=== PATIENT | male | born 1960 | race African-American/Black ===

== ENCOUNTER 2020-09-07 11:44 | Emergency (ER) | payer OTHER ==
[~2020-09-07] VITALS: Ht 175.3 cm; Wt 113.4 kg
[~2020-09-07 11:44] MED LIST: FLOMAX0.4 MG ORAL; IBUPROFEN600 MG ORAL; NITROFURANTOIN100 M2 ORAL
--- NOTE | 2020-09-07 12:09 | NUR ---
ED Nurse Note: pt presents to ED c/o epigastric abd px X 2 weeks that has been internittent but constant in the last couple days. pt also reports N/V, denies diarrhea, denies urinary symptoms or hematemesis. pt states that the pain is non-radiating, nothing has made it better or worse, has been constant since around 0830 today. vitals are noted to be stable on triage.
[2020-09-07 12:11] VITALS: BP 124/62
[2020-09-07] MEDS ORDERED: Omnipaque-300 100ml vial INJ PRN (12:15)
[2020-09-07] MEDS ORDERED: Ketorolac 30mg Inj IV ONE (12:15)
[2020-09-07 12:52] LABS: HEMATOCRIT 49.1 % (42.0-52.0); MEAN CORPUSCULAR VOLUME 87 FL (80-99); PLATELET COUNT 244 K/UL (150-450); RED BLOOD COUNT 5.67 M/UL (4.70-6.10); RED CELL DISTRIBUTION WIDTH 14.3 % (11.6-14.8); WHITE BLOOD COUNT 6.6 K/UL (4.8-10.8)
[2020-09-07 12:58] LABS: INR 1.2 (0.9-1.1)
[2020-09-07 13:28] LABS: ANION GAP 8 mmol/L (5-15); BLOOD UREA NITROGEN 17 mg/dL (7-18); CALCIUM 8.8 MG/DL (8.5-10.1); CARBON DIOXIDE 25 MMOL/L (21-32); CHLORIDE 103 MMOL/L (98-107); CREATININE 1.2 MG/DL (0.55-1.30); POTASSIUM 3.9 MMOL/L (3.5-5.1); SODIUM 136 MMOL/L (136-145)
[2020-09-07 13:34] LABS: APPEARANCE,URINE SLIGHTLY CLOUDY; BILIRUBIN, URINE 1+ (NEGATIVE); COLOR,URINE BROWN; GLUCOSE, URINE (UA) NEGATIVE (NEGATIVE); KETONES,URINE 3+ (NEGATIVE); LEUKOCYTE ESTERASE ,URINE 1+ (NEGATIVE); NITRITE,URINE NEGATIVE (NEGATIVE); PH,URINE 5 (4.5-8.0); PROTEIN,URINE 4+ (NEGATIVE); UROBILINOGEN,URINE 8 MG/DL (0.0-1.0)
[2020-09-07 13:36] LABS: ALANINE AMINOTRANSFERASE 44 U/L (12-78); ALBUMIN 3.4 G/DL (3.4-5.0); ALBUMIN/GLOBULIN RATIO 0.8 (1.0-2.7); ALKALINE PHOSPHATASE 73 U/L (46-116); ASPARTATE AMINO TRANSFERASE 21 U/L (15-37); BILIRUBIN,TOTAL 0.9 MG/DL (0.2-1.0); CREATINE KINASE 145 U/L (26-308)
--- NOTE | 2020-09-07 14:00 | NUR ---
ED Nurse Note: pt gave verbal approval to update father (Neil) on his condition and lab/radiology results
--- NOTE | 2020-09-07 14:46 | Diagnostic Imaging Report ---
CT ABDOMEN AND PELVIS WITH CONTRAST INDICATION: Abdominal pain TECHNIQUE: Continuous helical transaxial imaging of the abdomen and pelvis was obtained from the lung bases to the pubic symphysis during intravenous contrast administration. Coronal 2-D reformats were also obtained. Study obtained in a Siemens sensation [address] Automatic Exposure Control was utilized. Total Dose length Product (DLP): 1081.[address] Dose Index Volume (CTDIvol): 20.9 mGy COMPARISON: None FINDINGS: Lower chest:: Small right pleural effusion. Moderate cardiomegaly. Hepatobiliary:: Unremarkable. Genitourinary:: Urinary bladder is under distended, limiting evaluation. No hydronephrosis or nephrolithiasis. Bilateral renal cysts. Adrenals:: Right adrenal gland is unremarkable. Adjacent to the left adrenal gland, there is a 4.1 x 3.3 cm intermediate density mass. Pancreas:: Unremarkable. Gastrointestinal:: No evidence of obstruction. Appendix is normal. Extensive colonic diverticulosis without evidence of acute diverticulitis. Spleen: : There is geographic hypoenhancement of the central spleen. Peritoneum:: No free fluid or free. Bones and soft tissues:: There are multilevel discogenic degenerative changes of the visualized spine. IMPRESSION: 1. Colonic diverticulosis without evidence of acute diverticulitis. 2. Small right pleural effusion. 3. Left upper quadrant intermediate density mass, presumably arising from the left adrenal gland, though differential diagnosis includes other etiologies such as pancreatic pseudocyst. Further evaluation on nonemergent basis with MRI with contrast (adrenal protocol) is recommended. 4. Patchy hypoenhancement of the central spleen, which is nonspecific but may be related to prior infarct. The CT scanner at [facility] is accredited by the [employer] and the scans are performed using protocols designed to limit radiation exposure to as low as reasonably achievable to attain images of sufficient resolution adequate for diagnostic evaluation.
--- NOTE | 2020-09-07 15:04 | Emergency Room Report ---
History of Present Illness General Chief Complaint: Abdominal Pain Source: Patient Present Illness HPI 60-year-old male with history of CHF currently on Lasix and carvedilol here complaining of several days of abdominal pain few bouts of nonbloody emesis. Denies any constipation or diarrhea. Denies bloody stools. Denies bloody emesis. Denies chest pain, shortness of breath, headache and dizziness. Report s that has been taking carvedilol and Lasix on and off. Has been taking no more than 100 L a day fluid bardales. Denies any urinary symptoms at this time. Denies recent abdominal surgery. Allergies: Coded Allergies: No Known Allergies (Unverified , 04/20/16) COVID-19 Screening Contact w/high risk pt: No Experienced COVID-19 symptoms?: No COVID-19 Testing performed REACTOR FUELING SUPERVISOR: No Patient History Past Medical History: see triage record Past Surgical History: none Pertinent Family History: none Immunizations: UTD Reviewed Nursing Documentation: PMH: Agreed; PSxH: Agreed Nursing Documentation-PMH Past Medical History: No History, Except For Hx Cardiac Problems: Yes - kidney stones, chf Review of Systems All Other Systems: negative except mentioned in HPI Physical Exam Vital Signs Date Time Temp Pulse Resp B/P (MAP) Pulse Ox O2 Delivery O2 Flow Rate FiO2 09/07/20 11:54 98.1 96 19 124/62 (82) 99 Room Air Sp02 EP Interpretation: reviewed, normal General Appearance: no apparent distress, alert, GCS 15, non-toxic Head: normocephalic, atraumatic Eyes: bilateral eye normal inspection, bilateral eye PERRL ENT: hearing grossly normal, normal pharynx, no angioedema, normal voice Neck: full range of motion, supple/symm/no masses Respiratory: chest non-tender, lungs clear, normal breath sounds, no rhonchi, no respiratory distress, no retraction, speaking full sentences Cardiovascular #1: regular rate, rhythm, no edema, no murmur Cardiovascular #2: 2+ carotid (R), 2+ carotid (L), 2+ radial (R), 2+ radial (L), 2+ dorsalis pedis (R), 2+ dorsalis pedis (L) Gastrointestinal: non tender, no organomegaly, no peritonitis, no bruit, no guarding, no hernia, no pulsatile mass, no rebound Genitourinary: no CVA tenderness Musculoskeletal: back normal Neurologic: alert, motor strength/tone normal, oriented x3, sensory intact, responsive, speech normal Psychiatric: judgement/insight normal, memory normal, mood/affect normal, no suicidal/homicidal ideation Skin: no rash Lymphatic: no adenopathy Medical Decision Making PA Attestation All my diagnosis and treatment plans were reviewed ad discussed with my supervising physician Dr. Espinoza Diagnostic Impression: Primary Impression: Diverticulosis Additional Impressions: CHF (congestive heart failure) UTI (urinary tract infection) ER Course 60-year-old male with history of CHF currently on Lasix and carvedilol here co mplaining of several days of abdominal pain few bouts of nonbloody emesis. Denies any constipation or diarrhea. Denies bloody stools. Denies bloody emesis. Denies chest pain, shortness of breath, headache and dizziness. Reports that has been taking carvedilol and Lasix on and off. Has been taking no more than 100 L a day fluid bardales. Denies any urinary symptoms at this time. Denies recent abdominal surgery. Ddx considered but are not limited to: appendicitis, cholecystis, gastritis, gastroenteritis, UTI, pylonephritis, SBO, diverticulitis, influenza with GI manifestation, LA, pancreatitis Vital signs: are WNL, pt. is afebrile H&PE are most consistent with: Diverticulosis, CHF, UTI ORDERS: abdominal CT, abdominal pain set, EKG, Flagyl, Keflex to help cover for UTI as well as diverticulosis with possibility of diverticulitis, Zofran ED INTERVENTIONS: Toradol, Zofran DISCHARGE: At this time pt. is stable for d/c to home. Will provide printed patient care instructions, and any necessary prescriptions. Care plan and follow up instructions have been discussed with the patient prior to discharge. Patient take medication as directed, follow primary care provider, continue taking Lasix and carvedilol, follow-up with accelerator technician, if worsening symptoms return to the emergency room. Also advised for GI consult. EKG Diagnostic Results Rate: normal Rhythm: NSR ST Segments: no acute changes Other Impression No acute ST changes ASA given to the pt in ED: No CT/MRI/US Diagnostic Results CT/MRI/US Diagnostic Results : Imaging Test Ordered: CT abdomen pelvis with contrast Impression IMPRESSION: 1. Colonic diverticulosis without evidence of acute diverticulitis. 2. Small right pleural effusion. 3. Left upper quadrant intermediate density mass, presumably arising from the left adrenal gland, though differential diagnosis includes other etiologies such as pancreatic pseudocyst. Further evaluation on nonemergent basis with MRI with contrast (adrenal protocol) is recommended. 4. Patchy hypoenhancement of the central spleen, which is nonspecific but may be related to prior infarct. The CT scanner at [facility] is accredited by the [employer] and the scans are performed using protocols designed to limit radiation exposure to as low as reasonably achievable to attain images of sufficient res olution adequate for diagnostic evaluation. Last Vital Signs Date Time Temp Pulse Resp B/P (MAP) Pulse Ox O2 Delivery O2 Flow Rate FiO2 09/07/20 12:59 98.1 09/07/20 12:11 96 19 Room Air 09/07/20 12:11 124/62 99 Disposition: HOME, SELF-CARE Condition: Stable Scripts Ondansetron (Zofran) 4 Mg Tablet 4 MG ORAL Q6H PRN for Nausea & Vomiting, #20 TAB Prov: Zion Matthew 09/07/20 Metronidazole* (FLAGYL*) 500 Mg Tablet 500 MG ORAL BID for 7 Days, #14 TAB Prov: Zion Matthew 09/07/20 Cephalexin* (KEFLEX*) 500 Mg Capsule 500 MG ORAL EVERY 6 HOURS for 7 Days, #28 CAP Prov: Zion Matthew 09/07/20 Referrals: NON PHYSICIAN (PCP) Patient Instructions: Diverticulosis, Heart Failure, [id number], Urinary Tract Infection, [id number] Additional Instructions: Take medication as directed, follow-up with your accelerator technician, take your Lasix and your carvedilol every day, if worsening symptoms return to the emergency room Zion Matthew Sep 07, 2020 15:04
[2020-09-07] MEDS ORDERED: ZOFRAN4 M1 ORAL (15:06)
[2020-09-07] MEDS ORDERED: CEPHALEXIN500 MG ORAL (15:06)
[2020-09-07] MEDS ORDERED: METRONIDAZOLE500 MG ORAL (15:06)
--- NOTE | 2020-09-07 15:10 | NUR ---
ER DISCHARGE NOTE: Patient is cleared to be discharged per ERMD, pt is aox4, on room air, with stable vital signs. pt was given dc and prescription instructions, pt was able to verbalize understanding, pt id band and iv site removed without complications. pt is able to ambulate with steady gait. pt took all belongings.
[2020-09-07 15:11] VITALS: BP 124/62
== END 2020-09-07 15:10 | disposition home or self-care (01) ==
LOC: EMR 12:38
DX: K57.30 Diverticulosis of large intestine without perforation or abscess without bleeding (principal); I50.9 Heart failure, unspecified; N39.0 Urinary tract infection, site not specified
CPT/HCPCS: 36415; 74177; 80053; 80307; 81003; 82550; 83690; 83880; 84484; 85007; 85025; 85610; 85730; 93005; 96361; 96374; 96375; 99284; J1885; J2405; J7030; Q9965; S0028

== ENCOUNTER 2020-10-04 06:38 | Inpatient (IN) | payer OTHER ==
[~2020-10-04] VITALS: Ht 175.3 cm; Wt 111.6 kg
[~2020-10-04 06:38] MED LIST changes: +CEPHALEXIN500 MG ORAL; +METRONIDAZOLE500 MG ORAL; +ZOFRAN4 M1 ORAL
--- NOTE | 2020-10-04 06:58 | NUR ---
ED Nurse Note: PT walked into the ED with c/o epigastric abd pain since 09/27/2020. Pt stated he was at the ER one month ago for same s/s and was treated. Pain rated 3/10; dull, constant pain. Pt stated he was coughing with clear phlegm. Denies chest pain, shortness of breath, fever, body chills. Pt is AAOX4 and ambulatory
[2020-10-04 06:59] VITALS: BP 129/58
--- NOTE | 2020-10-04 07:04 | NUR ---
ED Nurse Note: Blood sent to lab for workup
[2020-10-04 07:15] LABS: APPEARANCE,URINE CLOUDY; BILIRUBIN, URINE 2+ (NEGATIVE); GLUCOSE, URINE (UA) NEGATIVE (NEGATIVE); KETONES,URINE 3+ (NEGATIVE); LEUKOCYTE ESTERASE ,URINE 1+ (NEGATIVE); NITRITE,URINE POSITIVE (NEGATIVE); PH,URINE 6 (4.5-8.0); PROTEIN,URINE 4+ (NEGATIVE); UROBILINOGEN,URINE 12 MG/DL (0.0-1.0)
--- NOTE | 2020-10-04 07:15 | NUR ---
ED Nurse Note: Report given to JIAN WALSH
[2020-10-04 07:19] LABS: COLOR,URINE YELLOW
[2020-10-04 07:26] LABS: BASOPHILS % (AUTO) 0.9 % (0.0-2.0); EOSINOPHILS % (AUTO) 0.1 % (0.0-3.0); HEMATOCRIT 48.5 % (42.0-52.0); HEMOGLOBIN 16.2 G/DL (14.2-18.0); LYMPHOCYTES % (AUTO) 11.8 % (20.0-45.0); MEAN CORPUSCULAR VOLUME 86 FL (80-99); NEUTROPHILS % (AUTO) 78.1 % (45.0-75.0); PLATELET COUNT 166 K/UL (150-450); RED BLOOD COUNT 5.65 M/UL (4.70-6.10); RED CELL DISTRIBUTION WIDTH 16.2 % (11.6-14.8); WHITE BLOOD COUNT 8.1 K/UL (4.8-10.8)
[2020-10-04 07:34] LABS: BLOOD UREA NITROGEN 17 mg/dL (7-18); CALCIUM 8.9 MG/DL (8.5-10.1); CREATININE 1.4 MG/DL (0.55-1.30); POTASSIUM 3.3 MMOL/L (3.5-5.1); SODIUM 124 MMOL/L (136-145)
[2020-10-04 07:46] LABS: ALANINE AMINOTRANSFERASE 32 U/L (12-78); ALBUMIN 3.2 G/DL (3.4-5.0); ALBUMIN/GLOBULIN RATIO 0.7 (1.0-2.7); ALKALINE PHOSPHATASE 77 U/L (46-116); ANION GAP 11 mmol/L (5-15); ASPARTATE AMINO TRANSFERASE 29 U/L (15-37); CARBON DIOXIDE 25 MMOL/L (21-32); CHLORIDE 101 MMOL/L (98-107)
[2020-10-04] MEDS ORDERED: cefTRIAXone 1 GM in NS 55 ML IVPB ONE (08:00)
[2020-10-04 08:04] LABS: BILIRUBIN,TOTAL 1.7 MG/DL (0.2-1.0)
[2020-10-04 08:05] LABS: BILIRUBIN,DIRECT 0.8 MG/DL (0.0-0.3)
[2020-10-04 09:00] VITALS: BP 139/76
[2020-10-04] MEDS ORDERED: ENTRESTO 24 MG1 EACH PO (09:10)
[2020-10-04] MEDS ORDERED: SPIRONOLACTONE25 MG ORAL (09:10)
[2020-10-04] MEDS ORDERED: CARVEDILOL3.125 MG ORAL (09:10)
--- NOTE | 2020-10-04 09:21 | Emergency Room Report ---
History of Present Illness General Chief Complaint: Abdominal Pain Source: Patient Present Illness HPI 60-year-old male presents to ED for evaluation. Complaining of epigastric pain. Burning, dull, 6 out of 10, nonradiating. Denies chest pain or shortness of breath. States he also has a cough with frothy sputum. History of CHF. Notes mild leg swelling. States he is compliant with his meds. Denies fevers or chills. No other aggravating relieving factors. Denies any other associated symptoms Allergies: Coded Allergies: No Known Allergies (Unverified , 04/20/16) COVID-19 Screening Contact w/high risk pt: No Experienced COVID-19 symptoms?: No COVID-19 Testing performed ECONOMETRICIAN: No Patient History Past Medical History: CHF Past Surgical History: none Pertinent Family History: none Social History: Denies: smoking, alcohol use, drug use Immunizations: UTD Reviewed Nursing Documentation: PMH: Agreed; PSxH: Agreed Nursing Documentation-PMH Hx Cardiac Problems: Yes - kidney stones, chf Review of Systems All Other Systems: negative except mentioned in HPI Physical Exam Vital Signs Date Time Temp Pulse Resp B/P (MAP) Pulse Ox O2 Delivery O2 Flow Rate FiO2 10/04/20 06:43 98.2 112 16 129/58 (81) 98 Room Air Sp02 EP Interpretation: reviewed, normal General Appearance: no apparent distress, alert, GCS 15, non-toxic Head: normocephalic, atraumatic Eyes: bilateral eye normal inspection, bilateral eye PERRL ENT: hearing grossly normal, normal pharynx, no angioedema, normal voice Neck: full range of motion, supple/symm/no masses Respiratory: chest non-tender, lungs clear, normal breath sounds, speaking full sentences Cardiovascular #1: regular rate, rhythm, no edema Cardiovascular #2: 2+ carotid (R), 2+ carotid (L), 2+ radial (R), 2+ radial (L), 2+ dorsalis pedis (R), 2+ dorsalis pedis (L) Gastrointestinal: normal bowel sounds, non tender, soft, non-distended, no guarding, no rebound Rectal: deferred Genitourinary: normal inspection, no CVA tenderness Musculoskeletal: back normal, normal range of motion, gait/station normal, non- tender, swelling - 1+ pitting edema b/l LEs Neurologic: alert, motor strength/tone normal, oriented x3, sensory intact, responsive, speech normal Psychiatric: judgement/insight normal, memory normal, mood/affect normal, no suicidal/homicidal ideation Reflexes: 3+ bicep (R), 3+ bicep (L), 3+ tricep (R), 3+ tricep (L), 3+ knee (R), 3+ knee (L) Skin: no rash Lymphatic: no adenopathy Medical Decision Making Diagnostic Impression: Primary Impression: CHF (congestive heart failure) Qualified Codes: I50.9 - Heart failure, unspecified Additional Impressions: ACS (acute coronary syndrome) UTI (urinary tract infection) Qualified Codes: N39.0 - Urinary tract infection, site not specified ER Course Hospital Course 60-year-old male presents with epigastric pain, frothy sputum. No fevers or chills Differential diagnoses include: WI/unstable angina, contusion, muscle strain, PTX, rib fracture Clinical course Patient placed on stretcher. on panel monitor. After initial history and physical I ordered labs, EKG, chest x-ray, pepcid labs reviewed- no leukocytosis, hemoglobin/hematocrit stable, Na 1248, trop 0.062, BNP 4743 UA positive bacteria EKG - NSR no acute ischemic changes interpreted by me Chest [id number]-[id number]/CHF Aspirin given. Antibiotics given. Lasix given. Case discussed with Dr. Gonzalez and he agreed to accept the patient to his service for further care and support I. I feel this is a highly complex case requiring extensive working including EKG/Rhythm strip, Xray/CT/US, Blood/urine lab work, repeat exams while in ED, and administration of strong opiates/narcotics for pain control, admission to hospital or close patient follow up. Diagnosis - CHF, ACS, UTI admitted to telemetry in serious condition Laboratory Tests Test 10/04/20 07:00 White Blood Count 8.1 K/UL (4.8-10.8) Red Blood Count 5.65 M/UL (4.70-6.10) Hemoglobin 16.2 G/DL (14.2-18.0) Hematocrit 48.5 % (42.0-52.0) Mean Corpuscular Volume 86 FL (80-99) Mean Corpuscular Hemoglobin 28.6 PG (27.0-31.0) Mean Corpuscular Hemoglobin Concent 33.4 G/DL (32.0-36.0) Red Cell Distribution Width 16.2 % (11.6-14.8) H Platelet Count 166 K/UL (150-450) Mean Platelet Volume 8.1 FL (6.5-10.1) Neutrophils (%) (Auto) 78.1 % (45.0-75.0) H Lymphocytes (%) (Auto) 11.8 % (20.0-45.0) L Monocytes (%) (Auto) 9.0 % (1.0-10.0) Eosinophils (%) (Auto) 0.1 % (0.0-3.0) Basophils (%) (Auto) 0.9 % (0.0-2.0) Urine Color Yellow Urine Appearance Cloudy Urine pH 6 (4.5-8.0) Urine Specific [place] 1.025 (1.005-1.035) Urine Protein 4+ (NEGATIVE) H Urine Glucose (UA) Negative (NEGATIVE) Urine Ketones 3+ (NEGATIVE) H Urine Blood 5+ (NEGATIVE) H Urine Nitrite Positive (NEGATIVE) H Urine Bilirubin 2+ (NEGATIVE) H Urine Ictotest Positive (NEGATIVE) Urine Urobilinogen 12 MG/DL (0.0-1.0) H Urine Leukocyte Esterase 1+ (NEGATIVE) H Urine RBC 40-60 /HPF (0 - 0) H Urine WBC 2-4 /HPF (0 - 0) Urine Squamous Epithelial Cells Moderate /LPF (NONE/OCC) H Urine Bacteria Moderate /HPF (NONE) H Urine Mucus Many /LPF (NONE/OCC) H Sodium Level 124 MMOL/L (136-145) L Potassium Level 3.3 MMOL/L (3.5-5.1) L Chloride Level 101 MMOL/L (98-107) Carbon Dioxide Level 25 MMOL/L (21-32) Anion Gap 11 mmol/L (5-15) Blood Urea Nitrogen 17 mg/dL (7-18) Creatinine 1.4 MG/DL (0.55-1.30) H Estimat Glomerular Filtration Rate > 60 mL/min (>60) Glucose Level 149 MG/DL (74-106) H Calcium Level 8.9 MG/DL (8.5-10.1) Total Bilirubin 1.7 MG/DL (0.2-1.0) H Direct Bilirubin 0.8 MG/DL (0.0-0.3) H Aspartate Amino Transf (AST/SGOT) 29 U/L (15-37) Alanine Aminotransferase (ALT/SGPT) 32 U/L (12-78) Alkaline Phosphatase 77 U/L (46-116) Troponin I 0.062 ng/mL (0.000-0.056) Pro-B-Type Natriuretic Peptide 4743 pg/mL (0-125) H Total Protein 7.5 G/DL (6.4-8.2) Albumin 3.2 G/DL (3.4-5.0) L Globulin 4.3 g/dL Albumin/Globulin Ratio 0.7 (1.0-2.7) L Lipase 71 U/L (73-393) L EKG Diagnostic Results Troponin ordered: Yes Rate: normal Rhythm: NSR ST Segments: no acute changes ASA given to the pt in ED: Yes Rhythm Strip Diag. Results EP Interpretation: yes Rhythm: NSR, no PVC's, no ectopy Chest X-Ray Diagnostic Results Chest X-Ray Diagnostic Results : Chest X-Ray Ordered: Yes # of Views/Limited/Complete: 1 View Indication: Shortness of Breath EP Interpretation: Yes Interpretation: no consolidation, no effusion, other - cardiomegaly Impression: Other - chf Electronically Signed by: Electronically signed by Van Garcia MD Last Vital Signs Date Time Temp Pulse Resp B/P (MAP) Pulse Ox O2 Delivery O2 Flow Rate FiO2 10/04/20 06:59 112 16 Room Air 10/04/20 06:59 98.2 129/58 98 Status: improved Disposition: ADMITTED INPATIENT Condition: Serious Referrals: NON PHYSICIAN (PCP) Van Garcia MD Oct 04, 2020 09:21
[2020-10-04 10:52] VITALS: BP 128/82
--- NOTE | 2020-10-04 10:58 | NUR ---
ED Nurse Note: Report given to Billy WALSH.
--- NOTE | 2020-10-04 11:03 | Consultation ---
History of Present Illness General Date patient seen: Oct 04, 2020 Time patient seen: 11:00 Chief Complaint: Abdominal Pain Referring physician: PCP Reason for Consultation: R/o infection Present Illness HPI 60yo M w/ CHF who p/w epigastric pain. Pt reports 2-3 days of worsening frothy cough and BLE swelling. Has been drinking the amount of water told to by his doctors, never had leg swelling like this before. ROS neg for fevers/chills, NVD, CP, SOB, sick contacts. No dysuria. No COVID contacts Lives at home w/ , she is well. Works at [employer] Been on vacation the past 3 weeks. No allergies to abx Allergies: Coded Allergies: No Known Allergies (Unverified , 04/20/16) Medication History Scheduled Carvedilol* (Carvedilol*), 3.125 MG ORAL EVERY 12 HOURS, (Reported) Cephalexin* (Keflex*), 500 MG ORAL EVERY 6 HOURS Metronidazole* (Flagyl*), 500 MG ORAL BID Nitrofurantoin Monohyd/M-Cryst* (Macrobid 100 Mg*), 100 MG ORAL EVERY 12 HOURS Sacubitril/Valsartan (Entresto 24 mg-26 mg Tablet), 1 EACH PO BID, (Reported) Spironolactone* (Aldactone*), 25 MG ORAL DAILY, (Reported) Tamsulosin HCl (Flomax), 0.4 MG ORAL DAILY Scheduled PRN Ibuprofen (Motrin), 600 MG ORAL Q6H PRN for For Pain Ondansetron (Zofran), 4 MG ORAL Q6H PRN for Nausea & Vomiting Patient History Healthcare decision maker Resuscitation status Advanced Directive on File Review of Systems ROS Narrative 10-point neg ROS except as noted in HPI Physical Exam Physical Exam Narrative Gen: NAD HEENT: NCAT Pulm: BL chest rise on RA Abd: Obese, soft, NTND Ext: No c/c. 1+ pitting edema of BLE Neuro: Awake, interactive, alert Last 24 Hour Vital Signs Date Time Temp Pulse Resp B/P (MAP) Pulse Ox O2 Delivery O2 Flow Rate FiO2 10/04/20 10:52 98.6 79 18 128/82 100 Room Air 10/04/20 09:00 98.4 81 15 139/76 99 Room Air 10/04/20 06:59 112 16 Room Air 10/04/20 06:59 98.2 112 16 129/58 98 Room Air 10/04/20 06:43 98.2 112 16 129/58 (81) 98 Room Air Laboratory Tests Test 10/04/20 07:00 White Blood Count 8.1 K/UL (4.8-10.8) Red Blood Count 5.65 M/UL (4.70-6.10) Hemoglobin 16.2 G/DL (14.2-18.0) Hematocrit 48.5 % (42.0-52.0) Mean Corpuscular Volume 86 FL (80-99) Mean Corpuscular Hemoglobin 28.6 PG (27.0-31.0) Mean Corpuscular Hemoglobin Concent 33.4 G/DL (32.0-36.0) Red Cell Distribution Width 16.2 % (11.6-14.8) H Platelet Count 166 K/UL (150-450) Mean Platelet Volume 8.1 FL (6.5-10.1) Neutrophils (%) (Auto) 78.1 % (45.0-75.0) H Lymphocytes (%) (Auto) 11.8 % (20.0-45.0) L Monocytes (%) (Auto) 9.0 % (1.0-10.0) Eosinophils (%) (Auto) 0.1 % (0.0-3.0) Basophils (%) (Auto) 0.9 % (0.0-2.0) Urine Color Yellow Urine Appearance Cloudy Urine pH 6 (4.5-8.0) Urine Specific [place] 1.025 (1.005-1.035) Urine Protein 4+ (NEGATIVE) H Urine Glucose (UA) Negative (NEGATIVE) Urine Ketones 3+ (NEGATIVE) H Urine Blood 5+ (NEGATIVE) H Urine Nitrite Positive (NEGATIVE) H Urine Bilirubin 2+ (NEGATIVE) H Urine Ictotest Positive (NEGATIVE) Urine Urobilinogen 12 MG/DL (0.0-1.0) H Urine Leukocyte Esterase 1+ (NEGATIVE) H Urine RBC 40-60 /HPF (0 - 0) H Urine WBC 2-4 /HPF (0 - 0) Urine Squamous Epithelial Cells Moderate /LPF (NONE/OCC) H Urine Bacteria Moderate /HPF (NONE) H Urine Mucus Many /LPF (NONE/OCC) H Sodium Level 124 MMOL/L (136-145) L Potassium Level 3.3 MMOL/L (3.5-5.1) L Chloride Level 101 MMOL/L (98-107) Carbon Dioxide Level 25 MMOL/L (21-32) Anion Gap 11 mmol/L (5-15) Blood Urea Nitrogen 17 mg/dL (7-18) Creatinine 1.4 MG/DL (0.55-1.30) H Estimat Glomerular Filtration Rate > 60 mL/min (>60) Glucose Level 149 MG/DL (74-106) H Calcium Level 8.9 MG/DL (8.5-10.1) Total Bilirubin 1.7 MG/DL (0.2-1.0) H Direct Bilirubin 0.8 MG/DL (0.0-0.3) H Aspartate Amino Transf (AST/SGOT) 29 U/L (15-37) Alanine Aminotransferase (ALT/SGPT) 32 U/L (12-78) Alkaline Phosphatase 77 U/L (46-116) Troponin I 0.062 ng/mL (0.000-0.056) Pro-B-Type Natriuretic Peptide 4743 pg/mL (0-125) H Total Protein 7.5 G/DL (6.4-8.2) Albumin 3.2 G/DL (3.4-5.0) L Globulin 4.3 g/dL Albumin/Globulin Ratio 0.7 (1.0-2.7) L Lipase 71 U/L (73-393) L Height (Feet): 5 Height (Inches): 9.00 Weight (Pounds): 255 Assessment/Plan Assessment/Plan: 60yo M with: Afebrile Normal WBC Lymphopenia Cough, leg swelling, r/o CHF R/o UTI - UA neg 10/04 UA neg, UCx p CXR p CHF Plan: Monitor off abx given no s/sx of infection F/u CXR COVID PCR screen given pandemic (low s/f this patient) Monitor CBC, CMP Monitor resp status Monitor temp curve, hemodynamics D/w RN Thank you for this consult. [facility] will continue to follow. Anitha Zayas M.D. Oct 04, 2020 11:02
--- NOTE | 2020-10-04 11:17 | NUR ---
ED Nurse Note: Covid rapid swab sent.
--- NOTE | 2020-10-04 12:11 | Cardiac Electrophysiology PN ---
Subjective Subjective Seen in Er and consult dictated [id number] Objective Last 24 Hour Vital Signs Date Time Temp Pulse Resp B/P (MAP) Pulse Ox O2 Delivery O2 Flow Rate FiO2 10/04/20 10:52 98.6 79 18 128/82 100 Room Air 10/04/20 09:00 98.4 81 15 139/76 99 Room Air 10/04/20 06:59 112 16 Room Air 10/04/20 06:59 98.2 112 16 129/58 98 Room Air 10/04/20 06:43 98.2 112 16 129/58 (81) 98 Room Air Laboratory Tests Test 10/04/20 07:00 White Blood Count 8.1 K/UL (4.8-10.8) Red Blood Count 5.65 M/UL (4.70-6.10) Hemoglobin 16.2 G/DL (14.2-18.0) Hematocrit 48.5 % (42.0-52.0) Mean Corpuscular Volume 86 FL (80-99) Mean Corpuscular Hemoglobin 28.6 PG (27.0-31.0) Mean Corpuscular Hemoglobin Concent 33.4 G/DL (32.0-36.0) Red Cell Distribution Width 16.2 % (11.6-14.8) H Platelet Count 166 K/UL (150-450) Mean Platelet Volume 8.1 FL (6.5-10.1) Neutrophils (%) (Auto) 78.1 % (45.0-75.0) H Lymphocytes (%) (Auto) 11.8 % (20.0-45.0) L Monocytes (%) (Auto) 9.0 % (1.0-10.0) Eosinophils (%) (Auto) 0.1 % (0.0-3.0) Basophils (%) (Auto) 0.9 % (0.0-2.0) Urine Color Yellow Urine Appearance Cloudy Urine pH 6 (4.5-8.0) Urine Specific [place] 1.025 (1.005-1.035) Urine Protein 4+ (NEGATIVE) H Urine Glucose (UA) Negative (NEGATIVE) Urine Ketones 3+ (NEGATIVE) H Urine Blood 5+ (NEGATIVE) H Urine Nitrite Positive (NEGATIVE) H Urine Bilirubin 2+ (NEGATIVE) H Urine Ictotest Positive (NEGATIVE) Urine Urobilinogen 12 MG/DL (0.0-1.0) H Urine Leukocyte Esterase 1+ (NEGATIVE) H Urine RBC 40-60 /HPF (0 - 0) H Urine WBC 2-4 /HPF (0 - 0) Urine Squamous Epithelial Cells Moderate /LPF (NONE/OCC) H Urine Bacteria Moderate /HPF (NONE) H Urine Mucus Many /LPF (NONE/OCC) H Sodium Level 124 MMOL/L (136-145) L Potassium Level 3.3 MMOL/L (3.5-5.1) L Chloride Level 101 MMOL/L (98-107) Carbon Dioxide Level 25 MMOL/L (21-32) Anion Gap 11 mmol/L (5-15) Blood Urea Nitrogen 17 mg/dL (7-18) Creatinine 1.4 MG/DL (0.55-1.30) H Estimat Glomerular Filtration Rate > 60 mL/min (>60) Glucose Level 149 MG/DL (74-106) H Calcium Level 8.9 MG/DL (8.5-10.1) Total Bilirubin 1.7 MG/DL (0.2-1.0) H Direct Bilirubin 0.8 MG/DL (0.0-0.3) H Aspartate Amino Transf (AST/SGOT) 29 U/L (15-37) Alanine Aminotransferase (ALT/SGPT) 32 U/L (12-78) Alkaline Phosphatase 77 U/L (46-116) Troponin I 0.062 ng/mL (0.000-0.056) Pro-B-Type Natriuretic Peptide 4743 pg/mL (0-125) H Total Protein 7.5 G/DL (6.4-8.2) Albumin 3.2 G/DL (3.4-5.0) L Globulin 4.3 g/dL Albumin/Globulin Ratio 0.7 (1.0-2.7) L Lipase 71 U/L (73-393) L Hudson Garcia MD Oct 04, 2020 12:11
--- NOTE | 2020-10-04 12:50 | NUR ---
ED Nurse Note: Patient transferred to telemetry unit with all his belongings. Pt stable for transfer.
--- NOTE | 2020-10-04 13:32 | NUR ---
NURSE NOTES: Patient transferred to Tele from ED. Patient stable VS and AAOx4. The patient belonging list verified and acknowledged. the patients bed is in lowest position, locked and side rails x3. patient educated on room and call light within reach. The patient is on room air and oxygen saturation within normal limits. MD notified of transfer and awaiting orders.
--- NOTE | 2020-10-04 14:07 | Consultation ---
Consult Note Consult Note I am asked to evaluate the patient at the request of Dr. Gonzalez for low serum sodium and fluid and electrolyte management Also patient have serum creatinine of 1.4 Chief Complaint: Abdominal Pain Source: Patient HPI 60-year-old male presents to ED for evaluation. Complaining of epigastric pain. Burning, dull, 6 out of 10, nonradiating. Denies chest pain or shortness of b reath. States he also has a cough with frothy sputum. History of CHF. Notes mild leg swelling. States he is compliant with his meds. Denies fevers or chills. No other aggravating relieving factors. Denies any other associated symptoms Allergies: No Known Allergies (Unverified , 04/20/16) COVID-19 Screening Contact w/high risk pt: No Experienced COVID-19 symptoms?: No COVID-19 Testing performed ACCOUNT PROCESSOR: No Past Medical History: CHF Social History: Denies: smoking, alcohol use, drug use Immunizations: UTD Reviewed Nursing Documentation: PMH: Agreed; PSxH: Agreed Hx Cardiac Problems: Yes - kidney stones, chf Vital Signs Date Time Temp Pulse Resp B/P (MAP) Pulse Ox O2 Delivery O2 Flow Rate FiO2 10/04/20 06:43 98.2 112 16 129/58 (81) 98 Room Air PHYSICAL EXAMINATION: VITAL SIGNS: Show blood pressure of 120/82, pulse 79, respirations 18, and temperature 98.6 HEAD AND NECK: Show positive JVD. LUNGS: Decreased breath sounds. CARDIOVASCULAR: Shows regular S1 and S2 with no gallop. ABDOMEN: Soft. EXTREMITIES: 1+ pitting edema. LABORATORY AND DIAGNOSTIC DATA: Labs show white count of 8.1, hemoglobin 16.2, hematocrit 48.5, and platelet count is 166,000. Sodium 124, potassium 3.3, BUN 17, creatinine 1.4, and glucose of 149. Troponin is 0.062. Total bilirubin is 1.7. . 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 Suggestions: 2D echocardiogram Kidney ultrasound 250 cc saline 3% once Monitor electrolytes Hyponatremia work-up Optimize cardiac status Per orders Hari Telles MD Oct 04, 2020 14:07
--- NOTE | 2020-10-04 15:00 | Consultation ---
DATE OF CONSULTATION: 10/04/2020 CARDIOLOGY CONSULTATION CONSULTING PHYSICIAN: Hudson Garcia MD. REFERRING PHYSICIAN: Alex Gonzalez DO. REASON FOR CONSULTATION: Management of congestive heart failure. HISTORY OF PRESENT ILLNESS: The patient is a 60-year-old gentleman with history of nonischemic dilated cardiomyopathy for over two years that was confirmed by cardiac catheterization at [facility]. The patient has been on optimized medical therapy including Coreg, Entresto, Aldactone, and Lasix. The patient came to the emergency room complaining of epigastric pain that was 6/10 and was nonradiating. The patient also had a cough with frothy sputum. The patient also had increased lower extremity edema and said he has been compliant with his medication. Cardiology consultation was obtained for further evaluation. REVIEW OF SYSTEMS: Negative other than what was mentioned in the history of present illness. PAST MEDICAL HISTORY: As mentioned above. FAMILY HISTORY: Noncontributory. SOCIAL HISTORY: He lives at home. Does not smoke, drink alcohol, or use drugs. PHYSICAL EXAMINATION: VITAL SIGNS: Show blood pressure of 120/82, pulse 79, respirations 18, and temperature 98.6 HEAD AND NECK: Show positive JVD. LUNGS: Decreased breath sounds. CARDIOVASCULAR: Shows regular S1 and S2 with no gallop. ABDOMEN: Soft. EXTREMITIES: 1+ pitting edema. LABORATORY AND DIAGNOSTIC DATA: Labs show white count of 8.1, hemoglobin 16.2, hematocrit 48.5, and platelet count is 166,000. Sodium 124, potassium 3.3, BUN , creatinine 1.4, and glucose of 149. Troponin is 0.062. Total bilirubin is 1.7. ASSESSMENT AND PLAN: 1. Exacerbation of congestive heart failure. His BNP is more than 4700. I will start the patient on Lasix 40 mg IV b.i.d. and resume Coreg, Entresto, and Aldactone. We will repeat the echocardiogram for further evaluation and management. 2. Hypertension. Continue current heart failure therapy. 3. Frothy cough. 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 4. Benign prostatic hypertrophy. 5. Urinary tract infection. The patient was evaluated by Dr. Zayas, will be monitored off antibiotic at this time. Thank you very much for allowing me to participate in the care of this patient. Please do not hesitate to contact me for any questions regarding my evaluation. Hudson Garcia M.D. DR: SHOBHA JOB#: [id number] CC:
[2020-10-04 16:00] VITALS: BP 124/73
[2020-10-04] MEDS ORDERED: NaCl 3% 500ml 250 ML IV ONE (16:00)
--- NOTE | 2020-10-04 18:59 | Diagnostic Imaging Report ---
Indication: Acute renal failure Technique: Grayscale and duplex images of the kidneys, retroperitoneum, and bladder were obtained. Comparison: none Findings: Right kidney measures 11.1 cm in length. Left kidney measures 11.2 cm in length. Both kidneys demonstrate normal echogenicity. No hydronephrosis. Echogenic shadowing focus is seen in the left upper pole renal sinus. There are small bilateral renal cysts.. Normal inferior vena cava. Bladder demonstrates slight thickening of the posterior wall. Impression: Focal posterior bladder wall thickening. Could indicate a mucosal lesion. Consider cystoscopy. Left renal shadowing focus, could represent a calculus versus arterial calcification.
--- NOTE | 2020-10-04 19:00 | History and Physical Report ---
DATE OF ADMISSION: 10/04/2020 TIME SEEN: Approximate time is 1 p.m. CONSULTANTS: 1. . 2. Dave Clemente M.D. CHIEF COMPLAINT: Shortness of breath. BRIEF HISTORY: This is a 60-year-old male who presents with 2 days of increased shortness of breath at home, came to [facility], diagnosed with CHF, ACS, and UTI, and being actually admitted to telemetry for further care. Currently calm in bed, slight short of breath. No complaint. REVIEW OF SYSTEMS: No chest pain. Slight short of breath. No nausea, vomiting, or diarrhea. PAST MEDICAL HISTORY: Includes ACS, CHF, hypertension. PAST SURGICAL HISTORY: Unknown. ALLERGIES: Denies. SOCIAL HISTORY: Unable to obtain. The patient is sleepy, lethargic. PHYSICAL EXAMINATION: VITAL SIGNS: Temperature is 98, pulse is 85, respirations 16, blood pressure 119/77. CARDIOVASCULAR: No murmur. LUNGS: Poor air exchange. GASTROINTESTINAL: Bowel sounds distant. EXTREMITIES: Showed no cyanosis or edema. NEUROLOGIC: The patient moves all extremities, slightly weak. LABORATORY AND DIAGNOSTIC DATA: Labs at this time show CBC is normal. BMP shows sodium 124, potassium 3.3, creatinine 1.4, glucose 149. Troponin 0.062, BNP is 4743. Albumin 3.2. Lipase 71. Urinalysis showed 1+ leukocyte esterase. MEDICATIONS: Include spironolactone, furosemide, carvedilol, potassium, ceftriaxone, famotidine, aspirin. ASSESSMENT: Shortness of breath, CHF, ACS, UTI, hyponatremia, malnutrition, hypertension. PLAN: O2, pulmonary treatment as needed. Blood pressure and pain control. Dietary followup. Antibiotics as per Infectious Disease. We will add nephrology evaluation by Dr. Telles. Alex Gonzalez D.O. DR: GERMAIN JOB#: [id number] CC:
--- NOTE | 2020-10-04 19:20 | Diagnostic Imaging Report ---
Indication: Cough Technique: One view of the chest Comparison: none Findings: The heart is enlarged. Lungs and pleural spaces are clear. Impression: Cardiomegaly. No acute process
--- NOTE | 2020-10-04 19:45 | NUR ---
NURSE NOTES: Receive a report from JILLIAN Smith. Round is made. Pt is awake and alert. No chest pain/discomfort/palpitation noted. Noted blood tinged sputum in the cup, which was notified to Cory Oliveros by AM nurse. 3% NACL is running on rt AC as ordered. Call light within reach. Will continue to follow up.
[2020-10-04 20:00] VITALS: BP 108/68
--- NOTE | 2020-10-04 20:13 | NUR ---
NURSE HAND-OFF REPORT: Important Events on Shift:[Transferred from ED, 3% saline IVF] Patient Status: [Full code] Diet: [Low Sodium Diet] Pending Orders: [N/A] Pending Results/Labs:[N/A] Pending MD notification:[N/A] Latest Vital Signs: Temperature 98.0 , Pulse 105 , B/P 124 /73 , Respiratory Rate 18 , O2 SAT 98 , Room Air, O2 Flow Rate . Vital Sign Comment: [] EKG Rhythm: Sinus Tachycardia Rhythm change?: N MD Notified?: - MD Response: Latest Mccabe Fall Score: 20 Fall Risk: Low Risk Safety Measures: Call light Within Reach, Bed Alarm , Side Rails Side Rails x2, Bed position Low and Locked. Fall Precautions: Patient Fall Education Report given to [JILLIAN Wells].
--- NOTE | 2020-10-04 20:14 | Consultation ---
DATE OF CONSULTATION: 10/04/2020 PULMONARY CONSULTATION CONSULTING PHYSICIAN: Navneet Oliveros MD HISTORY OF PRESENT ILLNESS: This is a 60-year-old male who presented with epigastric pain. He has history of CHF. He reports he is having worsening lower extremity pain and swelling. He denies any COVID contacts. He was seen and admitted to the hospital. His initial COVID testing has been found to be negative. He is currently saturating well on room air 99%. In the hospital, he was seen also by Cardiology. He has a history of nonischemic dilated cardiomyopathy and is on optimal therapy. REVIEW OF SYSTEMS: Denies any headaches, hematemesis, melena, hematochezia, night sweats, or weight loss. PAST MEDICAL HISTORY: Notable for congestive heart failure. PHYSICAL EXAMINATION: GENERAL: Reveals a 60-year-old male. HEENT: Unremarkable. CHEST: Shows decreased breath sounds bilaterally. HEART: Normal heart sounds. ABDOMEN: Soft. EXTREMITIES: There is 1+ edema. LABORATORY DATA: Lab testing shows normal CBC. Creatinine 1.4. Troponin 0.06. Patient underwent an x-ray, which showed cardiomegaly, evidence of heart failure. IMPRESSION: 1. Pulmonary edema. 2. Cardiomyopathy. 3. Acute coronary syndrome. DISCUSSION: Admit to the hospital. Predominant care per Cardiology. He would need the diuretics. We will order oxygen as needed. We will follow carefully. . Navneet Oliveros M.D. DR: FAHAD JOB#: [id number] CC:
--- NOTE | 2020-10-04 20:25 | NUR ---
NURSE NOTES: Left Dr. Gonzalez for pt's discomfort, coughing with blood tinged sputum.
--- NOTE | 2020-10-04 20:40 | NUR ---
Left a message for Dr. Oliveros for pt's sputum and cough.
--- NOTE | 2020-10-04 22:30 | NUR ---
NURSE NOTES: Done EKG d/t rhythm strip showed one time PVC. Pt is asymptomatic-no chest pain/ no SOB/ no palpitatio except epigastric discomfort and left side wendi mild pain. VSS are stable.
--- NOTE | 2020-10-04 22:45 | NUR ---
NURSE NOTES: CN left a message to Dr. Garcia.
[2020-10-05] VITALS: BP 101/65
--- NOTE | 2020-10-05 02:27 | Cardiology Report ---
APPROVED REPORT EKG Measurement Heart [id number] [place] [id number] [id number] <Conclusion> Sinus tachycardia Possible Left atrial enlargement Anteroseptal infarct, age undetermined Abnormal ECG
[2020-10-05 04:00] VITALS: BP 103/65
[2020-10-05] MEDS: guaiFENesin 100mg/5ml Liq ud ORAL PRN (05:57)
--- NOTE | 2020-10-05 07:05 | NUR ---
NURSE HAND-OFF REPORT: Important Events on Shift: Rhythm change-notify Dr. Garcia. Rubitussin x1 for cough/ Sputum with blood (+)/ On droplet and contact isolation for PUI Patient Status: [stable] Diet: [Low Sodium Diet] Pending Orders: [] Pending Results/Labs:[] Pending MD notification:[Sputum with blood] Latest Vital Signs: Temperature 98.4 , Pulse 106 , B/P 103 /65 , Respiratory Rate 20 , O2 SAT 97 , Room Air, O2 Flow Rate . Vital Sign Comment: [] EKG Rhythm: Sinus Tachycardia Rhythm change?: N MD Notified?: - MD Response: Latest Mccabe Fall Score: 20 Fall Risk: Low Risk Safety Measures: Call light Within Reach, Bed Alarm , Side Rails Side Rails x2, Bed position Low and Locked. Fall Precautions: Patient Fall Education Report given to JILLIAN Smith. Round is done.
[2020-10-05 07:42] LABS: EOSINOPHILS % (AUTO) 0.1 % (0.0-3.0); HEMATOCRIT 43.3 % (42.0-52.0); HEMOGLOBIN 14.4 G/DL (14.2-18.0); LYMPHOCYTES % (AUTO) 12.6 % (20.0-45.0); MEAN CORPUSCULAR VOLUME 87 FL (80-99); MONOCYTES % (AUTO) 9.6 % (1.0-10.0); NEUTROPHILS % (AUTO) 76.8 % (45.0-75.0); PLATELET COUNT 181 K/UL (150-450); RED BLOOD COUNT 4.95 M/UL (4.70-6.10); RED CELL DISTRIBUTION WIDTH 15.2 % (11.6-14.8); WHITE BLOOD COUNT 10.1 K/UL (4.8-10.8)
--- NOTE | 2020-10-05 07:49 | NUR ---
NURSE NOTES: Patient seen in bed sitting up eating breakfast. The patient does not complain of any pain and is under no signs of acute distress. The patient has a L 20G AC IV that is patent and intact and saline locked. The patients bed is in lowest position locked, side rails x2, call light within reach, and patient education on pressing call light for any needs.
[2020-10-05 08:00] VITALS: BP 122/80
[2020-10-05 08:13] LABS: PHOSPHORUS 3.3 MG/DL (2.5-4.9)
--- NOTE | 2020-10-05 08:40 | Infectious Diseases Prog Note ---
Assessment/Plan 60yo M with: Afebrile Normal WBC Lymphopenia Cough, leg swelling, r/o CHF R/o UTI - UA neg, no sx / UA neg, UCx p CXR: Cardiomegaly, no acute process COVID rapid test neg, PCR p Hemoptysis, most likely 2/2 pulm congestion 2/2 CHF, less likely 2/2 infection given lack of other s/sx of infection Cr 1.4 10/04 Renal US: Focal posterior bladder wall thickening. Could indicate a mucosal lesion. Consider cystoscopy. Left renal shadowing focus, could represent a calculus versus arterial calcification. CHF Plan: Cont to monitor off abx given no s/sx of infection F/u COVID PCR screen given pandemic (low s/f this patient) Monitor CBC, CMP Monitor resp status Monitor temp curve, hemodynamics D/w RN Thank you for this consult. [facility] will continue to follow. Subjective Allergies: Coded Allergies: No Known Allergies (Unverified , 04/20/16) AF WBC 10.1 NAD on RA Coughing up some blood, less than prior No new complaints, doing well Objective Last 24 Hour Vital Signs Date Time Temp Pulse Resp B/P (MAP) Pulse Ox O2 Delivery O2 Flow Rate FiO2 10/05/20 04:00 104 10/05/20 04:00 98.4 106 20 103/65 (78) 97 10/05/20 00:00 99.4 114 20 101/65 (77) 97 10/05/20 00:00 115 10/04/20 21:56 113 132/82 10/04/20 21:00 Room Air 10/04/20 20:00 99.7 113 18 108/68 (81) 96 10/04/20 20:00 110 10/04/20 16:00 98.0 100 18 124/73 (90) 98 10/04/20 16:00 105 10/04/20 13:39 Room Air 10/04/20 12:50 98.2 85 16 119/77 99 Room Air 10/04/20 10:52 98.6 79 18 128/82 100 Room Air 10/04/20 09:00 98.4 81 15 139/76 99 Room Air Height (Feet): 5 Height (Inches): 9.00 Weight (Pounds): 255 Gen: NAD HEENT: NCAT Pulm: BL chest rise Abd: Non-distended Ext: No c/c/e Skin: No visible rashes Neuro: Awake Microbiology Date/Time Source Procedure Growth Status 10/04/20 11:20 Nasopharynx SARS-CoV-2 RdRp Gene Assay - Final Complete Laboratory Tests Test 10/04/20 17:04 10/05/20 06:45 Urine Osmolality 729 mOsm/kg (429-449) H Urine Random Sodium < 20 mmol/L (20-110) L White Blood Count 10.1 K/UL (4.8-10.8) Red Blood Count 4.95 M/UL (4.70-6.10) Hemoglobin 14.4 G/DL (14.2-18.0) Hematocrit 43.3 % (42.0-52.0) Mean Corpuscular Volume 87 FL (80-99) Mean Corpuscular Hemoglobin 29.0 PG (27.0-31.0) Mean Corpuscular Hemoglobin Concent 33.2 G/DL (32.0-36.0) Red Cell Distribution Width 15.2 % (11.6-14.8) H Platelet Count 181 K/UL (150-450) Mean Platelet Volume 8.8 FL (6.5-10.1) Neutrophils (%) (Auto) 76.8 % (45.0-75.0) H Lymphocytes (%) (Auto) 12.6 % (20.0-45.0) L Monocytes (%) (Auto) 9.6 % (1.0-10.0) Eosinophils (%) (Auto) 0.1 % (0.0-3.0) Basophils (%) (Auto) 1.0 % (0.0-2.0) Sodium Level Pending Potassium Level Pending Chloride Level Pending Carbon Dioxide Level Pending Blood Urea Nitrogen Pending Creatinine Pending Estimat Glomerular Filtration Rate Pending Glucose Level Pending Hemoglobin A1c Pending Uric Acid 6.8 MG/DL (2.6-7.2) Calcium Level Pending Phosphorus Level 3.3 MG/DL (2.5-4.9) Magnesium Level 1.7 MG/DL (1.8-2.4) L Total Bilirubin Pending Gamma Glutamyl Transpeptidase 44 U/L (5-85) Aspartate Amino Transf (AST/SGOT) Pending Alanine Aminotransferase (ALT/SGPT) Pending Alkaline Phosphatase Pending C-Reactive Protein, Quantitative Pending Pro-B-Type Natriuretic Peptide 5553 pg/mL (0-125) H Total Protein Pending Albumin Pending Globulin Pending Triglycerides Level Pending Cholesterol Level Pending LDL Cholesterol Pending HDL Cholesterol Pending Cholesterol/HDL Ratio Pending Current Medications Medications (Trade) Dose Ordered Sig/Damián Route PRN Reason Start Time Stop Time Status Last Admin Dose Admin Acetaminophen (Tylenol) 650 mg Q6H PRN ORAL MILD pain 10/04/20 22:30 11/03/20 22:29 Carvedilol (Coreg) 3.125 mg EVERY 12 HOURS ORAL 10/04/20 21:00 11/03/20 20:59 10/04/20 21:56 Furosemide (Lasix) 40 mg EVERY 12 HOURS IV 10/04/20 21:00 11/03/20 20:59 10/04/20 21:55 Guaifenesin (Robitussin) 150 mg Q6H PRN ORAL For Cough 10/04/20 22:30 01/02/21 22:29 10/05/20 05:57 Spironolactone (Aldactone) 25 mg DAILY ORAL 10/05/20 09:00 11/04/20 08:59 Anitha Zayas M.D. Oct 05, 2020 08:40
[2020-10-05 08:55] LABS: ALANINE AMINOTRANSFERASE 24 U/L (12-78); ALBUMIN 2.8 G/DL (3.4-5.0); ALBUMIN/GLOBULIN RATIO 0.7 (1.0-2.7); ALKALINE PHOSPHATASE 73 U/L (46-116); ANION GAP 6 mmol/L (5-15); ASPARTATE AMINO TRANSFERASE 27 U/L (15-37); BILIRUBIN,TOTAL 1.7 MG/DL (0.2-1.0); BLOOD UREA NITROGEN 21 mg/dL (7-18); CALCIUM 9.1 MG/DL (8.5-10.1); CARBON DIOXIDE 29 MMOL/L (21-32); CHLORIDE 100 MMOL/L (98-107); CHOLESTEROL 128 MG/DL (< 200); CREATININE 1.4 MG/DL (0.55-1.30); HDL CHOLESTEROL 26 MG/DL (40-60); POTASSIUM 4.5 MMOL/L (3.5-5.1); SODIUM 135 MMOL/L (136-145); TRIGLYCERIDES 74 MG/DL (30-150)
[2020-10-05 08:57] LABS: BILIRUBIN,DIRECT 0.8 MG/DL (0.0-0.3)
--- NOTE | 2020-10-05 09:25 | NUR ---
PT EVALUATION NOTE Patient seen for initial evaluation. Patient is independent with all functional mobility without an assistive device. Skilled inpatient PT intervention not warranted, patient discharged from PT. Billy WALSH notified. Addendum: 10/05/20 at 1245 by GABRIELA SCHWARTZ PT Amended: Links added.
[2020-10-05] MEDS: Spironolactone 25mg tab ORAL SCH (09:43)
--- NOTE | 2020-10-05 10:13 | General Progress Note ---
Subjective Allergies: Coded Allergies: No Known Allergies (Unverified , 04/20/16) All Systems: reviewed and negative except above Subjective calm in bed Objective Last 24 Hour Vital Signs Date Time Temp Pulse Resp B/P (MAP) Pulse Ox O2 Delivery O2 Flow Rate FiO2 10/05/20 09:43 110 122/80 10/05/20 04:00 104 10/05/20 04:00 98.4 106 20 103/65 (78) 97 10/05/20 00:00 99.4 114 20 101/65 (77) 97 10/05/20 00:00 115 10/04/20 21:56 113 132/82 10/04/20 21:00 Room Air 10/04/20 20:00 99.7 113 18 108/68 (81) 96 10/04/20 20:00 110 10/04/20 16:00 98.0 100 18 124/73 (90) 98 10/04/20 16:00 105 10/04/20 13:39 Room Air 10/04/20 12:50 98.2 85 16 119/77 99 Room Air 10/04/20 10:52 98.6 79 18 128/82 100 Room Air Intake and Output 10/04/20 10/05/20 19:00 07:00 Intake Total 745 ml Output Total 400 ml 650 ml Balance 345 ml -650 ml Intake Oral 600 ml IV Total 145 ml Output Urine Total 400 ml 650 ml # Voids 1 2 Laboratory Tests 10/04/20 17:04: Urine Osmolality 729H, Urine Random Sodium < 20L 10/05/20 06:45: White Blood Count 10.1, Red Blood Count 4.95, Hemoglobin 14.4, Hematocrit 43.3, Mean Corpuscular Volume 87, Mean Corpuscular Hemoglobin 29.0, Mean Corpuscular Hemoglobin Concent 33.2, Red Cell Distribution Width 15.2H, Platelet Count 181, Mean Platelet Volume 8.8, Neutrophils (%) (Auto) 76.8H, Lymphocytes (%) (Auto) 12.6L, Monocytes (%) (Auto) 9.6, Eosinophils (%) (Auto) 0.1, Basophils (%) (Auto) 1.0, Sodium Level 135#L, Potassium Level 4.5, Chloride Level 100, Carbon Dioxide Level 29, Anion Gap 6, Blood Urea Nitrogen 21H, Creatinine 1.4H, Estimat Glomerular Filtration Rate > 60, Glucose Level 118H, Hemoglobin A1c 6.6H, Uric Acid 6.8, Calcium Level 9.1, Phosphorus Level 3.3, Magnesium Level 1.7L, Total Bilirubin 1.7H, Direct Bilirubin 0.8H, Gamma Glutamyl Transpeptidase 44, Aspartate Amino Transf (AST/SGOT) 27, Alanine Aminotransferase (ALT/SGPT) 24, Alkaline Phosphatase 73, C-Reactive Protein, Quantitative [Pending], Pro-B-Type Natriuretic Peptide 5553H, Total Protein 7.0, Albumin 2.8L, Globulin 4.2, Albumin/Globulin Ratio 0.7L, Triglycerides Level 74, Cholesterol Level 128, LDL Cholesterol 86, HDL Cholesterol 26L, Cholesterol/HDL Ratio 4.9H Height (Feet): 5 Height (Inches): 9.00 Weight (Pounds): 255 General Appearance: lethargic EENT: normal ENT inspection Neck: normal alignment Cardiovascular: normal peripheral pulses, normal rate, regular rhythm Respiratory/Chest: chest wall non-tender, lungs clear, normal breath sounds Abdomen: normal bowel sounds, non tender, soft Extremities: normal inspection Edema: no edema noted Arm (L), no edema noted Arm (R), no edema noted Leg (L), no edema noted Leg (R), no edema noted Pedal (L), no edema noted Pedal (R), no edema noted Generalized Neurologic: motor weakness Skin: normal pigmentation, warm/dry Assessment/Plan Problem List: (1) HTN (hypertension) ICD Codes: I10 - Essential (primary) hypertension SNOMED: 91883624 (2) Malnutrition ICD Codes: E46 - Unspecified protein-calorie malnutrition SNOMED: 43375127 (3) Hyponatremia ICD Codes: E87.1 - Hypo-osmolality and hyponatremia SNOMED: 29665108 (4) ACS (acute coronary syndrome) ICD Codes: I24.9 - Acute ischemic heart disease, unspecified SNOMED: 755980385 (5) CHF (congestive heart failure) ICD Codes: I50.9 - Heart failure, unspecified SNOMED: 51280499 Qualifiers: Qualified Codes: I50.9 - Heart failure, unspecified (6) UTI (urinary tract infection) ICD Codes: N39.0 - Urinary tract infection, site not specified SNOMED: 03037571 Qualifiers: Qualified Codes: N39.0 - Urinary tract infection, site not specified Status: unchanged Assessment/Plan: pain control bp control abx cbc bmp am Alex Gonzalez DO Oct 05, 2020 10:13
[2020-10-05 12:00] VITALS: BP 126/76
--- NOTE | 2020-10-05 12:13 | Nephrology Progress Note ---
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 Plan October 05: Serum sodium up to 135. Hemoglobin A1c 6.6. Patient clinically stable. Continue per cardiology. Kidney ultrasound normal size kidneys and no hydronephrosis. 2D echocardiogram ejection fraction of 20 to 25%. Previously: 2D echocardiogram Kidney ultrasound 250 cc saline 3% once Monitor electrolytes Hyponatremia work-up Per orders Subjective ROS Limited/Unobtainable: No Constitutional: Reports: malaise, weakness Objective Objective Last 24 Hour Vital Signs Date Time Temp Pulse Resp B/P (MAP) Pulse Ox O2 Delivery O2 Flow Rate FiO2 10/05/20 09:43 110 122/80 10/05/20 04:00 104 10/05/20 04:00 98.4 106 20 103/65 (78) 97 10/05/20 00:00 99.4 114 20 101/65 (77) 97 10/05/20 00:00 115 10/04/20 21:56 113 132/82 10/04/20 21:00 Room Air 10/04/20 20:00 99.7 113 18 108/68 (81) 96 10/04/20 20:00 110 10/04/20 16:00 98.0 100 18 124/73 (90) 98 10/04/20 16:00 105 10/04/20 13:39 Room Air 10/04/20 12:50 98.2 85 16 119/77 99 Room Air Intake and Output 10/04/20 10/05/20 19:00 07:00 Intake Total 745 ml Output Total 400 ml 650 ml Balance 345 ml -650 ml Intake Oral 600 ml IV Total 145 ml Output Urine Total 400 ml 650 ml # Voids 1 2 Current Medications Medications (Trade) Dose Ordered Sig/Damián Route PRN Reason Start Time Stop Time Status Last Admin Dose Admin Acetaminophen (Tylenol) 650 mg Q6H PRN ORAL MILD pain 10/04/20 22:30 11/03/20 22:29 Carvedilol (Coreg) 3.125 mg EVERY 12 HOURS ORAL 10/04/20 21:00 11/03/20 20:59 10/05/20 09:43 Furosemide (Lasix) 40 mg EVERY 12 HOURS IV 10/04/20 21:00 11/03/20 20:59 10/05/20 09:43 Guaifenesin (Robitussin) 150 mg Q6H PRN ORAL For Cough 10/04/20 22:30 01/02/21 22:29 10/05/20 05:57 Magnesium Sulfate 100 ml @ 100 mls/hr Q1H IVPB 10/05/20 10:30 10/05/20 12:29 10/05/20 11:00 Spironolactone (Aldactone) 25 mg DAILY ORAL 10/05/20 09:00 11/04/20 08:59 10/05/20 09:43 Laboratory Tests 10/04/20 17:04: Urine Osmolality 729H, Urine Random Sodium < 20L 10/05/20 06:45: White Blood Count 10.1, Red Blood Count 4.95, Hemoglobin 14.4, Hematocrit 43.3, Mean Corpuscular Volume 87, Mean Corpuscular Hemoglobin 29.0, Mean Corpuscular Hemoglobin Concent 33.2, Red Cell Distribution Width 15.2H, Platelet Count 181, Mean Platelet Volume 8.8, Neutrophils (%) (Auto) 76.8H, Lymphocytes (%) (Auto) 12.6L, Monocytes (%) (Auto) 9.6, Eosinophils (%) (Auto) 0.1, Basophils (%) (Auto) 1.0, Sodium Level 135#L, Potassium Level 4.5, Chloride Level 100, Carbon Dioxide Level 29, Anion Gap 6, Blood Urea Nitrogen 21H, Creatinine 1.4H, Estimat Glomerular Filtration Rate > 60, Glucose Level 118H, Hemoglobin A1c 6.6H, Uric Acid 6.8, Calcium Level 9.1, Phosphorus Level 3.3, Magnesium Level 1.7L, Total Bilirubin 1.7H, Direct Bilirubin 0.8H, Gamma Glutamyl Transpeptidase 44, Aspartate Amino Transf (AST/SGOT) 27, Alanine Aminotransferase (ALT/SGPT) 24, Alkaline Phosphatase 73, C-Reactive Protein, Quantitative [Pending], Pro-B-Type Natriuretic Peptide 5553H, Total Protein 7.0, Albumin 2.8L, Globulin 4.2, Albumin/Globulin Ratio 0.7L, Triglycerides Level 74, Cholesterol Level 128, LDL Cholesterol 86, HDL Cholesterol 26L, Cholesterol/HDL Ratio 4.9H Height (Feet): 5 Height (Inches): 9.00 Weight (Pounds): 255 General Appearance: no apparent distress, lethargic Cardiovascular: tachycardia Respiratory/Chest: decreased breath sounds Abdomen: distended Hari Telles MD Oct 05, 2020 12:13
--- NOTE | 2020-10-05 13:01 | Consultation ---
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 complaining of epigastric nominal discomfort identified to have respiratory insufficiency desaturation admitted for the care management. Abnormal labs. Covid negative admitted further care and management. Surgery called to evaluate assist with care. Allergies: Coded Allergies: No Known Allergies (Unverified , 04/20/16) COVID-19 Screening Contact w/high risk pt: No Experienced COVID-19 symptoms?: No Medication History Scheduled Carvedilol* (Carvedilol*), 3.125 MG ORAL EVERY 12 HOURS, (Reported) Cephalexin* (Keflex*), 500 MG ORAL EVERY 6 HOURS Metronidazole* (Flagyl*), 500 MG ORAL BID Nitrofurantoin Monohyd/M-Cryst* (Macrobid 100 Mg*), 100 MG ORAL EVERY 12 HOURS Sacubitril/Valsartan (Entresto 24 mg-26 mg Tablet), 1 EACH PO BID, (Reported) Spironolactone* (Aldactone*), 25 MG ORAL DAILY, (Reported) Tamsulosin HCl (Flomax), 0.4 MG ORAL DAILY Scheduled PRN Ibuprofen (Motrin), 600 MG ORAL Q6H PRN for For Pain Ondansetron (Zofran), 4 MG ORAL Q6H PRN for Nausea & Vomiting Patient History History Provided By: Patient, Medical Record, PMD Healthcare decision maker Resuscitation status Advanced Directive on File Past Medical/Surgical History Past Medical/Surgical History: (1) Abdominal pain (2) Renal colic (3) Diverticulosis (4) UTI (urinary tract infection) (5) ACS (acute coronary syndrome) (6) CHF (congestive heart failure) (7) Hyponatremia (8) Malnutrition (9) HTN (hypertension) (10) Cardiomyopathy (11) Electrolyte imbalance Review of Systems Review of Symptoms General ROS: no weight loss or fever Psychological ROS: no depression or mood changes, no memory loss Ophthalmic ROS: no visual changes or eye irritation ENT ROS: no nasal congestion, hearing loss, dizziness Allergy and Immunology ROS: no allergic symptoms or urticaria Hematological and Lymphatic ROS: no swollen glands, unusual bleeding or bruising Endocrine ROS: no polyuria, polydipsia, weight changes, temperature intolerance Respiratory ROS: no cough, shortness of breath, or wheezing Cardiovascular ROS: no chest pain or dyspnea on exertion Gastrointestinal ROS: denies abdominal pain, bright red blood in stool. Musculoskeletal ROS: no myalgias or arthralgias Neurological ROS: no TIA or stroke symptoms Dermatological ROS: no new or changing skin lesions, rashes or pruritis Physical Exam Physical Exam General appearance: alert, cooperative, no distress, appears stated age Head: Normocephalic, without obvious abnormality, atraumatic Eyes: conjunctivae/corneas clear. PERRL, EOM's intact. Fundi benign Throat: Lips, mucosa, and tongue normal. Teeth and gums normal Neck: supple, symmetrical, trachea midline, no adenopathy, thyroid: not enlarged, symmetric, no tenderness/mass/nodules, no carotid bruit and no JVD Lungs: clear to auscultation bilaterally Heart: regular rate and rhythm, S1, S2 normal, no murmur, click, rub or gallop Abdomen: soft, non-tender. Bowel sounds normal. No masses, no organomegaly Extremities: extremities normal, atraumatic, no cyanosis or edema Pulses: 2+ and symmetric Skin: Skin color, texture, turgor normal. No rashes or lesions Neurologic: Grossly normal Last 24 Hour Vital Signs Date Time Temp Pulse Resp B/P (MAP) Pulse Ox O2 Delivery O2 Flow Rate FiO2 10/05/20 09:43 110 122/80 10/05/20 04:00 104 10/05/20 04:00 98.4 106 20 103/65 (78) 97 10/05/20 00:00 99.4 114 20 101/65 (77) 97 10/05/20 00:00 115 10/04/20 21:56 113 132/82 10/04/20 21:00 Room Air 10/04/20 20:00 99.7 113 18 108/68 (81) 96 10/04/20 20:00 110 10/04/20 16:00 98.0 100 18 124/73 (90) 98 10/04/20 16:00 105 10/04/20 13:39 Room Air Intake and Output 10/04/20 10/05/20 19:00 07:00 Intake Total 745 ml Output Total 400 ml 650 ml Balance 345 ml -650 ml Intake Oral 600 ml IV Total 145 ml Output Urine Total 400 ml 650 ml # Voids 1 2 Laboratory Tests Test 10/04/20 17:04 10/05/20 06:45 Urine Osmolality 729 mOsm/kg (429-449) H Urine Random Sodium < 20 mmol/L (20-110) L White Blood Count 10.1 K/UL (4.8-10.8) Red Blood Count 4.95 M/UL (4.70-6.10) Hemoglobin 14.4 G/DL (14.2-18.0) Hematocrit 43.3 % (42.0-52.0) Mean Corpuscular Volume 87 FL (80-99) Mean Corpuscular Hemoglobin 29.0 PG (27.0-31.0) Mean Corpuscular Hemoglobin Concent 33.2 G/DL (32.0-36.0) Red Cell Distribution Width 15.2 % (11.6-14.8) H Platelet Count 181 K/UL (150-450) Mean Platelet Volume 8.8 FL (6.5-10.1) Neutrophils (%) (Auto) 76.8 % (45.0-75.0) H Lymphocytes (%) (Auto) 12.6 % (20.0-45.0) L Monocytes (%) (Auto) 9.6 % (1.0-10.0) Eosinophils (%) (Auto) 0.1 % (0.0-3.0) Basophils (%) (Auto) 1.0 % (0.0-2.0) Sodium Level 135 MMOL/L (136-145) #L Potassium Level 4.5 MMOL/L (3.5-5.1) Chloride Level 100 MMOL/L (98-107) Carbon Dioxide Level 29 MMOL/L (21-32) Anion Gap 6 mmol/L (5-15) Blood Urea Nitrogen 21 mg/dL (7-18) H Creatinine 1.4 MG/DL (0.55-1.30) H Estimat Glomerular Filtration Rate > 60 mL/min (>60) Glucose Level 118 MG/DL (74-106) H Hemoglobin A1c 6.6 % (4.3-6.0) H Uric Acid 6.8 MG/DL (2.6-7.2) Calcium Level 9.1 MG/DL (8.5-10.1) Phosphorus Level 3.3 MG/DL (2.5-4.9) Magnesium Level 1.7 MG/DL (1.8-2.4) L Total Bilirubin 1.7 MG/DL (0.2-1.0) H Direct Bilirubin 0.8 MG/DL (0.0-0.3) H Gamma Glutamyl Transpeptidase 44 U/L (5-85) Aspartate Amino Transf (AST/SGOT) 27 U/L (15-37) Alanine Aminotransferase (ALT/SGPT) 24 U/L (12-78) Alkaline Phosphatase 73 U/L (46-116) C-Reactive Protein, Quantitative Pending Pro-B-Type Natriuretic Peptide 5553 pg/mL (0-125) H Total Protein 7.0 G/DL (6.4-8.2) Albumin 2.8 G/DL (3.4-5.0) L Globulin 4.2 g/dL Albumin/Globulin Ratio 0.7 (1.0-2.7) L Triglycerides Level 74 MG/DL (30-150) Cholesterol Level 128 MG/DL (< 200) LDL Cholesterol 86 mg/dL (<100) HDL Cholesterol 26 MG/DL (40-60) L Cholesterol/HDL Ratio 4.9 (3.3-4.4) H Height (Feet): 5 Height (Inches): 9.00 Weight (Pounds): 255 Medications Current Medications Medications (Trade) Dose Ordered Sig/Damián Route PRN Reason Start Time Stop Time Status Last Admin Dose Admin Acetaminophen (Tylenol) 650 mg Q6H PRN ORAL MILD pain 10/04/20 22:30 11/03/20 22:29 Carvedilol (Coreg) 3.125 mg EVERY 12 HOURS ORAL 10/04/20 21:00 11/03/20 20:59 10/05/20 09:43 Furosemide (Lasix) 40 mg EVERY 12 HOURS IV 10/04/20 21:00 11/03/20 20:59 10/05/20 09:43 Guaifenesin (Robitussin) 150 mg Q6H PRN ORAL For Cough 10/04/20 22:30 01/02/21 22:29 10/05/20 05:57 Spironolactone (Aldactone) 25 mg DAILY ORAL 10/05/20 09:00 11/04/20 08:59 10/05/20 09:43 Assessment/Plan Problem List: (1) UTI (urinary tract infection) ICD Codes: N39.0 - Urinary tract infection, site not specified SNOMED: 85046376 Qualifiers: Qualified Codes: N39.0 - Urinary tract infection, site not specified (2) ACS (acute coronary syndrome) ICD Codes: I24.9 - Acute ischemic heart disease, unspecified SNOMED: 000679564 (3) CHF (congestive heart failure) ICD Codes: I50.9 - Heart failure, unspecified SNOMED: 92610810 Qualifiers: Qualified Codes: I50.9 - Heart failure, unspecified (4) Hyponatremia ICD Codes: E87.1 - Hypo-osmolality and hyponatremia SNOMED: 52826290 (5) Malnutrition ICD Codes: E46 - Unspecified protein-calorie malnutrition SNOMED: 13861915 (6) HTN (hypertension) ICD Codes: I10 - Essential (primary) hypertension SNOMED: 19749197 (7) Cardiomyopathy ICD Codes: I42.9 - Cardiomyopathy, unspecified SNOMED: 13914274 (8) Electrolyte imbalance ICD Codes: E87.8 - Other disorders of electrolyte and fluid balance, not elsewhere classified SNOMED: 257764160 (9) Renal colic ICD Codes: N23 - Unspecified renal colic SNOMED: 7982426 (10) Diverticulosis ICD Codes: K57.90 - Diverticulosis of intestine, part unspecified, without p erforation or abscess without bleeding SNOMED: 279333377 (11) Abdominal pain Assessment & Plan: epigastric abd pain elevated t bili afebrile HD stable pain improving US abd ordered trend labs okay for diet will follow with recs covid neg ICD Codes: R10.9 - Unspecified abdominal pain SNOMED: 15695460 Can Gomez Oct 05, 2020 13:01
--- NOTE | 2020-10-05 14:32 | Pulmonology Progress Note ---
Subjective ROS Limited/Unobtainable: No Interval Events: Had hemoptysis yesterday Constitutional: Reports: no symptoms HEENT: Repors: no symptoms Respiratory: Reports: productive cough, hemoptysis Cardiovascular: Reports: no symptoms Gastrointestinal/Abdominal: Reports: no symptoms Genitourinary: Reports: no symptoms Neurologic: Reports: no symptoms Allergies: Coded Allergies: No Known Allergies (Unverified , 04/20/16) All Systems: reviewed and negative except above Objective Last 24 Hour Vital Signs Date Time Temp Pulse Resp B/P (MAP) Pulse Ox O2 Delivery O2 Flow Rate FiO2 10/05/20 09:43 110 122/80 10/05/20 09:00 Room Air 10/05/20 08:00 98.5 110 18 122/80 (94) 97 10/05/20 08:00 105 10/05/20 04:00 104 10/05/20 04:00 98.4 106 20 103/65 (78) 97 10/05/20 00:00 99.4 114 20 101/65 (77) 97 10/05/20 00:00 115 10/04/20 21:56 113 132/82 10/04/20 21:00 Room Air 10/04/20 20:00 99.7 113 18 108/68 (81) 96 10/04/20 20:00 110 10/04/20 16:00 98.0 100 18 124/73 (90) 98 10/04/20 16:00 105 Intake and Output 10/04/20 10/05/20 19:00 07:00 Intake Total 745 ml Output Total 400 ml 650 ml Balance 345 ml -650 ml Intake Oral 600 ml IV Total 145 ml Output Urine Total 400 ml 650 ml # Voids 1 2 General Appearance: no acute distress HEENT: normocephalic Respiratory: chest wall non-tender, lungs clear Cardiovascular: normal peripheral pulses, normal rate Abdomen: normal bowel sounds Microbiology Date/Time Source Procedure Growth Status 10/04/20 11:20 Nasopharynx SARS-CoV-2 RdRp Gene Assay - Final Complete Laboratory Tests 10/04/20 17:04: Urine Osmolality 729H, Urine Random Sodium < 20L 10/05/20 06:45: White Blood Count 10.1, Red Blood Count 4.95, Hemoglobin 14.4, Hematocrit 43.3, Mean Corpuscular Volume 87, Mean Corpuscular Hemoglobin 29.0, Mean Corpuscular Hemoglobin Concent 33.2, Red Cell Distribution Width 15.2H, Platelet Count 181, Mean Platelet Volume 8.8, Neutrophils (%) (Auto) 76.8H, Lymphocytes (%) (Auto) 12.6L, Monocytes (%) (Auto) 9.6, Eosinophils (%) (Auto) 0.1, Basophils (%) (Auto) 1.0, Sodium Level 135#L, Potassium Level 4.5, Chloride Level 100, Carbon Dioxide Level 29, Anion Gap 6, Blood Urea Nitrogen 21H, Creatinine 1.4H, Estimat Glomerular Filtration Rate > 60, Glucose Level 118H, Hemoglobin A1c 6.6H, Uric Acid 6.8, Calcium Level 9.1, Phosphorus Level 3.3, Magnesium Level 1.7L, Total Bilirubin 1.7H, Direct Bilirubin 0.8H, Gamma Glutamyl Transpeptidase 44, Aspartate Amino Transf (AST/SGOT) 27, Alanine Aminotransferase (ALT/SGPT) 24, Alkaline Phosphatase 73, C-Reactive Protein, Quantitative [Pending], Pro-B-Type Natriuretic Peptide 5553H, Total Protein 7.0, Albumin 2.8L, Globulin 4.2, Albumin/Globulin Ratio 0.7L, Triglycerides Level 74, Cholesterol Level 128, LDL Cholesterol 86, HDL Cholesterol 26L, Cholesterol/HDL Ratio 4.9H Current Medications Medications (Trade) Dose Ordered Sig/Damián Route PRN Reason Start Time Stop Time Status Last Admin Dose Admin Acetaminophen (Tylenol) 650 mg Q6H PRN ORAL MILD pain 10/04/20 22:30 11/03/20 22:29 Carvedilol (Coreg) 3.125 mg EVERY 12 HOURS ORAL 10/04/20 21:00 11/03/20 20:59 10/05/20 09:43 Furosemide (Lasix) 40 mg EVERY 12 HOURS IV 10/04/20 21:00 11/03/20 20:59 10/05/20 09:43 Guaifenesin (Robitussin) 150 mg Q6H PRN ORAL For Cough 10/04/20 22:30 01/02/21 22:29 10/05/20 05:57 Spironolactone (Aldactone) 25 mg DAILY ORAL 10/05/20 09:00 11/04/20 08:59 10/05/20 09:43 Assessment/Plan Assessment/Plan IMPRESSION: 1. Pulmonary edema. 2. Cardiomyopathy. 3. Acute coronary syndrome. DISCUSSION: Predominant care per Cardiology. Continue diuretics. Continue O2 Abx per ID Michel Singh Omar Syed MD Oct 05, 2020 14:32
--- NOTE | 2020-10-05 14:50 | NUR ---
CASE MANAGEMENT:REVIEW 60 YR OLD MALE WALKED INTO ER CC: EPIGASTRIC/ABDOMINAL PAIN SI: CHF. ACS. UTI 98.3 112 16 129/58 98% ON RA NA-124 K-3.3 CR+1.4 TROPONIN(+) 0.062 BNP+4743 IS: IV PEPCID IV ROCEPHIN IV LASIX ASA PO KCL PO URINE CX CHEST XRAY : TELEMETRY STATUS DCP: FROM HOME
--- NOTE | 2020-10-05 15:49 | Cardiac Electrophysiology PN ---
Assessment/Plan Assessment/Plan 1. Exacerbation of congestive heart failure with EF 20%. His BNP is more than 4700. On Lasix 40 mg IV b.i.d. Coreg, Entresto, and Aldactone. Will get prior Echo and if EF has remained < 35% for more than 3 months, will need ICD 2. Hypertension. Continue current heart failure therapy. 3. Frothy cough. Covid negative. 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 4. Benign prostatic hypertrophy. 5. Urinary tract infection. per Dr. Zayas, will be monitored off antibiotic at this time. Subjective Subjective In Covid isolation on RA. Echo showed EF 20% Objective Last 24 Hour Vital Signs Date Time Temp Pulse Resp B/P (MAP) Pulse Ox O2 Delivery O2 Flow Rate FiO2 10/05/20 09:43 110 122/80 10/05/20 09:00 Room Air 10/05/20 08:00 98.5 110 18 122/80 (94) 97 10/05/20 08:00 105 10/05/20 04:00 104 10/05/20 04:00 98.4 106 20 103/65 (78) 97 10/05/20 00:00 99.4 114 20 101/65 (77) 97 10/05/20 00:00 115 10/04/20 21:56 113 132/82 10/04/20 21:00 Room Air 10/04/20 20:00 99.7 113 18 108/68 (81) 96 10/04/20 20:00 110 10/04/20 16:00 98.0 100 18 124/73 (90) 98 10/04/20 16:00 105 Intake and Output 10/04/20 10/05/20 19:00 07:00 Intake Total 745 ml Output Total 400 ml 650 ml Balance 345 ml -650 ml Intake Oral 600 ml IV Total 145 ml Output Urine Total 400 ml 650 ml # Voids 1 2 Laboratory Tests Test 10/04/20 17:04 10/05/20 06:45 Urine Osmolality 729 mOsm/kg (429-449) H Urine Random Sodium < 20 mmol/L (20-110) L White Blood Count 10.1 K/UL (4.8-10.8) Red Blood Count 4.95 M/UL (4.70-6.10) Hemoglobin 14.4 G/DL (14.2-18.0) Hematocrit 43.3 % (42.0-52.0) Mean Corpuscular Volume 87 FL (80-99) Mean Corpuscular Hemoglobin 29.0 PG (27.0-31.0) Mean Corpuscular Hemoglobin Concent 33.2 G/DL (32.0-36.0) Red Cell Distribution Width 15.2 % (11.6-14.8) H Platelet Count 181 K/UL (150-450) Mean Platelet Volume 8.8 FL (6.5-10.1) Neutrophils (%) (Auto) 76.8 % (45.0-75.0) H Lymphocytes (%) (Auto) 12.6 % (20.0-45.0) L Monocytes (%) (Auto) 9.6 % (1.0-10.0) Eosinophils (%) (Auto) 0.1 % (0.0-3.0) Basophils (%) (Auto) 1.0 % (0.0-2.0) Sodium Level 135 MMOL/L (136-145) #L Potassium Level 4.5 MMOL/L (3.5-5.1) Chloride Level 100 MMOL/L (98-107) Carbon Dioxide Level 29 MMOL/L (21-32) Anion Gap 6 mmol/L (5-15) Blood Urea Nitrogen 21 mg/dL (7-18) H Creatinine 1.4 MG/DL (0.55-1.30) H Estimat Glomerular Filtration Rate > 60 mL/min (>60) Glucose Level 118 MG/DL (74-106) H Hemoglobin A1c 6.6 % (4.3-6.0) H Uric Acid 6.8 MG/DL (2.6-7.2) Calcium Level 9.1 MG/DL (8.5-10.1) Phosphorus Level 3.3 MG/DL (2.5-4.9) Magnesium Level 1.7 MG/DL (1.8-2.4) L Total Bilirubin 1.7 MG/DL (0.2-1.0) H Direct Bilirubin 0.8 MG/DL (0.0-0.3) H Gamma Glutamyl Transpeptidase 44 U/L (5-85) Aspartate Amino Transf (AST/SGOT) 27 U/L (15-37) Alanine Aminotransferase (ALT/SGPT) 24 U/L (12-78) Alkaline Phosphatase 73 U/L (46-116) C-Reactive Protein, Quantitative Pending Pro-B-Type Natriuretic Peptide 5553 pg/mL (0-125) H Total Protein 7.0 G/DL (6.4-8.2) Albumin 2.8 G/DL (3.4-5.0) L Globulin 4.2 g/dL Albumin/Globulin Ratio 0.7 (1.0-2.7) L Triglycerides Level 74 MG/DL (30-150) Cholesterol Level 128 MG/DL (< 200) LDL Cholesterol 86 mg/dL (<100) HDL Cholesterol 26 MG/DL (40-60) L Cholesterol/HDL Ratio 4.9 (3.3-4.4) H Microbiology Date/Time Source Procedure Growth Status 10/04/20 11:20 Nasopharynx SARS-CoV-2 RdRp Gene Assay - Final Complete Objective HEAD AND NECK: Show positive JVD. LUNGS: Decreased breath sounds. CARDIOVASCULAR: Shows regular S1 and S2 with no gallop. ABDOMEN: Soft. EXTREMITIES: 1+ pitting edema. Hudson Garcia MD Oct 05, 2020 15:49
--- NOTE | 2020-10-05 15:53 | Cardiology Report ---
APPROVED REPORT EXAM: Two-dimensional and M-mode echocardiogram with Doppler and color Doppler. INDICATION Congestive Heart Failure M-Mode DIMENSIONS IVSd1.2 (0.7-1.1cm)Left Atrium (MM)3.2 (1.6-4.0cm) LVDd6.6 (3.5-5.6cm)Aortic Root3.2 (2.0-3.7cm) PWd1.2 (0.7-1.1cm)Aortic Cusp Exc.1.9 (1.5-2.0cm) IVSs1.0 cmEPSS2.5 (>1.0cm) LVDs6.1 (2.5-4.0cm) PWs1.5 cm <Conclusion> Technically difficult study due to poor apical windows. Global left ventricular hypokinesis. Left ventricular ejection fraction estimated to be 20-25 %. No evidence of left ventricular hypertrophy. No evidence of pericardial effusion. All other cardiac chamber sizes are within normal limits. Focal aortic valve sclerosis with adequate cusp excursion. Thickened mitral valve leaflets with normal excursion. Mitral annulus and aortic root calcification. Pulmonic valve not well visualized. Normal tricuspid valve structure. IVC measured at size 2.1 cm with slight physiologic collapse. A color flow and spectral Doppler study was performed and revealed: No aortic insufficiency. Mild mitral regurgitation. Mitral inflow velocities indicates possible pseudo normalization pattern implying moderately elevated left atrial pressure (Grade II ) Mild tricuspid regurgitation. Tricuspid systolic velocities suggests peak right ventricular systolic pressure of 39 mmHg, consistent with mild pulmonary hypertension.
[2020-10-05 16:00] VITALS: BP 103/63
--- NOTE | 2020-10-05 19:43 | NUR ---
NURSE HAND-OFF REPORT: Important Events on Shift:[Magnesium replacement, sputum cx, NPO midnight] Patient Status: [Full code] Diet: [Low sodium diet] Pending Orders: [N/A] Pending Results/Labs:[Sputum Cx] Pending MD notification:[N/A] Latest Vital Signs: Temperature 98.2 , Pulse 105 , B/P 103 /63 , Respiratory Rate 18 , O2 SAT 95 , Room Air, O2 Flow Rate . Vital Sign Comment: [] EKG Rhythm: Sinus Tachycardia Rhythm change?: N MD Notified?: - MD Response: Latest Mccabe Fall Score: 20 Fall Risk: Low Risk Safety Measures: Call light Within Reach, Bed Alarm , Side Rails Side Rails x2, Bed position Low and Locked. Fall Precautions: Patient Fall Education Report given to [JILLIAN Fletcher].
[2020-10-05 20:00] VITALS: BP 109/67
--- NOTE | 2020-10-05 20:01 | NUR ---
NURSE NOTES: Patient received from Billy WALSH. patient alert and oriented x4. Saturating well on RA. will be NPO at midnight for ABdominal Ultrasound. no s/s of distress and no c/o pain. Bed in lowest position and locked. Call light and bedside table within reach.
[2020-10-06] VITALS: BP_SYST 116; BP_SYST 84; BP_DIAS 60; BP_DIAS 76
[2020-10-06 04:00] VITALS: BP 116/76
--- NOTE | 2020-10-06 05:32 | NUR ---
NURSE NOTES: Vomitted about 30mls of red fluid content and noted hematuria for patient's urine. Notified Primary MD. No call backs yet
--- NOTE | 2020-10-06 05:35 | NUR ---
NURSE NOTES: Orders received from Dr. Gonzalez verified and carried out.
[2020-10-06 06:07] LABS: HEMATOCRIT 41.6 % (42.0-52.0); HEMOGLOBIN 14.1 G/DL (14.2-18.0); LYMPHOCYTES % (AUTO) 11.3 % (20.0-45.0); MEAN CORPUSCULAR VOLUME 86 FL (80-99); MONOCYTES % (AUTO) 9.5 % (1.0-10.0); NEUTROPHILS % (AUTO) 78.1 % (45.0-75.0); PLATELET COUNT 159 K/UL (150-450); RED BLOOD COUNT 4.83 M/UL (4.70-6.10); RED CELL DISTRIBUTION WIDTH 15.5 % (11.6-14.8); WHITE BLOOD COUNT 10.6 K/UL (4.8-10.8)
[2020-10-06 06:17] LABS: INR 1.7 (0.9-1.1)
[2020-10-06 06:27] LABS: ALBUMIN 2.8 G/DL (3.4-5.0); ALBUMIN/GLOBULIN RATIO 0.7 (1.0-2.7); BILIRUBIN,TOTAL 1.9 MG/DL (0.2-1.0); CALCIUM 9.1 MG/DL (8.5-10.1); CREATININE 1.6 MG/DL (0.55-1.30); PHOSPHORUS 3.8 MG/DL (2.5-4.9); POTASSIUM 3.9 MMOL/L (3.5-5.1)
--- NOTE | 2020-10-06 07:11 | NUR ---
NURSE NOTES: Patient seen in bed asleep in low fowlers position and in no acute signs of distress. The patient is on room air and has an IV, 20G, on the right hand that is patent and intact. The patients bed is in lowest position, locked, side rails x2 and call light within reach.The patient is currently NPO due to scheduled abd US today.
--- NOTE | 2020-10-06 07:30 | NUR ---
NURSE HAND-OFF REPORT: Important Events on Shift:[Vomitted red fluid contents] Patient Status: [FC, A&Ox4] Diet: [NPO for Abd Ultrasound] Pending Orders: [] Pending Results/Labs:[] Pending MD notification:[] Latest Vital Signs: Temperature 98.1 , Pulse 98 , B/P 116 /76 , Respiratory Rate 20 , O2 SAT 98 , Room Air, O2 Flow Rate . Vital Sign Comment: [] EKG Rhythm: Sinus Rhythm Rhythm change?: N MD Notified?: - MD Response: Latest Mccabe Fall Score: 20 Fall Risk: Low Risk Safety Measures: Call light Within Reach, Bed Alarm , Side Rails Side Rails x2, Bed position Low and Locked. Fall Precautions: Patient Fall Education Report given to [Billy WALSH].
[2020-10-06 07:32] LABS: BILIRUBIN,DIRECT 0.9 MG/DL (0.0-0.3)
[2020-10-06 07:36] LABS: AMYLASE 49 U/L (25-115)
[2020-10-06 08:00] VITALS: BP 117/59
--- NOTE | 2020-10-06 09:02 | Infectious Diseases Prog Note ---
Assessment/Plan 60yo M with: Afebrile Normal WBC Lymphopenia Cough, leg swelling, r/o CHF R/o UTI - UA neg, no sx 10/04 UA neg, UCx neg CXR: Cardiomegaly, no acute process COVID rapid test neg, PCR neg Hemoptysis, most likely 2/2 pulm congestion 2/2 CHF, less likely 2/2 infection given lack of other s/sx of infection Cr 1.4 --> 1.6 10/04 Renal US: Focal posterior bladder wall thickening. Could indicate a mucosal lesion. Consider cystoscopy. Left renal shadowing focus, could represent a calculus versus arterial calcification. CHF EF 20-25% Plan: Cont to monitor off abx given no s/sx of infection Monitor CBC, CMP Monitor resp status Monitor temp curve, hemodynamics D/w RN Thank you for this consult. [facility] will continue to follow. Subjective Allergies: Coded Allergies: No Known Allergies (Unverified , 04/20/16) AF WBC 10, stable NAD on RA Breathing is fine, able to walk to bathroom wo issues Still spitting up blood tinged sputum Objective Last 24 Hour Vital Signs Date Time Temp Pulse Resp B/P (MAP) Pulse Ox O2 Delivery O2 Flow Rate FiO2 10/06/20 04:00 98.1 98 20 116/76 (89) 98 10/06/20 04:00 99 10/06/20 00:00 97 10/06/20 00:00 98.1 98 20 116/76 (89) 98 10/05/20 21:00 Room Air 10/05/20 20:38 103 109/67 10/05/20 20:00 102 10/05/20 20:00 99.1 103 22 109/67 (81) 97 10/05/20 16:00 104 10/05/20 16:00 98.2 105 18 103/63 (76) 95 10/05/20 12:00 98.2 110 18 126/76 (93) 98 10/05/20 12:00 110 10/05/20 09:43 110 122/80 Height (Feet): 5 Height (Inches): 9.00 Weight (Pounds): 255 Gen: NAD HEENT: NCAT Pulm: BL chest rise Abd: Non-distended Ext: No c/c/e Skin: No visible rashes Neuro: Awake Microbiology Date/Time Source Procedure Growth Status 10/05/20 14:00 Sputum Expectorated Gram Stain Pending Resulted 10/05/20 14:00 Sputum Expectorated Sputum Culture - Preliminary NORMAL UPPER RESPIRATORY KALI AT 24 ... Resulted 10/04/20 18:50 Nasopharynx Coronavirus COVID-19 PCR (DARIN) - Final Complete 10/04/20 11:20 Nasopharynx SARS-CoV-2 RdRp Gene Assay - Final Complete 10/04/20 07:00 Urine,Clean Catch Urine Culture - Preliminary NO GROWTH Resulted Laboratory Tests Test 10/06/20 03:30 White Blood Count 10.6 K/UL (4.8-10.8) Red Blood Count 4.83 M/UL (4.70-6.10) Hemoglobin 14.1 G/DL (14.2-18.0) L Hematocrit 41.6 % (42.0-52.0) L Mean Corpuscular Volume 86 FL (80-99) Mean Corpuscular Hemoglobin 29.1 PG (27.0-31.0) Mean Corpuscular Hemoglobin Concent 33.8 G/DL (32.0-36.0) Red Cell Distribution Width 15.5 % (11.6-14.8) H Platelet Count 159 K/UL (150-450) Mean Platelet Volume 8.6 FL (6.5-10.1) Neutrophils (%) (Auto) 78.1 % (45.0-75.0) H Lymphocytes (%) (Auto) 11.3 % (20.0-45.0) L Monocytes (%) (Auto) 9.5 % (1.0-10.0) Eosinophils (%) (Auto) 0.0 % (0.0-3.0) Basophils (%) (Auto) 1.0 % (0.0-2.0) Erythrocyte Sedimentation Rate 19 MM/HR (0-20) Prothrombin Time 17.6 SEC (9.30-11.50) H Prothromb Time International Ratio 1.7 (0.9-1.1) H Activated Partial Thromboplast Time 30 SEC (23-33) Sodium Level 133 MMOL/L (136-145) L Potassium Level 3.9 MMOL/L (3.5-5.1) Chloride Level 98 MMOL/L (98-107) Carbon Dioxide Level 24 MMOL/L (21-32) Anion Gap 11 mmol/L (5-15) Blood Urea Nitrogen 33 mg/dL (7-18) H Creatinine 1.6 MG/DL (0.55-1.30) H Estimat Glomerular Filtration Rate 53.7 mL/min (>60) Glucose Level 116 MG/DL (74-106) H Uric Acid 8.3 MG/DL (2.6-7.2) H Calcium Level 9.1 MG/DL (8.5-10.1) Phosphorus Level 3.8 MG/DL (2.5-4.9) Magnesium Level 2.1 MG/DL (1.8-2.4) Total Bilirubin 1.9 MG/DL (0.2-1.0) H Direct Bilirubin 0.9 MG/DL (0.0-0.3) H Aspartate Amino Transf (AST/SGOT) 42 U/L (15-37) H Alanine Aminotransferase (ALT/SGPT) 37 U/L (12-78) Alkaline Phosphatase 90 U/L (46-116) C-Reactive Protein, Quantitative Pending Pro-B-Type Natriuretic Peptide 8950 pg/mL (0-125) H Total Protein 7.0 G/DL (6.4-8.2) Albumin 2.8 G/DL (3.4-5.0) L Globulin 4.2 g/dL Albumin/Globulin Ratio 0.7 (1.0-2.7) L Amylase Level 49 U/L (25-115) Lipase 104 U/L (73-393) Current Medications Medications (Trade) Dose Ordered Sig/Damián Route PRN Reason Start Time Stop Time Status Last Admin Dose Admin Acetaminophen (Tylenol) 650 mg Q6H PRN ORAL MILD pain 10/04/20 22:30 11/03/20 22:29 Carvedilol (Coreg) 3.125 mg EVERY 12 HOURS ORAL 10/04/20 21:00 11/03/20 20:59 10/05/20 20:38 Furosemide (Lasix) 40 mg EVERY 12 HOURS IV 10/04/20 21:00 11/03/20 20:59 10/05/20 20:37 Guaifenesin (Robitussin) 150 mg Q6H PRN ORAL For Cough 10/04/20 22:30 01/02/21 22:29 1/6/21 05:57 Ondansetron HCl (Zofran) 4 mg Q4H PRN IVP Nausea & Vomiting 10/06/20 05:45 11/05/20 05:44 Spironolactone (Aldactone) 25 mg DAILY ORAL 10/05/20 09:00 11/04/20 08:59 10/05/20 09:43 Anitha Zayas M.D. Oct 06, 2020 09:02
--- NOTE | 2020-10-06 09:14 | General Progress Note ---
Subjective Constitutional: Reports: weakness Allergies: Coded Allergies: No Known Allergies (Unverified , 04/20/16) All Systems: reviewed and negative except above Subjective calm in bed Objective Last 24 Hour Vital Signs Date Time Temp Pulse Resp B/P (MAP) Pulse Ox O2 Delivery O2 Flow Rate FiO2 10/06/20 04:00 98.1 98 20 116/76 (89) 98 10/06/20 04:00 99 10/06/20 00:00 97 10/06/20 00:00 98.1 98 20 116/76 (89) 98 10/05/20 21:00 Room Air 10/05/20 20:38 103 109/67 10/05/20 20:00 102 10/05/20 20:00 99.1 103 22 109/67 (81) 97 10/05/20 16:00 104 10/05/20 16:00 98.2 105 18 103/63 (76) 95 10/05/20 12:00 98.2 110 18 126/76 (93) 98 10/05/20 12:00 110 10/05/20 09:43 110 122/80 Intake and Output 10/05/20 10/06/20 19:00 07:00 Intake Total 750 ml Output Total 800 ml Balance 750 ml -800 ml Intake Oral 750 ml Output Urine Total 800 ml # Bowel Movements 1 Laboratory Tests 10/06/20 03:30: White Blood Count 10.6, Red Blood Count 4.83, Hemoglobin 14.1L, Hematocrit 41.6L , Mean Corpuscular Volume 86, Mean Corpuscular Hemoglobin 29.1, Mean Corpuscular Hemoglobin Concent 33.8, Red Cell Distribution Width 15.5H, Platelet Count 159, Mean Platelet Volume 8.6, Neutrophils (%) (Auto) 78.1H, Lymphocytes (%) (Auto) 11.3L, Monocytes (%) (Auto) 9.5, Eosinophils (%) (Auto) 0.0, Basophils (%) (Auto) 1.0, Erythrocyte Sedimentation Rate 19, Prothrombin Time 17.6H, Prothromb Time International Ratio 1.7H, Activated Partial Thromboplast Time 30, Sodium Level 133L, Potassium Level 3.9, Chloride Level 98, Carbon Dioxide Level 24, Anion Gap 11, Blood Urea Nitrogen 33H, Creatinine 1.6H, Estimat Glomerular Filtration Rate 53.7, Glucose Level 116H, Uric Acid 8.3H, Calcium Level 9.1, Phosphorus Level 3.8, Magnesium Level 2.1, Total Bilirubin 1.9H, Direct Bilirubin 0.9H, Aspartate Amino Transf (AST/SGOT) 42H, Alanine Aminotransferase (ALT/SGPT) 37, Alkaline Phosphatase 90, C-Reactive Protein, Quantitative [Pending], Pro-B-Type Natriuretic Peptide 8950H, Total Protein 7.0, Albumin 2.8L , Globulin 4.2, Albumin/Globulin Ratio 0.7L, Amylase Level 49, Lipase 104 Height (Feet): 5 Height (Inches): 9.00 Weight (Pounds): 255 General Appearance: lethargic EENT: normal ENT inspection Neck: normal alignment Cardiovascular: normal peripheral pulses, normal rate, regular rhythm Respiratory/Chest: chest wall non-tender, lungs clear, normal breath sounds Abdomen: normal bowel sounds, non tender, soft Extremities: normal inspection Edema: no edema noted Arm (L), no edema noted Arm (R), no edema noted Leg (L), no edema noted Leg (R), no edema noted Pedal (L), no edema noted Pedal (R), no edema noted Generalized Neurologic: motor weakness Skin: normal pigmentation, warm/dry Assessment/Plan Problem List: (1) HTN (hypertension) ICD Codes: I10 - Essential (primary) hypertension SNOMED: 95126294 (2) Malnutrition ICD Codes: E46 - Unspecified protein-calorie malnutrition SNOMED: 48346869 (3) Hyponatremia ICD Codes: E87.1 - Hypo-osmolality and hyponatremia SNOMED: 22628483 (4) ACS (acute coronary syndrome) ICD Codes: I24.9 - Acute ischemic heart disease, unspecified SNOMED: 294045069 (5) CHF (congestive heart failure) ICD Codes: I50.9 - Heart failure, unspecified SNOMED: 30471016 Qualifiers: Qualified Codes: I50.9 - Heart failure, unspecified (6) UTI (urinary tract infection) ICD Codes: N39.0 - Urinary tract infection, site not specified SNOMED: 46306034 Qualifiers: Qualified Codes: N39.0 - Urinary tract infection, site not specified Status: unchanged Assessment/Plan: pain control bp control abx cbc bmp am Alex Gonzalez DO Oct 06, 2020 09:14
[2020-10-06] MEDS: Spironolactone 25mg tab ORAL SCH (09:50)
--- NOTE | 2020-10-06 10:44 | Consultation ---
History of Present Illness General Chief Complaint: Abdominal Pain Referring physician: PCP Reason for Consultation: R/o infection Present Illness Allergies: Coded Allergies: No Known Allergies (Unverified , 04/20/16) Medication History Scheduled Carvedilol* (Carvedilol*), 3.125 MG ORAL EVERY 12 HOURS, (Reported) Cephalexin* (Keflex*), 500 MG ORAL EVERY 6 HOURS Metronidazole* (Flagyl*), 500 MG ORAL BID Nitrofurantoin Monohyd/M-Cryst* (Macrobid 100 Mg*), 100 MG ORAL EVERY 12 HOURS Sacubitril/Valsartan (Entresto 24 mg-26 mg Tablet), 1 EACH PO BID, (Reported) Spironolactone* (Aldactone*), 25 MG ORAL DAILY, (Reported) Tamsulosin HCl (Flomax), 0.4 MG ORAL DAILY Scheduled PRN Ibuprofen (Motrin), 600 MG ORAL Q6H PRN for For Pain Ondansetron (Zofran), 4 MG ORAL Q6H PRN for Nausea & Vomiting Patient History Healthcare decision maker Resuscitation status Advanced Directive on File Physical Exam Last 24 Hour Vital Signs Date Time Temp Pulse Resp B/P (MAP) Pulse Ox O2 Delivery O2 Flow Rate FiO2 10/06/20 09:50 95 117/59 10/06/20 09:00 Room Air 10/06/20 08:00 98.1 95 20 117/59 (78) 96 10/06/20 04:00 98.1 98 20 116/76 (89) 98 10/06/20 04:00 99 10/06/20 00:00 97 10/06/20 00:00 98.1 98 20 116/76 (89) 98 10/05/20 21:00 Room Air 10/05/20 20:38 103 109/67 10/05/20 20:00 102 10/05/20 20:00 99.1 103 22 109/67 (81) 97 10/05/20 16:00 104 10/05/20 16:00 98.2 105 18 103/63 (76) 95 10/05/20 12:00 98.2 110 18 126/76 (93) 98 10/05/20 12:00 110 Intake and Output 10/05/20 10/06/20 19:00 07:00 Intake Total 750 ml Output Total 800 ml Balance 750 ml -800 ml Intake Oral 750 ml Output Urine Total 800 ml # Bowel Movements 1 Laboratory Tests Test 10/06/20 03:30 White Blood Count 10.6 K/UL (4.8-10.8) Red Blood Count 4.83 M/UL (4.70-6.10) Hemoglobin 14.1 G/DL (14.2-18.0) L Hematocrit 41.6 % (42.0-52.0) L Mean Corpuscular Volume 86 FL (80-99) Mean Corpuscular Hemoglobin 29.1 PG (27.0-31.0) Mean Corpuscular Hemoglobin Concent 33.8 G/DL (32.0-36.0) Red Cell Distribution Width 15.5 % (11.6-14.8) H Platelet Count 159 K/UL (150-450) Mean Platelet Volume 8.6 FL (6.5-10.1) Neutrophils (%) (Auto) 78.1 % (45.0-75.0) H Lymphocytes (%) (Auto) 11.3 % (20.0-45.0) L Monocytes (%) (Auto) 9.5 % (1.0-10.0) Eosinophils (%) (Auto) 0.0 % (0.0-3.0) Basophils (%) (Auto) 1.0 % (0.0-2.0) Erythrocyte Sedimentation Rate 19 MM/HR (0-20) Prothrombin Time 17.6 SEC (9.30-11.50) H Prothromb Time International Ratio 1.7 (0.9-1.1) H Activated Partial Thromboplast Time 30 SEC (23-33) Sodium Level 133 MMOL/L (136-145) L Potassium Level 3.9 MMOL/L (3.5-5.1) Chloride Level 98 MMOL/L (98-107) Carbon Dioxide Level 24 MMOL/L (21-32) Anion Gap 11 mmol/L (5-15) Blood Urea Nitrogen 33 mg/dL (7-18) H Creatinine 1.6 MG/DL (0.55-1.30) H Estimat Glomerular Filtration Rate 53.7 mL/min (>60) Glucose Level 116 MG/DL (74-106) H Uric Acid 8.3 MG/DL (2.6-7.2) H Calcium Level 9.1 MG/DL (8.5-10.1) Phosphorus Level 3.8 MG/DL (2.5-4.9) Magnesium Level 2.1 MG/DL (1.8-2.4) Total Bilirubin 1.9 MG/DL (0.2-1.0) H Direct Bilirubin 0.9 MG/DL (0.0-0.3) H Aspartate Amino Transf (AST/SGOT) 42 U/L (15-37) H Alanine Aminotransferase (ALT/SGPT) 37 U/L (12-78) Alkaline Phosphatase 90 U/L (46-116) C-Reactive Protein, Quantitative Pending Pro-B-Type Natriuretic Peptide 8950 pg/mL (0-125) H Total Protein 7.0 G/DL (6.4-8.2) Albumin 2.8 G/DL (3.4-5.0) L Globulin 4.2 g/dL Albumin/Globulin Ratio 0.7 (1.0-2.7) L Amylase Level 49 U/L (25-115) Lipase 104 U/L (73-393) Microbiology Date/Time Source Procedure Growth Status 10/05/20 14:00 Sputum Expectorated Gram Stain Pending Resulted 10/05/20 14:00 Sputum Expectorated Sputum Culture - Preliminary NORMAL UPPER RESPIRATORY KALI AT 24 ... Resulted Height (Feet): 5 Height (Inches): 9.00 Weight (Pounds): 255 Medications Current Medications Medications (Trade) Dose Ordered Sig/Damián Route PRN Reason Start Time Stop Time Status Last Admin Dose Admin Acetaminophen (Tylenol) 650 mg Q6H PRN ORAL MILD pain 10/04/20 22:30 11/03/20 22:29 Carvedilol (Coreg) 3.125 mg EVERY 12 HOURS ORAL 10/04/20 21:00 11/03/20 20:59 10/06/20 09:50 Furosemide (Lasix) 40 mg EVERY 12 HOURS IV 10/04/20 21:00 11/03/20 20:59 10/06/20 09:51 Guaifenesin (Robitussin) 150 mg Q6H PRN ORAL For Cough 10/04/20 22:30 01/02/21 22:29 10/05/20 05:57 Ondansetron HCl (Zofran) 4 mg Q4H PRN IVP Nausea & Vomiting 10/06/20 05:45 11/05/20 05:44 Spironolactone (Aldactone) 25 mg DAILY ORAL 10/05/20 09:00 11/04/20 08:59 10/06/20 09:50 Assessment/Plan Assessment/Plan: Hematology Consultation REQ MD: Sonido Gonzalez DOS: 10/06/2020 RFC: HEMATURIA, hematemesis HPI 60-year-old male presents to ED for evaluation. Complaining of epigastric pain. Burning, dull, 6 out of 10, nonradiating. Denies chest pain or shortness of breath. States he also has a cough with frothy sputum. History of CHF. Notes mild leg swelling. States he is compliant with his meds. Denies fevers or chills. No other aggravating relieving factors. Denies any other associated symptoms, now with hematesis and hematuria. Coded Allergies: No Known Allergies (Unverified , 04/20/16) COVID-19 Screening Contact w/high risk pt: No Experienced COVID-19 symptoms?: No COVID-19 Testing performed [employer]: No Patient History Past Medical History: CHF Past Surgical History: none Pertinent Family History: none Social History: Denies: smoking, alcohol use, drug use Immunizations: UTD Reviewed Nursing Documentation: PMH: Agreed; PSxH: Agreed Nursing Documentation-PMH Hx Cardiac Problems: Yes - kidney stones, chf Review of Systems All Other Systems: negative except mentioned in HPI Physical Exam General Appearance: NAD HEENT: normocephalic, atraumatic Neck: non-tender, normal alignment Respiratory/Chest: nromal breath sounds bilaterally Cardiovascular/Chest: normal peripheral pulses, normal rate Abdomen: normal bowel sounds, soft, nontender Extremities: normal range of motion Labs: reviewed Imaging: noted Assessment and Recs # Hematesis with gi bleed noted, with stable h/h --> trend h/h currently stable --> consider ppi --> as per gi care # Hematuria --> currently improved --> get coags --> uro eval prn # CHF (congestive heart failure) --> duresis per cards # UTI (urinary tract infection) --> on abx as per id # Cardiomegaly # Dvt ppx scds Time of note does not necessarily correspond to time patient was seen. Appreciate consultation greatly. Vikas Pennington MD Oct 06, 2020 10:44
[2020-10-06] MEDS: guaiFENesin 100mg/5ml Liq ud ORAL PRN (11:52)
--- NOTE | 2020-10-06 12:00 | Surgery Progress Note ---
Surgery Progress Note Subjective Additional Comments no acute events states feels okay no complaints lft's bili elevated sona/lip okay no active bleeding inr elevated Objective Last 24 Hour Vital Signs Date Time Temp Pulse Resp B/P (MAP) Pulse Ox O2 Delivery O2 Flow Rate FiO2 10/06/20 09:50 95 117/59 10/06/20 09:00 Room Air 10/06/20 08:00 98.1 95 20 117/59 (78) 96 10/06/20 08:00 96 10/06/20 04:00 98.1 98 20 116/76 (89) 98 10/06/20 04:00 99 10/06/20 00:00 97 10/06/20 00:00 98.1 98 20 116/76 (89) 98 10/05/20 21:00 Room Air 10/05/20 20:38 103 109/67 10/05/20 20:00 102 10/05/20 20:00 99.1 103 22 109/67 (81) 97 10/05/20 16:00 104 10/05/20 16:00 98.2 105 18 103/63 (76) 95 10/05/20 12:00 98.2 110 18 126/76 (93) 98 10/05/20 12:00 110 I&O Intake and Output 10/05/20 10/06/20 19:00 07:00 Intake Total 750 ml Output Total 800 ml Balance 750 ml -800 ml Intake Oral 750 ml Output Urine Total 800 ml # Bowel Movements 1 Cardiovascular: RSR Respiratory: clear Abdomen: soft, non-tender, present bowel sounds, non-distended Extremities: no edema, no tenderness, no cyanosis Laboratory Tests Test 10/06/20 03:30 White Blood Count 10.6 K/UL (4.8-10.8) Red Blood Count 4.83 M/UL (4.70-6.10) Hemoglobin 14.1 G/DL (14.2-18.0) L Hematocrit 41.6 % (42.0-52.0) L Mean Corpuscular Volume 86 FL (80-99) Mean Corpuscular Hemoglobin 29.1 PG (27.0-31.0) Mean Corpuscular Hemoglobin Concent 33.8 G/DL (32.0-36.0) Red Cell Distribution Width 15.5 % (11.6-14.8) H Platelet Count 159 K/UL (150-450) Mean Platelet Volume 8.6 FL (6.5-10.1) Neutrophils (%) (Auto) 78.1 % (45.0-75.0) H Lymphocytes (%) (Auto) 11.3 % (20.0-45.0) L Monocytes (%) (Auto) 9.5 % (1.0-10.0) Eosinophils (%) (Auto) 0.0 % (0.0-3.0) Basophils (%) (Auto) 1.0 % (0.0-2.0) Erythrocyte Sedimentation Rate 19 MM/HR (0-20) Prothrombin Time 17.6 SEC (9.30-11.50) H Prothromb Time International Ratio 1.7 (0.9-1.1) H Activated Partial Thromboplast Time 30 SEC (23-33) Sodium Level 133 MMOL/L (136-145) L Potassium Level 3.9 MMOL/L (3.5-5.1) Chloride Level 98 MMOL/L (98-107) Carbon Dioxide Level 24 MMOL/L (21-32) Anion Gap 11 mmol/L (5-15) Blood Urea Nitrogen 33 mg/dL (7-18) H Creatinine 1.6 MG/DL (0.55-1.30) H Estimat Glomerular Filtration Rate 53.7 mL/min (>60) Glucose Level 116 MG/DL (74-106) H Uric Acid 8.3 MG/DL (2.6-7.2) H Calcium Level 9.1 MG/DL (8.5-10.1) Phosphorus Level 3.8 MG/DL (2.5-4.9) Magnesium Level 2.1 MG/DL (1.8-2.4) Total Bilirubin 1.9 MG/DL (0.2-1.0) H Direct Bilirubin 0.9 MG/DL (0.0-0.3) H Aspartate Amino Transf (AST/SGOT) 42 U/L (15-37) H Alanine Aminotransferase (ALT/SGPT) 37 U/L (12-78) Alkaline Phosphatase 90 U/L (46-116) C-Reactive Protein, Quantitative Pending Pro-B-Type Natriuretic Peptide 8950 pg/mL (0-125) H Total Protein 7.0 G/DL (6.4-8.2) Albumin 2.8 G/DL (3.4-5.0) L Globulin 4.2 g/dL Albumin/Globulin Ratio 0.7 (1.0-2.7) L Amylase Level 49 U/L (25-115) Lipase 104 U/L (73-393) Plan Problems: (1) UTI (urinary tract infection) (2) ACS (acute coronary syndrome) (3) CHF (congestive heart failure) (4) Hyponatremia (5) Malnutrition (6) HTN (hypertension) (7) Cardiomyopathy (8) Electrolyte imbalance (9) Renal colic (10) Diverticulosis (11) Abdominal pain Assessment & Plan: epigastric abd pain elevated t bili afebrile HD stable pain improving US abd ordered trend labs okay for diet will follow with recs covid neg lft's bili elevated sona/lip okay no active bleeding inr elevated pending imaging Can Gomez Oct 06, 2020 12:00
[2020-10-06 12:03] VITALS: BP 138/89
--- NOTE | 2020-10-06 12:34 | Pulmonology Progress Note ---
Subjective ROS Limited/Unobtainable: No Interval Events: s/p hemodialysis Constitutional: Reports: no symptoms HEENT: Repors: no symptoms Respiratory: Reports: productive cough, hemoptysis Cardiovascular: Reports: no symptoms Gastrointestinal/Abdominal: Reports: no symptoms Genitourinary: Reports: no symptoms Neurologic: Reports: no symptoms Allergies: Coded Allergies: No Known Allergies (Unverified , 04/20/16) All Systems: reviewed and negative except above Objective Last 24 Hour Vital Signs Date Time Temp Pulse Resp B/P (MAP) Pulse Ox O2 Delivery O2 Flow Rate FiO2 10/06/20 12:03 98.6 89 20 138/89 (105) 99 10/06/20 09:50 95 117/59 10/06/20 09:00 Room Air 10/06/20 08:00 98.1 95 20 117/59 (78) 96 10/06/20 08:00 96 10/06/20 04:00 98.1 98 20 116/76 (89) 98 10/06/20 04:00 99 10/06/20 00:00 97 10/06/20 00:00 98.1 98 20 116/76 (89) 98 10/05/20 21:00 Room Air 10/05/20 20:38 103 109/67 10/05/20 20:00 102 10/05/20 20:00 99.1 103 22 109/67 (81) 97 10/05/20 16:00 104 10/05/20 16:00 98.2 105 18 103/63 (76) 95 Intake and Output 10/05/20 10/06/20 19:00 07:00 Intake Total 750 ml Output Total 800 ml Balance 750 ml -800 ml Intake Oral 750 ml Output Urine Total 800 ml # Bowel Movements 1 Objective 10/06 saturating well on RA General Appearance: no acute distress HEENT: normocephalic Respiratory: chest wall non-tender, lungs clear Cardiovascular: normal peripheral pulses, normal rate Abdomen: normal bowel sounds Microbiology Date/Time Source Procedure Growth Status 10/05/20 14:00 Sputum Expectorated Gram Stain Pending Resulted 10/05/20 14:00 Sputum Expectorated Sputum Culture - Preliminary NORMAL UPPER RESPIRATORY KALI AT 24 ... Resulted 10/04/20 18:50 Nasopharynx Coronavirus COVID-19 PCR (DARIN) - Final Complete 10/04/20 11:20 Nasopharynx SARS-CoV-2 RdRp Gene Assay - Final Complete 10/04/20 07:00 Urine,Clean Catch Urine Culture - Preliminary NO GROWTH Resulted Laboratory Tests 10/06/20 03:30: White Blood Count 10.6, Red Blood Count 4.83, Hemoglobin 14.1L, Hematocrit 41.6L , Mean Corpuscular Volume 86, Mean Corpuscular Hemoglobin 29.1, Mean Corpuscular Hemoglobin Concent 33.8, Red Cell Distribution Width 15.5H, Platelet Count 159, Mean Platelet Volume 8.6, Neutrophils (%) (Auto) 78.1H, Lymphocytes (%) (Auto) 11.3L, Monocytes (%) (Auto) 9.5, Eosinophils (%) (Auto) 0.0, Basophils (%) (Auto) 1.0, Erythrocyte Sedimentation Rate 19, Prothrombin Time 17.6H, Prothromb Time International Ratio 1.7H, Activated Partial Thromboplast Time 30, Sodium Level 133L, Potassium Level 3.9, Chloride Level 98, Carbon Dioxide Level 24, Anion Gap 11, Blood Urea Nitrogen 33H, Creatinine 1.6H, Estimat Glomerular Filtration Rate 53.7, Glucose Level 116H, Uric Acid 8.3H, Calcium Level 9.1, Phosphorus Level 3.8, Magnesium Level 2.1, Total Bilirubin 1.9H, Direct Bilirubin 0.9H, Aspartate Amino Transf (AST/SGOT) 42H, Alanine Aminotransferase (ALT/SGPT) 37, Alkaline Phosphatase 90, C-Reactive Protein, Quantitative [Pending], Pro-B-Type Natriuretic Peptide 8950H, Total Protein 7.0, Albumin 2.8L , Globulin 4.2, Albumin/Globulin Ratio 0.7L, Amylase Level 49, Lipase 104 Current Medications Medications (Trade) Dose Ordered Sig/Damián Route PRN Reason Start Time Stop Time Status Last Admin Dose Admin Acetaminophen (Tylenol) 650 mg Q6H PRN ORAL MILD pain 10/04/20 22:30 11/03/20 22:29 Carvedilol (Coreg) 3.125 mg EVERY 12 HOURS ORAL 10/04/20 21:00 11/03/20 20:59 10/06/20 09:50 Furosemide (Lasix) 40 mg EVERY 12 HOURS IV 10/04/20 21:00 11/03/20 20:59 10/06/20 09:51 Guaifenesin (Robitussin) 150 mg Q6H PRN ORAL For Cough 10/04/20 22:30 01/02/21 22:29 10/06/20 11:52 Ondansetron HCl (Zofran) 4 mg Q4H PRN IVP Nausea & Vomiting 10/06/20 05:45 11/05/20 05:44 Spironolactone (Aldactone) 25 mg DAILY ORAL 10/05/20 09:00 11/04/20 08:59 10/06/20 09:50 Assessment/Plan Assessment/Plan 1. Pulmonary edema. - Continue diuretics. - Continue O2 2. Cardiomyopathy. - 2D echo LVEF 20-25% 3. Acute coronary syndrome. - Predominant care per Cardiology. 4. Elevated LFT, bili - Abd US pending 5. COVID-19 negative The care for this patient was discussed with my supervising physician Time spent for this case was approximately 31 minutes Srinivas Weeks Oct 06, 2020 12:34 Navneet Oliveros MD Oct 06, 2020 14:23
--- NOTE | 2020-10-06 12:46 | Nephrology Progress Note ---
Assessment/Plan Problem List: (1) Cardiomyopathy (2) Hyponatremia (3) CHF (congestive heart failure) (4) Electrolyte imbalance (5) Cardiorenal syndrome Assessment 60-year-old male, creatinine 1.4, sodium 124, potassium 3.2 Patient has history of CHF Patient on IV Lasix and spironolactone by chore tender Patient has evidence of blood in the urine and history of kidney stone Final renal impression as per results of the urine, kidney ultrasound, etc. Plan October 06: Labs reviewed. Serum sodium 133. Medication list reviewed. Continue to monitor renal parameters and electrolytes. October 05: Serum sodium up to 135. Hemoglobin A1c 6.6. Patient clinically stable. Continue per cardiology. Kidney ultrasound normal size kidneys and no hydronephrosis. 2D echocardiogram ejection fraction of 20 to 25%. Previously: 2D echocardiogram Kidney ultrasound 250 cc saline 3% once Monitor electrolytes Hyponatremia work-up Per orders Subjective ROS Limited/Unobtainable: No Constitutional: Reports: malaise, weakness Objective Objective Last 24 Hour Vital Signs Date Time Temp Pulse Resp B/P (MAP) Pulse Ox O2 Delivery O2 Flow Rate FiO2 10/06/20 12:03 98.6 89 20 138/89 (105) 99 10/06/20 12:00 95 10/06/20 09:50 95 117/59 10/06/20 09:00 Room Air 10/06/20 08:00 98.1 95 20 117/59 (78) 96 10/06/20 08:00 96 10/06/20 04:00 98.1 98 20 116/76 (89) 98 10/06/20 04:00 99 10/06/20 00:00 97 10/06/20 00:00 98.1 98 20 116/76 (89) 98 10/05/20 21:00 Room Air 10/05/20 20:38 103 109/67 10/05/20 20:00 102 10/05/20 20:00 99.1 103 22 109/67 (81) 97 10/05/20 16:00 104 10/05/20 16:00 98.2 105 18 103/63 (76) 95 Intake and Output 10/05/20 10/06/20 19:00 07:00 Intake Total 750 ml Output Total 800 ml Balance 750 ml -800 ml Intake Oral 750 ml Output Urine Total 800 ml # Bowel Movements 1 Laboratory Tests 10/06/20 03:30: White Blood Count 10.6, Red Blood Count 4.83, Hemoglobin 14.1L, Hematocrit 41.6L , Mean Corpuscular Volume 86, Mean Corpuscular Hemoglobin 29.1, Mean Corpuscular Hemoglobin Concent 33.8, Red Cell Distribution Width 15.5H, Platelet Count 159, Mean Platelet Volume 8.6, Neutrophils (%) (Auto) 78.1H, Lymphocytes (%) (Auto) 11.3L, Monocytes (%) (Auto) 9.5, Eosinophils (%) (Auto) 0.0, Basophils (%) (Auto) 1.0, Erythrocyte Sedimentation Rate 19, Prothrombin Time 17.6H, Prothromb Time International Ratio 1.7H, Activated Partial Thromboplast Time 30, Sodium Level 133L, Potassium Level 3.9, Chloride Level 98, Carbon Dioxide Level 24, Anion Gap 11, Blood Urea Nitrogen 33H, Creatinine 1.6H, Estimat Glomerular Filtration Rate 53.7, Glucose Level 116H, Uric Acid 8.3H, Calcium Level 9.1, Phosphorus Level 3.8, Magnesium Level 2.1, Total Bilirubin 1.9H, Direct Bilirubin 0.9H, Aspartate Amino Transf (AST/SGOT) 42H, Alanine Aminotransferase (ALT/SGPT) 37, Alkaline Phosphatase 90, C-Reactive Protein, Quantitative [Pending], Pro-B-Type Natriuretic Peptide 8950H, Total Protein 7.0, Albumin 2.8L , Globulin 4.2, Albumin/Globulin Ratio 0.7L, Amylase Level 49, Lipase 104 Height (Feet): 5 Height (Inches): 9.00 Weight (Pounds): 255 General Appearance: no apparent distress Cardiovascular: tachycardia Respiratory/Chest: decreased breath sounds Abdomen: soft Hari Telles MD Oct 06, 2020 12:46
[2020-10-06] MEDS ORDERED: FUROSEMIDE40 MG ORAL (13:06)
--- NOTE | 2020-10-06 13:35 | Diagnostic Imaging Report ---
Indication: Abnormal renal function tests Technique: Meléndez-scale and duplex images of the upper abdomen were obtained Comparison: No comparison abdominal sonogram. Reference made to renal sonogram 10/04/2020, CT abdomen and pelvis 09/07/2020 Findings: Gallbladder is unremarkable, without stones, wall thickening, nor pericholecystic fluid. Sonographic Kasper's sign is negative. Common bile duct measures 5 mm in diameter. No intrahepatic biliary ductal dilatation. Liver demonstrates normal echogenicity, no focal abnormality. To-and-fro flow is seen within the main portal vein Pancreas is incompletely visualized due to overlying bowel gas, visualized portions are unremarkable. Spleen demonstrates a small cyst. Left kidney measures 11.5 cm in length. Right kidney measures 11.3 cm length. Both kidneys demonstrate normal echogenicity. There is no hydronephrosis. . Kidneys demonstrate small cysts and small echogenic foci. Unremarkable inferior vena cava.. Non-aneurysmal abdominal aorta . Impression: To-and-fro flow within the main portal vein, could indicate portal hypertension Negative for gallstones or dilated bile ducts Echogenic foci within the kidneys, suspected artifactual as no calculi are demonstrated on recent CT scan Incidental finding of splenic and small bilateral renal cysts
--- NOTE | 2020-10-06 14:45 | NUR ---
CASE MANAGEMENT:REVIEW 10/06/20 SI: ACS. PULMONARY EDEMA. CARDIOMYOPATHY W/EF 20-25% 98.6 89 20 138/89 99% ON RA NA-133 BUN+33 CR+1.6 BNP+8950 IS: ALDACTONE PO QD IV LASIX Q12 COREG PO Q12 : TELEMETRY STATUS DCP: FROM HOME
--- NOTE | 2020-10-06 15:32 | General Progress Note ---
Subjective ROS Limited/Unobtainable: Yes Allergies: Coded Allergies: No Known Allergies (Unverified , 04/20/16) Objective Last 24 Hour Vital Signs Date Time Temp Pulse Resp B/P (MAP) Pulse Ox O2 Delivery O2 Flow Rate FiO2 10/06/20 12:03 98.6 89 20 138/89 (105) 99 10/06/20 12:00 95 10/06/20 09:50 95 117/59 10/06/20 09:00 Room Air 10/06/20 08:00 98.1 95 20 117/59 (78) 96 10/06/20 08:00 96 10/06/20 04:00 98.1 98 20 116/76 (89) 98 10/06/20 04:00 99 10/06/20 00:00 97 10/06/20 00:00 98.1 98 20 116/76 (89) 98 10/05/20 21:00 Room Air 10/05/20 20:38 103 109/67 10/05/20 20:00 102 10/05/20 20:00 99.1 103 22 109/67 (81) 97 10/05/20 16:00 104 10/05/20 16:00 98.2 105 18 103/63 (76) 95 Intake and Output 10/05/20 10/06/20 19:00 07:00 Intake Total 750 ml Output Total 800 ml Balance 750 ml -800 ml Intake Oral 750 ml Output Urine Total 800 ml # Bowel Movements 1 Laboratory Tests 10/06/20 03:30: White Blood Count 10.6, Red Blood Count 4.83, Hemoglobin 14.1L, Hematocrit 41.6L , Mean Corpuscular Volume 86, Mean Corpuscular Hemoglobin 29.1, Mean Corpuscular Hemoglobin Concent 33.8, Red Cell Distribution Width 15.5H, Platelet Count 159, Mean Platelet Volume 8.6, Neutrophils (%) (Auto) 78.1H, Lymphocytes (%) (Auto) 11.3L, Monocytes (%) (Auto) 9.5, Eosinophils (%) (Auto) 0.0, Basophils (%) (Auto) 1.0, Erythrocyte Sedimentation Rate 19, Prothrombin Time 17.6H, Prothromb Time International Ratio 1.7H, Activated Partial Thromboplast Time 30, Sodium Level 133L, Potassium Level 3.9, Chloride Level 98, Carbon Dioxide Level 24, Anion Gap 11, Blood Urea Nitrogen 33H, Creatinine 1.6H, Estimat Glomerular Filtration Rate 53.7, Glucose Level 116H, Uric Acid 8.3H, Calcium Level 9.1, Phosphorus Level 3.8, Magnesium Level 2.1, Total Bilirubin 1.9H, Direct Bilirubin 0.9H, Aspartate Amino Transf (AST/SGOT) 42H, Alanine Aminotransferase (ALT/SGPT) 37, Alkaline Phosphatase 90, C-Reactive Protein, Quantitative [Pending], Pro-B-Type Natriuretic Peptide 8950H, Total Protein 7.0, Albumin 2.8L , Globulin 4.2, Albumin/Globulin Ratio 0.7L, Amylase Level 49, Lipase 104 Height (Feet): 5 Height (Inches): 9.00 Weight (Pounds): 255 General Appearance: no apparent distress EENT: normal ENT inspection Neck: supple Cardiovascular: normal rate Respiratory/Chest: decreased breath sounds Abdomen: normal bowel sounds, non tender, soft Extremities: non-tender Assessment/Plan Problem List: (1) Diverticulosis ICD Codes: K57.90 - Diverticulosis of intestine, part unspecified, without perforation or abscess without bleeding SNOMED: 196290756 (2) HTN (hypertension) ICD Codes: I10 - Essential (primary) hypertension SNOMED: 43243292 (3) UTI (urinary tract infection) ICD Codes: N39.0 - Urinary tract infection, site not specified SNOMED: 59239916 Qualifiers: Qualified Codes: N39.0 - Urinary tract infection, site not specified (4) Abdominal pain ICD Codes: R10.9 - Unspecified abdominal pain SNOMED: 57812927 (5) Cardiomyopathy ICD Codes: I42.9 - Cardiomyopathy, unspecified SNOMED: 47033747 Status: unchanged Assessment/Plan: elevated LFTS>>> improving abd us reviewed hematemesis ppi plan EGD Seth Blunt MD Oct 06, 2020 15:32
[2020-10-06 16:00] VITALS: BP 115/70
--- NOTE | 2020-10-06 16:08 | Cardiac Electrophysiology PN ---
Assessment/Plan Assessment/Plan 1. Exacerbation of congestive heart failure with EF 20%. His BNP is more than 4700. On Lasix 40 mg IV b.i.d. Coreg, Entresto, and Aldactone. Will get prior Echo and if EF has remained < 35% for more than 3 months,authorization from insurance company for ICD DW patient the risks and benefits of ICD implant and he agreed to proceed 2. Hypertension. Continue current heart failure therapy. 3. Frothy cough. Covid negative. 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 4. Benign prostatic hypertrophy. 5. Urinary tract infection. per Dr. Zayas, will be monitored off antibiotic at this time. Subjective Subjective Ruled out for Covid. Off isolation on RA. Echo showed EF 20% Objective Last 24 Hour Vital Signs Date Time Temp Pulse Resp B/P (MAP) Pulse Ox O2 Delivery O2 Flow Rate FiO2 10/06/20 12:03 98.6 89 20 138/89 (105) 99 10/06/20 12:00 95 10/06/20 09:50 95 117/59 10/06/20 09:00 Room Air 10/06/20 08:00 98.1 95 20 117/59 (78) 96 10/06/20 08:00 96 10/06/20 04:00 98.1 98 20 116/76 (89) 98 10/06/20 04:00 99 10/06/20 00:00 97 10/06/20 00:00 98.1 98 20 116/76 (89) 98 10/05/20 21:00 Room Air 10/05/20 20:38 103 109/67 10/05/20 20:00 102 10/05/20 20:00 99.1 103 22 109/67 (81) 97 Intake and Output 10/05/20 10/06/20 19:00 07:00 Intake Total 750 ml Output Total 800 ml Balance 750 ml -800 ml Intake Oral 750 ml Output Urine Total 800 ml # Bowel Movements 1 Laboratory Tests Test 10/06/20 03:30 White Blood Count 10.6 K/UL (4.8-10.8) Red Blood Count 4.83 M/UL (4.70-6.10) Hemoglobin 14.1 G/DL (14.2-18.0) L Hematocrit 41.6 % (42.0-52.0) L Mean Corpuscular Volume 86 FL (80-99) Mean Corpuscular Hemoglobin 29.1 PG (27.0-31.0) Mean Corpuscular Hemoglobin Concent 33.8 G/DL (32.0-36.0) Red Cell Distribution Width 15.5 % (11.6-14.8) H Platelet Count 159 K/UL (150-450) Mean Platelet Volume 8.6 FL (6.5-10.1) Neutrophils (%) (Auto) 78.1 % (45.0-75.0) H Lymphocytes (%) (Auto) 11.3 % (20.0-45.0) L Monocytes (%) (Auto) 9.5 % (1.0-10.0) Eosinophils (%) (Auto) 0.0 % (0.0-3.0) Basophils (%) (Auto) 1.0 % (0.0-2.0) Erythrocyte Sedimentation Rate 19 MM/HR (0-20) Prothrombin Time 17.6 SEC (9.30-11.50) H Prothromb Time International Ratio 1.7 (0.9-1.1) H Activated Partial Thromboplast Time 30 SEC (23-33) Sodium Level 133 MMOL/L (136-145) L Potassium Level 3.9 MMOL/L (3.5-5.1) Chloride Level 98 MMOL/L (98-107) Carbon Dioxide Level 24 MMOL/L (21-32) Anion Gap 11 mmol/L (5-15) Blood Urea Nitrogen 33 mg/dL (7-18) H Creatinine 1.6 MG/DL (0.55-1.30) H Estimat Glomerular Filtration Rate 53.7 mL/min (>60) Glucose Level 116 MG/DL (74-106) H Uric Acid 8.3 MG/DL (2.6-7.2) H Calcium Level 9.1 MG/DL (8.5-10.1) Phosphorus Level 3.8 MG/DL (2.5-4.9) Magnesium Level 2.1 MG/DL (1.8-2.4) Total Bilirubin 1.9 MG/DL (0.2-1.0) H Direct Bilirubin 0.9 MG/DL (0.0-0.3) H Aspartate Amino Transf (AST/SGOT) 42 U/L (15-37) H Alanine Aminotransferase (ALT/SGPT) 37 U/L (12-78) Alkaline Phosphatase 90 U/L (46-116) C-Reactive Protein, Quantitative Pending Pro-B-Type Natriuretic Peptide 8950 pg/mL (0-125) H Total Protein 7.0 G/DL (6.4-8.2) Albumin 2.8 G/DL (3.4-5.0) L Globulin 4.2 g/dL Albumin/Globulin Ratio 0.7 (1.0-2.7) L Amylase Level 49 U/L (25-115) Lipase 104 U/L (73-393) Microbiology Date/Time Source Procedure Growth Status 10/05/20 14:00 Sputum Expectorated Gram Stain Pending Resulted 10/05/20 14:00 Sputum Expectorated Sputum Culture - Preliminary NORMAL UPPER RESPIRATORY KALI AT 24 ... Resulted 10/04/20 18:50 Nasopharynx Coronavirus COVID-19 PCR ([facility]) - Final Complete 10/04/20 11:20 Nasopharynx SARS-CoV-2 RdRp Gene Assay - Final Complete 10/04/20 07:00 Urine,Clean Catch Urine Culture - Preliminary NO GROWTH Resulted Objective HEAD AND NECK: Show positive JVD. LUNGS: Decreased breath sounds. CARDIOVASCULAR: Shows regular S1 and S2 with no gallop. ABDOMEN: Soft. EXTREMITIES: 1+ pitting edema. Hudson Garcia MD Oct 06, 2020 16:08
--- NOTE | 2020-10-06 19:32 | NUR ---
NURSE HAND-OFF REPORT: Important Events on Shift:[Consent for ICD and EGD, ABD US] Patient Status: [Full code] Diet: [Low sodium] Pending Orders: [N/A] Pending Results/Labs:[N/A] Pending MD notification:[N/A] Latest Vital Signs: Temperature 98.6 , Pulse 100 , B/P 115 /70 , Respiratory Rate 20 , O2 SAT 99 , Room Air, O2 Flow Rate . Vital Sign Comment: [] EKG Rhythm: Sinus Rhythm Rhythm change?: N MD Notified?: - MD Response: Latest Mccabe Fall Score: 20 Fall Risk: Low Risk Safety Measures: Call light Within Reach, Bed Alarm , Side Rails Side Rails x2, Bed position Low and Locked. Fall Precautions: Patient Fall Education Report given to [JILLIAN Daniels].
--- NOTE | 2020-10-06 19:40 | NUR ---
NURSE NOTES: Report received from Billy WALSH. Patient is laying in bed sleeping . Patient is AOX4 and able to make needs known. IV site is asymptomatic, patent, and intact in right hand 20G; no bleeding or erythema noted. no SOB noted. Patient is not reporting pain at this time. Bed in lowest position locked and side rails up x3. Belonging and call light with in reach. patient is on wound care mattress for wound care management. Will continue plan of care.
[2020-10-06 20:00] VITALS: BP 114/62
--- NOTE | 2020-10-06 21:58 | NUR ---
NURSE NOTES: Report received from Billy WALSH. Patient is laying in bed sleeping . Patient is AOX4 and able to make needs known. IV site is asymptomatic, patent, and intact in right hand 20G; no bleeding or erythema noted. no SOB noted. Patient is not reporting pain at this time. Bed in lowest position locked and side rails up x3. Belonging and call light with in reach. patient is on wound care mattress for wound care management. Will continue plan of care. Addendum: 10/06/20 at 2201 by Lexie Daniels RN duplicate note.
[2020-10-07] VITALS (10 sets, daily range): BP systolic 92–136; BP diastolic 53–90
--- NOTE | 2020-10-07 00:48 | NUR ---
NURSE NOTES: Notified Dr. Garcia that patient had two runs of 5 beats of v-tack at 00:26 or 23:34. No new orders at this time. Will continue to monitor.
--- NOTE | 2020-10-07 03:00 | NUR ---
NURSE NOTES: Changed Optifoam on patient sacrum. Patients bilateral leg dressing are intact.
--- NOTE | 2020-10-07 05:50 | NUR ---
NURSE NOTES: Spoke to Dr. Gonzalez regarding patient having left flank/back pain that radiated ti left hip and left arm. Dr. Gonzalez ordered Morphine 2mg IVP Q4h PRN. Noted and cared out.
[2020-10-07] MEDS ORDERED: Morphine Sulfate 2mg/ml Inj(IV/IM USE ONLY) IVP PRN (06:15)
[2020-10-07 06:28] LABS: BASOPHILS % (AUTO) 0.8 % (0.0-2.0); HEMATOCRIT 46.7 % (42.0-52.0); HEMOGLOBIN 15.6 G/DL (14.2-18.0); LYMPHOCYTES % (AUTO) 12.3 % (20.0-45.0); MEAN CORPUSCULAR VOLUME 86 FL (80-99); MONOCYTES % (AUTO) 10.2 % (1.0-10.0); NEUTROPHILS % (AUTO) 76.7 % (45.0-75.0); PLATELET COUNT 184 K/UL (150-450); RED BLOOD COUNT 5.43 M/UL (4.70-6.10); RED CELL DISTRIBUTION WIDTH 16.1 % (11.6-14.8); WHITE BLOOD COUNT 11.2 K/UL (4.8-10.8)
[2020-10-07 06:36] LABS: INR 1.6 (0.9-1.1)
[2020-10-07 06:58] LABS: ALBUMIN 2.8 G/DL (3.4-5.0); ALBUMIN/GLOBULIN RATIO 0.6 (1.0-2.7); BILIRUBIN,TOTAL 1.7 MG/DL (0.2-1.0); CALCIUM 8.8 MG/DL (8.5-10.1); CREATININE 1.6 MG/DL (0.55-1.30); POTASSIUM 3.9 MMOL/L (3.5-5.1)
[2020-10-07 07:10] LABS: BILIRUBIN,DIRECT 1.1 MG/DL (0.0-0.3)
--- NOTE | 2020-10-07 07:10 | NUR ---
NURSE NOTES: Received patient report from JILLIAN Owen. Patient is AO x4. Breathing is even and unlabored with no signs of respiratory distress. No pain or discomfort noted at this time. IV site is asymptomatic, patent, and intact in right hand 20G. Bed in lowest position, locked with side rails x2 up. Call light within reach.
--- NOTE | 2020-10-07 07:12 | NUR ---
NURSE HAND-OFF REPORT: Important Events on Shift: Patient will be going for EGD. Patient had 2 runs of 5 beets of adis VINES was called. Patient Status: Patient has no sob and no pain reported at this time Diet: NPO Pending Orders: Pending Results/Labs: AM Labs Pending MD notification: Latest Vital Signs: Temperature 96.6 , Pulse 96 , B/P 121 /73 , Respiratory Rate 20 , O2 SAT 97 , Room Air, O2 Flow Rate . Vital Sign Comment: EKG Rhythm: Sinus Rhythm Rhythm change?: N MD Notified?: - MD Response: Latest Mccabe Fall Score: 20 Fall Risk: Low Risk Safety Measures: Call light Within Reach, Bed Alarm , Side Rails Side Rails x2, Bed position Low and Locked. Fall Precautions: Patient Fall Education Report given to Linda WALSH .
[2020-10-07] MEDS: Spironolactone 25mg tab ORAL SCH (08:23)
--- NOTE | 2020-10-07 09:01 | General Progress Note ---
Subjective Constitutional: Reports: weakness Allergies: Coded Allergies: No Known Allergies (Unverified , 04/20/16) All Systems: reviewed and negative except above Subjective calm in bed Objective Last 24 Hour Vital Signs Date Time Temp Pulse Resp B/P (MAP) Pulse Ox O2 Delivery O2 Flow Rate FiO2 10/07/20 08:23 92 122/75 10/07/20 04:00 96.6 96 20 121/73 (89) 97 10/07/20 04:00 94 10/07/20 00:00 105 10/07/20 00:00 99.0 96 19 99/62 (74) 97 10/06/20 21:00 Room Air 10/06/20 21:00 99 114/62 10/06/20 20:00 99 10/06/20 20:00 98.4 99 20 114/62 (79) 98 10/06/20 16:00 100 10/06/20 16:00 98.6 99 20 115/70 (85) 99 10/06/20 12:03 98.6 89 20 138/89 (105) 99 10/06/20 12:00 95 10/06/20 09:50 95 117/59 Intake and Output 10/06/20 10/07/20 19:00 07:00 Intake Total 300 ml 60 ml Output Total 700 ml 725 ml Balance -400 ml -665 ml Intake Oral 300 ml 60 ml Output Urine Total 700 ml 725 ml # Voids 4 4 # Bowel Movements 1 Laboratory Tests 10/07/20 06:12: White Blood Count 11.2H, Red Blood Count 5.43, Hemoglobin 15.6, Hematocrit 46.7, Mean Corpuscular Volume 86, Mean Corpuscular Hemoglobin 28.8, Mean Corpuscular Hemoglobin Concent 33.5, Red Cell Distribution Width 16.1H, Platelet Count 184, Mean Platelet Volume 9.2, Neutrophils (%) (Auto) 76.7H, Lymphocytes (%) (Auto) 12.3L, Monocytes (%) (Auto) 10.2H, Eosinophils (%) (Auto) 0.0, Basophils (%) (Auto) 0.8, Prothrombin Time 17.3H, Prothromb Time International Ratio 1.6H, Activated Partial Thromboplast Time 29, Sodium Level 132L, Potassium Level 3.9, Chloride Level 97L, Carbon Dioxide Level 26, Anion Gap 9, Blood Urea Nitrogen 39H, Creatinine 1.6H, Estimat Glomerular Filtration Rate 53.7, Glucose Level 120H, Uric Acid [Pending], Calcium Level 8.8, Phosphorus Level [Pending], Magnesium Level [Pending], Total Bilirubin 1.7H, Direct Bilirubin 1.1H, Aspartate Amino Transf (AST/SGOT) 46H, Alanine Aminotransferase (ALT/SGPT) 44, Alkaline Phosphatase 124H, C-Reactive Protein, Quantitative [Pending], Pro-B-Type Natriuretic Peptide [Pending], Total Protein 7.5, Albumin 2.8L, Globulin 4.7, Albumin/Globulin Ratio 0.6L Height (Feet): 5 Height (Inches): 5.00 Weight (Pounds): 246 General Appearance: lethargic EENT: normal ENT inspection Neck: normal alignment Cardiovascular: normal peripheral pulses, normal rate, regular rhythm Respiratory/Chest: chest wall non-tender, lungs clear, normal breath sounds Abdomen: normal bowel sounds, non tender, soft Extremities: normal inspection Edema: no edema noted Arm (L), no edema noted Arm (R), no edema noted Leg (L), no edema noted Leg (R), no edema noted Pedal (L), no edema noted Pedal (R), no edema noted Generalized Neurologic: motor weakness Skin: normal pigmentation, warm/dry Assessment/Plan Problem List: (1) HTN (hypertension) ICD Codes: I10 - Essential (primary) hypertension SNOMED: 79657019 (2) Malnutrition ICD Codes: E46 - Unspecified protein-calorie malnutrition SNOMED: 81677281 (3) Hyponatremia ICD Codes: E87.1 - Hypo-osmolality and hyponatremia SNOMED: 55772893 (4) ACS (acute coronary syndrome) ICD Codes: I24.9 - Acute ischemic heart disease, unspecified SNOMED: 834963070 (5) CHF (congestive heart failure) ICD Codes: I50.9 - Heart failure, unspecified SNOMED: 76472855 Qualifiers: Qualified Codes: I50.9 - Heart failure, unspecified (6) UTI (urinary tract infection) ICD Codes: N39.0 - Urinary tract infection, site not specified SNOMED: 50669451 Qualifiers: Qualified Codes: N39.0 - Urinary tract infection, site not specified Status: unchanged Assessment/Plan: pain control bp control abx cbc bmp am Alex Gonzalez DO Oct 07, 2020 09:01
[2020-10-07 09:13] LABS: PHOSPHORUS 3.7 MG/DL (2.5-4.9)
--- NOTE | 2020-10-07 09:26 | NUR ---
RD ASSESSMENT & RECOMMENDATIONS SEE CARE ACTIVITY FOR COMPLETE ASSESSMENT DAILY ESTIMATED NEEDS: Needs based on Cardiac, obese 82.5kg 20-25 kcals/kg 1700-1647 total kcals 1-1.2 g protein/kg 83-99 g total protein Fluid per MD, on lasix NUTRITION DIAGNOSIS: Decreased sodium needs r/t clinical status as evidenced by pt w/ CHF, elev BNP, BL foot edema. CURRENT DIET: Now NPO for EGD PO DIET RECOMMENDATIONS: Resume Low Na diet as able ADDITIONAL RECOMMENDATIONS: 1) F/up post EGD-> need for low/high fiber diet 2) A1C 6.0, BG low 100's, monitor need for niss/ hypoglycemics 3) Monitor lytes with lasix, on aldactone
--- NOTE | 2020-10-07 09:38 | Infectious Diseases Prog Note ---
Assessment/Plan 60yo M with: Afebrile Normal WBC Lymphopenia Cough, leg swelling, r/o CHF R/o UTI - UA neg, no sx 10/04 UA neg, UCx neg CXR: Cardiomegaly, no acute process COVID rapid test neg, PCR neg Hemoptysis, most likely 2/2 pulm congestion 2/2 CHF, less likely 2/2 infection given lack of other s/sx of infection 10/05 Resp cx neg Cr 1.4 --> 1.6 10/04 Renal US: Focal posterior bladder wall thickening. Could indicate a mucosal lesion. Consider cystoscopy. Left renal shadowing focus, could represent a calculus versus arterial calcification. CHF EF 20-25% 10/06 Abd US: To-and-fro flow within the main portal vein, could indicate portal hypertension. Negative for gallstones or dilated bile ducts. Echogenic foci within the kidneys, suspected artifactual as no calculi are demonstrated on recent CT scan. Incidental finding of splenic and small bilateral renal cysts Plan: Cont to monitor off abx given no s/sx of infection Trend WBC off abx Monitor CBC, CMP Monitor resp status Monitor temp curve, hemodynamics D/w RN Thank you for this consult. [facility] will continue to follow. Subjective Allergies: Coded Allergies: No Known Allergies (Unverified , 04/20/16) AF WBC 11, overall stable Resp cx neg NAD, no new fevers/chills, SOB, dysuria Objective Last 24 Hour Vital Signs Date Time Temp Pulse Resp B/P (MAP) Pulse Ox O2 Delivery O2 Flow Rate FiO2 10/07/20 08:23 92 122/75 10/07/20 08:00 98.3 97 21 119/61 (80) 96 10/07/20 04:00 96.6 96 20 121/73 (89) 97 10/07/20 04:00 94 10/07/20 00:00 105 10/07/20 00:00 99.0 96 19 99/62 (74) 97 10/06/20 21:00 Room Air 10/06/20 21:00 99 114/62 10/06/20 20:00 99 10/06/20 20:00 98.4 99 20 114/62 (79) 98 10/06/20 16:00 100 10/06/20 16:00 98.6 99 20 115/70 (85) 99 10/06/20 12:03 98.6 89 20 138/89 (105) 99 10/06/20 12:00 95 10/06/20 09:50 95 117/59 Height (Feet): 5 Height (Inches): 5.00 Weight (Pounds): 246 Gen: NAD HEENT: NCAT Pulm: BL chest rise Abd: Non-distended Ext: No c/c/e Skin: No visible rashes Neuro: Awake Microbiology Date/Time Source Procedure Growth Status 10/05/20 14:00 Sputum Expectorated Gram Stain - Final Complete 10/05/20 14:00 Sputum Expectorated Sputum Culture - Final NORMAL UPPER RESPIRATORY KALI PRESENT Complete 10/04/20 18:50 Nasopharynx Coronavirus COVID-19 PCR (DARIN) - Final Complete 10/04/20 11:20 Nasopharynx SARS-CoV-2 RdRp Gene Assay - Final Complete Laboratory Tests Test 10/07/20 06:12 White Blood Count 11.2 K/UL (4.8-10.8) H Red Blood Count 5.43 M/UL (4.70-6.10) Hemoglobin 15.6 G/DL (14.2-18.0) Hematocrit 46.7 % (42.0-52.0) Mean Corpuscular Volume 86 FL (80-99) Mean Corpuscular Hemoglobin 28.8 PG (27.0-31.0) Mean Corpuscular Hemoglobin Concent 33.5 G/DL (32.0-36.0) Red Cell Distribution Width 16.1 % (11.6-14.8) H Platelet Count 184 K/UL (150-450) Mean Platelet Volume 9.2 FL (6.5-10.1) Neutrophils (%) (Auto) 76.7 % (45.0-75.0) H Lymphocytes (%) (Auto) 12.3 % (20.0-45.0) L Monocytes (%) (Auto) 10.2 % (1.0-10.0) H Eosinophils (%) (Auto) 0.0 % (0.0-3.0) Basophils (%) (Auto) 0.8 % (0.0-2.0) Prothrombin Time 17.3 SEC (9.30-11.50) H Prothromb Time International Ratio 1.6 (0.9-1.1) H Activated Partial Thromboplast Time 29 SEC (23-33) Sodium Level 132 MMOL/L (136-145) L Potassium Level 3.9 MMOL/L (3.5-5.1) Chloride Level 97 MMOL/L (98-107) L Carbon Dioxide Level 26 MMOL/L (21-32) Anion Gap 9 mmol/L (5-15) Blood Urea Nitrogen 39 mg/dL (7-18) H Creatinine 1.6 MG/DL (0.55-1.30) H Estimat Glomerular Filtration Rate 53.7 mL/min (>60) Glucose Level 120 MG/DL (74-106) H Uric Acid 8.4 MG/DL (2.6-7.2) H Calcium Level 8.8 MG/DL (8.5-10.1) Phosphorus Level 3.7 MG/DL (2.5-4.9) Magnesium Level 2.4 MG/DL (1.8-2.4) Total Bilirubin 1.7 MG/DL (0.2-1.0) H Direct Bilirubin 1.1 MG/DL (0.0-0.3) H Aspartate Amino Transf (AST/SGOT) 46 U/L (15-37) H Alanine Aminotransferase (ALT/SGPT) 44 U/L (12-78) Alkaline Phosphatase 124 U/L (46-116) H C-Reactive Protein, Quantitative Pending Pro-B-Type Natriuretic Peptide 7642 pg/mL (0-125) H Total Protein 7.5 G/DL (6.4-8.2) Albumin 2.8 G/DL (3.4-5.0) L Globulin 4.7 g/dL Albumin/Globulin Ratio 0.6 (1.0-2.7) L Current Medications Medications (Trade) Dose Ordered Sig/Damián Route PRN Reason Start Time Stop Time Status Last Admin Dose Admin Acetaminophen (Tylenol) 650 mg Q6H PRN ORAL MILD pain 10/04/20 22:30 11/03/20 22:29 Carvedilol (Coreg) 3.125 mg EVERY 12 HOURS ORAL 10/04/20 21:00 11/03/20 20:59 10/07/20 08:23 Furosemide (Lasix) 40 mg EVERY 12 HOURS IV 10/04/20 21:00 11/03/20 20:59 10/07/20 08:23 Guaifenesin (Robitussin) 150 mg Q6H PRN ORAL For Cough 10/04/20 22:30 01/02/21 22:29 10/06/20 11:52 Morphine Sulfate (Morphine Sulfate) 2 mg Q4H PRN IVP Severe Pain (Pain Scale 7-10) 10/07/20 06:15 10/14/20 06:14 Ondansetron HCl (Zofran) 4 mg Q4H PRN IVP Nausea & Vomiting 10/06/20 05:45 11/05/20 05:44 10/06/20 20:57 Pantoprazole (Protonix) 40 mg EVERY 12 HOURS ORAL 10/06/20 21:00 11/05/20 20:59 10/07/20 08:23 Sacubitril/ Valsartan (Entresto 49mg/ 51mg) 1 tab Q12HR ORAL 10/06/20 21:00 01/04/21 20:59 10/07/20 08:23 Spironolactone (Aldactone) 25 mg DAILY ORAL 10/05/20 09:00 11/04/20 08:59 10/07/20 08:23 Anitha Zayas M.D. Oct 07, 2020 09:38
--- NOTE | 2020-10-07 10:34 | Nephrology Progress Note ---
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 Plan October 07: Labs reviewed. Serum sodium lowering. On IV Lasix. 250 mL of saline 3% given. Continue to monitor electrolytes. Continue per cardiology. October 06: Labs reviewed. Serum sodium 133. Medication list reviewed. Contin ue to monitor renal parameters and electrolytes. October 05: Serum sodium up to 135. Hemoglobin A1c 6.6. Patient clinically sta ble. Continue per cardiology. Kidney ultrasound normal size kidneys and no hydronephrosis. 2D echocardiogram ejection fraction of 20 to 25%. Previously: 2D echocardiogram Kidney ultrasound 250 cc saline 3% once Monitor electrolytes Hyponatremia work-up Per orders Subjective ROS Limited/Unobtainable: No Constitutional: Reports: malaise, weakness Objective Objective Last 24 Hour Vital Signs Date Time Temp Pulse Resp B/P (MAP) Pulse Ox O2 Delivery O2 Flow Rate FiO2 10/07/20 09:00 Room Air 10/07/20 08:23 92 122/75 10/07/20 08:00 94 10/07/20 08:00 98.3 97 21 119/61 (80) 96 10/07/20 04:00 96.6 96 20 121/73 (89) 97 10/07/20 04:00 94 10/07/20 00:00 105 10/07/20 00:00 99.0 96 19 99/62 (74) 97 10/06/20 21:00 Room Air 10/06/20 21:00 99 114/62 10/06/20 20:00 99 10/06/20 20:00 98.4 99 20 114/62 (79) 98 10/06/20 16:00 100 10/06/20 16:00 98.6 99 20 115/70 (85) 99 10/06/20 12:03 98.6 89 20 138/89 (105) 99 10/06/20 12:00 95 Intake and Output 10/06/20 10/07/20 19:00 07:00 Intake Total 300 ml 60 ml Output Total 700 ml 725 ml Balance -400 ml -665 ml Intake Oral 300 ml 60 ml Output Urine Total 700 ml 725 ml # Voids 4 4 # Bowel Movements 1 Current Medications Medications (Trade) Dose Ordered Sig/Damián Route PRN Reason Start Time Stop Time Status Last Admin Dose Admin Acetaminophen (Tylenol) 650 mg Q6H PRN ORAL MILD pain 10/04/20 22:30 11/03/20 22:29 Carvedilol (Coreg) 3.125 mg EVERY 12 HOURS ORAL 10/04/20 21:00 11/03/20 20:59 10/07/20 08:23 Furosemide (Lasix) 40 mg EVERY 12 HOURS IV 10/04/20 21:00 11/03/20 20:59 10/07/20 08:23 Guaifenesin (Robitussin) 150 mg Q6H PRN ORAL For Cough 10/04/20 22:30 01/02/21 22:29 10/06/20 11:52 Morphine Sulfate (Morphine Sulfate) 2 mg Q4H PRN IVP Severe Pain (Pain Scale 7-10) 10/07/20 06:15 10/14/20 06:14 Ondansetron HCl (Zofran) 4 mg Q4H PRN IVP Nausea & Vomiting 10/06/20 05:45 11/05/20 05:44 10/06/20 20:57 Pantoprazole (Protonix) 40 mg EVERY 12 HOURS ORAL 10/06/20 21:00 11/05/20 20:59 10/07/20 08:23 Sacubitril/ Valsartan (Entresto 49mg/ 51mg) 1 tab Q12HR ORAL 10/06/20 21:00 01/04/21 20:59 10/07/20 08:23 Sodium Chloride 250 ml @ 30 mls/hr ONCE ONCE IV 10/07/20 10:45 10/07/20 19:04 UNV Spironolactone (Aldactone) 25 mg DAILY ORAL 10/05/20 09:00 11/04/20 08:59 10/07/20 08:23 Laboratory Tests 10/07/20 06:12: White Blood Count 11.2H, Red Blood Count 5.43, Hemoglobin 15.6, Hematocrit 46.7, Mean Corpuscular Volume 86, Mean Corpuscular Hemoglobin 28.8, Mean Corpuscular Hemoglobin Concent 33.5, Red Cell Distribution Width 16.1H, Platelet Count 184, Mean Platelet Volume 9.2, Neutrophils (%) (Auto) 76.7H, Lymphocytes (%) (Auto) 12.3L, Monocytes (%) (Auto) 10.2H, Eosinophils (%) (Auto) 0.0, Basophils (%) (Auto) 0.8, Prothrombin Time 17.3H, Prothromb Time International Ratio 1.6H, Activated Partial Thromboplast Time 29, Sodium Level 132L, Potassium Level 3.9, Chloride Level 97L, Carbon Dioxide Level 26, Anion Gap 9, Blood Urea Nitrogen 39H, Creatinine 1.6H, Estimat Glomerular Filtration Rate 53.7, Glucose Level 120H, Uric Acid 8.4H, Calcium Level 8.8, Phosphorus Level 3.7, Magnesium Level 2.4, Total Bilirubin 1.7H, Direct Bilirubin 1.1H, Aspartate Amino Transf (AST/SGOT) 46H, Alanine Aminotransferase (ALT/SGPT) 44, Alkaline Phosphatase 12 4H, C-Reactive Protein, Quantitative [Pending], Pro-B-Type Natriuretic Peptide 7642H, Total Protein 7.5, Albumin 2.8L, Globulin 4.7, Albumin/Globulin Ratio 0.6L Height (Feet): 5 Height (Inches): 5.00 Weight (Pounds): 246 General Appearance: no apparent distress Cardiovascular: tachycardia Respiratory/Chest: decreased breath sounds Abdomen: distended Hari Telles MD Oct 07, 2020 10:34
--- NOTE | 2020-10-07 11:03 | Surgery Progress Note ---
Surgery Progress Note Subjective Additional Comments Patient seen and examined bedside. No acute events. Resting comfortably. Labs reviewed micro reviewed imaging reviewed. Afebrile hemodynamically stable at this time US noted Objective Last 24 Hour Vital Signs Date Time Temp Pulse Resp B/P (MAP) Pulse Ox O2 Delivery O2 Flow Rate FiO2 10/07/20 09:00 Room Air 10/07/20 08:23 92 122/75 10/07/20 08:00 94 10/07/20 08:00 98.3 97 21 119/61 (80) 96 10/07/20 04:00 96.6 96 20 121/73 (89) 97 10/07/20 04:00 94 10/07/20 00:00 105 10/07/20 00:00 99.0 96 19 99/62 (74) 97 10/06/20 21:00 Room Air 10/06/20 21:00 99 114/62 10/06/20 20:00 99 10/06/20 20:00 98.4 99 20 114/62 (79) 98 10/06/20 16:00 100 10/06/20 16:00 98.6 99 20 115/70 (85) 99 10/06/20 12:03 98.6 89 20 138/89 (105) 99 10/06/20 12:00 95 I&O Intake and Output 10/06/20 10/07/20 19:00 07:00 Intake Total 300 ml 60 ml Output Total 700 ml 725 ml Balance -400 ml -665 ml Intake Oral 300 ml 60 ml Output Urine Total 700 ml 725 ml # Voids 4 4 # Bowel Movements 1 Cardiovascular: RSR Respiratory: decreased breath sounds Abdomen: soft, flat, non-tender, present bowel sounds, non-distended Extremities: no edema, no tenderness, no cyanosis Laboratory Tests Test 10/07/20 06:12 White Blood Count 11.2 K/UL (4.8-10.8) H Red Blood Count 5.43 M/UL (4.70-6.10) Hemoglobin 15.6 G/DL (14.2-18.0) Hematocrit 46.7 % (42.0-52.0) Mean Corpuscular Volume 86 FL (80-99) Mean Corpuscular Hemoglobin 28.8 PG (27.0-31.0) Mean Corpuscular Hemoglobin Concent 33.5 G/DL (32.0-36.0) Red Cell Distribution Width 16.1 % (11.6-14.8) H Platelet Count 184 K/UL (150-450) Mean Platelet Volume 9.2 FL (6.5-10.1) Neutrophils (%) (Auto) 76.7 % (45.0-75.0) H Lymphocytes (%) (Auto) 12.3 % (20.0-45.0) L Monocytes (%) (Auto) 10.2 % (1.0-10.0) H Eosinophils (%) (Auto) 0.0 % (0.0-3.0) Basophils (%) (Auto) 0.8 % (0.0-2.0) Prothrombin Time 17.3 SEC (9.30-11.50) H Prothromb Time International Ratio 1.6 (0.9-1.1) H Activated Partial Thromboplast Time 29 SEC (23-33) Sodium Level 132 MMOL/L (136-145) L Potassium Level 3.9 MMOL/L (3.5-5.1) Chloride Level 97 MMOL/L (98-107) L Carbon Dioxide Level 26 MMOL/L (21-32) Anion Gap 9 mmol/L (5-15) Blood Urea Nitrogen 39 mg/dL (7-18) H Creatinine 1.6 MG/DL (0.55-1.30) H Estimat Glomerular Filtration Rate 53.7 mL/min (>60) Glucose Level 120 MG/DL (74-106) H Uric Acid 8.4 MG/DL (2.6-7.2) H Calcium Level 8.8 MG/DL (8.5-10.1) Phosphorus Level 3.7 MG/DL (2.5-4.9) Magnesium Level 2.4 MG/DL (1.8-2.4) Total Bilirubin 1.7 MG/DL (0.2-1.0) H Direct Bilirubin 1.1 MG/DL (0.0-0.3) H Aspartate Amino Transf (AST/SGOT) 46 U/L (15-37) H Alanine Aminotransferase (ALT/SGPT) 44 U/L (12-78) Alkaline Phosphatase 124 U/L (46-116) H C-Reactive Protein, Quantitative Pending Pro-B-Type Natriuretic Peptide 7642 pg/mL (0-125) H Total Protein 7.5 G/DL (6.4-8.2) Albumin 2.8 G/DL (3.4-5.0) L Globulin 4.7 g/dL Albumin/Globulin Ratio 0.6 (1.0-2.7) L Plan Problems: (1) UTI (urinary tract infection) (2) ACS (acute coronary syndrome) (3) CHF (congestive heart failure) (4) Hyponatremia (5) Malnutrition (6) HTN (hypertension) (7) Cardiomyopathy (8) Electrolyte imbalance (9) Renal colic (10) Diverticulosis (11) Abdominal pain Assessment & Plan: epigastric abd pain elevated t bili afebrile HD stable pain improving US abd ordered trend labs okay for diet will follow with recs covid neg lft's bili elevated sona/lip okay no active bleeding inr elevated pending imaging Gallbladder is unremarkable, without stones, wall thickening, nor pericholecystic fluid. Sonographic Kasper's sign is negative. Common bile duct measures 5 mm in diameter. No intrahepatic biliary ductal dilatation. Liver demonstrates normal echogenicity, no focal abnormality. To-and-fro flow is seen within the main portal vein Pancreas is incompletely visualized due to overlying bowel gas, visualized portions are unremarkable. Spleen demonstrates a small cyst. Left kidney measures 11.5 cm in length. Right kidney measures 11.3 cm length. Both kidneys demonstrate normal echogenicity. There is no hydronephrosis. . Kidneys demonstrate small cysts and small echogenic foci. Unremarkable inferior vena cava.. Non-aneurysmal abdominal aorta . Impression: To-and-fro flow within the main portal vein, could indicate portal hypertension Negative for gallstones or dilated bile ducts Echogenic foci within the kidneys, suspected artifactual as no calculi are demonstrated on recent CT scan Incidental finding of splenic and small bilateral renal cysts likely liver dysfunction portal htn cont medical management Can Gomez Oct 07, 2020 11:03
[2020-10-07] MEDS: Allopurinol 100mg Tab ORAL SCH (11:07)
--- NOTE | 2020-10-07 11:33 | NUR ---
CASE MANAGEMENT:REVIEW 10/07/20 SI: ACS. PULMONARY EDEMA. CARDIOMYOPATHY W/EF 20-25% 98.3 97 21 119/61 96% ON RA WBC+11.2 NA-132 BUN+39 CR+1.6 BNP+7642 IS: ALDACTONE PO QD IV LASIX Q12 COREG PO Q12 : TELEMETRY STATUS DCP: FROM HOME PLAN: CONSENT FOR ICD IMPLANT
[2020-10-07] MEDS ORDERED: NaCl 3% 500ml 250 ML IV ONE (12:00)
--- NOTE | 2020-10-07 12:23 | Anethesia Preoperative Eval ---
Anesthesia Pre-op PMH/ROS General Date of Evaluation: Oct 07, 2020 Anesthesiologist: Bony ASA Score: ASA 4 Mallampati Score Class I : Soft palate, uvula, fauces, pillars visible Class II: Soft palate, uvula, fauces visible Class III: Soft palate, base of uvula visible Class IV: Only hard plate visible Mallampati Classification: Class III Surgeon: Merlene Diagnosis: Abdominal pain Surgical Procedure: EGD Anesthesia History: none Family History: no anesthesia problems Allergies: Coded Allergies: No Known Allergies (Unverified , 04/20/16) Medications: see eMAR Patient NPO?: Yes NPO Date: Oct 07, 2020 NPO Time: 00:00 Anesthesia Pre-op Phys. Exam Physician Exam Last Vital Signs Date Time Temp Pulse Resp B/P (MAP) Pulse Ox O2 Delivery O2 Flow Rate FiO2 10/07/20 12:00 98.4 87 19 136/87 (103) 99 10/07/20 09:00 Room Air Constitutional: NAD Respiratory: other - tachypneic, shallow breathing, decreased breath sounds bilaterally Gastrointestinal: other - obese Airway Exam Mallampati Score: Class III MO: limited ROM: limited Anesthesia Pre-op A/P Labs Hematology Test 10/07/20 06:12 White Blood Count 11.2 K/UL (4.8-10.8) H Red Blood Count 5.43 M/UL (4.70-6.10) Hemoglobin 15.6 G/DL (14.2-18.0) Hematocrit 46.7 % (42.0-52.0) Mean Corpuscular Volume 86 FL (80-99) Mean Corpuscular Hemoglobin 28.8 PG (27.0-31.0) Mean Corpuscular Hemoglobin Concent 33.5 G/DL (32.0-36.0) Red Cell Distribution Width 16.1 % (11.6-14.8) H Platelet Count 184 K/UL (150-450) Mean Platelet Volume 9.2 FL (6.5-10.1) Neutrophils (%) (Auto) 76.7 % (45.0-75.0) H Lymphocytes (%) (Auto) 12.3 % (20.0-45.0) L Monocytes (%) (Auto) 10.2 % (1.0-10.0) H Eosinophils (%) (Auto) 0.0 % (0.0-3.0) Basophils (%) (Auto) 0.8 % (0.0-2.0) Coagulation Test 10/07/20 06:12 Prothrombin Time 17.3 SEC (9.30-11.50) H Prothromb Time International Ratio 1.6 (0.9-1.1) H Activated Partial Thromboplast Time 29 SEC (23-33) Chemistry Test 10/07/20 06:12 Sodium Level 132 MMOL/L (136-145) L Potassium Level 3.9 MMOL/L (3.5-5.1) Chloride Level 97 MMOL/L (98-107) L Carbon Dioxide Level 26 MMOL/L (21-32) Anion Gap 9 mmol/L (5-15) Blood Urea Nitrogen 39 mg/dL (7-18) H Creatinine 1.6 MG/DL (0.55-1.30) H Estimat Glomerular Filtration Rate 53.7 mL/min (>60) Glucose Level 120 MG/DL (74-106) H Uric Acid 8.4 MG/DL (2.6-7.2) H Calcium Level 8.8 MG/DL (8.5-10.1) Phosphorus Level 3.7 MG/DL (2.5-4.9) Magnesium Level 2.4 MG/DL (1.8-2.4) Total Bilirubin 1.7 MG/DL (0.2-1.0) H Direct Bilirubin 1.1 MG/DL (0.0-0.3) H Aspartate Amino Transf (AST/SGOT) 46 U/L (15-37) H Alanine Aminotransferase (ALT/SGPT) 44 U/L (12-78) Alkaline Phosphatase 124 U/L (46-116) H C-Reactive Protein, Quantitative Pending Pro-B-Type Natriuretic Peptide 7642 pg/mL (0-125) H Total Protein 7.5 G/DL (6.4-8.2) Albumin 2.8 G/DL (3.4-5.0) L Globulin 4.7 g/dL Albumin/Globulin Ratio 0.6 (1.0-2.7) L Risk Assessment & Plan Assessment: ASA IV Plan: MAC Status Change Before Surgery: No Pre-Antibiotics Drug: N/A Daniela Lovett MD Oct 07, 2020 12:23
--- NOTE | 2020-10-07 12:35 | Pre-Procedure Note/Attestation ---
Pre-Procedure Note/Attestation Complete Prior to Procedure Planned Procedure: not applicable Procedure Narrative: egd Indications for Procedure Pre-Operative Diagnosis: anemia Attestation I attest that I discussed the nature of the procedure; its benefits; risks and complications; and alternatives (and the risks and benefits of such alternatives), prior to the procedure, with the patient (or the patient's legal customer operations representative). I attest that, if there was a reasonable possibility of needing a blood transfusion, the patient (or the patient's legal customer operations representative) was given the [facility] standardized written summary, pursuant to the [place] Blood Safety Act ([place] Health and Safety Code # 1645, as amended). I attest that I re-evaluated the patient just prior to the surgery and that there has been no change in the patient's H&P, except as documented below: Seth Blunt MD Oct 07, 2020 12:35
[2020-10-07] MEDS ORDERED: Lidocaine 1% MPF 10mg/ml 5ml ONE (13:00)
--- NOTE | 2020-10-07 13:05 | Endoscopy Procedure Note ---
Endoscopy Procedure Note General Indication for Procedure: abd pain Procedures Performed: EGD Operative Findings/Diagnosis: gastritis Specimen: yes Pt Tolerated Procedure Well: Yes Estimated Blood Loss: none Anesthesia Anesthesiologist: mick Anesthesia: MAC Inserted Devices Implant(s) used?: No GI Core Measures 50 yrs or older w/o bx or poly: Not Applicable 10yrs. F/U recommended: Not Applicable Seth Blunt MD Oct 07, 2020 13:05
--- NOTE | 2020-10-07 13:37 | Immediate Post-Op Evaluation ---
Immediate Post-Op Evalulation Immediate Post-Op Evalulation Procedure: EGD Date of Evaluation: Oct 07, 2020 Nausea: No Vomiting: No Complications 0 Patient Status: awake, reacts, patent, none Hydration Status: adequate Drug: N/A Daniela Lovett MD Oct 07, 2020 13:37
--- NOTE | 2020-10-07 13:38 | 48 Hour Post Anesthesia Eval ---
Post Anesthesia Evaluation Procedure: EGD Date of Evaluation: Oct 07, 2020 Airway: patent Nausea: No Vomiting: No Pain Intensity: 0 Hydration Status: adequate Cardiopulmonary Status: at baseline Mental Status/LOC: patient returned to baseline Post-Anesthesia Complications: 0 Daniela Lovett MD Oct 07, 2020 13:38
--- NOTE | 2020-10-07 14:40 | Pulmonology Progress Note ---
Subjective ROS Limited/Unobtainable: No Interval Events: s/p hemodialysis Constitutional: Reports: no symptoms HEENT: Repors: no symptoms Respiratory: Reports: productive cough, hemoptysis Cardiovascular: Reports: no symptoms Gastrointestinal/Abdominal: Reports: no symptoms Genitourinary: Reports: no symptoms Neurologic: Reports: no symptoms Allergies: Coded Allergies: No Known Allergies (Unverified , 04/20/16) All Systems: reviewed and negative except above Objective Last 24 Hour Vital Signs Date Time Temp Pulse Resp B/P (MAP) Pulse Ox O2 Delivery O2 Flow Rate FiO2 10/07/20 12:00 93 10/07/20 12:00 98.4 87 19 136/87 (103) 99 10/07/20 09:00 Room Air 10/07/20 08:23 92 122/75 10/07/20 08:00 94 10/07/20 08:00 98.3 97 21 119/61 (80) 96 10/07/20 04:00 96.6 96 20 121/73 (89) 97 10/07/20 04:00 94 10/07/20 00:00 105 10/07/20 00:00 99.0 96 19 99/62 (74) 97 10/06/20 21:00 Room Air 10/06/20 21:00 99 114/62 10/06/20 20:00 99 10/06/20 20:00 98.4 99 20 114/62 (79) 98 10/06/20 16:00 100 10/06/20 16:00 98.6 99 20 115/70 (85) 99 Intake and Output 10/06/20 10/07/20 19:00 07:00 Intake Total 300 ml 60 ml Output Total 700 ml 725 ml Balance -400 ml -665 ml Intake Oral 300 ml 60 ml Output Urine Total 700 ml 725 ml # Voids 4 4 # Bowel Movements 1 Objective 10/07 s/p EGD; remains on RA 10/06 saturating well on RA General Appearance: no acute distress HEENT: normocephalic Respiratory: chest wall non-tender, lungs clear Cardiovascular: normal peripheral pulses, normal rate Abdomen: normal bowel sounds Microbiology Date/Time Source Procedure Growth Status 10/05/20 14:00 Sputum Expectorated Gram Stain - Final Complete 10/05/20 14:00 Sputum Expectorated Sputum Culture - Final NORMAL UPPER RESPIRATORY KALI PRESENT Complete 10/04/20 18:50 Nasopharynx Coronavirus COVID-19 PCR ([facility]IN) - Final Complete Laboratory Tests 10/07/20 06:12: White Blood Count 11.2H, Red Blood Count 5.43, Hemoglobin 15.6, Hematocrit 46.7, Mean Corpuscular Volume 86, Mean Corpuscular Hemoglobin 28.8, Mean Corpuscular Hemoglobin Concent 33.5, Red Cell Distribution Width 16.1H, Platelet Count 184, Mean Platelet Volume 9.2, Neutrophils (%) (Auto) 76.7H, Lymphocytes (%) (Auto) 12.3L, Monocytes (%) (Auto) 10.2H, Eosinophils (%) (Auto) 0.0, Basophils (%) (Auto) 0.8, Prothrombin Time 17.3H, Prothromb Time International Ratio 1.6H, Activated Partial Thromboplast Time 29, Sodium Level 132L, Potassium Level 3.9, Chloride Level 97L, Carbon Dioxide Level 26, Anion Gap 9, Blood Urea Nitrogen 39H, Creatinine 1.6H, Estimat Glomerular Filtration Rate 53.7, Glucose Level 120H, Uric Acid 8.4H, Calcium Level 8.8, Phosphorus Level 3.7, Magnesium Level 2.4, Total Bilirubin 1.7H, Direct Bilirubin 1.1H, Aspartate Amino Transf (AST/SGOT) 46H, Alanine Aminotransferase (ALT/SGPT) 44, Alkaline Phosphatase 124H, C-Reactive Protein, Quantitative [Pending], Pro-B-Type Natriuretic Peptide 7642H, Total Protein 7.5, Albumin 2.8L, Globulin 4.7, Albumin/Globulin Ratio 0.6L Current Medications Medications (Trade) Dose Ordered Sig/Damián Route PRN Reason Start Time Stop Time Status Last Admin Dose Admin Acetaminophen (Tylenol) 650 mg Q6H PRN ORAL MILD pain 10/04/20 22:30 11/03/20 22:29 Allopurinol (Zyloprim) 200 mg DAILY ORAL 10/07/20 10:45 11/06/20 10:44 10/07/20 11:07 Carvedilol (Coreg) 3.125 mg EVERY 12 HOURS ORAL 10/04/20 21:00 11/03/20 20:59 10/07/20 08:23 Furosemide (Lasix) 40 mg EVERY 12 HOURS IV 10/04/20 21:00 11/03/20 20:59 10/07/20 08:23 Guaifenesin (Robitussin) 150 mg Q6H PRN ORAL For Cough 10/04/20 22:30 01/02/21 22:29 10/06/20 11:52 Morphine Sulfate (Morphine Sulfate) 2 mg Q4H PRN IVP Severe Pain (Pain Scale 7-10) 10/07/20 06:15 10/14/20 06:14 Ondansetron HCl (Zofran) 4 mg Q4H PRN IVP Nausea & Vomiting 10/06/20 05:45 11/05/20 05:44 10/06/20 20:57 Pantoprazole (Protonix) 40 mg EVERY 12 HOURS ORAL 10/06/20 21:00 11/05/20 20:59 10/07/20 08:23 Sacubitril/ Valsartan (Entresto 49mg/ 51mg) 1 tab Q12HR ORAL 10/06/20 21:00 01/04/21 20:59 10/07/20 08:23 Sodium Chloride 250 ml @ 30 mls/hr ONCE ONCE IV 10/07/20 12:00 10/07/20 20:19 10/07/20 12:00 Spironolactone (Aldactone) 25 mg DAILY ORAL 10/05/20 09:00 11/04/20 08:59 10/07/20 08:23 Assessment/Plan Assessment/Plan 1. Pulmonary edema., secondary to #2 - Continue diuretics. - Continue supplemental oxygen as needed 2. Cardiomyopathy. - 2D echo LVEF 20-25% - Pt agrees to ICD implant 3. Acute coronary syndrome. - Predominant care per Cardiology. 4. Elevated LFT, bili - Abd US: To-and-fro flow within the main portal vein, could indicate portal hypertension; no gallstones 5. COVID-19 negative 6. Hematemesis - s/p EGD today; pending result The care for this patient was discussed with my supervising physician Time spent for this case was approximately 31 minutes Srinivas Weeks Oct 07, 2020 14:40
--- NOTE | 2020-10-07 15:12 | Cardiac Electrophysiology PN ---
Assessment/Plan Assessment/Plan 1. Exacerbation of CHF with EF 20%. His BNP is more than 4700. On Lasix 40 mg IV b.i.d. Coreg, Entresto 49/51, and Aldactone. Will get prior Echo and if EF has remained < 35% for more than 3 months, authorization from insurance company for ICD DW patient the risks and benefits of ICD implant and he agreed to proceed 2. Hypertension. Continue current heart failure therapy. 3. Frothy cough. Covid negative. Further evaluation by blow down operator. 4. Benign prostatic hypertrophy. 5. Urinary tract infection. per Dr. Zayas, will be monitored off antibiotic at this time. DW RN Subjective Subjective Ruled out for Covid. Off isolation on RA. Echo showed EF 20%. Had 5 beats of NSVT. Had EGD that showed gastritis Objective Last 24 Hour Vital Signs Date Time Temp Pulse Resp B/P (MAP) Pulse Ox O2 Delivery O2 Flow Rate FiO2 10/07/20 12:00 93 10/07/20 12:00 98.4 87 19 136/87 (103) 99 10/07/20 09:00 Room Air 10/07/20 08:23 92 122/75 10/07/20 08:00 94 10/07/20 08:00 98.3 97 21 119/61 (80) 96 10/07/20 04:00 96.6 96 20 121/73 (89) 97 10/07/20 04:00 94 10/07/20 00:00 105 10/07/20 00:00 99.0 96 19 99/62 (74) 97 10/06/20 21:00 Room Air 10/06/20 21:00 99 114/62 10/06/20 20:00 99 10/06/20 20:00 98.4 99 20 114/62 (79) 98 10/06/20 16:00 100 10/06/20 16:00 98.6 99 20 115/70 (85) 99 Intake and Output 10/06/20 10/07/20 19:00 07:00 Intake Total 300 ml 60 ml Output Total 700 ml 725 ml Balance -400 ml -665 ml Intake Oral 300 ml 60 ml Output Urine Total 700 ml 725 ml # Voids 4 4 # Bowel Movements 1 Laboratory Tests Test 10/07/20 06:12 White Blood Count 11.2 K/UL (4.8-10.8) H Red Blood Count 5.43 M/UL (4.70-6.10) Hemoglobin 15.6 G/DL (14.2-18.0) Hematocrit 46.7 % (42.0-52.0) Mean Corpuscular Volume 86 FL (80-99) Mean Corpuscular Hemoglobin 28.8 PG (27.0-31.0) Mean Corpuscular Hemoglobin Concent 33.5 G/DL (32.0-36.0) Red Cell Distribution Width 16.1 % (11.6-14.8) H Platelet Count 184 K/UL (150-450) Mean Platelet Volume 9.2 FL (6.5-10.1) Neutrophils (%) (Auto) 76.7 % (45.0-75.0) H Lymphocytes (%) (Auto) 12.3 % (20.0-45.0) L Monocytes (%) (Auto) 10.2 % (1.0-10.0) H Eosinophils (%) (Auto) 0.0 % (0.0-3.0) Basophils (%) (Auto) 0.8 % (0.0-2.0) Prothrombin Time 17.3 SEC (9.30-11.50) H Prothromb Time International Ratio 1.6 (0.9-1.1) H Activated Partial Thromboplast Time 29 SEC (23-33) Sodium Level 132 MMOL/L (136-145) L Potassium Level 3.9 MMOL/L (3.5-5.1) Chloride Level 97 MMOL/L (98-107) L Carbon Dioxide Level 26 MMOL/L (21-32) Anion Gap 9 mmol/L (5-15) Blood Urea Nitrogen 39 mg/dL (7-18) H Creatinine 1.6 MG/DL (0.55-1.30) H Estimat Glomerular Filtration Rate 53.7 mL/min (>60) Glucose Level 120 MG/DL (74-106) H Uric Acid 8.4 MG/DL (2.6-7.2) H Calcium Level 8.8 MG/DL (8.5-10.1) Phosphorus Level 3.7 MG/DL (2.5-4.9) Magnesium Level 2.4 MG/DL (1.8-2.4) Total Bilirubin 1.7 MG/DL (0.2-1.0) H Direct Bilirubin 1.1 MG/DL (0.0-0.3) H Aspartate Amino Transf (AST/SGOT) 46 U/L (15-37) H Alanine Aminotransferase (ALT/SGPT) 44 U/L (12-78) Alkaline Phosphatase 124 U/L (46-116) H C-Reactive Protein, Quantitative Pending Pro-B-Type Natriuretic Peptide 7642 pg/mL (0-125) H Total Protein 7.5 G/DL (6.4-8.2) Albumin 2.8 G/DL (3.4-5.0) L Globulin 4.7 g/dL Albumin/Globulin Ratio 0.6 (1.0-2.7) L Microbiology Date/Time Source Procedure Growth Status 10/05/20 14:00 Sputum Expectorated Gram Stain - Final Complete 10/05/20 14:00 Sputum Expectorated Sputum Culture - Final NORMAL UPPER RESPIRATORY KALI PRESENT Complete 10/04/20 18:50 Nasopharynx Coronavirus COVID-19 PCR ([facility]) - Final Complete Objective HEAD AND NECK: Show positive JVD. LUNGS: Decreased breath sounds. CARDIOVASCULAR: Shows regular S1 and S2 with no gallop. ABDOMEN: Soft. EXTREMITIES: 1+ pitting edema. Hudson Garcia MD Oct 07, 2020 15:11
--- NOTE | 2020-10-07 15:14 | Procedure Note ---
DATE OF PROCEDURE: 10/07/2020 SURGEON: Seth Blunt MD PROCEDURE: Upper endoscopy with biopsy. ANESTHESIA: Per Dr. Lovett. INSTRUMENT: Olympus adult flexible upper endoscope. INDICATION: Abdominal pain and anemia. The procedure, risks, benefits, and possible consequences, including hemorrhage, aspiration, perforation and infection, and alternative treatments, were explained to the patient/legal guardian by Dr. Seth Blunt and the patient/legal guardian understood and accepted these risks. DESCRIPTION OF PROCEDURE: After informed consent was obtained and the patient was adequately sedated, the Olympus upper endoscope was advanced from the mouth into second portion of the duodenum and retroflexion was performed in the stomach. The patient had diffuse gastritis, mostly in the body of the stomach, suspicious but not confirmatory for portal hypertensive gastropathy. Biopsy from this area was obtained to evaluate for portal hypertension gastropathy. No obvious ulceration. In the esophagus, there was no obvious large esophageal or gastric varices. There was a questionable maybe 1 or 2 columns of grade 1 esophageal varices. At this time, the upper endoscope was retrieved and the procedure was terminated. SUMMARY OF FINDINGS: Gastritis, suspicious for portal hypertensive gastropathy, status post biopsy. RECOMMENDATIONS: Resume diet. Follow up biopsy results and treat accordingly. Seth Blunt M.D. DR: Kal JOB#: [id number] CC:
--- NOTE | 2020-10-07 16:59 | Consultation ---
DATE OF CONSULTATION: 10/07/2020 UROLOGY CONSULTATION CONSULTING PHYSICIAN: Fabian Camara MD. ATTENDING/REFERRING PHYSICIAN: Alex Gonzalez DO. CHIEF COMPLAINT AND HISTORY OF PRESENT ILLNESS: I was asked by Dr. Gonzalez to evaluate this 60-year-old gentleman regarding history of hematuria. The patient reports a history of some brown urine at home. This is now clear to yellow here in the hospital. Initial urinalysis revealed evidence of nitrites, but culture did not grow anything. Given the above, I was asked to evaluate the patient. The patient has never seen an urologist for anything before. He did not have any history of similar episodes of brown urine or hematuria in the past. PAST MEDICAL HISTORY: 1. CHF. 2. ACS. 3. Hypertension. PAST SURGICAL HISTORY: Unknown. MEDICATIONS: Please see the chart for current medications and administration details. Briefly, the patient is receiving no antibiotics at this time or blood thinners. ALLERGIES: No known drug allergies. SOCIAL HISTORY: Unremarkable for tobacco, alcohol, or drug use. FAMILY HISTORY: Noncontributory. REVIEW OF SYSTEMS: A 14-system review of systems was unremarkable outside of what is described above. PHYSICAL EXAMINATION: GENERAL: The patient is an older gentleman, awake and alert, in no obvious distress. HEENT: NC/AT. EOMI. Oropharynx clear. NECK: Supple. CHEST: Within normal limits. ABDOMEN: Soft, obese, nontender, and nondistended. EXTREMITIES: Warm and well perfused. No cyanosis, clubbing, or edema. NEUROLOGIC: Grossly nonfocal. LABORATORY DATA: White blood cell count 11.2, hematocrit 46.7, platelets 184,000. PT 17.3, INR 1.6, PTT 29. Sodium 132, potassium 3.9, chloride 97, bicarbonate 26, BUN 39, creatinine 1.6. Glucose 120. Calcium 8.4. LFTs notable for elevated bilirubin of 1.7 and direct of 1.1, AST of 46. Troponin 0.06. Urinalysis, specific gravity 1.025, pH 6.0. Dip test is notable for +3 ketones, 5+ occult blood, positive nitrites, 2+ bilirubin, positive leukocyte esterase. Microanalysis with 40 to 60 red and 2 to 4 white blood cells per high-power field and moderate bacteria seen. Urine culture, no growth. COVID negative. DIAGNOSTIC IMAGING: Renal bladder ultrasound with left renal shadowing focus could represent a calculus versus arterial calcification. There is focal bladder wall thickening posteriorly, which could indicate a mucosal lesion, consider cystoscopy. ASSESSMENT AND PLAN: In summary, the patient is a 60-year-old with a history of hematuria and hematemesis, who presents to the hospital with lethargy as well. His urine has cleared up. Laboratory data is notable for elevated coagulation times which are unexplained and evidence of urinary tract infection on urinalysis, although culture did not grow anything. Diagnostic imaging ultrasound reveals a possible thickening of the posterior bladder wall, which would need to be eventually evaluated with cystoscopy. I discussed these findings with the patient at the bedside. It is unclear as to what is causing his coagulopathy, but this may be the source of his bleeding since it involves multiple sources inside. Additionally, once the patient is stabilized and improved and discharge, I would suggest following up on referral from his primary doctor with a plan contracted urologist to do a cystoscopy to evaluate his bladder wall and rule out any malignancy or other causes of bleeding. The patient verbalized understanding of the same. He appears to have evidence of urinary tract infection, but the culture is negative and as such, since his urine has cleared, we will defer antibiotics at this time. Thank you for allowing me to participate in the care of this nice gentleman. Please do not hesitate to contact me for any questions that you may further have regarding his care. I will see him with you as needed. Fabian Camara M.D. DR: TITI JOB#: [id number] CC:
--- NOTE | 2020-10-07 17:36 | NUR ---
NURSE NOTES: Spoke with Mehnaz at [facility] for patient's Cardiac cath, echo results and d/c summary. Faxed the authorization for release of PHI. awaiting for results.
--- NOTE | 2020-10-07 19:18 | NUR ---
NURSE HAND-OFF REPORT: Important Events on Shift:EGD Patient Status: Stable Diet: Cardiac Diet Pending Orders: NA Pending Results/Labs:NA Pending MD notification:NA Latest Vital Signs: Temperature 98.4 , Pulse 85 , B/P 130 /90 , Respiratory Rate 20 , O2 SAT 99 , Room Air, O2 Flow Rate 6 . Vital Sign Comment: Stable EKG Rhythm: Sinus Rhythm Rhythm change?: N MD Notified?: - MD Response: Latest Mccabe Fall Score: 20 Fall Risk: Low Risk Safety Measures: Call light Within Reach, Bed Alarm , Side Rails Side Rails x2, Bed position Low and Locked. Fall Precautions: Patient Fall Education Report given to JILLIAN Owen.
--- NOTE | 2020-10-07 19:22 | NUR ---
NURSE NOTES: Report received from Linda WALSH. Patient is laying in bed sleeping . Patient is AOX4 and able to make needs known. IV site is asymptomatic, patent, and intact in right hand 20G; no bleeding or erythema noted. no SOB noted. Hypertonic saline 3% running at 30cc/hr. Patient is not reporting pain at this time. Bed in lowest position locked and side rails up x3. Belonging and call light with in reach. patient is on wound care mattress for wound care management. Will continue plan of care.
[2020-10-08] VITALS: BP 107/68
[2020-10-08 04:00] VITALS: BP 101/66
--- NOTE | 2020-10-08 07:05 | General Progress Note ---
Subjective ROS Limited/Unobtainable: No Allergies: Coded Allergies: No Known Allergies (Unverified , 04/20/16) Objective Last 24 Hour Vital Signs Date Time Temp Pulse Resp B/P (MAP) Pulse Ox O2 Delivery O2 Flow Rate FiO2 10/08/20 04:00 91 10/08/20 04:00 99.1 94 16 101/66 (78) 95 10/08/20 00:00 99.5 81 18 107/68 (81) 95 10/08/20 00:00 98 10/07/20 21:00 Room Air 10/07/20 21:00 102 100/65 10/07/20 20:00 98.0 102 20 100/65 (77) 95 10/07/20 20:00 98 10/07/20 16:00 91 10/07/20 16:00 98.4 85 20 130/90 (103) 99 10/07/20 13:50 97.6 90 28 106/70 98 Room Air 10/07/20 13:40 89 30 100/64 99 Simple Mask 6 10/07/20 13:35 90 38 108/53 100 Simple Mask 6 10/07/20 13:29 97.4 89 34 92/54 99 Simple Mask 6 10/07/20 12:00 93 10/07/20 12:00 98.4 87 19 136/87 (103) 99 10/07/20 09:00 Room Air 10/07/20 08:23 92 122/75 10/07/20 08:00 94 10/07/20 08:00 98.3 97 21 119/61 (80) 96 Intake and Output 10/07/20 10/08/20 19:00 07:00 Intake Total 320 ml Output Total 700 ml Balance -380 ml Intake Oral 200 ml IV Total 120 ml Output Urine Total 700 ml # Voids 4 # Bowel Movements 1 Height (Feet): 5 Height (Inches): 5.00 Weight (Pounds): 246 General Appearance: no apparent distress EENT: normal ENT inspection Neck: supple Cardiovascular: normal rate Respiratory/Chest: decreased breath sounds Abdomen: hypoactive bowel sounds Extremities: non-tender Assessment/Plan Problem List: (1) Diverticulosis ICD Codes: K57.90 - Diverticulosis of intestine, part unspecified, without perforation or abscess without bleeding SNOMED: 051581984 (2) HTN (hypertension) ICD Codes: I10 - Essential (primary) hypertension SNOMED: 25717129 (3) UTI (urinary tract infection) ICD Codes: N39.0 - Urinary tract infection, site not specified SNOMED: 98193143 Qualifiers: Qualified Codes: N39.0 - Urinary tract infection, site not specified (4) Abdominal pain ICD Codes: R10.9 - Unspecified abdominal pain SNOMED: 09302650 (5) Cardiomyopathy ICD Codes: I42.9 - Cardiomyopathy, unspecified SNOMED: 78515070 Status: unchanged Assessment/Plan: elevated LFTS>>> improving abd us reviewed hematemesis>>> s/p EGD ppi cardiology in put appreciated fu path fu urology Seth Blunt MD Oct 08, 2020 07:05
[2020-10-08 08:00] VITALS: BP 122/73
--- NOTE | 2020-10-08 08:00 | NUR ---
NURSE NOTES: pt is in bed and eating breakfast. pt ate 100%, is on patient monitor and RA, showing no signs of cardiac or respiratory distress. pt had 10 beats of v-tach (see rhythm strips) notified Dr. Guzmán. pt was asymptomatic. bed is locked and in lowest position, call light is within reach, IV is patent with no signs of infiltration or phlebitis. pt verbalized understanding of use of call light
--- NOTE | 2020-10-08 08:09 | NUR ---
NURSE HAND-OFF REPORT: Important Events on Shift: Patient Status: patient SBP stayed above 100 Diet: Cardiac Pending Orders: Pending Results/Labs: Pending MD notification: Latest Vital Signs: Temperature 99.1 , Pulse 91 , B/P 101 /66 , Respiratory Rate 16 , O2 SAT 95 , Room Air, O2 Flow Rate 6 . Vital Sign Comment: EKG Rhythm: Sinus Rhythm Rhythm change?: N MD Notified?: - MD Response: Latest Mccabe Fall Score: 20 Fall Risk: Low Risk Safety Measures: Call light Within Reach, Bed Alarm , Side Rails Side Rails x2, Bed position Low and Locked. Fall Precautions: Patient Fall Education Report given to Jt WALSH .
--- NOTE | 2020-10-08 08:35 | General Progress Note ---
Subjective Constitutional: Reports: weakness Allergies: Coded Allergies: No Known Allergies (Unverified , 04/20/16) All Systems: reviewed and negative except above Subjective calm in bed Objective Last 24 Hour Vital Signs Date Time Temp Pulse Resp B/P (MAP) Pulse Ox O2 Delivery O2 Flow Rate FiO2 10/08/20 04:00 91 10/08/20 04:00 99.1 94 16 101/66 (78) 95 10/08/20 00:00 99.5 81 18 107/68 (81) 95 10/08/20 00:00 98 10/07/20 21:00 Room Air 10/07/20 21:00 102 100/65 10/07/20 20:00 98.0 102 20 100/65 (77) 95 10/07/20 20:00 98 10/07/20 16:00 91 10/07/20 16:00 98.4 85 20 130/90 (103) 99 10/07/20 13:50 97.6 90 28 106/70 98 Room Air 10/07/20 13:40 89 30 100/64 99 Simple Mask 6 10/07/20 13:35 90 38 108/53 100 Simple Mask 6 10/07/20 13:29 97.4 89 34 92/54 99 Simple Mask 6 10/07/20 12:00 93 10/07/20 12:00 98.4 87 19 136/87 (103) 99 10/07/20 09:00 Room Air Intake and Output 10/07/20 10/08/20 19:00 07:00 Intake Total 320 ml Output Total 700 ml Balance -380 ml Intake Oral 200 ml IV Total 120 ml Output Urine Total 700 ml # Voids 4 # Bowel Movements 1 Laboratory Tests 10/08/20 06:50: White Blood Count [Pending], Red Blood Count [Pending], Hemoglobin [Pending], Hematocrit [Pending], Mean Corpuscular Volume [Pending], Mean Corpuscular Hemoglobin [Pending], Mean Corpuscular Hemoglobin Concent [Pending], Red Cell Distribution Width [Pending], Platelet Count [Pending], Mean Platelet Volume [Pending], Neutrophils (%) (Auto) [Pending], Lymphocytes (%) (Auto) [Pending], Monocytes (%) (Auto) [Pending], Eosinophils (%) (Auto) [Pending], Basophils (%) (Auto) [Pending], Sodium Level [Pending], Potassium Level [Pending], Chloride Level [Pending], Carbon Dioxide Level [Pending], Blood Urea Nitrogen [Pending], Creatinine [Pending], Estimat Glomerular Filtration Rate [Pending], Glucose Level [Pending], Uric Acid [Pending], Calcium Level [Pending], Phosphorus Level [Pending], Magnesium Level [Pending], Total Bilirubin [Pending], Aspartate Amino Transf (AST/SGOT) [Pending], Alanine Aminotransferase (ALT/SGPT) [Pending], Alkaline Phosphatase [Pending], C-Reactive Protein, Quantitative [Pending], Pro-B-Type Natriuretic Peptide [Pending], Total Protein [Pending], Albumin [Pending], Globulin [Pending] Height (Feet): 5 Height (Inches): 5.00 Weight (Pounds): 246 General Appearance: lethargic EENT: normal ENT inspection Neck: normal alignment Cardiovascular: normal peripheral pulses, normal rate, regular rhythm Respiratory/Chest: chest wall non-tender, lungs clear, normal breath sounds Abdomen: normal bowel sounds, non tender, soft Extremities: normal inspection Edema: no edema noted Arm (L), no edema noted Arm (R), no edema noted Leg (L), no edema noted Leg (R), no edema noted Pedal (L), no edema noted Pedal (R), no edema noted Generalized Neurologic: motor weakness Skin: normal pigmentation, warm/dry Assessment/Plan Problem List: (1) HTN (hypertension) ICD Codes: I10 - Essential (primary) hypertension SNOMED: 21900811 (2) Malnutrition ICD Codes: E46 - Unspecified protein-calorie malnutrition SNOMED: 95195347 (3) Hyponatremia ICD Codes: E87.1 - Hypo-osmolality and hyponatremia SNOMED: 83076314 (4) ACS (acute coronary syndrome) ICD Codes: I24.9 - Acute ischemic heart disease, unspecified SNOMED: 561240016 (5) CHF (congestive heart failure) ICD Codes: I50.9 - Heart failure, unspecified SNOMED: 80079299 Qualifiers: Qualified Codes: I50.9 - Heart failure, unspecified (6) UTI (urinary tract infection) ICD Codes: N39.0 - Urinary tract infection, site not specified SNOMED: 39790247 Qualifiers: Qualified Codes: N39.0 - Urinary tract infection, site not specified Status: unchanged Assessment/Plan: pain control bp control abx cbc bmp am Alex Gonzalez DO Oct 08, 2020 08:35
[2020-10-08 08:38] LABS: BASOPHILS % (AUTO) 0.6 % (0.0-2.0); EOSINOPHILS % (AUTO) 0.6 % (0.0-3.0); HEMATOCRIT 43.6 % (42.0-52.0); HEMOGLOBIN 14.4 G/DL (14.2-18.0); LYMPHOCYTES % (AUTO) 14.7 % (20.0-45.0); MEAN CORPUSCULAR VOLUME 87 FL (80-99); MONOCYTES % (AUTO) 11.2 % (1.0-10.0); NEUTROPHILS % (AUTO) 72.9 % (45.0-75.0); PLATELET COUNT 168 K/UL (150-450); RED BLOOD COUNT 5.01 M/UL (4.70-6.10); RED CELL DISTRIBUTION WIDTH 16.1 % (11.6-14.8); WHITE BLOOD COUNT 8.7 K/UL (4.8-10.8)
[2020-10-08 09:01] LABS: ALANINE AMINOTRANSFERASE 41 U/L (12-78); ALBUMIN 2.2 G/DL (3.4-5.0); ALBUMIN/GLOBULIN RATIO 0.5 (1.0-2.7); ALKALINE PHOSPHATASE 101 U/L (46-116); ASPARTATE AMINO TRANSFERASE 36 U/L (15-37); BILIRUBIN,TOTAL 1.4 MG/DL (0.2-1.0); BLOOD UREA NITROGEN 33 mg/dL (7-18); CALCIUM 8.5 MG/DL (8.5-10.1); CARBON DIOXIDE 32 MMOL/L (21-32); CHLORIDE 99 MMOL/L (98-107); CREATININE 1.4 MG/DL (0.55-1.30); POTASSIUM 3.8 MMOL/L (3.5-5.1); SODIUM 136 MMOL/L (136-145)
[2020-10-08 09:09] LABS: BILIRUBIN,DIRECT 0.8 MG/DL (0.0-0.3)
[2020-10-08 09:41] LABS: PHOSPHORUS 2.6 MG/DL (2.5-4.9)
[2020-10-08] MEDS: Spironolactone 25mg tab ORAL SCH (09:51)
[2020-10-08] MEDS: Allopurinol 100mg Tab ORAL SCH (09:54)
--- NOTE | 2020-10-08 11:10 | Pulmonology Progress Note ---
Subjective ROS Limited/Unobtainable: No Interval Events: s/p hemodialysis Constitutional: Reports: no symptoms HEENT: Repors: no symptoms Respiratory: Reports: productive cough, hemoptysis Cardiovascular: Reports: no symptoms Gastrointestinal/Abdominal: Reports: no symptoms Genitourinary: Reports: no symptoms Neurologic: Reports: no symptoms Allergies: Coded Allergies: No Known Allergies (Unverified , 04/20/16) All Systems: reviewed and negative except above Objective Last 24 Hour Vital Signs Date Time Temp Pulse Resp B/P (MAP) Pulse Ox O2 Delivery O2 Flow Rate FiO2 10/08/20 09:54 95 122/73 10/08/20 04:00 91 10/08/20 04:00 99.1 94 16 101/66 (78) 95 10/08/20 00:00 99.5 81 18 107/68 (81) 95 10/08/20 00:00 98 10/07/20 21:00 Room Air 10/07/20 21:00 102 100/65 10/07/20 20:00 98.0 102 20 100/65 (77) 95 10/07/20 20:00 98 10/07/20 16:00 91 10/07/20 16:00 98.4 85 20 130/90 (103) 99 10/07/20 13:50 97.6 90 28 106/70 98 Room Air 10/07/20 13:40 89 30 100/64 99 Simple Mask 6 10/07/20 13:35 90 38 108/53 100 Simple Mask 6 10/07/20 13:29 97.4 89 34 92/54 99 Simple Mask 6 10/07/20 12:00 93 10/07/20 12:00 98.4 87 19 136/87 (103) 99 Intake and Output 10/07/20 10/08/20 19:00 07:00 Intake Total 320 ml Output Total 700 ml Balance -380 ml Intake Oral 200 ml IV Total 120 ml Output Urine Total 700 ml # Voids 4 # Bowel Movements 1 General Appearance: no acute distress HEENT: normocephalic Respiratory: chest wall non-tender, lungs clear Cardiovascular: normal peripheral pulses, normal rate Abdomen: normal bowel sounds Microbiology Date/Time Source Procedure Growth Status 10/05/20 14:00 Sputum Expectorated Gram Stain - Final Complete 10/05/20 14:00 Sputum Expectorated Sputum Culture - Final NORMAL UPPER RESPIRATORY KALI PRESENT Complete Laboratory Tests 10/08/20 06:50: White Blood Count 8.7, Red Blood Count 5.01, Hemoglobin 14.4, Hematocrit 43.6, Mean Corpuscular Volume 87, Mean Corpuscular Hemoglobin 28.7, Mean Corpuscular Hemoglobin Concent 32.9, Red Cell Distribution Width 16.1H, Platelet Count 168, Mean Platelet Volume 8.7, Neutrophils (%) (Auto) 72.9, Lymphocytes (%) (Auto) 14.7L, Monocytes (%) (Auto) 11.2H, Eosinophils (%) (Auto) 0.6, Basophils (%) (Auto) 0.6, Sodium Level 136, Potassium Level 3.8, Chloride Level 99, Carbon Dioxide Level 32, Blood Urea Nitrogen 33H, Creatinine 1.4H, Estimat Glomerular Filtration Rate > 60, Glucose Level 101, Uric Acid 7.9H, Calcium Level 8.5, Phosphorus Level 2.6, Magnesium Level 2.2, Total Bilirubin 1.4H, Direct Bilirubin 0.8H, Aspartate Amino Transf (AST/SGOT) 36, Alanine Aminotransferase (ALT/SGPT) 41, Alkaline Phosphatase 101, C-Reactive Protein, Quantitative [Pending], Pro-B-Type Natriuretic Peptide 4550H, Total Protein 6.3L, Albumin 2.2L, Globulin 4.1, Albumin/Globulin Ratio 0.5L Current Medications Medications (Trade) Dose Ordered Sig/Damián Route PRN Reason Start Time Stop Time Status Last Admin Dose Admin Acetaminophen (Tylenol) 650 mg Q6H PRN ORAL MILD pain 10/04/20 22:30 11/03/20 22:29 Allopurinol (Zyloprim) 200 mg DAILY ORAL 10/07/20 10:45 11/06/20 10:44 10/08/20 09:54 Carvedilol (Coreg) 3.125 mg EVERY 12 HOURS ORAL 10/04/20 21:00 11/03/20 20:59 10/08/20 09:54 Furosemide (Lasix) 40 mg EVERY 12 HOURS IV 10/04/20 21:00 11/03/20 20:59 10/08/20 09:55 Guaifenesin (Robitussin) 150 mg Q6H PRN ORAL For Cough 10/04/20 22:30 01/02/21 22:29 10/06/20 11:52 Morphine Sulfate (Morphine Sulfate) 2 mg Q4H PRN IVP Severe Pain (Pain Scale 7-10) 10/07/20 06:15 10/14/20 06:14 Ondansetron HCl (Zofran) 4 mg Q4H PRN IVP Nausea & Vomiting 10/06/20 05:45 11/05/20 05:44 10/06/20 20:57 Pantoprazole (Protonix) 40 mg EVERY 12 HOURS ORAL 10/06/20 21:00 11/05/20 20:59 10/08/20 09:55 Sacubitril/ Valsartan (Entresto 49mg/ 51mg) 1 tab Q12HR ORAL 10/06/20 21:00 01/04/21 20:59 10/07/20 08:23 Spironolactone (Aldactone) 25 mg DAILY ORAL 10/05/20 09:00 11/04/20 08:59 10/08/20 09:51 Assessment/Plan Assessment/Plan Assessment/Plan 1. Pulmonary edema., secondary to #2 - Continue diuretics. - Continue supplemental oxygen as needed, sat 95% R/A - CXR 10/04/2020 Cardiomegaly. No acute process 2. Cardiomyopathy. - 2D echo LVEF 20-25% - Pt agrees to ICD implant 3. Acute coronary syndrome. - Predominant care per Cardiology. 4. Elevated LFT, bili - Abd US: To-and-fro flow within the main portal vein, could indicate portal hypertension; no gallstones 5. COVID-19 negative 6. Hematemesis The care for this patient was discussed with my supervising physician Mihir Bragg BASKET PERSON Oct 08, 2020 11:10
[2020-10-08 12:00] VITALS: BP 112/71
--- NOTE | 2020-10-08 12:04 | Surgery Progress Note ---
Surgery Progress Note Subjective Additional Comments no acute events Objective Last 24 Hour Vital Signs Date Time Temp Pulse Resp B/P (MAP) Pulse Ox O2 Delivery O2 Flow Rate FiO2 10/08/20 09:54 95 122/73 10/08/20 04:00 91 10/08/20 04:00 99.1 94 16 101/66 (78) 95 10/08/20 00:00 99.5 81 18 107/68 (81) 95 10/08/20 00:00 98 10/07/20 21:00 Room Air 10/07/20 21:00 102 100/65 10/07/20 20:00 98.0 102 20 100/65 (77) 95 10/07/20 20:00 98 10/07/20 16:00 91 10/07/20 16:00 98.4 85 20 130/90 (103) 99 10/07/20 13:50 97.6 90 28 106/70 98 Room Air 10/07/20 13:40 89 30 100/64 99 Simple Mask 6 10/07/20 13:35 90 38 108/53 100 Simple Mask 6 10/07/20 13:29 97.4 89 34 92/54 99 Simple Mask 6 I&O Intake and Output 10/07/20 10/08/20 19:00 07:00 Intake Total 320 ml Output Total 700 ml Balance -380 ml Intake Oral 200 ml IV Total 120 ml Output Urine Total 700 ml # Voids 4 # Bowel Movements 1 Dressing: saturated Cardiovascular: RSR Respiratory: decreased breath sounds Abdomen: soft, non-tender, present bowel sounds Extremities: no tenderness, no cyanosis Laboratory Tests Test 10/08/20 06:50 White Blood Count 8.7 K/UL (4.8-10.8) Red Blood Count 5.01 M/UL (4.70-6.10) Hemoglobin 14.4 G/DL (14.2-18.0) Hematocrit 43.6 % (42.0-52.0) Mean Corpuscular Volume 87 FL (80-99) Mean Corpuscular Hemoglobin 28.7 PG (27.0-31.0) Mean Corpuscular Hemoglobin Concent 32.9 G/DL (32.0-36.0) Red Cell Distribution Width 16.1 % (11.6-14.8) H Platelet Count 168 K/UL (150-450) Mean Platelet Volume 8.7 FL (6.5-10.1) Neutrophils (%) (Auto) 72.9 % (45.0-75.0) Lymphocytes (%) (Auto) 14.7 % (20.0-45.0) L Monocytes (%) (Auto) 11.2 % (1.0-10.0) H Eosinophils (%) (Auto) 0.6 % (0.0-3.0) Basophils (%) (Auto) 0.6 % (0.0-2.0) Sodium Level 136 MMOL/L (136-145) Potassium Level 3.8 MMOL/L (3.5-5.1) Chloride Level 99 MMOL/L (98-107) Carbon Dioxide Level 32 MMOL/L (21-32) Blood Urea Nitrogen 33 mg/dL (7-18) H Creatinine 1.4 MG/DL (0.55-1.30) H Estimat Glomerular Filtration Rate > 60 mL/min (>60) Glucose Level 101 MG/DL (74-106) Uric Acid 7.9 MG/DL (2.6-7.2) H Calcium Level 8.5 MG/DL (8.5-10.1) Phosphorus Level 2.6 MG/DL (2.5-4.9) Magnesium Level 2.2 MG/DL (1.8-2.4) Total Bilirubin 1.4 MG/DL (0.2-1.0) H Direct Bilirubin 0.8 MG/DL (0.0-0.3) H Aspartate Amino Transf (AST/SGOT) 36 U/L (15-37) Alanine Aminotransferase (ALT/SGPT) 41 U/L (12-78) Alkaline Phosphatase 101 U/L (46-116) C-Reactive Protein, Quantitative Pending Pro-B-Type Natriuretic Peptide 4550 pg/mL (0-125) H Total Protein 6.3 G/DL (6.4-8.2) L Albumin 2.2 G/DL (3.4-5.0) L Globulin 4.1 g/dL Albumin/Globulin Ratio 0.5 (1.0-2.7) L Plan Problems: (1) UTI (urinary tract infection) (2) ACS (acute coronary syndrome) (3) CHF (congestive heart failure) (4) Hyponatremia (5) Malnutrition (6) HTN (hypertension) (7) Cardiomyopathy (8) Electrolyte imbalance (9) Renal colic (10) Diverticulosis (11) Abdominal pain Assessment & Plan: epigastric abd pain elevated t bili afebrile HD stable pain improving US abd ordered trend labs okay for diet will follow with recs covid neg lft's bili elevated sona/lip okay no active bleeding inr elevated pending imaging Gallbladder is unremarkable, without stones, wall thickening, nor pericholecystic fluid. Sonographic Kasper's sign is negative. Common bile duct measures 5 mm in diameter. No intrahepatic biliary ductal dilatation. Liver demonstrates normal echogenicity, no focal abnormality. To-and-fro flow is seen within the main portal vein Pancreas is incompletely visualized due to overlying bowel gas, visualized portions are unremarkable. Spleen demonstrates a small cyst. Left kidney measures 11.5 cm in length. Right kidney measures 11.3 cm length. Both kidneys demonstrate normal echogenicity. There is no hydronephrosis. . Kidneys demonstrate small cysts and small echogenic foci. Unremarkable inferior vena cava.. Non-aneurysmal abdominal aorta . Impression: To-and-fro flow within the main portal vein, could indicate portal hypertension Negative for gallstones or dilated bile ducts Echogenic foci within the kidneys, suspected artifactual as no calculi are demonstrated on recent CT scan Incidental finding of splenic and small bilateral renal cysts likely liver dysfunction portal htn cont medical management Can Gomez Oct 08, 2020 12:04
--- NOTE | 2020-10-08 12:55 | Nephrology Progress Note ---
Assessment/Plan Problem List: (1) DARVIN (acute kidney injury) (2) Cardiomyopathy (3) Hyponatremia (4) CHF (congestive heart failure) (5) Electrolyte imbalance (6) Cardiorenal syndrome (7) Obesity, morbid, BMI 40.0-49.9 Assessment 60-year-old male, creatinine 1.4, sodium 124, potassium 3.2 Patient has history of CHF Patient on IV Lasix and spironolactone by human services care specialist Patient has evidence of blood in the urine and history of kidney stone Final renal impression as per results of the urine, kidney ultrasound, etc. Plan October 08: Labs reviewed. Serum creatinine 1.4. Serum sodium 136. Clinically stable. Continue per human services care specialist. October 07: Labs reviewed. Serum sodium lowering. On IV Lasix. 250 mL of saline 3% given. Continue to monitor electrolytes. Continue per cardiology. October 06: Labs reviewed. Serum sodium 133. Medication list reviewed. Continue to monitor renal parameters and electrolytes. October 05: Serum sodium up to 135. Hemoglobin A1c 6.6. Patient clinically stable. Continue per cardiology. Kidney ultrasound normal size kidneys and no hydronephrosis. 2D echocardiogram ejection fraction of 20 to 25%. Previously: 2D echocardiogram Kidney ultrasound 250 cc saline 3% once Monitor electrolytes Hyponatremia work-up Per orders Subjective ROS Limited/Unobtainable: No Constitutional: Reports: malaise, weakness Objective Objective Last 24 Hour Vital Signs Date Time Temp Pulse Resp B/P (MAP) Pulse Ox O2 Delivery O2 Flow Rate FiO2 10/08/20 09:54 95 122/73 10/08/20 04:00 91 10/08/20 04:00 99.1 94 16 101/66 (78) 95 10/08/20 00:00 99.5 81 18 107/68 (81) 95 10/08/20 00:00 98 10/07/20 21:00 Room Air 10/07/20 21:00 102 100/65 10/07/20 20:00 98.0 102 20 100/65 (77) 95 10/07/20 20:00 98 10/07/20 16:00 91 10/07/20 16:00 98.4 85 20 130/90 (103) 99 10/07/20 13:50 97.6 90 28 106/70 98 Room Air 10/07/20 13:40 89 30 100/64 99 Simple Mask 6 10/07/20 13:35 90 38 108/53 100 Simple Mask 6 10/07/20 13:29 97.4 89 34 92/54 99 Simple Mask 6 Intake and Output 10/07/20 10/08/20 19:00 07:00 Intake Total 320 ml Output Total 700 ml Balance -380 ml Intake Oral 200 ml IV Total 120 ml Output Urine Total 700 ml # Voids 4 # Bowel Movements 1 Current Medications Medications (Trade) Dose Ordered Sig/Damián Route PRN Reason Start Time Stop Time Status Last Admin Dose Admin Acetaminophen (Tylenol) 650 mg Q6H PRN ORAL MILD pain 10/04/20 22:30 11/03/20 22:29 Allopurinol (Zyloprim) 200 mg DAILY ORAL 10/07/20 10:45 11/06/20 10:44 10/08/20 09:54 Carvedilol (Coreg) 3.125 mg EVERY 12 HOURS ORAL 10/04/20 21:00 11/03/20 20:59 10/08/20 09:54 Furosemide (Lasix) 40 mg EVERY 12 HOURS IV 10/04/20 21:00 11/03/20 20:59 10/08/20 09:55 Guaifenesin (Robitussin) 150 mg Q6H PRN ORAL For Cough 10/04/20 22:30 01/02/21 22:29 10/06/20 11:52 Morphine Sulfate (Morphine Sulfate) 2 mg Q4H PRN IVP Severe Pain (Pain Scale 7-10) 10/07/20 06:15 10/14/20 06:14 Ondansetron HCl (Zofran) 4 mg Q4H PRN IVP Nausea & Vomiting 10/06/20 05:45 11/05/20 05:44 10/06/20 20:57 Pantoprazole (Protonix) 40 mg EVERY 12 HOURS ORAL 10/06/20 21:00 11/05/20 20:59 10/08/20 09:55 Sacubitril/ Valsartan (Entresto 49mg/ 51mg) 1 tab Q12HR ORAL 10/06/20 21:00 01/04/21 20:59 10/07/20 08:23 Spironolactone (Aldactone) 25 mg DAILY ORAL 10/05/20 09:00 11/04/20 08:59 10/08/20 09:51 Laboratory Tests 10/08/20 06:50: White Blood Count 8.7, Red Blood Count 5.01, Hemoglobin 14.4, Hematocrit 43.6, Mean Corpuscular Volume 87, Mean Corpuscular Hemoglobin 28.7, Mean Corpuscular Hemoglobin Concent 32.9, Red Cell Distribution Width 16.1H, Platelet Count 168, Mean Platelet Volume 8.7, Neutrophils (%) (Auto) 72.9, Lymphocytes (%) (Auto) 14.7L, Monocytes (%) (Auto) 11.2H, Eosinophils (%) (Auto) 0.6, Basophils (%) (Auto) 0.6, Sodium Level 136, Potassium Level 3.8, Chloride Level 99, Carbon Dioxide Level 32, Blood Urea Nitrogen 33H, Creatinine 1.4H, Estimat Glomerular Filtration Rate > 60, Glucose Level 101, Uric Acid 7.9H, Calcium Level 8.5, Phosphorus Level 2.6, Magnesium Level 2.2, Total Bilirubin 1.4H, Direct Bilirubin 0.8H, Aspartate Amino Transf (AST/SGOT) 36, Alanine Aminotransferase (ALT/SGPT) 41, Alkaline Phosphatase 101, C-Reactive Protein, Quantitative [Pending], Pro-B-Type Natriuretic Peptide 4550H, Total Protein 6.3L, Albumin 2.2L, Globulin 4.1, Albumin/Globulin Ratio 0.5L Height (Feet): 5 Height (Inches): 5.00 Weight (Pounds): 246 General Appearance: no apparent distress EENT: other - O2 room air Cardiovascular: tachycardia Respiratory/Chest: decreased breath sounds Abdomen: distended, other - Obese Hari Telles MD Oct 08, 2020 12:55
[2020-10-08 16:00] VITALS: BP 93/51
--- NOTE | 2020-10-08 19:03 | Cardiac Electrophysiology PN ---
Assessment/Plan Assessment/Plan 1. Exacerbation of CHF with EF 20%. Says had CHF for more than a year. Already had cardiac cath at [facility] a year ago His BNP is more than 4700. On Lasix 40 mg IV b.i.d. Coreg, Entresto 49/51, and Aldactone. Got authorization from insurance [employer] for ICD DW patient the risks and benefits of ICD implant and he agreed to proceed SCheduled for Saturday. NPO after MN on Saturday 2. Hypertension. Continue current heart failure therapy. 3. Frothy cough. Covid negative. Further evaluation by spray maker. 4. Benign prostatic hypertrophy. 5. Urinary tract infection. DW RN Subjective Subjective Ruled out for Covid. Off isolation on RA. Echo showed EF 20%. Had 10 beats of VT again today EGD showed gastritis Objective Last 24 Hour Vital Signs Date Time Temp Pulse Resp B/P (MAP) Pulse Ox O2 Delivery O2 Flow Rate FiO2 10/08/20 16:00 90 10/08/20 16:00 99.0 89 20 93/51 (65) 96 10/08/20 12:00 97.4 95 18 112/71 (85) 97 10/08/20 12:00 96 10/08/20 09:54 95 122/73 10/08/20 09:00 Room Air 10/08/20 08:00 99.0 95 20 122/73 (89) 95 10/08/20 08:00 114 10/08/20 04:00 91 10/08/20 04:00 99.1 94 16 101/66 (78) 95 10/08/20 00:00 99.5 81 18 107/68 (81) 95 10/08/20 00:00 98 10/07/20 21:00 Room Air 10/07/20 21:00 102 100/65 10/07/20 20:00 98.0 102 20 100/65 (77) 95 10/07/20 20:00 98 Intake and Output 10/07/20 10/08/20 19:00 07:00 Intake Total 320 ml Output Total 700 ml Balance -380 ml Intake Oral 200 ml IV Total 120 ml Output Urine Total 700 ml # Voids 4 # Bowel Movements 1 Laboratory Tests Test 10/08/20 06:50 White Blood Count 8.7 K/UL (4.8-10.8) Red Blood Count 5.01 M/UL (4.70-6.10) Hemoglobin 14.4 G/DL (14.2-18.0) Hematocrit 43.6 % (42.0-52.0) Mean Corpuscular Volume 87 FL (80-99) Mean Corpuscular Hemoglobin 28.7 PG (27.0-31.0) Mean Corpuscular Hemoglobin Concent 32.9 G/DL (32.0-36.0) Red Cell Distribution Width 16.1 % (11.6-14.8) H Platelet Count 168 K/UL (150-450) Mean Platelet Volume 8.7 FL (6.5-10.1) Neutrophils (%) (Auto) 72.9 % (45.0-75.0) Lymphocytes (%) (Auto) 14.7 % (20.0-45.0) L Monocytes (%) (Auto) 11.2 % (1.0-10.0) H Eosinophils (%) (Auto) 0.6 % (0.0-3.0) Basophils (%) (Auto) 0.6 % (0.0-2.0) Sodium Level 136 MMOL/L (136-145) Potassium Level 3.8 MMOL/L (3.5-5.1) Chloride Level 99 MMOL/L (98-107) Carbon Dioxide Level 32 MMOL/L (21-32) Blood Urea Nitrogen 33 mg/dL (7-18) H Creatinine 1.4 MG/DL (0.55-1.30) H Estimat Glomerular Filtration Rate > 60 mL/min (>60) Glucose Level 101 MG/DL (74-106) Uric Acid 7.9 MG/DL (2.6-7.2) H Calcium Level 8.5 MG/DL (8.5-10.1) Phosphorus Level 2.6 MG/DL (2.5-4.9) Magnesium Level 2.2 MG/DL (1.8-2.4) Total Bilirubin 1.4 MG/DL (0.2-1.0) H Direct Bilirubin 0.8 MG/DL (0.0-0.3) H Aspartate Amino Transf (AST/SGOT) 36 U/L (15-37) Alanine Aminotransferase (ALT/SGPT) 41 U/L (12-78) Alkaline Phosphatase 101 U/L (46-116) C-Reactive Protein, Quantitative Pending Pro-B-Type Natriuretic Peptide 4550 pg/mL (0-125) H Total Protein 6.3 G/DL (6.4-8.2) L Albumin 2.2 G/DL (3.4-5.0) L Globulin 4.1 g/dL Albumin/Globulin Ratio 0.5 (1.0-2.7) L Objective HEAD AND NECK: Show positive JVD. LUNGS: Decreased breath sounds. CARDIOVASCULAR: Shows regular S1 and S2 with no gallop. ABDOMEN: Soft. EXTREMITIES: 1+ pitting edema. Hudson Garcia MD Oct 08, 2020 19:03
--- NOTE | 2020-10-08 19:46 | NUR ---
NURSE HAND-OFF REPORT: Important Events on Shift:[] pt had 10 beats of v-tach. see rhythm strip. Dr. Guzmán is aware. Patient Status: [] full code Diet: [] regular Pending Orders: [] Pending Results/Labs:[] Pending MD notification:[] Latest Vital Signs: Temperature 99.0 , Pulse 90 , B/P 93 /51 , Respiratory Rate 20 , O2 SAT 96 , Room Air, O2 Flow Rate 6 . Vital Sign Comment: [] EKG Rhythm: SR w/BBB Rhythm change?: N Notified?: Mere Melgar MD Response: Latest Mccabe Fall Score: 20 Fall Risk: Low Risk Safety Measures: Call light Within Reach, Bed Alarm , Side Rails Side Rails x2, Bed position Low and Locked. Fall Precautions: Patient Fall Education Report given to []. Lauren Johnson RN
--- NOTE | 2020-10-08 19:47 | NUR ---
NURSE NOTES: Important Events on Shift: Received report from Jt Rueda RN. Pt in bed, denies pain, no signs or symptoms of distress noted at this time. Consents for ICD placement signed and complete. Will continue to monitor closely. Will continue plan of care. Droplet and contact isolation precautions in place. Patient Status: Full Code Diet: Cardiac Pending Orders: none Pending Results/Labs: billirubin, cbc, cmp, hep panel, PT, PTT Pending MD notification: none Latest Vital Signs: Temperature 98.7 , Pulse 107 , B/P 99 /58 , Respiratory Rate 16 , O2 SAT 96 , Room Air, O2 Flow Rate 6 . Vital Sign Comment: stable throughout shift per report. EKG Rhythm: Sinus Tachycardia, BBBs Rhythm change?: N Notified?: Mere Melgar MD Response: Latest Mccabe Fall Score: 20 Fall Risk: Low Risk Safety Measures:In place Call light Within Reach, Bed Alarm , Side Rails Side Rails x2, Bed position Low and Locked. Fall Precautions: YES Patient Fall Education YES
[2020-10-08 20:00] VITALS: BP 95/60
[2020-10-09] VITALS: BP 99/58
--- NOTE | 2020-10-09 06:34 | General Progress Note ---
Subjective ROS Limited/Unobtainable: Yes Allergies: Coded Allergies: No Known Allergies (Unverified , 04/20/16) Objective Last 24 Hour Vital Signs Date Time Temp Pulse Resp B/P (MAP) Pulse Ox O2 Delivery O2 Flow Rate FiO2 10/09/20 00:00 98.7 90 16 99/58 (72) 96 10/09/20 00:00 107 10/08/20 21:00 Room Air 10/08/20 21:00 92 95/60 10/08/20 20:00 93 10/08/20 20:00 99.1 92 18 95/60 (72) 96 10/08/20 16:00 90 10/08/20 16:00 99.0 89 20 93/51 (65) 96 10/08/20 12:00 97.4 95 18 112/71 (85) 97 10/08/20 12:00 96 10/08/20 09:54 95 122/73 10/08/20 09:00 Room Air 10/08/20 08:00 99.0 95 20 122/73 (89) 95 10/08/20 08:00 114 Intake and Output 10/08/20 10/09/20 19:00 07:00 Intake Total 1800 ml 360 ml Output Total 2900 ml 1100 ml Balance -1100 ml -740 ml Intake Oral 1800 ml 360 ml Output Urine Total 2900 ml 1100 ml # Voids 8 2 Laboratory Tests 10/08/20 06:50: White Blood Count 8.7, Red Blood Count 5.01, Hemoglobin 14.4, Hematocrit 43.6, Mean Corpuscular Volume 87, Mean Corpuscular Hemoglobin 28.7, Mean Corpuscular Hemoglobin Concent 32.9, Red Cell Distribution Width 16.1H, Platelet Count 168, Mean Platelet Volume 8.7, Neutrophils (%) (Auto) 72.9, Lymphocytes (%) (Auto) 14.7L, Monocytes (%) (Auto) 11.2H, Eosinophils (%) (Auto) 0.6, Basophils (%) (Auto) 0.6, Sodium Level 136, Potassium Level 3.8, Chloride Level 99, Carbon Dioxide Level 32, Blood Urea Nitrogen 33H, Creatinine 1.4H, Estimat Glomerular Filtration Rate > 60, Glucose Level 101, Uric Acid 7.9H, Calcium Level 8.5, Phosphorus Level 2.6, Magnesium Level 2.2, Total Bilirubin 1.4H, Direct Bilirubin 0.8H, Aspartate Amino Transf (AST/SGOT) 36, Alanine Aminotransferase (ALT/SGPT) 41, Alkaline Phosphatase 101, C-Reactive Protein, Quantitative [Pending], Pro-B-Type Natriuretic Peptide 4550H, Total Protein 6.3L, Albumin 2.2L, Globulin 4.1, Albumin/Globulin Ratio 0.5L Height (Feet): 5 Height (Inches): 5.00 Weight (Pounds): 246 General Appearance: no apparent distress EENT: normal ENT inspection Neck: supple Cardiovascular: normal rate Respiratory/Chest: decreased breath sounds Abdomen: normal bowel sounds, non tender, soft Extremities: non-tender Assessment/Plan Problem List: (1) Diverticulosis ICD Codes: K57.90 - Diverticulosis of intestine, part unspecified, without perforation or abscess without bleeding SNOMED: 123377356 (2) HTN (hypertension) ICD Codes: I10 - Essential (primary) hypertension SNOMED: 22497900 (3) UTI (urinary tract infection) ICD Codes: N39.0 - Urinary tract infection, site not specified SNOMED: 41176402 Qualifiers: Qualified Codes: N39.0 - Urinary tract infection, site not specified (4) Abdominal pain ICD Codes: R10.9 - Unspecified abdominal pain SNOMED: 54274076 (5) Cardiomyopathy ICD Codes: I42.9 - Cardiomyopathy, unspecified SNOMED: 74134218 Status: unchanged Assessment/Plan: elevated LFTS>>> improving abd us reviewed hematemesis>>> s/p EGD ppi cardiology in put appreciated fu path fu urology Seth Blunt MD Oct 09, 2020 06:34
--- NOTE | 2020-10-09 07:45 | NUR ---
NURSE HAND-OFF REPORT: Important Events on Shift: NONE Patient Status: full code Diet: cardiac Pending Orders: none Pending Results/Labs: AM labs Pending MD notification: none Latest Vital Signs: Temperature 98.7 , Pulse 90 , B/P 99 /58 , Respiratory Rate 16 , O2 SAT 96 , Room Air, O2 Flow Rate 6 . Vital Sign Comment: EKG Rhythm: Sinus Rhythm Rhythm change?: N MD Notified?: Mere Melgar MD Response: Latest Mccabe Fall Score: 20 Fall Risk: Low Risk Safety Measures:YES Call light Within Reach, Bed Alarm , Side Rails Side Rails x2, Bed position Low and Locked. Fall Precautions: Patient Fall Education Report given to Jt Rueda RN.
--- NOTE | 2020-10-09 07:51 | NUR ---
NURSE NOTES: pt is sitting in bed, eating breakfast. IV is intact and patent. pt is on air sampling and monitoring and RA showing no signs of cardiac or respiratory distress. morning labs were drawn upon assessment. pt has no complaints of pain. bed is locked and in lowest position, call light is within reach.
[2020-10-09 08:00] VITALS: BP 97/63
[2020-10-09 08:25] LABS: BASOPHILS % (AUTO) 0.8 % (0.0-2.0); EOSINOPHILS % (AUTO) 1.3 % (0.0-3.0); HEMATOCRIT 47.4 % (42.0-52.0); HEMOGLOBIN 14.9 G/DL (14.2-18.0); LYMPHOCYTES % (AUTO) 18.5 % (20.0-45.0); MEAN CORPUSCULAR VOLUME 91 FL (80-99); MONOCYTES % (AUTO) 9.5 % (1.0-10.0); NEUTROPHILS % (AUTO) 69.9 % (45.0-75.0); PLATELET COUNT 175 K/UL (150-450); RED BLOOD COUNT 5.19 M/UL (4.70-6.10); RED CELL DISTRIBUTION WIDTH 14.8 % (11.6-14.8); WHITE BLOOD COUNT 7.2 K/UL (4.8-10.8)
[2020-10-09 08:29] LABS: INR 1.4 (0.9-1.1)
[2020-10-09 08:42] LABS: ALANINE AMINOTRANSFERASE 49 U/L (12-78); ALBUMIN 2.4 G/DL (3.4-5.0); ALBUMIN/GLOBULIN RATIO 0.6 (1.0-2.7); ALKALINE PHOSPHATASE 117 U/L (46-116); ANION GAP 5 mmol/L (5-15); ASPARTATE AMINO TRANSFERASE 35 U/L (15-37); BILIRUBIN,TOTAL 1.2 MG/DL (0.2-1.0); BLOOD UREA NITROGEN 25 mg/dL (7-18); CALCIUM 8.4 MG/DL (8.5-10.1); CARBON DIOXIDE 32 MMOL/L (21-32); CHLORIDE 100 MMOL/L (98-107); CREATININE 1.2 MG/DL (0.55-1.30); POTASSIUM 3.3 MMOL/L (3.5-5.1); SODIUM 137 MMOL/L (136-145)
[2020-10-09 08:43] LABS: BILIRUBIN,DIRECT 0.5 MG/DL (0.0-0.3)
[2020-10-09] MEDS: Spironolactone 25mg tab ORAL SCH (09:22)
[2020-10-09] MEDS: Allopurinol 100mg Tab ORAL SCH (09:22)
--- NOTE | 2020-10-09 09:47 | Hematology/Onc Progress Note ---
Assessment/Plan Assessment/Plan Assessment and Recs # Hematesis with gi bleed noted, with stable h/h --> trend h/h currently stable --> consider ppi --> as per gi care-->reviewed egd # Hematuria --> currently improved --> get coags --> uro eval prn # CHF (congestive heart failure) --> duresis per cards # UTI (urinary tract infection) --> on abx as per id # Cardiomegaly # Dvt ppx scds Time of note does not necessarily correspond to time patient was seen. Appreciate consultation greatly. Subjective Constitutional: Denies: no symptoms, chills, fever, malaise, weakness, other HEENT: Denies: no symptoms, eye pain, blurred vision, tearing, double vision, ear pain, ear discharge, nose pain, nose congestion, throat pain, throat swelling, mouth pain, mouth swelling, other Cardiovascular: Denies: no symptoms, chest pain, edema, irregular heart rate, lightheadedness, palpitations, syncope, other Respiratory: Denies: no symptoms, cough, shortness of breath, SOB with excertion, SOB at rest, sputum, wheezing, other Neurologic/Psychiatric: Denies: no symptoms, anxiety, depressed, emotional problems, headache, numbness, paresthesia, pre-existing deficit, seizure, tingling, tremors, weakness, other Endocrine: Denies: no symptoms, excessive sweating, flushing, intolerance to cold, intolerance to heat, increased hunger, increased thirst, increased urine, unexplained weight gain, unexplained weight loss, other Allergies: Coded Allergies: No Known Allergies (Unverified , 04/20/16) Subjective 10/09 labs reviewed, meds noted, no bleeding, dw rn Objective Objective Current Medications Medications (Trade) Dose Ordered Sig/Damián Route PRN Reason Start Time Stop Time Status Last Admin Dose Admin Acetaminophen (Tylenol) 650 mg Q6H PRN ORAL MILD pain 10/04/20 22:30 11/03/20 22:29 Allopurinol (Zyloprim) 200 mg DAILY ORAL 10/07/20 10:45 11/06/20 10:44 10/09/20 09:22 Carvedilol (Coreg) 3.125 mg EVERY 12 HOURS ORAL 10/04/20 21:00 11/03/20 20:59 10/09/20 09:20 Furosemide (Lasix) 40 mg EVERY 12 HOURS IV 10/04/20 21:00 11/03/20 20:59 10/09/20 09:22 Guaifenesin (Robitussin) 150 mg Q6H PRN ORAL For Cough 10/04/20 22:30 01/02/21 22:29 10/06/20 11:52 Morphine Sulfate (Morphine Sulfate) 2 mg Q4H PRN IVP Severe Pain (Pain Scale 7-10) 10/07/20 06:15 10/14/20 06:14 Ondansetron HCl (Zofran) 4 mg Q4H PRN IVP Nausea & Vomiting 10/06/20 05:45 11/05/20 05:44 10/06/20 20:57 Pantoprazole (Protonix) 40 mg EVERY 12 HOURS ORAL 10/06/20 21:00 11/05/20 20:59 10/09/20 09:23 Sacubitril/ Valsartan (Entresto 49mg/ 51mg) 1 tab Q12HR ORAL 10/06/20 21:00 01/04/21 20:59 10/07/20 08:23 Spironolactone (Aldactone) 25 mg DAILY ORAL 10/05/20 09:00 11/04/20 08:59 10/09/20 09:22 Last 24 Hour Vital Signs Date Time Temp Pulse Resp B/P (MAP) Pulse Ox O2 Delivery O2 Flow Rate FiO2 10/09/20 09:20 95 117/65 10/09/20 08:00 97.3 94 16 97/63 (74) 97 10/09/20 04:00 90 10/09/20 00:00 98.7 90 16 99/58 (72) 96 10/09/20 00:00 107 10/08/20 21:00 Room Air 10/08/20 21:00 92 95/60 10/08/20 20:00 93 10/08/20 20:00 99.1 92 18 95/60 (72) 96 10/08/20 16:00 90 10/08/20 16:00 99.0 89 20 93/51 (65) 96 10/08/20 12:00 97.4 95 18 112/71 (85) 97 10/08/20 12:00 96 10/08/20 09:54 95 122/73 10/08/20 09:00 Room Air 10/08/20 08:00 99.0 95 20 122/73 (89) 95 10/08/20 08:00 114 10/08/20 04:00 91 10/08/20 04:00 99.1 94 16 101/66 (78) 95 10/08/20 00:00 99.5 81 18 107/68 (81) 95 10/08/20 00:00 98 10/07/20 21:00 Room Air 10/07/20 21:00 102 100/65 10/07/20 20:00 98.0 102 20 100/65 (77) 95 10/07/20 20:00 98 10/07/20 16:00 91 10/07/20 16:00 98.4 85 20 130/90 (103) 99 10/07/20 13:50 97.6 90 28 106/70 98 Room Air 10/07/20 13:40 89 30 100/64 99 Simple Mask 6 10/07/20 13:35 90 38 108/53 100 Simple Mask 6 10/07/20 13:29 97.4 89 34 92/54 99 Simple Mask 6 10/07/20 12:00 93 10/07/20 12:00 98.4 87 19 136/87 (103) 99 Intake and Output 10/08/20 10/09/20 19:00 07:00 Intake Total 1800 ml 360 ml Output Total 2900 ml 1100 ml Balance -1100 ml -740 ml Intake Oral 1800 ml 360 ml Output Urine Total 2900 ml 1100 ml # Voids 8 2 Labs Test 10/07/20 06:12 10/08/20 06:50 10/09/20 07:27 White Blood Count 11.2 K/UL (4.8-10.8) 8.7 K/UL (4.8-10.8) 7.2 K/UL (4.8-10.8) Red Blood Count 5.43 M/UL (4.70-6.10) 5.01 M/UL (4.70-6.10) 5.19 M/UL (4.70-6.10) Hemoglobin 15.6 G/DL (14.2-18.0) 14.4 G/DL (14.2-18.0) 14.9 G/DL (14.2-18.0) Hematocrit 46.7 % (42.0-52.0) 43.6 % (42.0-52.0) 47.4 % (42.0-52.0) Mean Corpuscular Volume 86 FL (80-99) 87 FL (80-99) 91 FL (80-99) Mean Corpuscular Hemoglobin 28.8 PG (27.0-31.0) 28.7 PG (27.0-31.0) 28.7 PG (27.0-31.0) Mean Corpuscular Hemoglobin Concent 33.5 G/DL (32.0-36.0) 32.9 G/DL (32.0-36.0) 31.5 G/DL (32.0-36.0) Red Cell Distribution Width 16.1 % (11.6-14.8) 16.1 % (11.6-14.8) 14.8 % (11.6-14.8) Platelet Count 184 K/UL (150-450) 168 K/UL (150-450) 175 K/UL (150-450) Mean Platelet Volume 9.2 FL (6.5-10.1) 8.7 FL (6.5-10.1) 9.6 FL (6.5-10.1) Neutrophils (%) (Auto) 76.7 % (45.0-75.0) 72.9 % (45.0-75.0) 69.9 % (45.0-75.0) Lymphocytes (%) (Auto) 12.3 % (20.0-45.0) 14.7 % (20.0-45.0) 18.5 % (20.0-45.0) Monocytes (%) (Auto) 10.2 % (1.0-10.0) 11.2 % (1.0-10.0) 9.5 % (1.0-10.0) Eosinophils (%) (Auto) 0.0 % (0.0-3.0) 0.6 % (0.0-3.0) 1.3 % (0.0-3.0) Basophils (%) (Auto) 0.8 % (0.0-2.0) 0.6 % (0.0-2.0) 0.8 % (0.0-2.0) Prothrombin Time 17.3 SEC (9.30-11.50) 15.2 SEC (9.30-11.50) Prothromb Time International Ratio 1.6 (0.9-1.1) 1.4 (0.9-1.1) Activated Partial Thromboplast Time 29 SEC (23-33) 28 SEC (23-33) Sodium Level 132 MMOL/L (136-145) 136 MMOL/L (136-145) 137 MMOL/L (136-145) Potassium Level 3.9 MMOL/L (3.5-5.1) 3.8 MMOL/L (3.5-5.1) 3.3 MMOL/L (3.5-5.1) Chloride Level 97 MMOL/L (98-107) 99 MMOL/L (98-107) 100 MMOL/L (98-107) Carbon Dioxide Level 26 MMOL/L (21-32) 32 MMOL/L (21-32) 32 MMOL/L (21-32) Anion Gap 9 mmol/L (5-15) 5 mmol/L (5-15) Blood Urea Nitrogen 39 mg/dL (7-18) 33 mg/dL (7-18) 25 mg/dL (7-18) Creatinine 1.6 MG/DL (0.55-1.30) 1.4 MG/DL (0.55-1.30) 1.2 MG/DL (0.55-1.30) Estimat Glomerular Filtration Rate 53.7 mL/min (>60) > 60 mL/min (>60) > 60 mL/min (>60) Glucose Level 120 MG/DL (74-106) 101 MG/DL (74-106) 112 MG/DL (74-106) Uric Acid 8.4 MG/DL (2.6-7.2) 7.9 MG/DL (2.6-7.2) Calcium Level 8.8 MG/DL (8.5-10.1) 8.5 MG/DL (8.5-10.1) 8.4 MG/DL (8.5-10.1) Phosphorus Level 3.7 MG/DL (2.5-4.9) 2.6 MG/DL (2.5-4.9) Magnesium Level 2.4 MG/DL (1.8-2.4) 2.2 MG/DL (1.8-2.4) Total Bilirubin 1.7 MG/DL (0.2-1.0) 1.4 MG/DL (0.2-1.0) 1.2 MG/DL (0.2-1.0) Direct Bilirubin 1.1 MG/DL (0.0-0.3) 0.8 MG/DL (0.0-0.3) 0.5 MG/DL (0.0-0.3) Aspartate Amino Transf (AST/SGOT) 46 U/L (15-37) 36 U/L (15-37) 35 U/L (15-37) Alanine Aminotransferase (ALT/SGPT) 44 U/L (12-78) 41 U/L (12-78) 49 U/L (12-78) Alkaline Phosphatase 124 U/L (46-116) 101 U/L (46-116) 117 U/L (46-116) C-Reactive Protein, Quantitative 278.9 mg/L (<5) Pro-B-Type Natriuretic Peptide 7642 pg/mL (0-125) 4550 pg/mL (0-125) Total Protein 7.5 G/DL (6.4-8.2) 6.3 G/DL (6.4-8.2) 6.7 G/DL (6.4-8.2) Albumin 2.8 G/DL (3.4-5.0) 2.2 G/DL (3.4-5.0) 2.4 G/DL (3.4-5.0) Globulin 4.7 g/dL 4.1 g/dL 4.3 g/dL Albumin/Globulin Ratio 0.6 (1.0-2.7) 0.5 (1.0-2.7) 0.6 (1.0-2.7) Height (Feet): 5 Height (Inches): 5.00 Weight (Pounds): 246 Objective Physical Exam General Appearance: NAD HEENT: normocephalic, atraumatic Neck: non-tender, normal alignment Respiratory/Chest: nromal breath sounds bilaterally Cardiovascular/Chest: normal peripheral pulses, normal rate Abdomen: normal bowel sounds, soft, nontender Extremities: normal range of motion Vikas Pennington MD Oct 09, 2020 09:47
--- NOTE | 2020-10-09 10:44 | Infectious Diseases Prog Note ---
Assessment/Plan 60yo M with: Afebrile Normal WBC Lymphopenia Cough, leg swelling, r/o CHF R/o UTI - UA neg, no sx 10/04 UA neg, UCx neg CXR: Cardiomegaly, no acute process COVID rapid test neg, PCR neg Hemoptysis, most likely 2/2 pulm congestion 2/2 CHF, less likely 2/2 infection given lack of other s/sx of infection 10/05 Resp cx neg Cr 1.4 --> 1.6 10/04 Renal US: Focal posterior bladder wall thickening. Could indicate a mucosal lesion. Consider cystoscopy. Left renal shadowing focus, could represent a calculus versus arterial calcification. CHF EF 20-25% 10/06 Abd US: To-and-fro flow within the main portal vein, could indicate portal hypertension. Negative for gallstones or dilated bile ducts. Echogenic foci within the kidneys, suspected artifactual as no calculi are demonstrated on recent CT scan. Incidental finding of splenic and small bilateral renal cysts Plan: Cont to monitor off abx given no s/sx of infection Monitor CBC, CMP Monitor resp status Monitor temp curve, hemodynamics D/w RN Thank you for this consult. [facility] will continue to follow. Subjective Allergies: Coded Allergies: No Known Allergies (Unverified , 04/20/16) AF WBC 7.2 NAD, no more coughing up blood, less BLE swelling Objective Last 24 Hour Vital Signs Date Time Temp Pulse Resp B/P (MAP) Pulse Ox O2 Delivery O2 Flow Rate FiO2 10/09/20 09:20 95 117/65 10/09/20 08:00 97.3 94 16 97/63 (74) 97 10/09/20 04:00 90 10/09/20 00:00 98.7 90 16 99/58 (72) 96 10/09/20 00:00 107 10/08/20 21:00 Room Air 10/08/20 21:00 92 95/60 10/08/20 20:00 93 10/08/20 20:00 99.1 92 18 95/60 (72) 96 10/08/20 16:00 90 10/08/20 16:00 99.0 89 20 93/51 (65) 96 10/08/20 12:00 97.4 95 18 112/71 (85) 97 10/08/20 12:00 96 Height (Feet): 5 Height (Inches): 5.00 Weight (Pounds): 246 Gen: NAD HEENT: NCAT Pulm: BL chest rise Abd: Non-distended Ext: No c/c/e Skin: No visible rashes Neuro: Awake Laboratory Tests Test 10/09/20 07:27 White Blood Count 7.2 K/UL (4.8-10.8) Red Blood Count 5.19 M/UL (4.70-6.10) Hemoglobin 14.9 G/DL (14.2-18.0) Hematocrit 47.4 % (42.0-52.0) Mean Corpuscular Volume 91 FL (80-99) Mean Corpuscular Hemoglobin 28.7 PG (27.0-31.0) Mean Corpuscular Hemoglobin Concent 31.5 G/DL (32.0-36.0) L Red Cell Distribution Width 14.8 % (11.6-14.8) Platelet Count 175 K/UL (150-450) Mean Platelet Volume 9.6 FL (6.5-10.1) Neutrophils (%) (Auto) 69.9 % (45.0-75.0) Lymphocytes (%) (Auto) 18.5 % (20.0-45.0) L Monocytes (%) (Auto) 9.5 % (1.0-10.0) Eosinophils (%) (Auto) 1.3 % (0.0-3.0) Basophils (%) (Auto) 0.8 % (0.0-2.0) Prothrombin Time 15.2 SEC (9.30-11.50) H Prothromb Time International Ratio 1.4 (0.9-1.1) H Activated Partial Thromboplast Time 28 SEC (23-33) Sodium Level 137 MMOL/L (136-145) Potassium Level 3.3 MMOL/L (3.5-5.1) L Chloride Level 100 MMOL/L (98-107) Carbon Dioxide Level 32 MMOL/L (21-32) Anion Gap 5 mmol/L (5-15) Blood Urea Nitrogen 25 mg/dL (7-18) H Creatinine 1.2 MG/DL (0.55-1.30) Estimat Glomerular Filtration Rate > 60 mL/min (>60) Glucose Level 112 MG/DL (74-106) H Calcium Level 8.4 MG/DL (8.5-10.1) L Total Bilirubin 1.2 MG/DL (0.2-1.0) H Direct Bilirubin 0.5 MG/DL (0.0-0.3) H Aspartate Amino Transf (AST/SGOT) 35 U/L (15-37) Alanine Aminotransferase (ALT/SGPT) 49 U/L (12-78) Alkaline Phosphatase 117 U/L (46-116) H Total Protein 6.7 G/DL (6.4-8.2) Albumin 2.4 G/DL (3.4-5.0) L Globulin 4.3 g/dL Albumin/Globulin Ratio 0.6 (1.0-2.7) L Hepatitis A IgM Antibody Pending Hepatitis B Surface Antigen Pending Hepatitis B Core IgM Antibody Pending Hepatitis C Antibody Pending Current Medications Medications (Trade) Dose Ordered Sig/Damián Route PRN Reason Start Time Stop Time Status Last Admin Dose Admin Acetaminophen (Tylenol) 650 mg Q6H PRN ORAL MILD pain 10/04/20 22:30 11/03/20 22:29 Allopurinol (Zyloprim) 200 mg DAILY ORAL 10/07/20 10:45 11/06/20 10:44 10/09/20 09:22 Carvedilol (Coreg) 3.125 mg EVERY 12 HOURS ORAL 10/04/20 21:00 11/03/20 20:59 10/09/20 09:20 Furosemide (Lasix) 40 mg EVERY 12 HOURS IV 10/04/20 21:00 11/03/20 20:59 10/09/20 09:22 Guaifenesin (Robitussin) 150 mg Q6H PRN ORAL For Cough 10/04/20 22:30 01/02/21 22:29 10/06/20 11:52 Morphine Sulfate (Morphine Sulfate) 2 mg Q4H PRN IVP Severe Pain (Pain Scale 7-10) 10/07/20 06:15 10/14/20 06:14 Ondansetron HCl (Zofran) 4 mg Q4H PRN IVP Nausea & Vomiting 10/06/20 05:45 11/05/20 05:44 10/06/20 20:57 Pantoprazole (Protonix) 40 mg EVERY 12 HOURS ORAL 10/06/20 21:00 2/6/21 20:59 10/09/20 09:23 Sacubitril/ Valsartan (Entresto 49mg/ 51mg) 1 tab Q12HR ORAL 10/06/20 21:00 01/04/21 20:59 10/07/20 08:23 Spironolactone (Aldactone) 25 mg DAILY ORAL 10/05/20 09:00 11/04/20 08:59 10/09/20 09:22 Anitha Zayas M.D. Oct 09, 2020 10:44
--- NOTE | 2020-10-09 11:06 | Pulmonology Progress Note ---
Subjective ROS Limited/Unobtainable: Yes Interval Events: s/p hemodialysis Constitutional: Reports: no symptoms HEENT: Repors: no symptoms Respiratory: Reports: productive cough, hemoptysis Cardiovascular: Reports: no symptoms Gastrointestinal/Abdominal: Reports: no symptoms Genitourinary: Reports: no symptoms Neurologic: Reports: no symptoms Allergies: Coded Allergies: No Known Allergies (Unverified , 04/20/16) All Systems: reviewed and negative except above Objective Last 24 Hour Vital Signs Date Time Temp Pulse Resp B/P (MAP) Pulse Ox O2 Delivery O2 Flow Rate FiO2 10/09/20 09:20 95 117/65 10/09/20 09:00 Room Air 10/09/20 08:00 97.3 94 16 97/63 (74) 97 10/09/20 04:00 90 10/09/20 00:00 98.7 90 16 99/58 (72) 96 10/09/20 00:00 107 10/08/20 21:00 Room Air 10/08/20 21:00 92 95/60 10/08/20 20:00 93 10/08/20 20:00 99.1 92 18 95/60 (72) 96 10/08/20 16:00 90 10/08/20 16:00 99.0 89 20 93/51 (65) 96 10/08/20 12:00 97.4 95 18 112/71 (85) 97 10/08/20 12:00 96 Intake and Output 10/08/20 10/09/20 19:00 07:00 Intake Total 1800 ml 360 ml Output Total 2900 ml 1100 ml Balance -1100 ml -740 ml Intake Oral 1800 ml 360 ml Output Urine Total 2900 ml 1100 ml # Voids 8 2 General Appearance: no acute distress HEENT: normocephalic Respiratory: chest wall non-tender, lungs clear Cardiovascular: normal peripheral pulses, normal rate Abdomen: normal bowel sounds Laboratory Tests 10/09/20 07:27: White Blood Count 7.2, Red Blood Count 5.19, Hemoglobin 14.9, Hematocrit 47.4, Mean Corpuscular Volume 91, Mean Corpuscular Hemoglobin 28.7, Mean Corpuscular Hemoglobin Concent 31.5L, Red Cell Distribution Width 14.8, Platelet Count 175, Mean Platelet Volume 9.6, Neutrophils (%) (Auto) 69.9, Lymphocytes (%) (Auto) 18.5L, Monocytes (%) (Auto) 9.5, Eosinophils (%) (Auto) 1.3, Basophils (%) (Auto) 0.8, Prothrombin Time 15.2H, Prothromb Time International Ratio 1.4H, Activated Partial Thromboplast Time 28, Sodium Level 137, Potassium Level 3.3L, Chloride Level 100, Carbon Dioxide Level 32, Anion Gap 5, Blood Urea Nitrogen 25H, Creatinine 1.2, Estimat Glomerular Filtration Rate > 60, Glucose Level 112H , Calcium Level 8.4L, Total Bilirubin 1.2H, Direct Bilirubin 0.5H, Aspartate Amino Transf (AST/SGOT) 35, Alanine Aminotransferase (ALT/SGPT) 49, Alkaline P hosphatase 117H, Total Protein 6.7, Albumin 2.4L, Globulin 4.3, Albumin/Globulin Ratio 0.6L, Hepatitis A IgM Antibody [Pending], Hepatitis B Surface Antigen [Pending], Hepatitis B Core IgM Antibody [Pending], Hepatitis C Antibody [Pending] Current Medications Medications (Trade) Dose Ordered Sig/Damián Route PRN Reason Start Time Stop Time Status Last Admin Dose Admin Acetaminophen (Tylenol) 650 mg Q6H PRN ORAL MILD pain 10/04/20 22:30 11/03/20 22:29 Allopurinol (Zyloprim) 200 mg DAILY ORAL 10/07/20 10:45 11/06/20 10:44 10/09/20 09:22 Carvedilol (Coreg) 3.125 mg EVERY 12 HOURS ORAL 10/04/20 21:00 11/03/20 20:59 10/09/20 09:20 Furosemide (Lasix) 40 mg EVERY 12 HOURS IV 10/04/20 21:00 11/03/20 20:59 10/09/20 09:22 Guaifenesin (Robitussin) 150 mg Q6H PRN ORAL For Cough 10/04/20 22:30 01/02/21 22:29 10/06/20 11:52 Morphine Sulfate (Morphine Sulfate) 2 mg Q4H PRN IVP Severe Pain (Pain Scale 7-10) 10/07/20 06:15 10/14/20 06:14 Ondansetron HCl (Zofran) 4 mg Q4H PRN IVP Nausea & Vomiting 10/06/20 05:45 11/05/20 05:44 10/06/20 20:57 Pantoprazole (Protonix) 40 mg EVERY 12 HOURS ORAL 10/06/20 21:00 11/05/20 20:59 10/09/20 09:23 Sacubitril/ Valsartan (Entresto 49mg/ 51mg) 1 tab Q12HR ORAL 10/06/20 21:00 01/04/21 20:59 10/07/20 08:23 Spironolactone (Aldactone) 25 mg DAILY ORAL 10/05/20 09:00 11/04/20 08:59 10/09/20 09:22 Assessment/Plan Assessment/Plan Assessment/Plan 1. Pulmonary edema., secondary to #2 - Continue diuretics. - Continue supplemental oxygen as needed, sat 95% R/A - CXR 10/04/2020 Cardiomegaly. No acute process 2. Cardiomyopathy. - 2D echo LVEF 20-25% - Pt agrees to ICD implant 3. Acute coronary syndrome. - Predominant care per Cardiology. 4. Elevated LFT, bili - Abd US: To-and-fro flow within the main portal vein, could indicate portal hypertension; no gallstones 5. COVID-19 negative will follow patient carefully The care for this patient was discussed with my supervising physician Mihir Bragg [facility] Oct 09, 2020 11:06
[2020-10-09 12:00] VITALS: BP 118/62
--- NOTE | 2020-10-09 13:48 | Surgery Progress Note ---
Surgery Progress Note Subjective Symptoms: improved, tolerating diet, passing flatus, pain decreased Additional Comments lft improving Objective Last 24 Hour Vital Signs Date Time Temp Pulse Resp B/P (MAP) Pulse Ox O2 Delivery O2 Flow Rate FiO2 10/09/20 09:20 95 117/65 10/09/20 09:00 Room Air 10/09/20 08:00 92 10/09/20 08:00 97.3 94 16 97/63 (74) 97 10/09/20 04:00 90 10/09/20 00:00 98.7 90 16 99/58 (72) 96 10/09/20 00:00 107 10/08/20 21:00 Room Air 10/08/20 21:00 92 95/60 10/08/20 20:00 93 10/08/20 20:00 99.1 92 18 95/60 (72) 96 10/08/20 16:00 90 10/08/20 16:00 99.0 89 20 93/51 (65) 96 I&O Intake and Output 10/08/20 10/09/20 19:00 07:00 Intake Total 1800 ml 360 ml Output Total 2900 ml 1100 ml Balance -1100 ml -740 ml Intake Oral 1800 ml 360 ml Output Urine Total 2900 ml 1100 ml # Voids 8 2 Cardiovascular: RSR Respiratory: clear Abdomen: soft, flat, non-tender, present bowel sounds, non-distended Extremities: no edema, no tenderness, no cyanosis Laboratory Tests Test 10/09/20 07:27 White Blood Count 7.2 K/UL (4.8-10.8) Red Blood Count 5.19 M/UL (4.70-6.10) Hemoglobin 14.9 G/DL (14.2-18.0) Hematocrit 47.4 % (42.0-52.0) Mean Corpuscular Volume 91 FL (80-99) Mean Corpuscular Hemoglobin 28.7 PG (27.0-31.0) Mean Corpuscular Hemoglobin Concent 31.5 G/DL (32.0-36.0) L Red Cell Distribution Width 14.8 % (11.6-14.8) Platelet Count 175 K/UL (150-450) Mean Platelet Volume 9.6 FL (6.5-10.1) Neutrophils (%) (Auto) 69.9 % (45.0-75.0) Lymphocytes (%) (Auto) 18.5 % (20.0-45.0) L Monocytes (%) (Auto) 9.5 % (1.0-10.0) Eosinophils (%) (Auto) 1.3 % (0.0-3.0) Basophils (%) (Auto) 0.8 % (0.0-2.0) Prothrombin Time 15.2 SEC (9.30-11.50) H Prothromb Time International Ratio 1.4 (0.9-1.1) H Activated Partial Thromboplast Time 28 SEC (23-33) Sodium Level 137 MMOL/L (136-145) Potassium Level 3.3 MMOL/L (3.5-5.1) L Chloride Level 100 MMOL/L (98-107) Carbon Dioxide Level 32 MMOL/L (21-32) Anion Gap 5 mmol/L (5-15) Blood Urea Nitrogen 25 mg/dL (7-18) H Creatinine 1.2 MG/DL (0.55-1.30) Estimat Glomerular Filtration Rate > 60 mL/min (>60) Glucose Level 112 MG/DL (74-106) H Calcium Level 8.4 MG/DL (8.5-10.1) L Total Bilirubin 1.2 MG/DL (0.2-1.0) H Direct Bilirubin 0.5 MG/DL (0.0-0.3) H Aspartate Amino Transf (AST/SGOT) 35 U/L (15-37) Alanine Aminotransferase (ALT/SGPT) 49 U/L (12-78) Alkaline Phosphatase 117 U/L (46-116) H Total Protein 6.7 G/DL (6.4-8.2) Albumin 2.4 G/DL (3.4-5.0) L Globulin 4.3 g/dL Albumin/Globulin Ratio 0.6 (1.0-2.7) L Hepatitis A IgM Antibody Pending Hepatitis B Surface Antigen Pending Hepatitis B Core IgM Antibody Pending Hepatitis C Antibody Pending Plan Problems: (1) UTI (urinary tract infection) (2) ACS (acute coronary syndrome) (3) CHF (congestive heart failure) (4) Hyponatremia (5) Malnutrition (6) HTN (hypertension) (7) Cardiomyopathy (8) Electrolyte imbalance (9) Renal colic (10) Diverticulosis (11) Abdominal pain Assessment & Plan: epigastric abd pain elevated t bili afebrile HD stable pain improving US abd ordered trend labs okay for diet will follow with recs covid neg lft's bili elevated sona/lip okay no active bleeding inr elevated pending imaging Gallbladder is unremarkable, without stones, wall thickening, nor pericholecystic fluid. Sonographic Kasper's sign is negative. Common bile duct measures 5 mm in diameter. No intrahepatic biliary ductal dilatation. Liver demonstrates normal echogenicity, no focal abnormality. To-and-fro flow is seen within the main portal vein Pancreas is incompletely visualized due to overlying bowel gas, visualized portions are unremarkable. Spleen demonstrates a small cyst. Left kidney measures 11.5 cm in length. Right kidney measures 11.3 cm length. Both kidneys demonstrate normal echogenicity. There is no hydronephrosis. . Kidneys demonstrate small cysts and small echogenic foci. Unremarkable inferior vena cava.. Non-aneurysmal abdominal aorta . Impression: To-and-fro flow within the main portal vein, could indicate portal hypertension Negative for gallstones or dilated bile ducts Echogenic foci within the kidneys, suspected artifactual as no calculi are demonstrated on recent CT scan Incidental finding of splenic and small bilateral renal cysts likely liver dysfunction portal htn cont medical management Can Gomez Oct 09, 2020 13:48
--- NOTE | 2020-10-09 15:39 | Nephrology Progress Note ---
Assessment/Plan Problem List: (1) DARVIN (acute kidney injury) (2) Cardiomyopathy (3) Hyponatremia (4) CHF (congestive heart failure) (5) Electrolyte imbalance (6) Cardiorenal syndrome (7) Obesity, morbid, BMI 40.0-49.9 Assessment 60-year-old male, creatinine 1.4, sodium 124, potassium 3.2 Patient has history of CHF Patient on IV Lasix and spironolactone by stone belt sander Patient has evidence of blood in the urine and history of kidney stone Final renal impression as per results of the urine, kidney ultrasound, etc. Plan October 09: Labs reviewed. Serum creatinine normal. Electrolytes within acceptable range except low potassium which was addressed. Continue per consultants. October 08: Labs reviewed. Serum creatinine 1.4. Serum sodium 136. Clinically stable. Continue per stone belt sander. October 07: Labs reviewed. Serum sodium lowering. On IV Lasix. 250 mL of saline 3% given. Continue to monitor electrolytes. Continue per cardiology. October 06: Labs reviewed. Serum sodium 133. Medication list reviewed. Continue to monitor renal parameters and electrolytes. October 05: Serum sodium up to 135. Hemoglobin A1c 6.6. Patient clinically stable. Continue per cardiology. Kidney ultrasound normal size kidneys and no hydronephrosis. 2D echocardiogram ejection fraction of 20 to 25%. Previously: 2D echocardiogram Kidney ultrasound 250 cc saline 3% once Monitor electrolytes Hyponatremia work-up Per orders Subjective ROS Limited/Unobtainable: No Constitutional: Reports: malaise Objective Objective Last 24 Hour Vital Signs Date Time Temp Pulse Resp B/P (MAP) Pulse Ox O2 Delivery O2 Flow Rate FiO2 10/09/20 09:20 95 117/65 10/09/20 09:00 Room Air 10/09/20 08:00 92 10/09/20 08:00 97.3 94 16 97/63 (74) 97 10/09/20 04:00 90 10/09/20 00:00 98.7 90 16 99/58 (72) 96 10/09/20 00:00 107 10/08/20 21:00 Room Air 10/08/20 21:00 92 95/60 10/08/20 20:00 93 10/08/20 20:00 99.1 92 18 95/60 (72) 96 10/08/20 16:00 90 10/08/20 16:00 99.0 89 20 93/51 (65) 96 Intake and Output 10/08/20 10/09/20 19:00 07:00 Intake Total 1800 ml 360 ml Output Total 2900 ml 1100 ml Balance -1100 ml -740 ml Intake Oral 1800 ml 360 ml Output Urine Total 2900 ml 1100 ml # Voids 8 2 Current Medications Medications (Trade) Dose Ordered Sig/Damián Route PRN Reason Start Time Stop Time Status Last Admin Dose Admin Acetaminophen (Tylenol) 650 mg Q6H PRN ORAL MILD pain 10/04/20 22:30 11/03/20 22:29 Allopurinol (Zyloprim) 200 mg DAILY ORAL 10/07/20 10:45 11/06/20 10:44 10/09/20 09:22 Carvedilol (Coreg) 3.125 mg EVERY 12 HOURS ORAL 10/04/20 21:00 11/03/20 20:59 10/09/20 09:20 Furosemide (Lasix) 40 mg EVERY 12 HOURS IV 10/04/20 21:00 11/03/20 20:59 10/09/20 09:22 Guaifenesin (Robitussin) 150 mg Q6H PRN ORAL For Cough 10/04/20 22:30 01/02/21 22:29 10/06/20 11:52 Morphine Sulfate (Morphine Sulfate) 2 mg Q4H PRN IVP Severe Pain (Pain Scale 7-10) 10/07/20 06:15 10/14/20 06:14 Ondansetron HCl (Zofran) 4 mg Q4H PRN IVP Nausea & Vomiting 10/06/20 05:45 11/05/20 05:44 10/06/20 20:57 Pantoprazole (Protonix) 40 mg EVERY 12 HOURS ORAL 10/06/20 21:00 11/05/20 20:59 10/09/20 09:23 Sacubitril/ Valsartan (Entresto 49mg/ 51mg) 1 tab Q12HR ORAL 10/06/20 21:00 01/04/21 20:59 10/07/20 08:23 Spironolactone (Aldactone) 25 mg DAILY ORAL 10/05/20 09:00 11/04/20 08:59 10/09/20 09:22 Laboratory Tests 10/09/20 07:27: White Blood Count 7.2, Red Blood Count 5.19, Hemoglobin 14.9, Hematocrit 47.4, Mean Corpuscular Volume 91, Mean Corpuscular Hemoglobin 28.7, Mean Corpuscular Hemoglobin Concent 31.5L, Red Cell Distribution Width 14.8, Platelet Count 175, Mean Platelet Volume 9.6, Neutrophils (%) (Auto) 69.9, Lymphocytes (%) (Auto) 18.5L, Monocytes (%) (Auto) 9.5, Eosinophils (%) (Auto) 1.3, Basophils (%) ( Auto) 0.8, Prothrombin Time 15.2H, Prothromb Time International Ratio 1.4H, Activated Partial Thromboplast Time 28, Sodium Level 137, Potassium Level 3.3L, Chloride Level 100, Carbon Dioxide Level 32, Anion Gap 5, Blood Urea Nitrogen 25H, Creatinine 1.2, Estimat Glomerular Filtration Rate > 60, Glucose Level 112H , Calcium Level 8.4L, Total Bilirubin 1.2H, Direct Bilirubin 0.5H, Aspartate Amino Transf (AST/SGOT) 35, Alanine Aminotransferase (ALT/SGPT) 49, Alkaline Phosphatase 117H, Total Protein 6.7, Albumin 2.4L, Globulin 4.3, Albumin/Globul in Ratio 0.6L, Hepatitis A IgM Antibody [Pending], Hepatitis B Surface Antigen [Pending], Hepatitis B Core IgM Antibody [Pending], Hepatitis C Antibody [Pending] Height (Feet): 5 Height (Inches): 5.00 Weight (Pounds): 246 General Appearance: no apparent distress Cardiovascular: tachycardia Respiratory/Chest: decreased breath sounds Abdomen: distended Hari Telles MD Oct 09, 2020 15:39
[2020-10-09 16:00] VITALS: BP 102/61
--- NOTE | 2020-10-09 18:26 | General Progress Note ---
Subjective Constitutional: Reports: weakness Allergies: Coded Allergies: No Known Allergies (Unverified , 04/20/16) All Systems: reviewed and negative except above Subjective calm in bed Objective Last 24 Hour Vital Signs Date Time Temp Pulse Resp B/P (MAP) Pulse Ox O2 Delivery O2 Flow Rate FiO2 10/09/20 12:00 94 10/09/20 09:20 95 117/65 10/09/20 09:00 Room Air 10/09/20 08:00 92 10/09/20 08:00 97.3 94 16 97/63 (74) 97 10/09/20 04:00 90 10/09/20 00:00 98.7 90 16 99/58 (72) 96 10/09/20 00:00 107 10/08/20 21:00 Room Air 10/08/20 21:00 92 95/60 10/08/20 20:00 93 10/08/20 20:00 99.1 92 18 95/60 (72) 96 Intake and Output 10/08/20 10/09/20 19:00 07:00 Intake Total 1800 ml 360 ml Output Total 2900 ml 1100 ml Balance -1100 ml -740 ml Intake Oral 1800 ml 360 ml Output Urine Total 2900 ml 1100 ml # Voids 8 2 Laboratory Tests 10/09/20 07:27: White Blood Count 7.2, Red Blood Count 5.19, Hemoglobin 14.9, Hematocrit 47.4, Mean Corpuscular Volume 91, Mean Corpuscular Hemoglobin 28.7, Mean Corpuscular Hemoglobin Concent 31.5L, Red Cell Distribution Width 14.8, Platelet Count 175, Mean Platelet Volume 9.6, Neutrophils (%) (Auto) 69.9, Lymphocytes (%) (Auto) 18.5L, Monocytes (%) (Auto) 9.5, Eosinophils (%) (Auto) 1.3, Basophils (%) (Auto) 0.8, Prothrombin Time 15.2H, Prothromb Time International Ratio 1.4H, Activated Partial Thromboplast Time 28, Sodium Level 137, Potassium Level 3.3L, Chloride Level 100, Carbon Dioxide Level 32, Anion Gap 5, Blood Urea Nitrogen 25H, Creatinine 1.2, Estimat Glomerular Filtration Rate > 60, Glucose Level 112H , Calcium Level 8.4L, Total Bilirubin 1.2H, Direct Bilirubin 0.5H, Aspartate Amino Transf (AST/SGOT) 35, Alanine Aminotransferase (ALT/SGPT) 49, Alkaline Phosphatase 117H, Total Protein 6.7, Albumin 2.4L, Globulin 4.3, Albumin/Globulin Ratio 0.6L, Hepatitis A IgM Antibody [Pending], Hepatitis B Surface Antigen [Pending], Hepatitis B Core IgM Antibody [Pending], Hepatitis C Antibody [Pending] Height (Feet): 5 Height (Inches): 5.00 Weight (Pounds): 246 General Appearance: lethargic EENT: normal ENT inspection Neck: normal alignment Cardiovascular: normal peripheral pulses, normal rate, regular rhythm Respiratory/Chest: chest wall non-tender, lungs clear, normal breath sounds Abdomen: normal bowel sounds, non tender, soft Extremities: normal inspection Edema: no edema noted Arm (L), no edema noted Arm (R), no edema noted Leg (L), no edema noted Leg (R), no edema noted Pedal (L), no edema noted Pedal (R), no edema noted Generalized Neurologic: motor weakness Skin: normal pigmentation, warm/dry Assessment/Plan Problem List: (1) HTN (hypertension) ICD Codes: I10 - Essential (primary) hypertension SNOMED: 69745034 (2) Malnutrition ICD Codes: E46 - Unspecified protein-calorie malnutrition SNOMED: 12706669 (3) Hyponatremia ICD Codes: E87.1 - Hypo-osmolality and hyponatremia SNOMED: 30526647 (4) ACS (acute coronary syndrome) ICD Codes: I24.9 - Acute ischemic heart disease, unspecified SNOMED: 090710017 (5) CHF (congestive heart failure) ICD Codes: I50.9 - Heart failure, unspecified SNOMED: 57802438 Qualifiers: Qualified Codes: I50.9 - Heart failure, unspecified (6) UTI (urinary tract infection) ICD Codes: N39.0 - Urinary tract infection, site not specified SNOMED: 42236847 Qualifiers: Qualified Codes: N39.0 - Urinary tract infection, site not specified Status: unchanged Assessment/Plan: pain control bp control abx cbc bmp am Alex Gonzalez DO Oct 09, 2020 18:26
--- NOTE | 2020-10-09 19:15 | NUR ---
NURSE NOTES: Received report from JILLIAN Waters. AAOx3, able to verbalize needs. On RA, saturating well. IV site intact; flushed and asymptomatic. No complaints of pain or discomfort at this time. Not in acute distress. Bed in lowest position, brakes engaged, and bed alarm on. Call light placed within reach. Will continue to monitor.
--- NOTE | 2020-10-09 19:41 | NUR ---
NURSE HAND-OFF REPORT: Important Events on Shift:[] pt had one episode of vomit Patient Status: [] full code Diet: [] cardiac Pending Orders: [] Pending Results/Labs:[] Pending MD notification:[] Latest Vital Signs: Temperature 98.7 , Pulse 94 , B/P 102 /61 , Respiratory Rate 20 , O2 SAT 98 , Room Air, O2 Flow Rate 6 . Vital Sign Comment: [] EKG Rhythm: Sinus Rhythm Rhythm change?: N MD Notified?: Mere Melgar MD Response: Latest Mccabe Fall Score: 20 Fall Risk: Low Risk Safety Measures: Call light Within Reach, Bed Alarm , Side Rails Side Rails x2, Bed position Low and Locked. Fall Precautions: Patient Fall Education Report given to [].Alonso WALSH
[2020-10-09 20:00] VITALS: BP 99/64
[2020-10-10] VITALS (17 sets, daily range): BP systolic 105–136; BP diastolic 49–87
--- NOTE | 2020-10-10 06:41 | Hematology/Onc Progress Note ---
Assessment/Plan Assessment/Plan Assessment and Recs # Hematesis with gi bleed noted, with stable h/h --> trend h/h currently stable --> consider ppi --> as per gi care-->reviewed egd # Hematuria --> currently improved --> get coags --> uro eval prn # CHF (congestive heart failure) --> duresis per cards # UTI (urinary tract infection) --> on abx as per id # Cardiomegaly # Dvt ppx scds Time of note does not necessarily correspond to time patient was seen. Appreciate consultation greatly. Subjective Constitutional: Denies: no symptoms, chills, fever, malaise, weakness, other HEENT: Denies: no symptoms, eye pain, blurred vision, tearing, double vision, ear pain, ear discharge, nose pain, nose congestion, throat pain, throat swelling, mouth pain, mouth swelling, other Respiratory: Denies: no symptoms, cough, shortness of breath, SOB with excertion, SOB at rest, sputum, wheezing, other Neurologic/Psychiatric: Denies: no symptoms, anxiety, depressed, emotional problems, headache, numbness, paresthesia, pre-existing deficit, seizure, tingling, tremors, weakness, other Endocrine: Denies: no symptoms, excessive sweating, flushing, intolerance to cold, intolerance to heat, increased hunger, increased thirst, increased urine, unexplained weight gain, unexplained weight loss, other Allergies: Coded Allergies: No Known Allergies (Unverified , 04/20/16) Subjective 10/09 labs reviewed, meds noted, no bleeding, dw rn 10/10 labs noted, no bleeding, meds reviewed, no new events Objective Objective Current Medications Medications (Trade) Dose Ordered Sig/Damián Route PRN Reason Start Time Stop Time Status Last Admin Dose Admin Acetaminophen (Tylenol) 650 mg Q6H PRN ORAL MILD pain 10/04/20 22:30 11/03/20 22:29 Allopurinol (Zyloprim) 200 mg DAILY ORAL 10/07/20 10:45 11/06/20 10:44 10/09/20 09:22 Carvedilol (Coreg) 3.125 mg EVERY 12 HOURS ORAL 10/04/20 21:00 11/03/20 20:59 10/09/20 09:20 Furosemide (Lasix) 40 mg EVERY 12 HOURS IV 10/04/20 21:00 11/03/20 20:59 10/09/20 22:02 Guaifenesin (Robitussin) 150 mg Q6H PRN ORAL For Cough 10/04/20 22:30 01/02/21 22:29 10/06/20 11:52 Morphine Sulfate (Morphine Sulfate) 2 mg Q4H PRN IVP Severe Pain (Pain Scale 7-10) 10/07/20 06:15 10/14/20 06:14 Ondansetron HCl (Zofran) 4 mg Q4H PRN IVP Nausea & Vomiting 10/06/20 05:45 11/05/20 05:44 10/06/20 20:57 Pantoprazole (Protonix) 40 mg EVERY 12 HOURS ORAL 10/06/20 21:00 11/05/20 20:59 10/09/20 22:04 Potassium Chloride (K-Dur) 20 meq TWICE A DAY ORAL 10/10/20 09:00 01/08/21 08:59 Sacubitril/ Valsartan (Entresto 49mg/ 51mg) 1 tab Q12HR ORAL 10/06/20 21:00 01/04/21 20:59 10/07/20 08:23 Spironolactone (Aldactone) 25 mg DAILY ORAL 10/05/20 09:00 11/04/20 08:59 10/09/20 09:22 Last 24 Hour Vital Signs Date Time Temp Pulse Resp B/P (MAP) Pulse Ox O2 Delivery O2 Flow Rate FiO2 10/10/20 04:00 97.6 94 19 110/61 (77) 97 10/10/20 04:00 94 10/10/20 00:00 94 10/10/20 00:00 97.3 94 18 107/53 (71) 97 10/09/20 21:00 99 99/64 10/09/20 21:00 Room Air 10/09/20 20:00 97.9 99 20 99/64 (76) 98 10/09/20 20:00 96 10/09/20 18:00 94 10/09/20 16:00 98.7 20 102/61 (75) 98 10/09/20 12:00 94 10/09/20 12:00 97.9 82 19 118/62 (80) 98 10/09/20 09:20 95 117/65 10/09/20 09:00 Room Air 10/09/20 08:00 92 10/09/20 08:00 97.3 94 16 97/63 (74) 97 10/09/20 04:00 90 10/09/20 00:00 98.7 90 16 99/58 (72) 96 10/09/20 00:00 107 10/08/20 21:00 Room Air 10/08/20 21:00 92 95/60 10/08/20 20:00 93 10/08/20 20:00 99.1 92 18 95/60 (72) 96 10/08/20 16:00 90 10/08/20 16:00 99.0 89 20 93/51 (65) 96 10/08/20 12:00 97.4 95 18 112/71 (85) 97 10/08/20 12:00 96 10/08/20 09:54 95 122/73 10/08/20 09:00 Room Air 10/08/20 08:00 99.0 95 20 122/73 (89) 95 10/08/20 08:00 114 Intake and Output 10/09/20 10/10/20 19:00 07:00 Intake Total 500 ml Balance 500 ml Intake Oral 500 ml # Voids 6 Labs Test 10/08/20 06:50 10/09/20 07:27 White Blood Count 8.7 K/UL (4.8-10.8) 7.2 K/UL (4.8-10.8) Red Blood Count 5.01 M/UL (4.70-6.10) 5.19 M/UL (4.70-6.10) Hemoglobin 14.4 G/DL (14.2-18.0) 14.9 G/DL (14.2-18.0) Hematocrit 43.6 % (42.0-52.0) 47.4 % (42.0-52.0) Mean Corpuscular Volume 87 FL (80-99) 91 FL (80-99) Mean Corpuscular Hemoglobin 28.7 PG (27.0-31.0) 28.7 PG (27.0-31.0) Mean Corpuscular Hemoglobin Concent 32.9 G/DL (32.0-36.0) 31.5 G/DL (32.0-36.0) Red Cell Distribution Width 16.1 % (11.6-14.8) 14.8 % (11.6-14.8) Platelet Count 168 K/UL (150-450) 175 K/UL (150-450) Mean Platelet Volume 8.7 FL (6.5-10.1) 9.6 FL (6.5-10.1) Neutrophils (%) (Auto) 72.9 % (45.0-75.0) 69.9 % (45.0-75.0) Lymphocytes (%) (Auto) 14.7 % (20.0-45.0) 18.5 % (20.0-45.0) Monocytes (%) (Auto) 11.2 % (1.0-10.0) 9.5 % (1.0-10.0) Eosinophils (%) (Auto) 0.6 % (0.0-3.0) 1.3 % (0.0-3.0) Basophils (%) (Auto) 0.6 % (0.0-2.0) 0.8 % (0.0-2.0) Sodium Level 136 MMOL/L (136-145) 137 MMOL/L (136-145) Potassium Level 3.8 MMOL/L (3.5-5.1) 3.3 MMOL/L (3.5-5.1) Chloride Level 99 MMOL/L (98-107) 100 MMOL/L (98-107) Carbon Dioxide Level 32 MMOL/L (21-32) 32 MMOL/L (21-32) Blood Urea Nitrogen 33 mg/dL (7-18) 25 mg/dL (7-18) Creatinine 1.4 MG/DL (0.55-1.30) 1.2 MG/DL (0.55-1.30) Estimat Glomerular Filtration Rate > 60 mL/min (>60) > 60 mL/min (>60) Glucose Level 101 MG/DL (74-106) 112 MG/DL (74-106) Uric Acid 7.9 MG/DL (2.6-7.2) Calcium Level 8.5 MG/DL (8.5-10.1) 8.4 MG/DL (8.5-10.1) Phosphorus Level 2.6 MG/DL (2.5-4.9) Magnesium Level 2.2 MG/DL (1.8-2.4) Total Bilirubin 1.4 MG/DL (0.2-1.0) 1.2 MG/DL (0.2-1.0) Direct Bilirubin 0.8 MG/DL (0.0-0.3) 0.5 MG/DL (0.0-0.3) Aspartate Amino Transf (AST/SGOT) 36 U/L (15-37) 35 U/L (15-37) Alanine Aminotransferase (ALT/SGPT) 41 U/L (12-78) 49 U/L (12-78) Alkaline Phosphatase 101 U/L (46-116) 117 U/L (46-116) Pro-B-Type Natriuretic Peptide 4550 pg/mL (0-125) Total Protein 6.3 G/DL (6.4-8.2) 6.7 G/DL (6.4-8.2) Albumin 2.2 G/DL (3.4-5.0) 2.4 G/DL (3.4-5.0) Globulin 4.1 g/dL 4.3 g/dL Albumin/Globulin Ratio 0.5 (1.0-2.7) 0.6 (1.0-2.7) Prothrombin Time 15.2 SEC (9.30-11.50) Prothromb Time International Ratio 1.4 (0.9-1.1) Activated Partial Thromboplast Time 28 SEC (23-33) Anion Gap 5 mmol/L (5-15) Height (Feet): 5 Height (Inches): 5.00 Weight (Pounds): 246 Objective Physical Exam General Appearance: NAD HEENT: normocephalic, atraumatic Neck: non-tender, normal alignment Respiratory/Chest: nromal breath sounds bilaterally Cardiovascular/Chest: normal peripheral pulses, normal rate Abdomen: normal bowel sounds, soft, nontender Extremities: normal range of motion Vikas Pennington MD Oct 10, 2020 06:41
--- NOTE | 2020-10-10 06:59 | NUR ---
NURSE HAND-OFF REPORT: Important Events on Shift:[Patient on NPO for planned ICD placement today. No documents from [facility] has been received (medical records from previous admission)] Patient Status: [Full code] Diet: [cardiac] Pending Orders: [ICD placement] Pending Results/Labs:[] Pending MD notification:[] Latest Vital Signs: Temperature 97.6 , Pulse 94 , B/P 110 /61 , Respiratory Rate 19 , O2 SAT 97 , Room Air, O2 Flow Rate 6 . Vital Sign Comment: [] EKG Rhythm: Sinus Rhythm Rhythm change?: N Notified?: Mere Melgar MD Response: Latest Mccabe Fall Score: 20 Fall Risk: Low Risk Safety Measures: Call light Within Reach, Bed Alarm , Side Rails Side Rails x2, Bed position Low and Locked. Fall Precautions: Patient Fall Education Report given to [JILLIAN Waters].
--- NOTE | 2020-10-10 07:54 | NUR ---
NURSE NOTES: pt is sitting on bed, dangling legs. pt is NPO for now due to ICD procedure. 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 call light is within reach, bed is locked and in lowest position.
[2020-10-10 08:34] LABS: EOSINOPHILS % (AUTO) 0.9 % (0.0-3.0); HEMATOCRIT 41.3 % (42.0-52.0); HEMOGLOBIN 13.7 G/DL (14.2-18.0); LYMPHOCYTES % (AUTO) 18.6 % (20.0-45.0); MEAN CORPUSCULAR VOLUME 86 FL (80-99); MONOCYTES % (AUTO) 11.4 % (1.0-10.0); NEUTROPHILS % (AUTO) 68.2 % (45.0-75.0); PLATELET COUNT 175 K/UL (150-450); RED BLOOD COUNT 4.79 M/UL (4.70-6.10); RED CELL DISTRIBUTION WIDTH 15.8 % (11.6-14.8)
--- NOTE | 2020-10-10 09:09 | General Progress Note ---
Subjective Constitutional: Reports: weakness Allergies: Coded Allergies: No Known Allergies (Unverified , 04/20/16) All Systems: reviewed and negative except above Subjective calm in bed Objective Last 24 Hour Vital Signs Date Time Temp Pulse Resp B/P (MAP) Pulse Ox O2 Delivery O2 Flow Rate FiO2 10/10/20 04:00 97.6 94 19 110/61 (77) 97 10/10/20 04:00 94 10/10/20 00:00 94 10/10/20 00:00 97.3 94 18 107/53 (71) 97 10/09/20 21:00 99 99/64 10/09/20 21:00 Room Air 10/09/20 20:00 97.9 99 20 99/64 (76) 98 10/09/20 20:00 96 10/09/20 18:00 94 10/09/20 16:00 98.7 20 102/61 (75) 98 10/09/20 12:00 94 10/09/20 12:00 97.9 82 19 118/62 (80) 98 10/09/20 09:20 95 117/65 Intake and Output 10/09/20 10/10/20 19:00 07:00 Intake Total 500 ml 200 ml Balance 500 ml 200 ml Intake Oral 500 ml 200 ml # Voids 6 3 Laboratory Tests 10/10/20 08:18: White Blood Count 7.0, Red Blood Count 4.79, Hemoglobin 13.7L, Hematocrit 41.3L, Mean Corpuscular Volume 86, Mean Corpuscular Hemoglobin 28.7, Mean Corpuscular Hemoglobin Concent 33.3, Red Cell Distribution Width 15.8H, Platelet Count 175, Mean Platelet Volume 8.5, Neutrophils (%) (Auto) 68.2, Lymphocytes (%) (Auto) 18.6L, Monocytes (%) (Auto) 11.4H, Eosinophils (%) (Auto) 0.9, Basophils (%) (Auto) 1.0, Sodium Level [Pending], Potassium Level [Pending], Chloride Level [Pending], Carbon Dioxide Level [Pending], Blood Urea Nitrogen [Pending], Creatinine [Pending], Estimat Glomerular Filtration Rate [Pending], Glucose Level [Pending], Uric Acid [Pending], Calcium Level [Pending], Phosphorus Level [Pending], Magnesium Level [Pending], Total Bilirubin [Pending], Aspartate Amino Transf (AST/SGOT) [Pending], Alanine Aminotransferase (ALT/SGPT) [Pending], Alkaline Phosphatase [Pending], Total Protein [Pending], Albumin [Pending], Globulin [Pending] Height (Feet): 5 Height (Inches): 5.00 Weight (Pounds): 246 General Appearance: lethargic EENT: normal ENT inspection Neck: normal alignment Cardiovascular: normal peripheral pulses, normal rate, regular rhythm Respiratory/Chest: chest wall non-tender, lungs clear, normal breath sounds Abdomen: normal bowel sounds, non tender, soft Extremities: normal inspection Edema: no edema noted Arm (L), no edema noted Arm (R), no edema noted Leg (L), no edema noted Leg (R), no edema noted Pedal (L), no edema noted Pedal (R), no edema noted Generalized Neurologic: motor weakness Skin: normal pigmentation, warm/dry Assessment/Plan Problem List: (1) HTN (hypertension) ICD Codes: I10 - Essential (primary) hypertension SNOMED: 53977798 (2) Malnutrition ICD Codes: E46 - Unspecified protein-calorie malnutrition SNOMED: 13955638 (3) Hyponatremia ICD Codes: E87.1 - Hypo-osmolality and hyponatremia SNOMED: 76236671 (4) ACS (acute coronary syndrome) ICD Codes: I24.9 - Acute ischemic heart disease, unspecified SNOMED: 354250819 (5) CHF (congestive heart failure) ICD Codes: I50.9 - Heart failure, unspecified SNOMED: 38023015 Qualifiers: Qualified Codes: I50.9 - Heart failure, unspecified (6) UTI (urinary tract infection) ICD Codes: N39.0 - Urinary tract infection, site not specified SNOMED: 61437022 Qualifiers: Qualified Codes: N39.0 - Urinary tract infection, site not specified Status: unchanged Assessment/Plan: pain control bp control abx cbc bmp am pacer per cardio Alex Goznalez DO Oct 10, 2020 09:09
[2020-10-10 09:18] LABS: PHOSPHORUS 2.3 MG/DL (2.5-4.9)
[2020-10-10 09:19] LABS: ALANINE AMINOTRANSFERASE 45 U/L (12-78); ALBUMIN 2.3 G/DL (3.4-5.0); ALBUMIN/GLOBULIN RATIO 0.6 (1.0-2.7); ALKALINE PHOSPHATASE 103 U/L (46-116); ANION GAP 7 mmol/L (5-15); ASPARTATE AMINO TRANSFERASE 37 U/L (15-37); BILIRUBIN,TOTAL 1.1 MG/DL (0.2-1.0); BLOOD UREA NITROGEN 18 mg/dL (7-18); CALCIUM 7.8 MG/DL (8.5-10.1); CARBON DIOXIDE 29 MMOL/L (21-32); CHLORIDE 103 MMOL/L (98-107); CREATININE 1.1 MG/DL (0.55-1.30); POTASSIUM 3.2 MMOL/L (3.5-5.1); SODIUM 139 MMOL/L (136-145)
[2020-10-10 09:23] LABS: BILIRUBIN,DIRECT 0.5 MG/DL (0.0-0.3)
[2020-10-10] MEDS: Allopurinol 100mg Tab ORAL SCH (09:57)
[2020-10-10] MEDS: Spironolactone 25mg tab ORAL SCH (09:57)
--- NOTE | 2020-10-10 10:22 | Cardiac Electrophysiology PN ---
Assessment/Plan Assessment/Plan 1. Exacerbation of CHF with EF 20%. Says had CHF for more than a year. Already had cardiac cath at [facility] a year ago BNP is more than 4700. On Lasix 40 mg IV b.i.d. Coreg, Entresto 49/51, and Aldactone. Got authorization from insurance [employer] for ICD DW patient the risks and benefits of ICD implant and he agreed to proceed NPO for ICD implant today 2. Hypertension. Continue current heart failure therapy. 3. Frothy cough. Covid negative. 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 4. Benign prostatic hypertrophy. 5. Urinary tract infection. RAIMUNDO RN Subjective Subjective Ruled out for Covid. Off isolation on RA. Echo showed EF 20%. Had 10 beats of VT again 10/08/19 EGD showed gastritis NPO for ICD implant today Objective Last 24 Hour Vital Signs Date Time Temp Pulse Resp B/P (MAP) Pulse Ox O2 Delivery O2 Flow Rate FiO2 10/10/20 09:56 96 127/87 10/10/20 04:00 97.6 94 19 110/61 (77) 97 10/10/20 04:00 94 10/10/20 00:00 94 10/10/20 00:00 97.3 94 18 107/53 (71) 97 10/09/20 21:00 99 99/64 10/09/20 21:00 Room Air 10/09/20 20:00 97.9 99 20 99/64 (76) 98 10/09/20 20:00 96 10/09/20 18:00 94 10/09/20 16:00 98.7 20 102/61 (75) 98 10/09/20 12:00 94 10/09/20 12:00 97.9 82 19 118/62 (80) 98 Intake and Output 10/09/20 10/10/20 19:00 07:00 Intake Total 500 ml 200 ml Balance 500 ml 200 ml Intake Oral 500 ml 200 ml # Voids 6 3 Laboratory Tests Test 10/10/20 08:18 White Blood Count 7.0 K/UL (4.8-10.8) Red Blood Count 4.79 M/UL (4.70-6.10) Hemoglobin 13.7 G/DL (14.2-18.0) L Hematocrit 41.3 % (42.0-52.0) L Mean Corpuscular Volume 86 FL (80-99) Mean Corpuscular Hemoglobin 28.7 PG (27.0-31.0) Mean Corpuscular Hemoglobin Concent 33.3 G/DL (32.0-36.0) Red Cell Distribution Width 15.8 % (11.6-14.8) H Platelet Count 175 K/UL (150-450) Mean Platelet Volume 8.5 FL (6.5-10.1) Neutrophils (%) (Auto) 68.2 % (45.0-75.0) Lymphocytes (%) (Auto) 18.6 % (20.0-45.0) L Monocytes (%) (Auto) 11.4 % (1.0-10.0) H Eosinophils (%) (Auto) 0.9 % (0.0-3.0) Basophils (%) (Auto) 1.0 % (0.0-2.0) Sodium Level 139 MMOL/L (136-145) Potassium Level 3.2 MMOL/L (3.5-5.1) L Chloride Level 103 MMOL/L (98-107) Carbon Dioxide Level 29 MMOL/L (21-32) Anion Gap 7 mmol/L (5-15) Blood Urea Nitrogen 18 mg/dL (7-18) Creatinine 1.1 MG/DL (0.55-1.30) Estimat Glomerular Filtration Rate > 60 mL/min (>60) Glucose Level 106 MG/DL (74-106) Uric Acid 5.3 MG/DL (2.6-7.2) Calcium Level 7.8 MG/DL (8.5-10.1) L Phosphorus Level 2.3 MG/DL (2.5-4.9) L Magnesium Level 2.0 MG/DL (1.8-2.4) Total Bilirubin 1.1 MG/DL (0.2-1.0) H Direct Bilirubin 0.5 MG/DL (0.0-0.3) H Aspartate Amino Transf (AST/SGOT) 37 U/L (15-37) Alanine Aminotransferase (ALT/SGPT) 45 U/L (12-78) Alkaline Phosphatase 103 U/L (46-116) Total Protein 6.4 G/DL (6.4-8.2) Albumin 2.3 G/DL (3.4-5.0) L Globulin 4.1 g/dL Albumin/Globulin Ratio 0.6 (1.0-2.7) L Objective HEAD AND NECK: Positive JVD. LUNGS: Decreased breath sounds. CARDIOVASCULAR: Regular S1 and S2 with no gallop. ABDOMEN: Soft. EXTREMITIES: 1+ pitting edema. Hudson Garcia MD Oct 10, 2020 10:22
--- NOTE | 2020-10-10 10:23 | Pre-Procedure Note/Attestation ---
Pre-Procedure Note/Attestation Complete Prior to Procedure Planned Procedure: left Procedure Narrative: ICD implantation Indications for Procedure Pre-Operative Diagnosis: Severe CMP, EF 20 and runs of VT Attestation I attest that I discussed the nature of the procedure; its benefits; risks and complications; and alternatives (and the risks and benefits of such alternatives), prior to the procedure, with the patient (or the patient's legal dermatology sales representative). I attest that, if there was a reasonable possibility of needing a blood transfusion, the patient (or the patient's legal dermatology sales representative) was given the [facility] standardized written summary, pursuant to the Dereck Pradip Blood Safety Act ([place] Health and Safety Code # 1645, as amended). I attest that I re-evaluated the patient just prior to the surgery and that there has been no change in the patient's H&P, except as documented below: Hudson Garcia MD Oct 10, 2020 10:23
[2020-10-10] MEDS ORDERED: Isovue-M 300 15ml INJ ONE (10:24)
[2020-10-10] MEDS ORDERED: Lidocaine 1%/ 10mg/ml/EPI 0.01mg/ml 20ml INJ ONE ×2 (10:24→12:03)
[2020-10-10] MEDS ORDERED: oxyCODONE HCL/Acetaminophen 5/325mg ORAL PRN (11:15)
[2020-10-10] MEDS ORDERED: LORazepam Inj 2mg/ml 1ml IV PRN (11:15)
[2020-10-10] MEDS ORDERED: DiphenhydrAMINE 50mg/ml Inj IVP PRN (11:15)
[2020-10-10] MEDS ORDERED: Meperidine 25mg/1ml Inj (FOR RIGORS ONLY) IV PRN (11:15)
[2020-10-10] MEDS ORDERED: Metoclopramide 10mg/2ml Inj IVP PRN (11:15)
[2020-10-10] MEDS ORDERED: fentaNYL 100 mcg/2 mL IV PRN (11:15)
[2020-10-10] MEDS ORDERED: Atropine Sulfate 0.4mg/ml inj IVP PRN (11:15)
[2020-10-10] MEDS ORDERED: Ketorolac 30mg Inj IV PRN ×2 (11:15)
[2020-10-10] MEDS ORDERED: Labetalol 5mg/ml 20ml vial IV PRN (11:15)
[2020-10-10] MEDS ORDERED: LR 1000ml 1,000 ML IVLG SCH (11:15)
[2020-10-10] MEDS ORDERED: Midazolam 2mg/2ml Inj IVP PRN (11:15)
[2020-10-10] MEDS ORDERED: HYDROcodone/Acetamin 5/325 tab ORAL PRN (11:15)
[2020-10-10] MEDS ORDERED: HYDROcodone/Acetamin 7.5/325 tab ORAL PRN (11:15)
[2020-10-10] MEDS ORDERED: Hydromorphone 0.5mg/0.5ml inj IVP PRN (11:15)
--- NOTE | 2020-10-10 11:19 | Anethesia Preoperative Eval ---
Anesthesia Pre-op PMH/ROS General Date of Evaluation: Oct 10, 2020 Time of Evaluation: :21 Anesthesiologist: Mini ASA Score: ASA 3 Mallampati Score Class I : Soft palate, uvula, fauces, pillars visible Class II: Soft palate, uvula, fauces visible Class III: Soft palate, base of uvula visible Class IV: Only hard plate visible Mallampati Classification: Class III Surgeon: Radha Diagnosis: CAD Surgical Procedure: ICD Anesthesia History: none Family History: no anesthesia problems Allergies: Coded Allergies: No Known Allergies (Unverified , 04/20/16) Medications: see eMAR Patient NPO?: Yes NPO Date: Oct 07, 2020 NPO Time: 00:00 Past Medical History Cardiovascular: Reports: HTN, CAD, other - CHF EF=20% Gastrointestinal/Genitourinary: Reports: CRI, other - Diverticulosis, UTI Other: obesity - Morbid BMI 40 Anesthesia Pre-op Phys. Exam Physician Exam Last Vital Signs Date Time Temp Pulse Resp B/P (MAP) Pulse Ox O2 Delivery O2 Flow Rate FiO2 10/10/20 09:56 96 127/87 10/10/20 04:00 97.6 19 97 10/09/20 21:00 Room Air 10/07/20 13:40 6 Constitutional: NAD Neurologic: CN 2-12 intact Cardiovascular: RRR Respiratory: CTA Gastrointestinal: S/NT/ND Airway Exam Mallampati Score: Class III MO: limited ROM: limited Teeth: missing Anesthesia Pre-op A/P Labs Hematology Test 10/10/20 08:18 White Blood Count 7.0 K/UL (4.8-10.8) Red Blood Count 4.79 M/UL (4.70-6.10) Hemoglobin 13.7 G/DL (14.2-18.0) L Hematocrit 41.3 % (42.0-52.0) L Mean Corpuscular Volume 86 FL (80-99) Mean Corpuscular Hemoglobin 28.7 PG (27.0-31.0) Mean Corpuscular Hemoglobin Concent 33.3 G/DL (32.0-36.0) Red Cell Distribution Width 15.8 % (11.6-14.8) H Platelet Count 175 K/UL (150-450) Mean Platelet Volume 8.5 FL (6.5-10.1) Neutrophils (%) (Auto) 68.2 % (45.0-75.0) Lymphocytes (%) (Auto) 18.6 % (20.0-45.0) L Monocytes (%) (Auto) 11.4 % (1.0-10.0) H Eosinophils (%) (Auto) 0.9 % (0.0-3.0) Basophils (%) (Auto) 1.0 % (0.0-2.0) Chemistry Test 10/10/20 08:18 Sodium Level 139 MMOL/L (136-145) Potassium Level 3.2 MMOL/L (3.5-5.1) L Chloride Level 103 MMOL/L (98-107) Carbon Dioxide Level 29 MMOL/L (21-32) Anion Gap 7 mmol/L (5-15) Blood Urea Nitrogen 18 mg/dL (7-18) Creatinine 1.1 MG/DL (0.55-1.30) Estimat Glomerular Filtration Rate > 60 mL/min (>60) Glucose Level 106 MG/DL (74-106) Uric Acid 5.3 MG/DL (2.6-7.2) Calcium Level 7.8 MG/DL (8.5-10.1) L Phosphorus Level 2.3 MG/DL (2.5-4.9) L Magnesium Level 2.0 MG/DL (1.8-2.4) Total Bilirubin 1.1 MG/DL (0.2-1.0) H Direct Bilirubin 0.5 MG/DL (0.0-0.3) H Aspartate Amino Transf (AST/SGOT) 37 U/L (15-37) Alanine Aminotransferase (ALT/SGPT) 45 U/L (12-78) Alkaline Phosphatase 103 U/L (46-116) Total Protein 6.4 G/DL (6.4-8.2) Albumin 2.3 G/DL (3.4-5.0) L Globulin 4.1 g/dL Albumin/Globulin Ratio 0.6 (1.0-2.7) L Risk Assessment & Plan Assessment: ASA 3 Plan: TIVA Status Change Before Surgery: No Pre-Antibiotics Dru Grams Ancef IV Given Within 1 Hr of Incision: Yes Time Given: 11:46 Anant Morse MD Oct 10, 2020 11:19
--- NOTE | 2020-10-10 11:27 | Immediate Post-Op Evaluation ---
Immediate Post-Op Evalulation Immediate Post-Op Evalulation Procedure: ICD Date of Evaluation: Oct 10, 2020 Time of Evaluation: 12:50 IV Fluids: 200LR Blood Products: 0 Estimated Blood Loss: 25 Urinary Output: 0 Blood Pressure Systolic: 118 Blood Pressure Diastolic: 80 Pulse Rate: 85 Respiratory Rate: 16 O2 Sat by Pulse Oximetry: 100 Temperature (Fahrenheit): 97.1 Pain Score (1-10): 2 Nausea: No Vomiting: No Complications 0 Patient Status: awake, reacts, patent, none Hydration Status: adequate Dru Grams Ancef IV Given Within 1 Hr of Incision: Yes Time Given: 11:46 Anant Morse MD Oct 10, 2020 11:27
--- NOTE | 2020-10-10 11:28 | 48 Hour Post Anesthesia Eval ---
Post Anesthesia Evaluation Procedure: ICD Date of Evaluation: Oct 10, 2020 Time of Evaluation: 14:54 Blood Pressure Systolic: 129 0: 82 Pulse Rate: 84 Respiratory Rate: 18 Temperature (Fahrenheit): 97.4 O2 Sat by Pulse Oximetry: 99 Airway: patent Nausea: No Vomiting: No Pain Intensity: 2 Hydration Status: adequate Cardiopulmonary Status: Stable Mental Status/LOC: patient returned to baseline Follow-up Care/Observations: 0 Post-Anesthesia Complications: 0 Follow-up care needed: N/A Anant Morse MD Oct 10, 2020 11:28
[2020-10-10] MEDS ORDERED: Sodium Chloride 10ml vial INJ ONE (11:29)
[2020-10-10] MEDS ORDERED: Sterile Water Irrig 1000ml IRRIG ONE (11:30)
[2020-10-10] MEDS ORDERED: LR 1000ml ONE (11:30)
[2020-10-10] MEDS ORDERED: NS Irrig 1000ml ONE (11:30)
[2020-10-10] MEDS ORDERED: NS Irrig 1000ml IRRIG ONE (11:56)
[2020-10-10] MEDS ORDERED: Flumazenil 0.5mg/5ml Inj IV ONE (12:23)
[2020-10-10] MEDS ORDERED: Tylenol #3 tab (300mg/30mg) ORAL PRN (13:00)
--- NOTE | 2020-10-10 13:03 | Brief Operative Note ---
Immediate Post Operative Note Operative Note Pre-op Diagnosis: Severe CMP, EF 20 and runs of VT Procedure: VVI [facility] ICD implant dictated # [id number] Post-op Diagnosis: same as pre-op Specimen: none Complications: none Condition: stable Fluids: none Estimated Blood Loss: minimal Drains: none Implant(s) used?: Yes Hudson Garcia MD Oct 10, 2020 13:03
--- NOTE | 2020-10-10 13:40 | Nephrology Progress Note ---
Assessment/Plan Problem List: (1) DARVIN (acute kidney injury) (2) Cardiomyopathy (3) Hyponatremia (4) CHF (congestive heart failure) (5) Electrolyte imbalance (6) Cardiorenal syndrome (7) Obesity, morbid, BMI 40.0-49.9 Assessment 60-year-old male, creatinine 1.4, sodium 124, potassium 3.2 Patient has history of CHF Patient on IV Lasix and spironolactone by vaccines solutions specialist Patient has evidence of blood in the urine and history of kidney stone Final renal impression as per results of the urine, kidney ultrasound, etc. Plan October 10: Labs reviewed. Abnormal electrolyte addressed. Patient due for placement of defibrillator. Continue per current management. October 09: Labs reviewed. Serum creatinine normal. Electrolytes within acceptable range except low potassium which was addressed. Continue per consultants. October 08: Labs reviewed. Serum creatinine 1.4. Serum sodium 136. Clinically stable. Continue per vaccines solutions specialist. October 07: Labs reviewed. Serum sodium lowering. On IV Lasix. 250 mL of saline 3% given. Continue to monitor electrolytes. Continue per cardiology. October 06: Labs reviewed. Serum sodium 133. Medication list reviewed. Continue to monitor renal parameters and electrolytes. October 05: Serum sodium up to 135. Hemoglobin A1c 6.6. Patient clinically stable. Continue per cardiology. Kidney ultrasound normal size kidneys and no hydronephrosis. 2D echocardiogram ejection fraction of 20 to 25%. Previously: 2D echocardiogram Kidney ultrasound 250 cc saline 3% once Monitor electrolytes Hyponatremia work-up Per orders Subjective ROS Limited/Unobtainable: No Constitutional: Reports: malaise, weakness Objective Objective Last 24 Hour Vital Signs Date Time Temp Pulse Resp B/P (MAP) Pulse Ox O2 Delivery O2 Flow Rate FiO2 10/10/20 13:20 84 15 121/74 100 Room Air 10/10/20 13:05 83 23 136/75 100 Room Air 10/10/20 12:55 82 24 116/78 100 Simple Mask 6 10/10/20 12:45 85 25 132/77 100 Simple Mask 6 10/10/20 12:40 84 28 114/77 100 Simple Mask 6 10/10/20 12:37 84 18 99 10/10/20 12:36 85 16 100 10/10/20 12:35 97.1 85 30 118/80 100 Simple Mask 6 10/10/20 09:56 96 127/87 10/10/20 04:00 97.6 94 19 110/61 (77) 97 10/10/20 04:00 94 10/10/20 00:00 94 10/10/20 00:00 97.3 94 18 107/53 (71) 97 10/09/20 21:00 99 99/64 10/09/20 21:00 Room Air 10/09/20 20:00 97.9 99 20 99/64 (76) 98 10/09/20 20:00 96 10/09/20 18:00 94 10/09/20 16:00 98.7 20 102/61 (75) 98 Intake and Output 10/09/20 10/10/20 19:00 07:00 Intake Total 500 ml 200 ml Balance 500 ml 200 ml Intake Oral 500 ml 200 ml # Voids 6 3 Current Medications Medications (Trade) Dose Ordered Sig/Damián Route PRN Reason Start Time Stop Time Status Last Admin Dose Admin Acetaminophen (Tylenol) 650 mg Q6H PRN ORAL Temp >100.5 10/10/20 13:00 11/09/20 12:59 Acetaminophen (Tylenol) 650 mg Q6H PRN ORAL MILD pain 10/04/20 22:30 11/03/20 22:29 Acetaminophen/ Codeine Phosphate (Tylenol #3) 1 tab Q4H PRN ORAL Moderate Pain (Pain Scale 4-6) 10/10/20 13:00 10/17/20 12:59 Acetaminophen/ Hydrocodone Bitart ([place] 5/325) 1 tab Q1H PRN ORAL Mild Pain (Pain Scale 1-3) 10/10/20 11:15 10/10/20 19:00 Acetaminophen/ Hydrocodone Bitart ([place] 7.5/325) 1 tab Q1H PRN ORAL Moderate Pain (Pain Scale 4-6) 10/10/20 11:15 10/10/20 19:00 Al Hydroxide/Mg Hydroxide (Mylanta) 15 ml Q1H PRN ORAL gi upset 10/10/20 11:15 10/10/20 19:00 Allopurinol (Zyloprim) 200 mg DAILY ORAL 10/07/20 10:45 11/06/20 10:44 10/10/20 09:57 Atropine Sulfate (Atropine 0.4mg/ ml) 0.5 mg Q5M PRN IVP HR<40 BPM 10/10/20 11:15 10/10/20 19:00 Carvedilol (Coreg) 3.125 mg EVERY 12 HOURS ORAL 10/04/20 21:00 11/03/20 20:59 10/10/20 09:56 Cefazolin Sodium 1 gm/Dextrose 55 ml @ 110 mls/hr Q8HR IVP 10/10/20 22:00 10/17/20 21:59 Diphenhydramine HCl (Benadryl) 25 mg Q15M PRN IVP Itching 10/10/20 11:15 10/10/20 19:00 Fentanyl Citrate (Sublimaze 100 mcg/2 mL) 25 mcg Q10M PRN IV Moderate Pain (Pain Scale 4-6) 10/10/20 11:15 10/10/20 19:00 Furosemide (Lasix) 40 mg EVERY 12 HOURS IV 10/04/20 21:00 11/03/20 20:59 10/10/20 09:57 Guaifenesin (Robitussin) 150 mg Q6H PRN ORAL For Cough 10/04/20 22:30 01/02/21 22:29 10/06/20 11:52 Hydralazine HCl (Apresoline) 5 mg Q30M PRN IV SBP>160 / DBP>90 10/10/20 11:15 10/10/20 19:00 Hydromorphone HCl (Dilaudid) 0.5 mg Q15M PRN IVP Severe Pain (Pain Scale 7-10) 10/10/20 11:15 10/10/20 19:00 Ketorolac Tromethamine (Toradol 30mg) 15 mg Q1H PRN IV Moderate Breakthru Pain (5-7) 10/10/20 11:15 10/10/20 19:00 Ketorolac Tromethamine (Toradol 30mg) 30 mg Q1H PRN IV Severe Breakthru Pain (>7) 10/10/20 11:15 10/10/20 19:00 Labetalol HCl (Normodyne) 5 mg Q10M PRN IV SBP>160 / DBP>90 10/10/20 11:15 10/10/20 19:00 Lorazepam (Ativan 2mg/ml 1ml) 1 mg Q15M PRN IV For Anxiety 10/10/20 11:15 10/10/20 19:00 Meperidine HCl (Demerol) 25 mg Q5M PRN IV SHIVERING.MAY REPEAT X 1 10/10/20 11:15 10/10/20 19:00 Metoclopramide HCl (Reglan) 10 mg Q1H PRN IVP Nausea & Vomiting 10/10/20 11:15 10/10/20 19:00 Midazolam HCl (Versed 2mg/2ml vial) 1 mg Q15M PRN IVP For Anxiety 10/10/20 11:15 10/10/20 19:00 Morphine Sulfate (Morphine Sulfate) 2 mg Q1H PRN IVP Severe Pain (Pain Scale 7-10) 10/10/20 13:00 10/17/20 12:59 Ondansetron HCl (Zofran) 4 mg Q1H PRN IVP Nausea & Vomiting 10/10/20 11:15 10/10/20 19:00 Ondansetron HCl (Zofran) 4 mg Q6H PRN IVP Nausea & Vomiting 10/10/20 13:00 11/09/20 12:59 Oxycodone/ Acetaminophen (Percocet 5-325) 1 tab Q1H PRN ORAL Severe Pain (Pain Scale 7-10) 10/10/20 11:15 10/10/20 19:00 Pantoprazole (Protonix) 40 mg EVERY 12 HOURS ORAL 10/06/20 21:00 11/05/20 20:59 10/10/20 09:56 Potassium Chloride (K-Dur) 20 meq TWICE A DAY ORAL 10/10/20 09:00 01/08/21 08:59 10/10/20 09:56 Sacubitril/ Valsartan (Entresto 49mg/ 51mg) 1 tab Q12HR ORAL 10/06/20 21:00 01/04/21 20:59 10/07/20 08:23 Spironolactone (Aldactone) 25 mg DAILY ORAL 10/05/20 09:00 11/04/20 08:59 10/10/20 09:57 Laboratory Tests 10/10/20 08:18: White Blood Count 7.0, Red Blood Count 4.79, Hemoglobin 13.7L, Hematocrit 41.3L, Mean Corpuscular Volume 86, Mean Corpuscular Hemoglobin 28.7, Mean Corpuscular Hemoglobin Concent 33.3, Red Cell Distribution Width 15.8H, Platelet Count 175, Mean Platelet Volume 8.5, Neutrophils (%) (Auto) 68.2, Lymphocytes (%) (Auto) 18.6L, Monocytes (%) (Auto) 11.4H, Eosinophils (%) (Auto) 0.9, Basophils (%) (Auto) 1.0, Sodium Level 139, Potassium Level 3.2L, Chloride Level 103, Carbon Dioxide Level 29, Anion Gap 7, Blood Urea Nitrogen 18, Creatinine 1.1, Estimat Glomerular Filtration Rate > 60, Glucose Level 106, Uric Acid 5.3, Calcium Level 7.8L, Phosphorus Level 2.3L, Magnesium Level 2.0, Total Bilirubin 1.1H, Direct Bilirubin 0.5H, Aspartate Amino Transf (AST/SGOT) 37, Alanine Aminotransferase (ALT/SGPT) 45, Alkaline Phosphatase 103, Total Protein 6.4, Albumin 2.3L, Globulin 4.1, Albumin/Globulin Ratio 0.6L Height (Feet): 5 Height (Inches): 9.00 Weight (Pounds): 246 General Appearance: no apparent distress, lethargic Cardiovascular: normal rate Respiratory/Chest: decreased breath sounds Abdomen: soft Hari Telles MD Oct 10, 2020 13:40
--- NOTE | 2020-10-10 13:59 | Diagnostic Imaging Report ---
INDICATION: Pain, intraoperative TECHNIQUE: Intraoperative imaging Fluoroscopy time: 66.8 seconds Total dose: 0.02638 mGym2 Total number of images: 1 COMPARISON: None FINDINGS: Intraoperative images document placement of an AICD lead tip at the level of the right ventricular apex. IMPRESSION: Intraoperative imaging, as described
--- NOTE | 2020-10-10 14:07 | General Progress Note ---
Subjective ROS Limited/Unobtainable: Yes Allergies: Coded Allergies: No Known Allergies (Unverified , 04/20/16) Objective Last 24 Hour Vital Signs Date Time Temp Pulse Resp B/P (MAP) Pulse Ox O2 Delivery O2 Flow Rate FiO2 10/10/20 13:50 84 16 134/78 98 Room Air 10/10/20 13:35 85 15 127/81 98 Room Air 10/10/20 13:20 84 15 121/74 100 Room Air 10/10/20 13:05 83 23 136/75 100 Room Air 10/10/20 12:55 82 24 116/78 100 Simple Mask 6 10/10/20 12:45 85 25 132/77 100 Simple Mask 6 10/10/20 12:40 84 28 114/77 100 Simple Mask 6 10/10/20 12:37 84 18 99 10/10/20 12:36 85 16 100 10/10/20 12:35 97.1 85 30 118/80 100 Simple Mask 6 10/10/20 09:56 96 127/87 10/10/20 04:00 97.6 94 19 110/61 (77) 97 10/10/20 04:00 94 10/10/20 00:00 94 10/10/20 00:00 97.3 94 18 107/53 (71) 97 10/09/20 21:00 99 99/64 10/09/20 21:00 Room Air 10/09/20 20:00 97.9 99 20 99/64 (76) 98 10/09/20 20:00 96 10/09/20 18:00 94 10/09/20 16:00 98.7 20 102/61 (75) 98 Intake and Output 10/09/20 10/10/20 19:00 07:00 Intake Total 500 ml 200 ml Balance 500 ml 200 ml Intake Oral 500 ml 200 ml # Voids 6 3 Laboratory Tests 10/10/20 08:18: White Blood Count 7.0, Red Blood Count 4.79, Hemoglobin 13.7L, Hematocrit 41.3L, Mean Corpuscular Volume 86, Mean Corpuscular Hemoglobin 28.7, Mean Corpuscular Hemoglobin Concent 33.3, Red Cell Distribution Width 15.8H, Platelet Count 175, Mean Platelet Volume 8.5, Neutrophils (%) (Auto) 68.2, Lymphocytes (%) (Auto) 18.6L, Monocytes (%) (Auto) 11.4H, Eosinophils (%) (Auto) 0.9, Basophils (%) (Auto) 1.0, Sodium Level 139, Potassium Level 3.2L, Chloride Level 103, Carbon Dioxide Level 29, Anion Gap 7, Blood Urea Nitrogen 18, Creatinine 1.1, Estimat Glomerular Filtration Rate > 60, Glucose Level 106, Uric Acid 5.3, Calcium Level 7.8L, Phosphorus Level 2.3L, Magnesium Level 2.0, Total Bilirubin 1.1H, Direct Bilirubin 0.5H, Aspartate Amino Transf (AST/SGOT) 37, Alanine Aminotransferase (ALT/SGPT) 45, Alkaline Phosphatase 103, Total Protein 6.4, Albumin 2.3L, Globulin 4.1, Albumin/Globulin Ratio 0.6L Height (Feet): 5 Height (Inches): 9.00 Weight (Pounds): 246 General Appearance: alert EENT: normal ENT inspection Neck: normal alignment Cardiovascular: normal rate Respiratory/Chest: decreased breath sounds Abdomen: normal bowel sounds, non tender, soft Extremities: non-tender Assessment/Plan Problem List: (1) Diverticulosis ICD Codes: K57.90 - Diverticulosis of intestine, part unspecified, without perforation or abscess without bleeding SNOMED: 687864867 (2) HTN (hypertension) ICD Codes: I10 - Essential (primary) hypertension SNOMED: 52181738 (3) UTI (urinary tract infection) ICD Codes: N39.0 - Urinary tract infection, site not specified SNOMED: 86097036 Qualifiers: Qualified Codes: N39.0 - Urinary tract infection, site not specified (4) Abdominal pain ICD Codes: R10.9 - Unspecified abdominal pain SNOMED: 95289637 (5) Cardiomyopathy ICD Codes: I42.9 - Cardiomyopathy, unspecified SNOMED: 37018497 Status: unchanged Assessment/Plan: elevated LFTS>>> improving abd us reviewed hematemesis>>> s/p EGD ppi cardiology in put appreciated s/p AICD placement fu path fu urology Seth Blunt MD Oct 10, 2020 14:07
--- NOTE | 2020-10-10 14:16 | NUR ---
NURSE NOTES: pt was transported from surgery by Ginger WALSH via hospital bed. Vital signs were taken at 15 mins x2, 30 mins x2, and one hour. no abnormal vitals noted. EKG is done and in chart.
--- NOTE | 2020-10-10 14:54 | NUR ---
CASE MANAGEMENT:REVIEW SI;CHF EXACERBATION W/EF 20% PULMONARY EDEMA. UTI. HTN. VT. S/P [facility] ICD IMPLANT PLACEMENT 97.3 99 20 99/64 97% ON RA K+ 3.2 CA 7.8 T-BILI 1.1 D-BILI 0.5 ALB 2.3 IS;CEFAZOLIN IV Q8 K+ PHOSPHATE IV ONCE K-DUR PO BID ENTRESTO PO Q12 PROTONIX PO Q12 ALDACTONE PO QD LASIX IV Q12 COREG PO Q12 TELE STATUS DCP;FROM HOME
[2020-10-10] MEDS ORDERED: Potassium Phosphate 20 MM in NS 275 ML IV ONE (15:00)
--- NOTE | 2020-10-10 15:00 | Pulmonology Progress Note ---
Subjective ROS Limited/Unobtainable: Yes Interval Events: s/p hemodialysis Constitutional: Reports: no symptoms HEENT: Repors: no symptoms Respiratory: Reports: productive cough, hemoptysis Cardiovascular: Reports: no symptoms Gastrointestinal/Abdominal: Reports: no symptoms Genitourinary: Reports: no symptoms Neurologic: Reports: no symptoms Allergies: Coded Allergies: No Known Allergies (Unverified , 04/20/16) All Systems: reviewed and negative except above Objective Last 24 Hour Vital Signs Date Time Temp Pulse Resp B/P (MAP) Pulse Ox O2 Delivery O2 Flow Rate FiO2 10/10/20 14:10 97.2 85 20 133/79 99 Room Air 10/10/20 13:50 84 16 134/78 98 Room Air 10/10/20 13:35 85 15 127/81 98 Room Air 10/10/20 13:20 84 15 121/74 100 Room Air 10/10/20 13:05 83 23 136/75 100 Room Air 10/10/20 12:55 82 24 116/78 100 Simple Mask 6 10/10/20 12:45 85 25 132/77 100 Simple Mask 6 10/10/20 12:40 84 28 114/77 100 Simple Mask 6 10/10/20 12:37 84 18 99 10/10/20 12:36 85 16 100 10/10/20 12:35 97.1 85 30 118/80 100 Simple Mask 6 10/10/20 09:56 96 127/87 10/10/20 04:00 97.6 94 19 110/61 (77) 97 10/10/20 04:00 94 10/10/20 00:00 94 10/10/20 00:00 97.3 94 18 107/53 (71) 97 10/09/20 21:00 99 99/64 10/09/20 21:00 Room Air 10/09/20 20:00 97.9 99 20 99/64 (76) 98 10/09/20 20:00 96 10/09/20 18:00 94 10/09/20 16:00 98.7 20 102/61 (75) 98 Intake and Output 10/09/20 10/10/20 19:00 07:00 Intake Total 500 ml 200 ml Balance 500 ml 200 ml Intake Oral 500 ml 200 ml # Voids 6 3 Objective 10/10 s/p AICD today 10/07 s/p EGD; remains on RA 10/06 saturating well on RA General Appearance: no acute distress HEENT: normocephalic Respiratory: chest wall non-tender, lungs clear Cardiovascular: normal peripheral pulses, normal rate Abdomen: normal bowel sounds Laboratory Tests 10/10/20 08:18: White Blood Count 7.0, Red Blood Count 4.79, Hemoglobin 13.7L, Hematocrit 41.3L, Mean Corpuscular Volume 86, Mean Corpuscular Hemoglobin 28.7, Mean Corpuscular Hemoglobin Concent 33.3, Red Cell Distribution Width 15.8H, Platelet Count 175, Mean Platelet Volume 8.5, Neutrophils (%) (Auto) 68.2, Lymphocytes (%) (Auto) 18.6L, Monocytes (%) (Auto) 11.4H, Eosinophils (%) (Auto) 0.9, Basophils (%) (Auto) 1.0, Sodium Level 139, Potassium Level 3.2L, Chloride Level 103, Carbon Dioxide Level 29, Anion Gap 7, Blood Urea Nitrogen 18, Creatinine 1.1, Estimat Glomerular Filtration Rate > 60, Glucose Level 106, Uric Acid 5.3, Calcium Level 7.8L, Phosphorus Level 2.3L, Magnesium Level 2.0, Total Bilirubin 1.1H, Direct Bilirubin 0.5H, Aspartate Amino Transf (AST/SGOT) 37, Alanine Aminotransferase (ALT/SGPT) 45, Alkaline Phosphatase 103, Total Protein 6.4, Albumin 2.3L, Globulin 4.1, Albumin/Globulin Ratio 0.6L Current Medications Medications (Trade) Dose Ordered Sig/Damián Route PRN Reason Start Time Stop Time Status Last Admin Dose Admin Acetaminophen (Tylenol) 650 mg Q6H PRN ORAL Temp >100.5 10/10/20 13:00 11/09/20 12:59 Acetaminophen (Tylenol) 650 mg Q6H PRN ORAL MILD pain 10/04/20 22:30 11/03/20 22:29 Acetaminophen/ Codeine Phosphate (Tylenol #3) 1 tab Q4H PRN ORAL Moderate Pain (Pain Scale 4-6) 10/10/20 13:00 10/17/20 12:59 Allopurinol (Zyloprim) 200 mg DAILY ORAL 10/07/20 10:45 11/06/20 10:44 10/10/20 09:57 Carvedilol (Coreg) 3.125 mg EVERY 12 HOURS ORAL 10/04/20 21:00 11/03/20 20:59 10/10/20 09:56 Cefazolin Sodium 1 gm/Dextrose 55 ml @ 110 mls/hr Q8HR IVP 10/10/20 22:00 10/17/20 21:59 Furosemide (Lasix) 40 mg EVERY 12 HOURS IV 10/04/20 21:00 11/03/20 20:59 10/10/20 09:57 Guaifenesin (Robitussin) 150 mg Q6H PRN ORAL For Cough 10/04/20 22:30 01/02/21 22:29 10/06/20 11:52 Morphine Sulfate (Morphine Sulfate) 2 mg Q1H PRN IVP Severe Pain (Pain Scale 7-10) 10/10/20 13:00 10/17/20 12:59 Ondansetron HCl (Zofran) 4 mg Q6H PRN IVP Nausea & Vomiting 10/10/20 13:00 11/09/20 12:59 Pantoprazole (Protonix) 40 mg EVERY 12 HOURS ORAL 10/06/20 21:00 11/05/20 20:59 10/10/20 09:56 Potassium Phosphate 20 mm/ Sodium Chloride 281.6667 ml @ 46.944 m... ONCE ONCE IV 10/10/20 15:00 10/10/20 20:59 Potassium Chloride (K-Dur) 20 meq TWICE A DAY ORAL 10/10/20 09:00 01/08/21 08:59 10/10/20 09:56 Sacubitril/ Valsartan (Entresto 49mg/ 51mg) 1 tab Q12HR ORAL 10/06/20 21:00 01/04/21 20:59 10/07/20 08:23 Spironolactone (Aldactone) 25 mg DAILY ORAL 10/05/20 09:00 11/04/20 08:59 10/10/20 09:57 Assessment/Plan Assessment/Plan 1. Pulmonary edema., secondary to #2 - Continue diuretics. - Continue supplemental oxygen as needed - CXR 10/04/2020 Cardiomegaly. No acute process 2. Cardiomyopathy. - 2D echo LVEF 20-25% - Pt agrees to ICD implant - s/p AICD (10/10) 3. Acute coronary syndrome. - Predominant care per Cardiology. 4. Elevated LFT, bili - Abd US: To-and-fro flow within the main portal vein, could indicate portal hypertension; no gallstones 5. COVID-19 negative 6. Hematemesis - EGD shows gastritis The care for this patient was discussed with my supervising physician Time spent for this case was approximately 31 minutes Srinivas Weeks Oct 10, 2020 15:00
--- NOTE | 2020-10-10 15:46 | Diagnostic Imaging Report ---
Indication: Chest pain, status post AICD placement Technique: One view of the chest Comparison: 10/04/2020 Findings: The heart is enlarged. Lungs and pleural spaces are clear. Left chest AICD has been placed, single lead tip at the expected region of the right ventricular apex. There is no pneumothorax Impression: Cardiomegaly Satisfactory AICD placement
--- NOTE | 2020-10-10 19:02 | Surgery Progress Note ---
Surgery Progress Note Subjective Additional Comments lft's improving no nv comfortable labs noted exam stable Objective Last 24 Hour Vital Signs Date Time Temp Pulse Resp B/P (MAP) Pulse Ox O2 Delivery O2 Flow Rate FiO2 10/10/20 16:45 98.7 97 20 114/65 (81) 98 10/10/20 16:00 95 10/10/20 16:00 98.1 92 22 122/77 (92) 98 10/10/20 15:15 97.9 95 22 126/85 (99) 99 10/10/20 14:42 98.0 93 24 131/87 (102) 98 10/10/20 14:27 97.9 88 24 127/85 (99) 98 10/10/20 14:10 97.2 85 20 133/79 99 Room Air 10/10/20 13:50 84 16 134/78 98 Room Air 10/10/20 13:35 85 15 127/81 98 Room Air 10/10/20 13:20 84 15 121/74 100 Room Air 10/10/20 13:05 83 23 136/75 100 Room Air 10/10/20 12:55 82 24 116/78 100 Simple Mask 6 10/10/20 12:45 85 25 132/77 100 Simple Mask 6 10/10/20 12:40 84 28 114/77 100 Simple Mask 6 10/10/20 12:37 84 18 99 10/10/20 12:36 85 16 100 10/10/20 12:35 97.1 85 30 118/80 100 Simple Mask 6 10/10/20 09:56 96 127/87 10/10/20 09:00 Room Air 10/10/20 08:00 96 10/10/20 04:00 97.6 94 19 110/61 (77) 97 10/10/20 04:00 94 10/10/20 00:00 94 10/10/20 00:00 97.3 94 18 107/53 (71) 97 10/09/20 21:00 99 99/64 10/09/20 21:00 Room Air 10/09/20 20:00 97.9 99 20 99/64 (76) 98 10/09/20 20:00 96 I&O Intake and Output 10/09/20 10/10/20 19:00 07:00 Intake Total 500 ml 200 ml Balance 500 ml 200 ml Intake Oral 500 ml 200 ml # Voids 6 3 Dressing: dry Cardiovascular: RSR Respiratory: clear, decreased breath sounds Abdomen: soft, non-tender, present bowel sounds, non-distended Extremities: no tenderness, no cyanosis Laboratory Tests Test 10/10/20 08:18 White Blood Count 7.0 K/UL (4.8-10.8) Red Blood Count 4.79 M/UL (4.70-6.10) Hemoglobin 13.7 G/DL (14.2-18.0) L Hematocrit 41.3 % (42.0-52.0) L Mean Corpuscular Volume 86 FL (80-99) Mean Corpuscular Hemoglobin 28.7 PG (27.0-31.0) Mean Corpuscular Hemoglobin Concent 33.3 G/DL (32.0-36.0) Red Cell Distribution Width 15.8 % (11.6-14.8) H Platelet Count 175 K/UL (150-450) Mean Platelet Volume 8.5 FL (6.5-10.1) Neutrophils (%) (Auto) 68.2 % (45.0-75.0) Lymphocytes (%) (Auto) 18.6 % (20.0-45.0) L Monocytes (%) (Auto) 11.4 % (1.0-10.0) H Eosinophils (%) (Auto) 0.9 % (0.0-3.0) Basophils (%) (Auto) 1.0 % (0.0-2.0) Sodium Level 139 MMOL/L (136-145) Potassium Level 3.2 MMOL/L (3.5-5.1) L Chloride Level 103 MMOL/L (98-107) Carbon Dioxide Level 29 MMOL/L (21-32) Anion Gap 7 mmol/L (5-15) Blood Urea Nitrogen 18 mg/dL (7-18) Creatinine 1.1 MG/DL (0.55-1.30) Estimat Glomerular Filtration Rate > 60 mL/min (>60) Glucose Level 106 MG/DL (74-106) Uric Acid 5.3 MG/DL (2.6-7.2) Calcium Level 7.8 MG/DL (8.5-10.1) L Phosphorus Level 2.3 MG/DL (2.5-4.9) L Magnesium Level 2.0 MG/DL (1.8-2.4) Total Bilirubin 1.1 MG/DL (0.2-1.0) H Direct Bilirubin 0.5 MG/DL (0.0-0.3) H Aspartate Amino Transf (AST/SGOT) 37 U/L (15-37) Alanine Aminotransferase (ALT/SGPT) 45 U/L (12-78) Alkaline Phosphatase 103 U/L (46-116) Total Protein 6.4 G/DL (6.4-8.2) Albumin 2.3 G/DL (3.4-5.0) L Globulin 4.1 g/dL Albumin/Globulin Ratio 0.6 (1.0-2.7) L Plan Problems: (1) UTI (urinary tract infection) (2) ACS (acute coronary syndrome) (3) CHF (congestive heart failure) (4) Hyponatremia (5) Malnutrition (6) HTN (hypertension) (7) Cardiomyopathy (8) Electrolyte imbalance (9) Renal colic (10) Diverticulosis (11) Abdominal pain Assessment & Plan: epigastric abd pain elevated t bili afebrile HD stable pain improving US abd ordered trend labs okay for diet will follow with recs covid neg lft's bili elevated sona/lip okay no active bleeding inr elevated pending imaging Gallbladder is unremarkable, without stones, wall thickening, nor pericholecystic fluid. Sonographic Kasper's sign is negative. Common bile duct measures 5 mm in diameter. No intrahepatic biliary ductal dilatation. Liver demonstrates normal echogenicity, no focal abnormality. To-and-fro flow is seen within the main portal vein Pancreas is incompletely visualized due to overlying bowel gas, visualized portions are unremarkable. Spleen demonstrates a small cyst. Left kidney measures 11.5 cm in length. Right kidney measures 11.3 cm length. Both kidneys demonstrate normal echogenicity. There is no hydronephrosis. . Kidneys demonstrate small cysts and small echogenic foci. Unremarkable inferior vena cava.. Non-aneurysmal abdominal aorta . Impression: To-and-fro flow within the main portal vein, could indicate portal hypertension Negative for gallstones or dilated bile ducts Echogenic foci within the kidneys, suspected artifactual as no calculi are demonstrated on recent CT scan Incidental finding of splenic and small bilateral renal cysts likely liver dysfunction portal htn cont medical management Can Gomez Oct 10, 2020 19:01
--- NOTE | 2020-10-10 19:30 | Operative Note - Dictated ---
DATE OF OPERATION: 10/10/2020 DEFIBRILLATOR IMPLANTATION INDICATION FOR THE PROCEDURE: Severe nonischemic cardiomyopathy with EF of 20% as well as long runs of nonsustained ventricular tachycardia in a patient who has been on heart failure therapy for more than a year. PROCEDURE PERFORMED: 1. Single-chamber defibrillator implantation. 2. ICD program during implant. 3. Fluoroscopic supervision and interpretation. OPERATIVE REPORT: Patient was brought into the operating room in a fasting state and after informed consent was obtained. Patient was prepped and draped in usual fashion. Anesthesia was provided by the anesthesiologist. After prep and drape under sterile condition, a total of 20 mL lidocaine was given to the prepectoralis area. Patient had received antibiotics within an hour of incision. An incision was made along the left deltopectoral groove. Sharp and blunt dissection was made to the level of pectoralis fascia. The cephalic vein was isolated and cutdown was performed. The right ventricular lead was placed through this access and was placed in right ventricular apex with excellent sensing and pacing parameters. The lead was then affixed to underlying pectoralis fascia. A pocket was made close to the venous access site and was irrigated with antibiotic solution. The lead was then connected to defibrillator and left in the pocket. The pocket was then closed in three layers using 2-0 Vicryl and Dermabond. The patient was transferred to recovery room in a stable condition. FINDINGS: The defibrillator is from [employer]. It is Fortify Assura VR 1357-40Q, serial number is [id number]. The right ventricular lead is from [employer], 7122Q 65 cm, serial number [id number]. The R-wave is more than 12 mV, threshold is 0.5 V at 0.5 milliseconds, impedance is 760 ohms. IMPRESSION: 1. Successful single-chamber ICD implantation. 2. ICD was programmed to 3 zones. VT1 zone is a monitor zone with heart rate of 150 beats per minute. VT2 zone is with heart rate of 181 beats per minute with antitachycardia pacing and then cardioversion, and then VF zone at heart rate of more than 214 beats per minute with ATP 845 V shock. 3. No immediate complications from the procedure. Hudson Garcia M.D. DR: TRINI JOB#: [id number] CC:
--- NOTE | 2020-10-10 20:06 | NUR ---
NURSE HAND-OFF REPORT: Important Events on Shift:[] pt had ICD procedure. Patient Status: [] Diet: [] Pending Orders: [] Pending Results/Labs:[] Pending MD notification:[] Latest Vital Signs: Temperature 98.7 , Pulse 97 , B/P 114 /65 , Respiratory Rate 20 , O2 SAT 98 , Room Air, O2 Flow Rate 6 . Vital Sign Comment: [] EKG Rhythm: Sinus Rhythm Rhythm change?: N MD Notified?: Mere Melgar MD Response: Latest Mccabe Fall Score: 20 Fall Risk: Low Risk Safety Measures: Call light Within Reach, Bed Alarm , Side Rails Side Rails x2, Bed position Low and Locked. Fall Precautions: Patient Fall Education Report given to [].Lesley WALSH
[2020-10-10] MEDS: Morphine Sulfate 2mg/ml Inj(IV/IM USE ONLY) IVP PRN (21:16)
[2020-10-10] MEDS: ceFAZolin sod 1 GM in D5W 55 ML IVP SCH (22:05)
[2020-10-11] VITALS: BP 119/79
[2020-10-11] MEDS: Morphine Sulfate 2mg/ml Inj(IV/IM USE ONLY) IVP PRN (00:46)
[2020-10-11 04:00] VITALS: BP 117/69
[2020-10-11] MEDS: guaiFENesin 100mg/5ml Liq ud ORAL PRN (04:21)
[2020-10-11] MEDS: ceFAZolin sod 1 GM in D5W 55 ML IVP SCH ×3 (05:40→21:20)
--- NOTE | 2020-10-11 06:34 | Hematology/Onc Progress Note ---
Assessment/Plan Assessment/Plan Assessment and Recs # Hematesis with gi bleed noted, with stable h/h --> trend h/h currently stable --> consider ppi --> as per gi care-->reviewed egd # Hematuria --> currently improved --> get coags --> uro eval prn # CHF (congestive heart failure) --> duresis per cards # UTI (urinary tract infection) --> on abx as per id # Cardiomegaly # Dvt ppx scds Time of note does not necessarily correspond to time patient was seen. Appreciate consultation greatly. Subjective HEENT: Denies: no symptoms, eye pain, blurred vision, tearing, double vision, ear pain, ear discharge, nose pain, nose congestion, throat pain, throat swelling, mouth pain, mouth swelling, other Cardiovascular: Denies: no symptoms, chest pain, edema, irregular heart rate, lightheadedness, palpitations, syncope, other Respiratory: Denies: no symptoms, cough, shortness of breath, SOB with excertion, SOB at rest, sputum, wheezing, other Gastrointestinal/Abdominal: Denies: no symptoms, abdomen distended, abdominal pain, black stools, tarry stools, blood in stool, constipated, diarrhea, difficulty swallowing, nausea, poor appetite, poor fluid intake, rectal bleeding, vomiting, other Neurologic/Psychiatric: Denies: no symptoms, anxiety, depressed, emotional problems, headache, numbness, paresthesia, pre-existing deficit, seizure, tingling, tremors, weakness, other Endocrine: Denies: no symptoms, excessive sweating, flushing, intolerance to cold, intolerance to heat, increased hunger, increased thirst, increased urine, unexplained weight gain, unexplained weight loss, other Allergies: Coded Allergies: No Known Allergies (Unverified , 04/20/16) Subjective 10/09 labs reviewed, meds noted, no bleeding, dw rn 10/10 labs noted, no bleeding, meds reviewed, no new events 10/[address] with icd, no new events overnight Objective Objective Current Medications Medications (Trade) Dose Ordered Sig/Damián Route PRN Reason Start Time Stop Time Status Last Admin Dose Admin Acetaminophen (Tylenol) 650 mg Q6H PRN ORAL Temp >100.5 10/10/20 13:00 11/09/20 12:59 Acetaminophen (Tylenol) 650 mg Q6H PRN ORAL MILD pain 10/04/20 22:30 11/03/20 22:29 Acetaminophen/ Codeine Phosphate (Tylenol #3) 1 tab Q4H PRN ORAL Moderate Pain (Pain Scale 4-6) 10/10/20 13:00 10/17/20 12:59 Allopurinol (Zyloprim) 200 mg DAILY ORAL 10/07/20 10:45 11/06/20 10:44 10/10/20 09:57 Carvedilol (Coreg) 3.125 mg EVERY 12 HOURS ORAL 10/04/20 21:00 11/03/20 20:59 10/10/20 21:14 Cefazolin Sodium 1 gm/Dextrose 55 ml @ 110 mls/hr Q8HR IVP 10/10/20 22:00 10/17/20 21:59 10/11/20 05:40 Furosemide (Lasix) 40 mg EVERY 12 HOURS IV 10/04/20 21:00 11/03/20 20:59 10/10/20 21:13 Guaifenesin (Robitussin) 150 mg Q6H PRN ORAL For Cough 10/04/20 22:30 01/02/21 22:29 10/11/20 04:21 Morphine Sulfate (Morphine Sulfate) 2 mg Q1H PRN IVP Severe Pain (Pain Scale 7-10) 10/10/20 13:00 10/17/20 12:59 10/11/20 00:46 Ondansetron HCl (Zofran) 4 mg Q6H PRN IVP Nausea & Vomiting 10/10/20 13:00 11/09/20 12:59 Pantoprazole (Protonix) 40 mg EVERY 12 HOURS ORAL 10/06/20 21:00 11/05/20 20:59 10/10/20 21:14 Potassium Chloride (K-Dur) 20 meq TWICE A DAY ORAL 10/10/20 09:00 01/08/21 08:59 10/10/20 18:21 Sacubitril/ Valsartan (Entresto 49mg/ 51mg) 1 tab Q12HR ORAL 10/06/20 21:00 01/04/21 20:59 10/07/20 08:23 Spironolactone (Aldactone) 25 mg DAILY ORAL 10/05/20 09:00 11/04/20 08:59 10/10/20 09:57 Last 24 Hour Vital Signs Date Time Temp Pulse Resp B/P (MAP) Pulse Ox O2 Delivery O2 Flow Rate FiO2 10/11/20 04:00 97.6 96 20 117/69 (85) 99 10/11/20 03:33 96 10/11/20 01:16 98.7 10/11/20 00:00 102 10/11/20 00:00 98.1 99 20 119/79 (92) 100 10/10/20 22:15 98.7 10/10/20 21:14 106 105/49 10/10/20 21:00 Room Air 10/10/20 20:00 63 10/10/20 20:00 97.5 106 20 105/49 (67) 98 10/10/20 16:45 98.7 97 20 114/65 (81) 98 10/10/20 16:00 95 10/10/20 16:00 98.1 92 22 122/77 (92) 98 10/10/20 15:15 97.9 95 22 126/85 (99) 99 10/10/20 14:42 98.0 93 24 131/87 (102) 98 10/10/20 14:27 97.9 88 24 127/85 (99) 98 10/10/20 14:10 97.2 85 20 133/79 99 Room Air 10/10/20 13:50 84 16 134/78 98 Room Air 10/10/20 13:35 85 15 127/81 98 Room Air 10/10/20 13:20 84 15 121/74 100 Room Air 10/10/20 13:05 83 23 136/75 100 Room Air 10/10/20 12:55 82 24 116/78 100 Simple Mask 6 10/10/20 12:45 85 25 132/77 100 Simple Mask 6 10/10/20 12:40 84 28 114/77 100 Simple Mask 6 10/10/20 12:37 84 18 99 10/10/20 12:36 85 16 100 10/10/20 12:35 97.1 85 30 118/80 100 Simple Mask 6 10/10/20 09:56 96 127/87 10/10/20 09:00 Room Air 10/10/20 08:00 96 10/10/20 04:00 97.6 94 19 110/61 (77) 97 10/10/20 04:00 94 10/10/20 00:00 94 10/10/20 00:00 97.3 94 18 107/53 (71) 97 10/09/20 21:00 99 99/64 10/09/20 21:00 Room Air 10/09/20 20:00 97.9 99 20 99/64 (76) 98 10/09/20 20:00 96 10/09/20 18:00 94 10/09/20 16:00 98.7 20 102/61 (75) 98 10/09/20 12:00 94 10/09/20 12:00 97.9 82 19 118/62 (80) 98 10/09/20 09:20 95 117/65 10/09/20 09:00 Room Air 10/09/20 08:00 92 10/09/20 08:00 97.3 94 16 97/63 (74) 97 Intake and Output 10/10/20 10/11/20 19:00 07:00 Intake Total 700 ml 300 ml Output Total 775 ml 800 ml Balance -75 ml -500 ml Intake Oral 450 ml 300 ml IV Total 250 ml Output Urine Total 750 ml 800 ml Estimated Blood Loss 25 ml # Voids 3 4 Labs Test 10/08/20 06:50 10/09/20 07:27 10/10/20 08:18 White Blood Count 8.7 K/UL (4.8-10.8) 7.2 K/UL (4.8-10.8) 7.0 K/UL (4.8-10.8) Red Blood Count 5.01 M/UL (4.70-6.10) 5.19 M/UL (4.70-6.10) 4.79 M/UL (4.70-6.10) Hemoglobin 14.4 G/DL (14.2-18.0) 14.9 G/DL (14.2-18.0) 13.7 G/DL (14.2-18.0) Hematocrit 43.6 % (42.0-52.0) 47.4 % (42.0-52.0) 41.3 % (42.0-52.0) Mean Corpuscular Volume 87 FL (80-99) 91 FL (80-99) 86 FL (80-99) Mean Corpuscular Hemoglobin 28.7 PG (27.0-31.0) 28.7 PG (27.0-31.0) 28.7 PG (27.0-31.0) Mean Corpuscular Hemoglobin Concent 32.9 G/DL (32.0-36.0) 31.5 G/DL (32.0-36.0) 33.3 G/DL (32.0-36.0) Red Cell Distribution Width 16.1 % (11.6-14.8) 14.8 % (11.6-14.8) 15.8 % (11.6-14.8) Platelet Count 168 K/UL (150-450) 175 K/UL (150-450) 175 K/UL (150-450) Mean Platelet Volume 8.7 FL (6.5-10.1) 9.6 FL (6.5-10.1) 8.5 FL (6.5-10.1) Neutrophils (%) (Auto) 72.9 % (45.0-75.0) 69.9 % (45.0-75.0) 68.2 % (45.0-75.0) Lymphocytes (%) (Auto) 14.7 % (20.0-45.0) 18.5 % (20.0-45.0) 18.6 % (20.0-45.0) Monocytes (%) (Auto) 11.2 % (1.0-10.0) 9.5 % (1.0-10.0) 11.4 % (1.0-10.0) Eosinophils (%) (Auto) 0.6 % (0.0-3.0) 1.3 % (0.0-3.0) 0.9 % (0.0-3.0) Basophils (%) (Auto) 0.6 % (0.0-2.0) 0.8 % (0.0-2.0) 1.0 % (0.0-2.0) Sodium Level 136 MMOL/L (136-145) 137 MMOL/L (136-145) 139 MMOL/L (136-145) Potassium Level 3.8 MMOL/L (3.5-5.1) 3.3 MMOL/L (3.5-5.1) 3.2 MMOL/L (3.5-5.1) Chloride Level 99 MMOL/L (98-107) 100 MMOL/L (98-107) 103 MMOL/L (98-107) Carbon Dioxide Level 32 MMOL/L (21-32) 32 MMOL/L (21-32) 29 MMOL/L (21-32) Blood Urea Nitrogen 33 mg/dL (7-18) 25 mg/dL (7-18) 18 mg/dL (7-18) Creatinine 1.4 MG/DL (0.55-1.30) 1.2 MG/DL (0.55-1.30) 1.1 MG/DL (0.55-1.30) Estimat Glomerular Filtration Rate > 60 mL/min (>60) > 60 mL/min (>60) > 60 mL/min (>60) Glucose Level 101 MG/DL (74-106) 112 MG/DL (74-106) 106 MG/DL (74-106) Uric Acid 7.9 MG/DL (2.6-7.2) 5.3 MG/DL (2.6-7.2) Calcium Level 8.5 MG/DL (8.5-10.1) 8.4 MG/DL (8.5-10.1) 7.8 MG/DL (8.5-10.1) Phosphorus Level 2.6 MG/DL (2.5-4.9) 2.3 MG/DL (2.5-4.9) Magnesium Level 2.2 MG/DL (1.8-2.4) 2.0 MG/DL (1.8-2.4) Total Bilirubin 1.4 MG/DL (0.2-1.0) 1.2 MG/DL (0.2-1.0) 1.1 MG/DL (0.2-1.0) Direct Bilirubin 0.8 MG/DL (0.0-0.3) 0.5 MG/DL (0.0-0.3) 0.5 MG/DL (0.0-0.3) Aspartate Amino Transf (AST/SGOT) 36 U/L (15-37) 35 U/L (15-37) 37 U/L (15-37) Alanine Aminotransferase (ALT/SGPT) 41 U/L (12-78) 49 U/L (12-78) 45 U/L (12-78) Alkaline Phosphatase 101 U/L (46-116) 117 U/L (46-116) 103 U/L (46-116) Pro-B-Type Natriuretic Peptide 4550 pg/mL (0-125) Total Protein 6.3 G/DL (6.4-8.2) 6.7 G/DL (6.4-8.2) 6.4 G/DL (6.4-8.2) Albumin 2.2 G/DL (3.4-5.0) 2.4 G/DL (3.4-5.0) 2.3 G/DL (3.4-5.0) Globulin 4.1 g/dL 4.3 g/dL 4.1 g/dL Albumin/Globulin Ratio 0.5 (1.0-2.7) 0.6 (1.0-2.7) 0.6 (1.0-2.7) Prothrombin Time 15.2 SEC (9.30-11.50) Prothromb Time International Ratio 1.4 (0.9-1.1) Activated Partial Thromboplast Time 28 SEC (23-33) Anion Gap 5 mmol/L (5-15) 7 mmol/L (5-15) Hepatitis A IgM Antibody Negative (Negative) Hepatitis B Surface Antigen Negative (Negative) Hepatitis B Core IgM Antibody Negative (Negative) Hepatitis C Antibody <0.1 s/co ratio Height (Feet): 5 Height (Inches): 9.00 Weight (Pounds): 246 Objective Physical Exam General Appearance: NAD HEENT: normocephalic, atraumatic Neck: non-tender, normal alignment Respiratory/Chest: nromal breath sounds bilaterally Cardiovascular/Chest: normal peripheral pulses, normal rate Abdomen: normal bowel sounds, soft, nontender Extremities: normal range of motion Vikas Pennington MD Oct 11, 2020 06:34
[2020-10-11 07:11] LABS: BASOPHILS % (AUTO) 1.1 % (0.0-2.0); EOSINOPHILS % (AUTO) 0.6 % (0.0-3.0); HEMATOCRIT 41.6 % (42.0-52.0); HEMOGLOBIN 13.2 G/DL (14.2-18.0); LYMPHOCYTES % (AUTO) 13.1 % (20.0-45.0); MEAN CORPUSCULAR VOLUME 91 FL (80-99); NEUTROPHILS % (AUTO) 75.3 % (45.0-75.0); PLATELET COUNT 176 K/UL (150-450); RED CELL DISTRIBUTION WIDTH 14.8 % (11.6-14.8); WHITE BLOOD COUNT 7.4 K/UL (4.8-10.8)
--- NOTE | 2020-10-11 07:40 | NUR ---
NURSE HAND-OFF REPORT: Important Events on Shift:[S/P ICD placement.] Patient Status: [Full code] Diet: [Regular] Pending Orders: [] Pending Results/Labs:[] Pending MD notification:[] Latest Vital Signs: Temperature 97.6 , Pulse 96 , B/P 117 /69 , Respiratory Rate 20 , O2 SAT 99 , Room Air, O2 Flow Rate 6 . Vital Sign Comment: [] EKG Rhythm: Sinus Rhythm Rhythm change?: N MD Notified?: Mere Melgar MD Response: Latest Mccabe Fall Score: 20 Fall Risk: Low Risk Safety Measures: Call light Within Reach, Bed Alarm , Side Rails Side Rails x2, Bed position Low and Locked. Fall Precautions: Patient Fall Education Report given to [JILLIAN Lucio].
[2020-10-11 07:55] LABS: ALANINE AMINOTRANSFERASE 44 U/L (12-78); ALBUMIN 2.4 G/DL (3.4-5.0); ALBUMIN/GLOBULIN RATIO 0.6 (1.0-2.7); ALKALINE PHOSPHATASE 107 U/L (46-116); ANION GAP 6 mmol/L (5-15); ASPARTATE AMINO TRANSFERASE 41 U/L (15-37); BILIRUBIN,TOTAL 1.1 MG/DL (0.2-1.0); BLOOD UREA NITROGEN 22 mg/dL (7-18); CALCIUM 7.9 MG/DL (8.5-10.1); CARBON DIOXIDE 26 MMOL/L (21-32); CHLORIDE 100 MMOL/L (98-107); PHOSPHORUS 2.6 MG/DL (2.5-4.9); POTASSIUM 3.6 MMOL/L (3.5-5.1); SODIUM 132 MMOL/L (136-145)
[2020-10-11 07:56] LABS: BILIRUBIN,DIRECT 0.5 MG/DL (0.0-0.3)
[2020-10-11 08:00] VITALS: BP 117/56
--- NOTE | 2020-10-11 08:12 | General Progress Note ---
Subjective ROS Limited/Unobtainable: Yes Allergies: Coded Allergies: No Known Allergies (Unverified , 04/20/16) Objective Last 24 Hour Vital Signs Date Time Temp Pulse Resp B/P (MAP) Pulse Ox O2 Delivery O2 Flow Rate FiO2 10/11/20 04:00 97.6 96 20 117/69 (85) 99 10/11/20 03:33 96 10/11/20 01:16 98.7 10/11/20 00:00 102 10/11/20 00:00 98.1 99 20 119/79 (92) 100 10/10/20 22:15 98.7 10/10/20 21:14 106 105/49 10/10/20 21:00 Room Air 10/10/20 20:00 63 10/10/20 20:00 97.5 106 20 105/49 (67) 98 10/10/20 16:45 98.7 97 20 114/65 (81) 98 10/10/20 16:00 95 10/10/20 16:00 98.1 92 22 122/77 (92) 98 10/10/20 15:15 97.9 95 22 126/85 (99) 99 10/10/20 14:42 98.0 93 24 131/87 (102) 98 10/10/20 14:27 97.9 88 24 127/85 (99) 98 10/10/20 14:10 97.2 85 20 133/79 99 Room Air 10/10/20 13:50 84 16 134/78 98 Room Air 10/10/20 13:35 85 15 127/81 98 Room Air 10/10/20 13:20 84 15 121/74 100 Room Air 10/10/20 13:05 83 23 136/75 100 Room Air 10/10/20 12:55 82 24 116/78 100 Simple Mask 6 10/10/20 12:45 85 25 132/77 100 Simple Mask 6 10/10/20 12:40 84 28 114/77 100 Simple Mask 6 10/10/20 12:37 84 18 99 10/10/20 12:36 85 16 100 10/10/20 12:35 97.1 85 30 118/80 100 Simple Mask 6 10/10/20 09:56 96 127/87 10/10/20 09:00 Room Air Intake and Output 10/10/20 10/11/20 19:00 07:00 Intake Total 700 ml 300 ml Output Total 775 ml 800 ml Balance -75 ml -500 ml Intake Oral 450 ml 300 ml IV Total 250 ml Output Urine Total 750 ml 800 ml Estimated Blood Loss 25 ml # Voids 3 4 Laboratory Tests 10/10/20 08:18: White Blood Count 7.0, Red Blood Count 4.79, Hemoglobin 13.7L, Hematocrit 41.3L, Mean Corpuscular Volume 86, Mean Corpuscular Hemoglobin 28.7, Mean Corpuscular Hemoglobin Concent 33.3, Red Cell Distribution Width 15.8H, Platelet Count 175, Mean Platelet Volume 8.5, Neutrophils (%) (Auto) 68.2, Lymphocytes (%) (Auto) 18.6L, Monocytes (%) (Auto) 11.4H, Eosinophils (%) (Auto) 0.9, Basophils (%) (Auto) 1.0, Sodium Level 139, Potassium Level 3.2L, Chloride Level 103, Carbon Dioxide Level 29, Anion Gap 7, Blood Urea Nitrogen 18, Creatinine 1.1, Estimat Glomerular Filtration Rate > 60, Glucose Level 106, Uric Acid 5.3, Calcium Level 7.8L, Phosphorus Level 2.3L, Magnesium Level 2.0, Total Bilirubin 1.1H, Direct Bilirubin 0.5H, Aspartate Amino Transf (AST/SGOT) 37, Alanine Aminotransferase (ALT/SGPT) 45, Alkaline Phosphatase 103, Total Protein 6.4, Albumin 2.3L, Globulin 4.1, Albumin/Globulin Ratio 0.6L 10/11/20 06:42: White Blood Count 7.4, Red Blood Count 4.60L, Hemoglobin 13.2L, Hematocrit 41.6L , Mean Corpuscular Volume 91, Mean Corpuscular Hemoglobin 28.7, Mean Corpuscular Hemoglobin Concent 31.7L, Red Cell Distribution Width 14.8, Platelet Count 176, Mean Platelet Volume 8.1, Neutrophils (%) (Auto) 75.3H, Lymphocytes (%) (Auto) 13.1L, Monocytes (%) (Auto) 10.0, Eosinophils (%) (Auto) 0.6, Basophils (%) (Auto) 1.1, Sodium Level 132L, Potassium Level 3.6, Chloride Level 100, Carbon Dioxide Level 26, Anion Gap 6, Blood Urea Nitrogen 22H, Creatinine 1.0, Estimat Glomerular Filtration Rate > 60, Glucose Level 126H, Uric Acid 4.9, Calcium Lev el 7.9L, Phosphorus Level 2.6, Magnesium Level 1.8, Total Bilirubin 1.1H, Direct Bilirubin 0.5H, Aspartate Amino Transf (AST/SGOT) 41H, Alanine Aminotransferase (ALT/SGPT) 44, Alkaline Phosphatase 107, Total Protein 6.5, Albumin 2.4L, Globulin 4.1, Albumin/Globulin Ratio 0.6L, C-Reactive Protein, Quantitative 14.4H, Pro-B-Type Natriuretic Peptide 7937H Height (Feet): 5 Height (Inches): 9.00 Weight (Pounds): 246 General Appearance: no apparent distress EENT: normal ENT inspection Neck: supple Cardiovascular: normal peripheral pulses Respiratory/Chest: decreased breath sounds Abdomen: normal bowel sounds, non tender, soft Extremities: non-tender Assessment/Plan Problem List: (1) Diverticulosis ICD Codes: K57.90 - Diverticulosis of intestine, part unspecified, without perforation or abscess without bleeding SNOMED: 280820327 (2) HTN (hypertension) ICD Codes: I10 - Essential (primary) hypertension SNOMED: 91007455 (3) UTI (urinary tract infection) ICD Codes: N39.0 - Urinary tract infection, site not specified SNOMED: 97711386 Qualifiers: Qualified Codes: N39.0 - Urinary tract infection, site not specified (4) Abdominal pain ICD Codes: R10.9 - Unspecified abdominal pain SNOMED: 00332337 (5) Cardiomyopathy ICD Codes: I42.9 - Cardiomyopathy, unspecified SNOMED: 44399091 Status: unchanged Assessment/Plan: elevated LFTS>>> improving abd us reviewed hematemesis>>> s/p EGD ppi cardiology in put appreciated s/p AICD placement fu path fu urology Seth Blunt MD Oct 11, 2020 08:12
--- NOTE | 2020-10-11 08:32 | NUR ---
NURSE NOTES: Received patient report from JILLIAN Gupta. Patient is AO x4 awake and able to make needs known. Patient is sitting by bedside eating breakfast at the time. Patient shows no signs of distress or pain at the time. Patient is on room air and shows no signs of respiratory distress. IV is intact and patent. There are no signs of erythema, infiltration, or bleeding. Bed is in the lowest position, call light is within reach, side rails up x3. Will continue plan of care.
[2020-10-11] MEDS: Spironolactone 25mg tab ORAL SCH (08:49)
[2020-10-11] MEDS: Allopurinol 100mg Tab ORAL SCH (08:49)
--- NOTE | 2020-10-11 10:38 | Infectious Diseases Prog Note ---
Assessment/Plan 60yo M with: Afebrile Normal WBC Lymphopenia Cough, leg swelling, r/o CHF R/o UTI - UA neg, no sx 10/04 UA neg, UCx neg CXR: Cardiomegaly, no acute process COVID rapid test neg, PCR neg Hemoptysis, most likely 2/2 pulm congestion 2/2 CHF, less likely 2/2 infection given lack of other s/sx of infection 10/05 Resp cx neg Cr 1.4 --> 1.6 10/04 Renal US: Focal posterior bladder wall thickening. Could indicate a mucosal lesion. Consider cystoscopy. Left renal shadowing focus, could represent a calculus versus arterial calcification. CHF EF 20-25% S/p AICD placement 10/10 10/06 Abd US: To-and-fro flow within the main portal vein, could indicate portal hypertension. Negative for gallstones or dilated bile ducts. Echogenic foci within the kidneys, suspected artifactual as no calculi are demonstrated on recent CT scan. Incidental finding of splenic and small bilateral renal cysts Plan: On cefazolin #2 per Cards given ICD implant Monitor CBC, CMP Monitor resp status Monitor temp curve, hemodynamics D/w RN Thank you for this consult. [facility] will continue to follow. Subjective Allergies: Coded Allergies: No Known Allergies (Unverified , 04/20/16) AF WBC 7.4 NAD S/p AICD implant yesterday Doing well, though still w/ cough Objective Last 24 Hour Vital Signs Date Time Temp Pulse Resp B/P (MAP) Pulse Ox O2 Delivery O2 Flow Rate FiO2 10/11/20 09:00 Room Air 10/11/20 08:48 100 117/56 10/11/20 08:00 98.2 100 20 117/56 (76) 99 10/11/20 04:00 97.6 96 20 117/69 (85) 99 10/11/20 03:33 96 10/11/20 01:16 98.7 10/11/20 00:00 102 10/11/20 00:00 98.1 99 20 119/79 (92) 100 10/10/20 22:15 98.7 10/10/20 21:14 106 105/49 10/10/20 21:00 Room Air 10/10/20 20:00 63 10/10/20 20:00 97.5 106 20 105/49 (67) 98 10/10/20 16:45 98.7 97 20 114/65 (81) 98 10/10/20 16:00 95 10/10/20 16:00 98.1 92 22 122/77 (92) 98 10/10/20 15:15 97.9 95 22 126/85 (99) 99 10/10/20 14:42 98.0 93 24 131/87 (102) 98 10/10/20 14:27 97.9 88 24 127/85 (99) 98 10/10/20 14:10 97.2 85 20 133/79 99 Room Air 10/10/20 13:50 84 16 134/78 98 Room Air 10/10/20 13:35 85 15 127/81 98 Room Air 10/10/20 13:20 84 15 121/74 100 Room Air 10/10/20 13:05 83 23 136/75 100 Room Air 10/10/20 12:55 82 24 116/78 100 Simple Mask 6 10/10/20 12:45 85 25 132/77 100 Simple Mask 6 10/10/20 12:40 84 28 114/77 100 Simple Mask 6 10/10/20 12:37 84 18 99 10/10/20 12:36 85 16 100 10/10/20 12:35 97.1 85 30 118/80 100 Simple Mask 6 Height (Feet): 5 Height (Inches): 9.00 Weight (Pounds): 246 Gen: NAD HEENT: NCAT Pulm: BL chest rise Abd: Non-distended Ext: No c/c/e Skin: No visible rashes Neuro: Awake Laboratory Tests Test 10/11/20 06:42 White Blood Count 7.4 K/UL (4.8-10.8) Red Blood Count 4.60 M/UL (4.70-6.10) L Hemoglobin 13.2 G/DL (14.2-18.0) L Hematocrit 41.6 % (42.0-52.0) L Mean Corpuscular Volume 91 FL (80-99) Mean Corpuscular Hemoglobin 28.7 PG (27.0-31.0) Mean Corpuscular Hemoglobin Concent 31.7 G/DL (32.0-36.0) L Red Cell Distribution Width 14.8 % (11.6-14.8) Platelet Count 176 K/UL (150-450) Mean Platelet Volume 8.1 FL (6.5-10.1) Neutrophils (%) (Auto) 75.3 % (45.0-75.0) H Lymphocytes (%) (Auto) 13.1 % (20.0-45.0) L Monocytes (%) (Auto) 10.0 % (1.0-10.0) Eosinophils (%) (Auto) 0.6 % (0.0-3.0) Basophils (%) (Auto) 1.1 % (0.0-2.0) Sodium Level 132 MMOL/L (136-145) L Potassium Level 3.6 MMOL/L (3.5-5.1) Chloride Level 100 MMOL/L (98-107) Carbon Dioxide Level 26 MMOL/L (21-32) Anion Gap 6 mmol/L (5-15) Blood Urea Nitrogen 22 mg/dL (7-18) H Creatinine 1.0 MG/DL (0.55-1.30) Estimat Glomerular Filtration Rate > 60 mL/min (>60) Glucose Level 126 MG/DL (74-106) H Uric Acid 4.9 MG/DL (2.6-7.2) Calcium Level 7.9 MG/DL (8.5-10.1) L Phosphorus Level 2.6 MG/DL (2.5-4.9) Magnesium Level 1.8 MG/DL (1.8-2.4) Total Bilirubin 1.1 MG/DL (0.2-1.0) H Direct Bilirubin 0.5 MG/DL (0.0-0.3) H Aspartate Amino Transf (AST/SGOT) 41 U/L (15-37) H Alanine Aminotransferase (ALT/SGPT) 44 U/L (12-78) Alkaline Phosphatase 107 U/L (46-116) C-Reactive Protein, Quantitative 14.4 mg/dL (0.00-0.90) H Pro-B-Type Natriuretic Peptide 7937 pg/mL (0-125) H Total Protein 6.5 G/DL (6.4-8.2) Albumin 2.4 G/DL (3.4-5.0) L Globulin 4.1 g/dL Albumin/Globulin Ratio 0.6 (1.0-2.7) L Current Medications Medications (Trade) Dose Ordered Sig/Damián Route PRN Reason Start Time Stop Time Status Last Admin Dose Admin Acetaminophen (Tylenol) 650 mg Q6H PRN ORAL Temp >100.5 10/10/20 13:00 11/09/20 12:59 Acetaminophen (Tylenol) 650 mg Q6H PRN ORAL MILD pain 10/04/20 22:30 11/03/20 22:29 Acetaminophen/ Codeine Phosphate (Tylenol #3) 1 tab Q4H PRN ORAL Moderate Pain (Pain Scale 4-6) 10/10/20 13:00 10/17/20 12:59 Allopurinol (Zyloprim) 200 mg DAILY ORAL 10/07/20 10:45 11/06/20 10:44 10/11/20 08:49 Carvedilol (Coreg) 3.125 mg EVERY 12 HOURS ORAL 10/04/20 21:00 11/03/20 20:59 10/11/20 08:48 Cefazolin Sodium 1 gm/Dextrose 55 ml @ 110 mls/hr Q8HR IVP 10/10/20 22:00 10/17/20 21:59 10/11/20 05:40 Furosemide (Lasix) 40 mg EVERY 12 HOURS IV 10/04/20 21:00 11/03/20 20:59 10/11/20 08:49 Guaifenesin (Robitussin) 150 mg Q6H PRN ORAL For Cough 10/04/20 22:30 01/02/21 22:29 10/11/20 04:21 Morphine Sulfate (Morphine Sulfate) 2 mg Q1H PRN IVP Severe Pain (Pain Scale 7-10) 10/10/20 13:00 10/17/20 12:59 10/11/20 00:46 Ondansetron HCl (Zofran) 4 mg Q6H PRN IVP Nausea & Vomiting 10/10/20 13:00 11/09/20 12:59 Pantoprazole (Protonix) 40 mg EVERY 12 HOURS ORAL 10/06/20 21:00 11/05/20 20:59 10/11/20 08:48 Potassium Chloride (K-Dur) 20 meq TWICE A DAY ORAL 10/10/20 09:00 01/08/21 08:59 10/11/20 08:49 Sacubitril/ Valsartan (Entresto 49mg/ 51mg) 1 tab Q12HR ORAL 10/06/20 21:00 01/04/21 20:59 10/11/20 08:49 Sodium Chloride 250 ml @ 30 mls/hr ONCE ONCE IV 10/11/20 10:30 10/11/20 18:49 10/11/20 10:06 Spironolactone (Aldactone) 25 mg DAILY ORAL 10/05/20 09:00 11/04/20 08:59 10/11/20 08:49 Anitha Zayas M.D. Oct 11, 2020 10:38
--- NOTE | 2020-10-11 11:00 | Pulmonology Progress Note ---
Subjective ROS Limited/Unobtainable: Yes Interval Events: s/p hemodialysis Constitutional: Reports: no symptoms HEENT: Repors: no symptoms Respiratory: Reports: productive cough, hemoptysis Cardiovascular: Reports: no symptoms Gastrointestinal/Abdominal: Reports: no symptoms Genitourinary: Reports: no symptoms Neurologic: Reports: no symptoms Allergies: Coded Allergies: No Known Allergies (Unverified , 04/20/16) All Systems: reviewed and negative except above Objective Last 24 Hour Vital Signs Date Time Temp Pulse Resp B/P (MAP) Pulse Ox O2 Delivery O2 Flow Rate FiO2 10/11/20 09:00 Room Air 10/11/20 08:48 100 117/56 10/11/20 08:00 98 10/11/20 08:00 98.2 100 20 117/56 (76) 99 10/11/20 04:00 97.6 96 20 117/69 (85) 99 10/11/20 03:33 96 10/11/20 01:16 98.7 10/11/20 00:00 102 10/11/20 00:00 98.1 99 20 119/79 (92) 100 10/10/20 22:15 98.7 10/10/20 21:14 106 105/49 10/10/20 21:00 Room Air 10/10/20 20:00 63 10/10/20 20:00 97.5 106 20 105/49 (67) 98 10/10/20 16:45 98.7 97 20 114/65 (81) 98 10/10/20 16:00 95 10/10/20 16:00 98.1 92 22 122/77 (92) 98 10/10/20 15:15 97.9 95 22 126/85 (99) 99 10/10/20 14:42 98.0 93 24 131/87 (102) 98 10/10/20 14:27 97.9 88 24 127/85 (99) 98 10/10/20 14:10 97.2 85 20 133/79 99 Room Air 10/10/20 13:50 84 16 134/78 98 Room Air 10/10/20 13:35 85 15 127/81 98 Room Air 10/10/20 13:20 84 15 121/74 100 Room Air 10/10/20 13:05 83 23 136/75 100 Room Air 10/10/20 12:55 82 24 116/78 100 Simple Mask 6 10/10/20 12:45 85 25 132/77 100 Simple Mask 6 10/10/20 12:40 84 28 114/77 100 Simple Mask 6 10/10/20 12:37 84 18 99 10/10/20 12:36 85 16 100 10/10/20 12:35 97.1 85 30 118/80 100 Simple Mask 6 Intake and Output 10/10/20 10/11/20 19:00 07:00 Intake Total 700 ml 300 ml Output Total 775 ml 800 ml Balance -75 ml -500 ml Intake Oral 450 ml 300 ml IV Total 250 ml Output Urine Total 750 ml 800 ml Estimated Blood Loss 25 ml # Voids 3 4 Objective 10/11 remains on RA; awaiting cardiac clearance for discharge 10/10 s/p AICD today 10/07 s/p EGD; remains on RA 10/06 saturating well on RA General Appearance: no acute distress HEENT: normocephalic Respiratory: chest wall non-tender, lungs clear Cardiovascular: normal peripheral pulses, normal rate Abdomen: normal bowel sounds Laboratory Tests 10/11/20 06:42: White Blood Count 7.4, Red Blood Count 4.60L, Hemoglobin 13.2L, Hematocrit 41.6L , Mean Corpuscular Volume 91, Mean Corpuscular Hemoglobin 28.7, Mean Corpuscular Hemoglobin Concent 31.7L, Red Cell Distribution Width 14.8, Platelet Count 176, Mean Platelet Volume 8.1, Neutrophils (%) (Auto) 75.3H, Lymphocytes (%) (Auto) 13.1L, Monocytes (%) (Auto) 10.0, Eosinophils (%) (Auto) 0.6, Basophils (%) (Auto) 1.1, Sodium Level 132L, Potassium Level 3.6, Chloride Level 100, Carbon Dioxide Level 26, Anion Gap 6, Blood Urea Nitrogen 22H, Creatinine 1.0, Estimat Glomerular Filtration Rate > 60, Glucose Level 126H, Uric Acid 4.9, Calcium Level 7.9L, Phosphorus Level 2.6, Magnesium Level 1.8, Total Bilirubin 1.1H, Direct Bilirubin 0.5H, Aspartate Amino Transf (AST/SGOT) 41H, Alanine Aminotransferase (ALT/SGPT) 44, Alkaline Phosphatase 107, C-Reactive Protein, Quantitative 14.4H, Pro-B-Type Natriuretic Peptide 7937H, Total Protein 6.5, Albumin 2.4L, Globulin 4.1, Albumin/Globulin Ratio 0.6L Current Medications Medications (Trade) Dose Ordered Sig/Damián Route PRN Reason Start Time Stop Time Status Last Admin Dose Admin Acetaminophen (Tylenol) 650 mg Q6H PRN ORAL Temp >100.5 10/10/20 13:00 11/09/20 12:59 Acetaminophen (Tylenol) 650 mg Q6H PRN ORAL MILD pain 10/04/20 22:30 11/03/20 22:29 Acetaminophen/ Codeine Phosphate (Tylenol #3) 1 tab Q4H PRN ORAL Moderate Pain (Pain Scale 4-6) 10/10/20 13:00 10/17/20 12:59 Allopurinol (Zyloprim) 200 mg DAILY ORAL 10/07/20 10:45 11/06/20 10:44 10/11/20 08:49 Carvedilol (Coreg) 3.125 mg EVERY 12 HOURS ORAL 10/04/20 21:00 11/03/20 20:59 10/11/20 08:48 Cefazolin Sodium 1 gm/Dextrose 55 ml @ 110 mls/hr Q8HR IVP 10/10/20 22:00 10/17/20 21:59 10/11/20 05:40 Furosemide (Lasix) 40 mg EVERY 12 HOURS IV 10/04/20 21:00 11/03/20 20:59 10/11/20 08:49 Guaifenesin (Robitussin) 150 mg Q6H PRN ORAL For Cough 10/04/20 22:30 01/02/21 22:29 10/11/20 04:21 Morphine Sulfate (Morphine Sulfate) 2 mg Q1H PRN IVP Severe Pain (Pain Scale 7-10) 10/10/20 13:00 10/17/20 12:59 10/11/20 00:46 Ondansetron HCl (Zofran) 4 mg Q6H PRN IVP Nausea & Vomiting 10/10/20 13:00 11/09/20 12:59 Pantoprazole (Protonix) 40 mg EVERY 12 HOURS ORAL 10/06/20 21:00 11/05/20 20:59 10/11/20 08:48 Potassium Chloride (K-Dur) 20 meq TWICE A DAY ORAL 10/10/20 09:00 01/08/21 08:59 10/11/20 08:49 Sacubitril/ Valsartan (Entresto 49mg/ 51mg) 1 tab Q12HR ORAL 10/06/20 21:00 01/04/21 20:59 10/11/20 08:49 Sodium Chloride 250 ml @ 30 mls/hr ONCE ONCE IV 10/11/20 10:30 10/11/20 18:49 10/11/20 10:06 Spironolactone (Aldactone) 25 mg DAILY ORAL 10/05/20 09:00 11/04/20 08:59 10/11/20 08:49 Assessment/Plan Assessment/Plan 1. Pulmonary edema., secondary to #2 - Continue diuretics. - Continue supplemental oxygen as needed - CXR 10/04/2020 Cardiomegaly. No acute process 2. Cardiomyopathy. - 2D echo LVEF 20-25% - Pt agrees to ICD implant - s/p AICD (10/10) 3. Acute coronary syndrome. - Predominant care per Cardiology. 4. Elevated LFT, bili - Abd US: To-and-fro flow within the main portal vein, could indicate portal hypertension; no gallstones 5. COVID-19 negative 6. Hematemesis - EGD shows gastritis dc planning The care for this patient was discussed with my supervising physician Time spent for this case was approximately 31 minutes Srinivas Weeks Oct 11, 2020 11:00
--- NOTE | 2020-10-11 11:58 | Cardiac Electrophysiology PN ---
Assessment/Plan Assessment/Plan 1. Exacerbation of CHF with EF 20%. Says had CHF for more than a year. Already had cardiac cath at [facility] a year ago BNP is more than 4700. On Lasix 40 mg IV b.i.d. Coreg, Entresto 49/51, and Aldactone. Got authorization from insurance [employer] for ICD S/P VVI [employer] ICD implant 10/10/2020 that was interrogated and showed Nl Fx. No hematoma and no Ptx on CXR 2. Hypertension. Continue current heart failure therapy. 3. Frothy cough. Covid negative. Further evaluation by product manager. 4. Benign prostatic hypertrophy. 5. Urinary tract infection. RAIMUNDO RN Subjective Subjective Ruled out for Covid. Off isolation on RA. Echo showed EF 20%. Had 10 beats of VT again 10/08/19 EGD showed gastritis. S/P [employer] VVI ICD implant yesterday that was interrogated today and showed Nl Fx Objective Last 24 Hour Vital Signs Date Time Temp Pulse Resp B/P (MAP) Pulse Ox O2 Delivery O2 Flow Rate FiO2 10/11/20 09:00 Room Air 10/11/20 08:48 100 117/56 10/11/20 08:00 98 10/11/20 08:00 98.2 100 20 117/56 (76) 99 10/11/20 04:00 97.6 96 20 117/69 (85) 99 10/11/20 03:33 96 10/11/20 01:16 98.7 10/11/20 00:00 102 10/11/20 00:00 98.1 99 20 119/79 (92) 100 10/10/20 22:15 98.7 10/10/20 21:14 106 105/49 10/10/20 21:00 Room Air 10/10/20 20:00 63 10/10/20 20:00 97.5 106 20 105/49 (67) 98 10/10/20 16:45 98.7 97 20 114/65 (81) 98 10/10/20 16:00 95 10/10/20 16:00 98.1 92 22 122/77 (92) 98 10/10/20 15:15 97.9 95 22 126/85 (99) 99 10/10/20 14:42 98.0 93 24 131/87 (102) 98 10/10/20 14:27 97.9 88 24 127/85 (99) 98 10/10/20 14:10 97.2 85 20 133/79 99 Room Air 10/10/20 13:50 84 16 134/78 98 Room Air 10/10/20 13:35 85 15 127/81 98 Room Air 10/10/20 13:20 84 15 121/74 100 Room Air 10/10/20 13:05 83 23 136/75 100 Room Air 10/10/20 12:55 82 24 116/78 100 Simple Mask 6 10/10/20 12:45 85 25 132/77 100 Simple Mask 6 10/10/20 12:40 84 28 114/77 100 Simple Mask 6 10/10/20 12:37 84 18 99 10/10/20 12:36 85 16 100 10/10/20 12:35 97.1 85 30 118/80 100 Simple Mask 6 Intake and Output 10/10/20 10/11/20 19:00 07:00 Intake Total 700 ml 300 ml Output Total 775 ml 800 ml Balance -75 ml -500 ml Intake Oral 450 ml 300 ml IV Total 250 ml Output Urine Total 750 ml 800 ml Estimated Blood Loss 25 ml # Voids 3 4 Laboratory Tests Test 10/11/20 06:42 White Blood Count 7.4 K/UL (4.8-10.8) Red Blood Count 4.60 M/UL (4.70-6.10) L Hemoglobin 13.2 G/DL (14.2-18.0) L Hematocrit 41.6 % (42.0-52.0) L Mean Corpuscular Volume 91 FL (80-99) Mean Corpuscular Hemoglobin 28.7 PG (27.0-31.0) Mean Corpuscular Hemoglobin Concent 31.7 G/DL (32.0-36.0) L Red Cell Distribution Width 14.8 % (11.6-14.8) Platelet Count 176 K/UL (150-450) Mean Platelet Volume 8.1 FL (6.5-10.1) Neutrophils (%) (Auto) 75.3 % (45.0-75.0) H Lymphocytes (%) (Auto) 13.1 % (20.0-45.0) L Monocytes (%) (Auto) 10.0 % (1.0-10.0) Eosinophils (%) (Auto) 0.6 % (0.0-3.0) Basophils (%) (Auto) 1.1 % (0.0-2.0) Sodium Level 132 MMOL/L (136-145) L Potassium Level 3.6 MMOL/L (3.5-5.1) Chloride Level 100 MMOL/L (98-107) Carbon Dioxide Level 26 MMOL/L (21-32) Anion Gap 6 mmol/L (5-15) Blood Urea Nitrogen 22 mg/dL (7-18) H Creatinine 1.0 MG/DL (0.55-1.30) Estimat Glomerular Filtration Rate > 60 mL/min (>60) Glucose Level 126 MG/DL (74-106) H Uric Acid 4.9 MG/DL (2.6-7.2) Calcium Level 7.9 MG/DL (8.5-10.1) L Phosphorus Level 2.6 MG/DL (2.5-4.9) Magnesium Level 1.8 MG/DL (1.8-2.4) Total Bilirubin 1.1 MG/DL (0.2-1.0) H Direct Bilirubin 0.5 MG/DL (0.0-0.3) H Aspartate Amino Transf (AST/SGOT) 41 U/L (15-37) H Alanine Aminotransferase (ALT/SGPT) 44 U/L (12-78) Alkaline Phosphatase 107 U/L (46-116) C-Reactive Protein, Quantitative 14.4 mg/dL (0.00-0.90) H Pro-B-Type Natriuretic Peptide 7937 pg/mL (0-125) H Total Protein 6.5 G/DL (6.4-8.2) Albumin 2.4 G/DL (3.4-5.0) L Globulin 4.1 g/dL Albumin/Globulin Ratio 0.6 (1.0-2.7) L Objective HEAD AND NECK: Positive JVD. LUNGS: Decreased breath sounds. CARDIOVASCULAR: Regular S1 and S2 with no gallop. ICD left subclavian with no hematoma ABDOMEN: Soft. EXTREMITIES: 1+ pitting edema. Hudson Garcia MD Oct 11, 2020 11:57
[2020-10-11 12:00] VITALS: BP 117/74
--- NOTE | 2020-10-11 12:07 | General Progress Note ---
Subjective Constitutional: Reports: weakness Allergies: Coded Allergies: No Known Allergies (Unverified , 04/20/16) All Systems: reviewed and negative except above Subjective calm in bed Objective Last 24 Hour Vital Signs Date Time Temp Pulse Resp B/P (MAP) Pulse Ox O2 Delivery O2 Flow Rate FiO2 10/11/20 12:00 97.3 96 20 117/74 (88) 99 10/11/20 09:00 Room Air 10/11/20 08:48 100 117/56 10/11/20 08:00 98 10/11/20 08:00 98.2 100 20 117/56 (76) 99 10/11/20 04:00 97.6 96 20 117/69 (85) 99 10/11/20 03:33 96 10/11/20 01:16 98.7 10/11/20 00:00 102 10/11/20 00:00 98.1 99 20 119/79 (92) 100 10/10/20 22:15 98.7 10/10/20 21:14 106 105/49 10/10/20 21:00 Room Air 10/10/20 20:00 63 10/10/20 20:00 97.5 106 20 105/49 (67) 98 10/10/20 16:45 98.7 97 20 114/65 (81) 98 10/10/20 16:00 95 10/10/20 16:00 98.1 92 22 122/77 (92) 98 10/10/20 15:15 97.9 95 22 126/85 (99) 99 10/10/20 14:42 98.0 93 24 131/87 (102) 98 10/10/20 14:27 97.9 88 24 127/85 (99) 98 10/10/20 14:10 97.2 85 20 133/79 99 Room Air 10/10/20 13:50 84 16 134/78 98 Room Air 10/10/20 13:35 85 15 127/81 98 Room Air 10/10/20 13:20 84 15 121/74 100 Room Air 10/10/20 13:05 83 23 136/75 100 Room Air 10/10/20 12:55 82 24 116/78 100 Simple Mask 6 10/10/20 12:45 85 25 132/77 100 Simple Mask 6 10/10/20 12:40 84 28 114/77 100 Simple Mask 6 10/10/20 12:37 84 18 99 10/10/20 12:36 85 16 100 10/10/20 12:35 97.1 85 30 118/80 100 Simple Mask 6 Intake and Output 10/10/20 10/11/20 19:00 07:00 Intake Total 700 ml 300 ml Output Total 775 ml 800 ml Balance -75 ml -500 ml Intake Oral 450 ml 300 ml IV Total 250 ml Output Urine Total 750 ml 800 ml Estimated Blood Loss 25 ml # Voids 3 4 Laboratory Tests 10/11/20 06:42: White Blood Count 7.4, Red Blood Count 4.60L, Hemoglobin 13.2L, Hematocrit 41.6L , Mean Corpuscular Volume 91, Mean Corpuscular Hemoglobin 28.7, Mean Corpuscular Hemoglobin Concent 31.7L, Red Cell Distribution Width 14.8, Platelet Count 176, Mean Platelet Volume 8.1, Neutrophils (%) (Auto) 75.3H, Lymphocytes (%) (Auto) 13.1L, Monocytes (%) (Auto) 10.0, Eosinophils (%) (Auto) 0.6, Basophils (%) (Auto) 1.1, Sodium Level 132L, Potassium Level 3.6, Chloride Level 100, Carbon Dioxide Level 26, Anion Gap 6, Blood Urea Nitrogen 22H, Creatinine 1.0, Estimat Glomerular Filtration Rate > 60, Glucose Level 126H, Uric Acid 4.9, Calcium Level 7.9L, Phosphorus Level 2.6, Magnesium Level 1.8, Total Bilirubin 1.1H, Direct Bilirubin 0.5H, Aspartate Amino Transf (AST/SGOT) 41H, Alanine Aminotransferase (ALT/SGPT) 44, Alkaline Phosphatase 107, C-Reactive Protein, Quantitative 14.4H, Pro-B-Type Natriuretic Peptide 7937H, Total Protein 6.5, Alb umin 2.4L, Globulin 4.1, Albumin/Globulin Ratio 0.6L Height (Feet): 5 Height (Inches): 9.00 Weight (Pounds): 246 General Appearance: lethargic EENT: normal ENT inspection Neck: normal alignment Cardiovascular: normal peripheral pulses, normal rate, regular rhythm Respiratory/Chest: chest wall non-tender, lungs clear, normal breath sounds Abdomen: normal bowel sounds, non tender, soft Extremities: normal inspection Edema: no edema noted Arm (L), no edema noted Arm (R), no edema noted Leg (L), no edema noted Leg (R), no edema noted Pedal (L), no edema noted Pedal (R), no edema noted Generalized Neurologic: motor weakness Skin: normal pigmentation, warm/dry Assessment/Plan Problem List: (1) HTN (hypertension) ICD Codes: I10 - Essential (primary) hypertension SNOMED: 61449808 (2) Malnutrition ICD Codes: E46 - Unspecified protein-calorie malnutrition SNOMED: 41514226 (3) Hyponatremia ICD Codes: E87.1 - Hypo-osmolality and hyponatremia SNOMED: 33251538 (4) ACS (acute coronary syndrome) ICD Codes: I24.9 - Acute ischemic heart disease, unspecified SNOMED: 073441847 (5) CHF (congestive heart failure) ICD Codes: I50.9 - Heart failure, unspecified SNOMED: 17734926 Qualifiers: Qualified Codes: I50.9 - Heart failure, unspecified (6) UTI (urinary tract infection) ICD Codes: N39.0 - Urinary tract infection, site not specified SNOMED: 12877108 Qualifiers: Qualified Codes: N39.0 - Urinary tract infection, site not specified Status: unchanged Assessment/Plan: pain control bp control abx cbc bmp am pacer per cardio Alex Gonzalez DO Oct 11, 2020 12:07
--- NOTE | 2020-10-11 13:06 | Cardiology Report ---
APPROVED REPORT EKG Measurement Heart [id number] <Conclusion> Normal sinus rhythm Cannot rule out Anterior infarct, age undetermined T wave abnormality, consider inferolateral ischemia Abnormal ECG
--- NOTE | 2020-10-11 13:45 | Nephrology Progress Note ---
Assessment/Plan Problem List: (1) DARVIN (acute kidney injury) (2) Cardiomyopathy (3) Hyponatremia (4) CHF (congestive heart failure) (5) Electrolyte imbalance (6) Cardiorenal syndrome (7) Obesity, morbid, BMI 40.0-49.9 Assessment 60-year-old male, creatinine 1.4, sodium 124, potassium 3.2 Patient has history of CHF Patient on IV Lasix and spironolactone by oxidized finish plater Patient has evidence of blood in the urine and history of kidney stone Final renal impression as per results of the urine, kidney ultrasound, etc. Plan October 11: Labs reviewed. Patient had defibrillator yesterday. Low sodium addressed. Continue to optimize cardiac status. Per orders. October 10: Labs reviewed. Abnormal electrolyte addressed. Patient due for placement of defibrillator. Continue per current management. October 09: Labs reviewed. Serum creatinine normal. Electrolytes within acceptable range except low potassium which was addressed. Continue per consultants. October 08: Labs reviewed. Serum creatinine 1.4. Serum sodium 136. Clinically stable. Continue per oxidized finish plater. October 07: Labs reviewed. Serum sodium lowering. On IV Lasix. 250 mL of saline 3% given. Continue to monitor electrolytes. Continue per cardiology. October 06: Labs reviewed. Serum sodium 133. Medication list reviewed. Continue to monitor renal parameters and electrolytes. October 05: Serum sodium up to 135. Hemoglobin A1c 6.6. Patient clinically stable. Continue per cardiology. Kidney ultrasound normal size kidneys and no hydronephrosis. 2D echocardiogram ejection fraction of 20 to 25%. Previously: 2D echocardiogram Kidney ultrasound 250 cc saline 3% once Monitor electrolytes Hyponatremia work-up Per orders Subjective ROS Limited/Unobtainable: No Constitutional: Reports: malaise Objective Objective Last 24 Hour Vital Signs Date Time Temp Pulse Resp B/P (MAP) Pulse Ox O2 Delivery O2 Flow Rate FiO2 10/11/20 12:00 93 10/11/20 12:00 97.3 96 20 117/74 (88) 99 10/11/20 09:00 Room Air 10/11/20 08:48 100 117/56 10/11/20 08:00 98 10/11/20 08:00 98.2 100 20 117/56 (76) 99 10/11/20 04:00 97.6 96 20 117/69 (85) 99 10/11/20 03:33 96 10/11/20 01:16 98.7 10/11/20 00:00 102 10/11/20 00:00 98.1 99 20 119/79 (92) 100 10/10/20 22:15 98.7 10/10/20 21:14 106 105/49 10/10/20 21:00 Room Air 10/10/20 20:00 63 10/10/20 20:00 97.5 106 20 105/49 (67) 98 10/10/20 16:45 98.7 97 20 114/65 (81) 98 10/10/20 16:00 95 10/10/20 16:00 98.1 92 22 122/77 (92) 98 10/10/20 15:15 97.9 95 22 126/85 (99) 99 10/10/20 14:42 98.0 93 24 131/87 (102) 98 10/10/20 14:27 97.9 88 24 127/85 (99) 98 10/10/20 14:10 97.2 85 20 133/79 99 Room Air 10/10/20 13:50 84 16 134/78 98 Room Air Intake and Output 10/10/20 10/11/20 19:00 07:00 Intake Total 700 ml 300 ml Output Total 775 ml 800 ml Balance -75 ml -500 ml Intake Oral 450 ml 300 ml IV Total 250 ml Output Urine Total 750 ml 800 ml Estimated Blood Loss 25 ml # Voids 3 4 Current Medications Medications (Trade) Dose Ordered Sig/Damián Route PRN Reason Start Time Stop Time Status Last Admin Dose Admin Acetaminophen (Tylenol) 650 mg Q6H PRN ORAL Temp >100.5 10/10/20 13:00 11/09/20 12:59 Acetaminophen (Tylenol) 650 mg Q6H PRN ORAL MILD pain 10/04/20 22:30 11/03/20 22:29 Acetaminophen/ Codeine Phosphate (Tylenol #3) 1 tab Q4H PRN ORAL Moderate Pain (Pain Scale 4-6) 10/10/20 13:00 10/17/20 12:59 Allopurinol (Zyloprim) 200 mg DAILY ORAL 10/07/20 10:45 11/06/20 10:44 10/11/20 08:49 Carvedilol (Coreg) 3.125 mg EVERY 12 HOURS ORAL 10/04/20 21:00 11/03/20 20:59 10/11/20 08:48 Cefazolin Sodium 1 gm/Dextrose 55 ml @ 110 mls/hr Q8HR IVP 10/10/20 22:00 10/17/20 21:59 10/11/20 13:26 Furosemide (Lasix) 40 mg EVERY 12 HOURS IV 10/04/20 21:00 11/03/20 20:59 10/11/20 08:49 Guaifenesin (Robitussin) 150 mg Q6H PRN ORAL For Cough 10/04/20 22:30 01/02/21 22:29 10/11/20 04:21 Morphine Sulfate (Morphine Sulfate) 2 mg Q1H PRN IVP Severe Pain (Pain Scale 7-10) 10/10/20 13:00 10/17/20 12:59 10/11/20 00:46 Ondansetron HCl (Zofran) 4 mg Q6H PRN IVP Nausea & Vomiting 10/10/20 13:00 11/09/20 12:59 Pantoprazole (Protonix) 40 mg EVERY 12 HOURS ORAL 10/06/20 21:00 11/05/20 20:59 10/11/20 08:48 Potassium Chloride (K-Dur) 20 meq TWICE A DAY ORAL 10/10/20 09:00 01/08/21 08:59 10/11/20 08:49 Sacubitril/ Valsartan (Entresto 49mg/ 51mg) 1 tab Q12HR ORAL 10/06/20 21:00 01/04/21 20:59 10/11/20 08:49 Sodium Chloride 250 ml @ 30 mls/hr ONCE ONCE IV 10/11/20 10:30 10/11/20 18:49 10/11/20 10:06 Spironolactone (Aldactone) 25 mg DAILY ORAL 10/05/20 09:00 11/04/20 08:59 10/11/20 08:49 Laboratory Tests 10/11/20 06:42: White Blood Count 7.4, Red Blood Count 4.60L, Hemoglobin 13.2L, Hematocrit 41.6L , Mean Corpuscular Volume 91, Mean Corpuscular Hemoglobin 28.7, Mean Corpuscular Hemoglobin Concent 31.7L, Red Cell Distribution Width 14.8, Platelet Count 176, Mean Platelet Volume 8.1, Neutrophils (%) (Auto) 75.3H, Lymphocytes (%) (Auto) 13.1L, Monocytes (%) (Auto) 10.0, Eosinophils (%) (Auto) 0.6, Basophils (%) (Auto) 1.1, Sodium Level 132L, Potassium Level 3.6, Chloride Level 100, Carbon Dioxide Level 26, Anion Gap 6, Blood Urea Nitrogen 22H, Creatinine 1.0, Estimat Glomerular Filtration Rate > 60, Glucose Level 126H, Uric Acid 4.9, Calcium Level 7.9L, Phosphorus Level 2.6, Magnesium Level 1.8, Total Bilirubin 1.1H, Direct Bilirubin 0.5H, Aspartate Amino Transf (AST/SGOT) 41H, Alanine Aminotransferase (ALT/SGPT) 44, Alkaline Phosphatase 107, C-Reactive Protein, Quantitative 14.4H, Pro-B-Type Natriuretic Peptide 7937H, Total Protein 6.5, Albumin 2.4L, Globulin 4.1, Albumin/Globulin Ratio 0.6L Height (Feet): 5 Height (Inches): 9.00 Weight (Pounds): 246 General Appearance: no apparent distress Cardiovascular: tachycardia Respiratory/Chest: decreased breath sounds Abdomen: distended Hari Telles MD Oct 11, 2020 13:45
[2020-10-11 16:00] VITALS: BP 105/58
--- NOTE | 2020-10-11 16:13 | NUR ---
CASE MANAGEMENT:REVIEW 10/11/20 SI: CHF W/EF 20% POD #1 S/P ICD PLACEMENT 97.3 96 20 117/74 99% ON RA H/H-13.2/41.6 NA-132 BUN+22 IS: IV ANCEF Q8HRS IVF 250 NS@30/HR K-DUR PO BID ENTRESTO PO Q12 ALDACTONE PO QD IV LASIX Q12 COREG PO Q12 : TELEMETRY STATUS DCP: FROM HOME PLAN: ICD INTERROGATION NEED CARDIAC CLEARANCE FOR DISCHARGE
--- NOTE | 2020-10-11 16:20 | NUR ---
AWAITING CARDIAC CLEARANCE FOR DISCHARGE
--- NOTE | 2020-10-11 19:09 | NUR ---
NURSE HAND-OFF REPORT: Important Events on Shift:[s/p icd placement, pacemaker check today, safety and comfort, monitoring VS and labs, IV fluids] Patient Status: [stable] Diet: [regular] Pending Orders: [] Pending Results/Labs:[] Pending MD notification:[] Latest Vital Signs: Temperature 97.9 , Pulse 96 , B/P 105 /58 , Respiratory Rate 20 , O2 SAT 100 , Room Air, O2 Flow Rate 6 . Vital Sign Comment: [] EKG Rhythm: Sinus Rhythm Rhythm change?: N Notified?: Mere Melgar MD Response: Latest Mccabe Fall Score: 20 Fall Risk: Low Risk Safety Measures: Call light Within Reach, Bed Alarm , Side Rails Side Rails x2, Bed position Low and Locked. Fall Precautions: Patient Fall Education Report given to [JILLIAN Bonds].
--- NOTE | 2020-10-11 19:10 | NUR ---
NURSE NOTES: Received report from JILLIAN Mendez; AOX4; noted sitting comfortable in bed; room air, in no acute distress; denies any pain nor discomfort; COVID negative; s/p AICD placement on L chest; well-approximated, dry, open to air; ambulatory but unsteady so encouraged to call for assistance when getting OOB; peripheral IV site on R forearm 22 gauge intact and patent saline locked; urinal noted at bedside; offered oral care d/t c/o sore on R lateral tongue; call light within reach; bed locked and in low position; side rails x2; will continue to monitor
[2020-10-11 20:00] VITALS: BP 102/54
--- NOTE | 2020-10-11 20:52 | Surgery Progress Note ---
Surgery Progress Note Subjective Symptoms: improved, tolerating diet, passing flatus, BM Objective Last 24 Hour Vital Signs Date Time Temp Pulse Resp B/P (MAP) Pulse Ox O2 Delivery O2 Flow Rate FiO2 10/11/20 20:33 101 102/54 10/11/20 16:00 96 10/11/20 16:00 97.9 92 20 105/58 (74) 100 10/11/20 12:00 93 10/11/20 12:00 97.3 96 20 117/74 (88) 99 10/11/20 09:00 Room Air 10/11/20 08:48 100 117/56 10/11/20 08:00 98 10/11/20 08:00 98.2 100 20 117/56 (76) 99 10/11/20 04:00 97.6 96 20 117/69 (85) 99 10/11/20 03:33 96 10/11/20 01:16 98.7 10/11/20 00:00 102 10/11/20 00:00 98.1 99 20 119/79 (92) 100 10/10/20 22:15 98.7 10/10/20 21:14 106 105/49 10/10/20 21:00 Room Air I&O Intake and Output 10/10/20 10/11/20 19:00 07:00 Intake Total 700 ml 300 ml Output Total 775 ml 800 ml Balance -75 ml -500 ml Intake Oral 450 ml 300 ml IV Total 250 ml Output Urine Total 750 ml 800 ml Estimated Blood Loss 25 ml # Voids 3 4 Dressing: saturated Cardiovascular: RSR Respiratory: decreased breath sounds Abdomen: non-tender, present bowel sounds, non-distended Extremities: no tenderness, no cyanosis Laboratory Tests Test 10/11/20 06:42 White Blood Count 7.4 K/UL (4.8-10.8) Red Blood Count 4.60 M/UL (4.70-6.10) L Hemoglobin 13.2 G/DL (14.2-18.0) L Hematocrit 41.6 % (42.0-52.0) L Mean Corpuscular Volume 91 FL (80-99) Mean Corpuscular Hemoglobin 28.7 PG (27.0-31.0) Mean Corpuscular Hemoglobin Concent 31.7 G/DL (32.0-36.0) L Red Cell Distribution Width 14.8 % (11.6-14.8) Platelet Count 176 K/UL (150-450) Mean Platelet Volume 8.1 FL (6.5-10.1) Neutrophils (%) (Auto) 75.3 % (45.0-75.0) H Lymphocytes (%) (Auto) 13.1 % (20.0-45.0) L Monocytes (%) (Auto) 10.0 % (1.0-10.0) Eosinophils (%) (Auto) 0.6 % (0.0-3.0) Basophils (%) (Auto) 1.1 % (0.0-2.0) Sodium Level 132 MMOL/L (136-145) L Potassium Level 3.6 MMOL/L (3.5-5.1) Chloride Level 100 MMOL/L (98-107) Carbon Dioxide Level 26 MMOL/L (21-32) Anion Gap 6 mmol/L (5-15) Blood Urea Nitrogen 22 mg/dL (7-18) H Creatinine 1.0 MG/DL (0.55-1.30) Estimat Glomerular Filtration Rate > 60 mL/min (>60) Glucose Level 126 MG/DL (74-106) H Uric Acid 4.9 MG/DL (2.6-7.2) Calcium Level 7.9 MG/DL (8.5-10.1) L Phosphorus Level 2.6 MG/DL (2.5-4.9) Magnesium Level 1.8 MG/DL (1.8-2.4) Total Bilirubin 1.1 MG/DL (0.2-1.0) H Direct Bilirubin 0.5 MG/DL (0.0-0.3) H Aspartate Amino Transf (AST/SGOT) 41 U/L (15-37) H Alanine Aminotransferase (ALT/SGPT) 44 U/L (12-78) Alkaline Phosphatase 107 U/L (46-116) C-Reactive Protein, Quantitative 14.4 mg/dL (0.00-0.90) H Pro-B-Type Natriuretic Peptide 7937 pg/mL (0-125) H Total Protein 6.5 G/DL (6.4-8.2) Albumin 2.4 G/DL (3.4-5.0) L Globulin 4.1 g/dL Albumin/Globulin Ratio 0.6 (1.0-2.7) L Plan Problems: (1) UTI (urinary tract infection) (2) ACS (acute coronary syndrome) (3) CHF (congestive heart failure) (4) Hyponatremia (5) Malnutrition (6) HTN (hypertension) (7) Cardiomyopathy (8) Electrolyte imbalance (9) Renal colic (10) Diverticulosis (11) Abdominal pain Assessment & Plan: epigastric abd pain elevated t bili afebrile HD stable pain improving US abd ordered trend labs okay for diet will follow with recs covid neg lft's bili elevated sona/lip okay no active bleeding inr elevated pending imaging Gallbladder is unremarkable, without stones, wall thickening, nor pericholecystic fluid. Sonographic Kasper's sign is negative. Common bile duct measures 5 mm in diameter. No intrahepatic biliary ductal dilatation. Liver demonstrates normal echogenicity, no focal abnormality. To-and-fro flow is seen within the main portal vein Pancreas is incompletely visualized due to overlying bowel gas, visualized portions are unremarkable. Spleen demonstrates a small cyst. Left kidney measures 11.5 cm in length. Right kidney measures 11.3 cm length. Both kidneys demonstrate normal echogenicity. There is no hydronephrosis. . Kidneys demonstrate small cysts and small echogenic foci. Unremarkable inferior vena cava.. Non-aneurysmal abdominal aorta . Impression: To-and-fro flow within the main portal vein, could indicate portal hypertension Negative for gallstones or dilated bile ducts Echogenic foci within the kidneys, suspected artifactual as no calculi are demonstrated on recent CT scan Incidental finding of splenic and small bilateral renal cysts likely liver dysfunction portal htn cont medical management Can Gomez Oct 11, 2020 20:51
[2020-10-12] VITALS: BP 119/69
[2020-10-12 04:00] VITALS: BP 109/70
[2020-10-12] MEDS: ceFAZolin sod 1 GM in D5W 55 ML IVP SCH ×2 (05:16→14:23)
--- NOTE | 2020-10-12 06:45 | Hematology/Onc Progress Note ---
Assessment/Plan Assessment/Plan Assessment and Recs # Hematesis with gi bleed noted, with stable h/h --> trend h/h currently stable --> consider ppi --> as per gi care-->reviewed egd # Hematuria --> currently improved --> get coags --> uro eval prn # CHF (congestive heart failure) --> duresis per cards # UTI (urinary tract infection) --> on abx as per id # Cardiomegaly # Dvt ppx scds Time of note does not necessarily correspond to time patient was seen. Appreciate consultation greatly. Subjective HEENT: Denies: no symptoms, eye pain, blurred vision, tearing, double vision, ear pain, ear discharge, nose pain, nose congestion, throat pain, throat swelling, mouth pain, mouth swelling, other Cardiovascular: Denies: no symptoms, chest pain, edema, irregular heart rate, lightheadedness, palpitations, syncope, other Respiratory: Denies: no symptoms, cough, shortness of breath, SOB with excertion, SOB at rest, sputum, wheezing, other Neurologic/Psychiatric: Denies: no symptoms, anxiety, depressed, emotional problems, headache, numbness, paresthesia, pre-existing deficit, seizure, tingling, tremors, weakness, other Endocrine: Denies: no symptoms, excessive sweating, flushing, intolerance to cold, intolerance to heat, increased hunger, increased thirst, increased urine, unexplained weight gain, unexplained weight loss, other Allergies: Coded Allergies: No Known Allergies (Unverified , 04/20/16) Subjective 10/09 labs reviewed, meds noted, no bleeding, rosario rn 10/10 labs noted, no bleeding, meds reviewed, no new events 10/[address] with icd, no new events overnight 10/12 labs reviewed, meds noted, covid neg, rosario rn Objective Objective Current Medications Medications (Trade) Dose Ordered Sig/Damián Route PRN Reason Start Time Stop Time Status Last Admin Dose Admin Acetaminophen (Tylenol) 650 mg Q6H PRN ORAL Temp >100.5 10/10/20 13:00 11/09/20 12:59 10/11/20 20:35 Acetaminophen (Tylenol) 650 mg Q6H PRN ORAL MILD pain 10/04/20 22:30 11/03/20 22:29 Acetaminophen/ Codeine Phosphate (Tylenol #3) 1 tab Q4H PRN ORAL Moderate Pain (Pain Scale 4-6) 10/10/20 13:00 10/17/20 12:59 Allopurinol (Zyloprim) 200 mg DAILY ORAL 10/07/20 10:45 11/06/20 10:44 10/11/20 08:49 Carvedilol (Coreg) 3.125 mg EVERY 12 HOURS ORAL 10/04/20 21:00 11/03/20 20:59 10/11/20 08:48 Cefazolin Sodium 1 gm/Dextrose 55 ml @ 110 mls/hr Q8HR IVP 10/10/20 22:00 10/17/20 21:59 10/12/20 05:16 Furosemide (Lasix) 40 mg EVERY 12 HOURS IV 10/04/20 21:00 11/03/20 20:59 10/11/20 08:49 Guaifenesin (Robitussin) 150 mg Q6H PRN ORAL For Cough 10/04/20 22:30 01/02/21 22:29 10/11/20 04:21 Morphine Sulfate (Morphine Sulfate) 2 mg Q1H PRN IVP Severe Pain (Pain Scale 7-10) 10/10/20 13:00 10/17/20 12:59 10/11/20 00:46 Ondansetron HCl (Zofran) 4 mg Q6H PRN IVP Nausea & Vomiting 10/10/20 13:00 11/09/20 12:59 Pantoprazole (Protonix) 40 mg EVERY 12 HOURS ORAL 10/06/20 21:00 11/05/20 20:59 10/11/20 20:35 Potassium Chloride (K-Dur) 20 meq TWICE A DAY ORAL 10/10/20 09:00 01/08/21 08:59 10/11/20 17:14 Sacubitril/ Valsartan (Entresto 49mg/ 51mg) 1 tab Q12HR ORAL 10/06/20 21:00 01/04/21 20:59 10/11/20 08:49 Spironolactone (Aldactone) 25 mg DAILY ORAL 10/05/20 09:00 11/04/20 08:59 10/11/20 08:49 Last 24 Hour Vital Signs Date Time Temp Pulse Resp B/P (MAP) Pulse Ox O2 Delivery O2 Flow Rate FiO2 10/12/20 04:00 98 10/12/20 04:00 99.0 98 16 109/70 (83) 100 10/12/20 00:00 96 10/12/20 00:00 98.8 97 16 119/69 (86) 98 10/11/20 21:05 99.0 10/11/20 21:00 Room Air 10/11/20 20:33 101 102/54 10/11/20 20:00 103 10/11/20 20:00 101.3 101 18 102/54 (70) 97 10/11/20 16:00 96 10/11/20 16:00 97.9 92 20 105/58 (74) 100 10/11/20 12:00 93 10/11/20 12:00 97.3 96 20 117/74 (88) 99 10/11/20 09:00 Room Air 10/11/20 08:48 100 117/56 10/11/20 08:00 98 10/11/20 08:00 98.2 100 20 117/56 (76) 99 10/11/20 04:00 97.6 96 20 117/69 (85) 99 10/11/20 03:33 96 10/11/20 01:16 98.7 10/11/20 00:00 102 10/11/20 00:00 98.1 99 20 119/79 (92) 100 10/10/20 22:15 98.7 10/10/20 21:14 106 105/49 10/10/20 21:00 Room Air 10/10/20 20:00 63 10/10/20 20:00 97.5 106 20 105/49 (67) 98 10/10/20 16:45 98.7 97 20 114/65 (81) 98 10/10/20 16:00 95 10/10/20 16:00 98.1 92 22 122/77 (92) 98 10/10/20 15:15 97.9 95 22 126/85 (99) 99 10/10/20 14:42 98.0 93 24 131/87 (102) 98 10/10/20 14:27 97.9 88 24 127/85 (99) 98 10/10/20 14:10 97.2 85 20 133/79 99 Room Air 10/10/20 13:50 84 16 134/78 98 Room Air 10/10/20 13:35 85 15 127/81 98 Room Air 10/10/20 13:20 84 15 121/74 100 Room Air 10/10/20 13:05 83 23 136/75 100 Room Air 10/10/20 12:55 82 24 116/78 100 Simple Mask 6 10/10/20 12:45 85 25 132/77 100 Simple Mask 6 10/10/20 12:40 84 28 114/77 100 Simple Mask 6 10/10/20 12:37 84 18 99 10/10/20 12:36 85 16 100 10/10/20 12:35 97.1 85 30 118/80 100 Simple Mask 6 10/10/20 09:56 96 127/87 10/10/20 09:00 Room Air 10/10/20 08:00 96 Intake and Output 10/11/20 10/12/20 19:00 07:00 Intake Total 890 ml Output Total 600 ml 600 ml Balance 290 ml -600 ml Intake Oral 890 ml Output Urine Total 600 ml 600 ml # Voids 3 # Bowel Movements 1 Labs Test 10/09/20 07:27 10/10/20 08:18 10/11/20 06:42 White Blood Count 7.2 K/UL (4.8-10.8) 7.0 K/UL (4.8-10.8) 7.4 K/UL (4.8-10.8) Red Blood Count 5.19 M/UL (4.70-6.10) 4.79 M/UL (4.70-6.10) 4.60 M/UL (4.70-6.10) Hemoglobin 14.9 G/DL (14.2-18.0) 13.7 G/DL (14.2-18.0) 13.2 G/DL (14.2-18.0) Hematocrit 47.4 % (42.0-52.0) 41.3 % (42.0-52.0) 41.6 % (42.0-52.0) Mean Corpuscular Volume 91 FL (80-99) 86 FL (80-99) 91 FL (80-99) Mean Corpuscular Hemoglobin 28.7 PG (27.0-31.0) 28.7 PG (27.0-31.0) 28.7 PG (27.0-31.0) Mean Corpuscular Hemoglobin Concent 31.5 G/DL (32.0-36.0) 33.3 G/DL (32.0-36.0) 31.7 G/DL (32.0-36.0) Red Cell Distribution Width 14.8 % (11.6-14.8) 15.8 % (11.6-14.8) 14.8 % (11.6-14.8) Platelet Count 175 K/UL (150-450) 175 K/UL (150-450) 176 K/UL (150-450) Mean Platelet Volume 9.6 FL (6.5-10.1) 8.5 FL (6.5-10.1) 8.1 FL (6.5-10.1) Neutrophils (%) (Auto) 69.9 % (45.0-75.0) 68.2 % (45.0-75.0) 75.3 % (45.0-75.0) Lymphocytes (%) (Auto) 18.5 % (20.0-45.0) 18.6 % (20.0-45.0) 13.1 % (20.0-45.0) Monocytes (%) (Auto) 9.5 % (1.0-10.0) 11.4 % (1.0-10.0) 10.0 % (1.0-10.0) Eosinophils (%) (Auto) 1.3 % (0.0-3.0) 0.9 % (0.0-3.0) 0.6 % (0.0-3.0) Basophils (%) (Auto) 0.8 % (0.0-2.0) 1.0 % (0.0-2.0) 1.1 % (0.0-2.0) Prothrombin Time 15.2 SEC (9.30-11.50) Prothromb Time International Ratio 1.4 (0.9-1.1) Activated Partial Thromboplast Time 28 SEC (23-33) Sodium Level 137 MMOL/L (136-145) 139 MMOL/L (136-145) 132 MMOL/L (136-145) Potassium Level 3.3 MMOL/L (3.5-5.1) 3.2 MMOL/L (3.5-5.1) 3.6 MMOL/L (3.5-5.1) Chloride Level 100 MMOL/L (98-107) 103 MMOL/L (98-107) 100 MMOL/L (98-107) Carbon Dioxide Level 32 MMOL/L (21-32) 29 MMOL/L (21-32) 26 MMOL/L (21-32) Anion Gap 5 mmol/L (5-15) 7 mmol/L (5-15) 6 mmol/L (5-15) Blood Urea Nitrogen 25 mg/dL (7-18) 18 mg/dL (7-18) 22 mg/dL (7-18) Creatinine 1.2 MG/DL (0.55-1.30) 1.1 MG/DL (0.55-1.30) 1.0 MG/DL (0.55-1.30) Estimat Glomerular Filtration Rate > 60 mL/min (>60) > 60 mL/min (>60) > 60 mL/min (>60) Glucose Level 112 MG/DL (74-106) 106 MG/DL (74-106) 126 MG/DL (74-106) Calcium Level 8.4 MG/DL (8.5-10.1) 7.8 MG/DL (8.5-10.1) 7.9 MG/DL (8.5-10.1) Total Bilirubin 1.2 MG/DL (0.2-1.0) 1.1 MG/DL (0.2-1.0) 1.1 MG/DL (0.2-1.0) Direct Bilirubin 0.5 MG/DL (0.0-0.3) 0.5 MG/DL (0.0-0.3) 0.5 MG/DL (0.0-0.3) Aspartate Amino Transf (AST/SGOT) 35 U/L (15-37) 37 U/L (15-37) 41 U/L (15-37) Alanine Aminotransferase (ALT/SGPT) 49 U/L (12-78) 45 U/L (12-78) 44 U/L (12-78) Alkaline Phosphatase 117 U/L (46-116) 103 U/L (46-116) 107 U/L (46-116) Total Protein 6.7 G/DL (6.4-8.2) 6.4 G/DL (6.4-8.2) 6.5 G/DL (6.4-8.2) Albumin 2.4 G/DL (3.4-5.0) 2.3 G/DL (3.4-5.0) 2.4 G/DL (3.4-5.0) Globulin 4.3 g/dL 4.1 g/dL 4.1 g/dL Albumin/Globulin Ratio 0.6 (1.0-2.7) 0.6 (1.0-2.7) 0.6 (1.0-2.7) Hepatitis A IgM Antibody Negative (Negative) Hepatitis B Surface Antigen Negative (Negative) Hepatitis B Core IgM Antibody Negative (Negative) Hepatitis C Antibody <0.1 s/co ratio Uric Acid 5.3 MG/DL (2.6-7.2) 4.9 MG/DL (2.6-7.2) Phosphorus Level 2.3 MG/DL (2.5-4.9) 2.6 MG/DL (2.5-4.9) Magnesium Level 2.0 MG/DL (1.8-2.4) 1.8 MG/DL (1.8-2.4) C-Reactive Protein, Quantitative 14.4 mg/dL (0.00-0.90) Pro-B-Type Natriuretic Peptide 7937 pg/mL (0-125) Height (Feet): 5 Height (Inches): 9.00 Weight (Pounds): 246 Objective Physical Exam General Appearance: NAD HEENT: normocephalic, atraumatic Neck: non-tender, normal alignment Respiratory/Chest: nromal breath sounds bilaterally Cardiovascular/Chest: normal peripheral pulses, normal rate Abdomen: normal bowel sounds, soft, nontender Extremities: normal range of motion Vikas Pennington MD Oct 12, 2020 06:45
--- NOTE | 2020-10-12 07:00 | NUR ---
NURSE HAND-OFF REPORT: Important Events on Shift: n/a Patient Status: AOX4, stable Diet: regular, thin liquids Pending Orders: needs cardiac clearance from Dr. Garcia to be discharged home Pending Results/Labs: AM labs Pending MD notification: N Latest Vital Signs: Temperature 99.0 , Pulse 98 , B/P 109 /70 , Respiratory Rate 16 , O2 SAT 100 , Room Air, O2 Flow Rate 6 . Vital Sign Comment: within baseline EKG Rhythm: Sinus Rhythm Rhythm change?: N Notified?: N Response: Latest Mccabe Fall Score: 20 Fall Risk: Low Risk Safety Measures: Call light Within Reach, Bed Alarm , Side Rails Side Rails x2, Bed position Low and Locked. Fall Precautions: Yellow Socks Yellow Gown Patient Fall Education Report given to bisi Marshall.
[2020-10-12 07:45] LABS: BASOPHILS % (AUTO) 1.3 % (0.0-2.0); EOSINOPHILS % (AUTO) 1.3 % (0.0-3.0); HEMATOCRIT 42.8 % (42.0-52.0); HEMOGLOBIN 13.5 G/DL (14.2-18.0); LYMPHOCYTES % (AUTO) 14.5 % (20.0-45.0); MEAN CORPUSCULAR VOLUME 87 FL (80-99); NEUTROPHILS % (AUTO) 67.9 % (45.0-75.0); PLATELET COUNT 194 K/UL (150-450); RED BLOOD COUNT 4.94 M/UL (4.70-6.10); RED CELL DISTRIBUTION WIDTH 14.5 % (11.6-14.8); WHITE BLOOD COUNT 5.6 K/UL (4.8-10.8)
[2020-10-12 07:46] LABS: ALANINE AMINOTRANSFERASE 30 U/L (12-78); ALBUMIN 2.4 G/DL (3.4-5.0); ALBUMIN/GLOBULIN RATIO 0.6 (1.0-2.7); ALKALINE PHOSPHATASE 102 U/L (46-116); ANION GAP 7 mmol/L (5-15); ASPARTATE AMINO TRANSFERASE 38 U/L (15-37); BILIRUBIN,TOTAL 0.9 MG/DL (0.2-1.0); BLOOD UREA NITROGEN 15 mg/dL (7-18); CALCIUM 8.6 MG/DL (8.5-10.1); CARBON DIOXIDE 26 MMOL/L (21-32); CHLORIDE 102 MMOL/L (98-107); POTASSIUM 3.8 MMOL/L (3.5-5.1); SODIUM 135 MMOL/L (136-145)
[2020-10-12 07:53] LABS: PHOSPHORUS 2.4 MG/DL (2.5-4.9)
[2020-10-12 08:00] VITALS: BP 115/73
--- NOTE | 2020-10-12 08:04 | NUR ---
NURSE NOTES: Received report from JILLIAN Munson. Patient observed to be awake, alert, and oriented x4. Seen lying in bed with HOB elevated, currently on room air. No s/sx of SOB/Distress, no c/o any pain or discomfort. Patient with IV site located on right hand gauge 22 asymptomatic, inplace and intact. Bed placed within reach and will continue to monitor for any changes in patient's conditon.
[2020-10-12] MEDS: Spironolactone 25mg tab ORAL SCH (08:27)
[2020-10-12] MEDS: Allopurinol 100mg Tab ORAL SCH (08:27)
--- NOTE | 2020-10-12 08:50 | General Progress Note ---
Subjective ROS Limited/Unobtainable: No Allergies: Coded Allergies: No Known Allergies (Unverified , 04/20/16) Objective Last 24 Hour Vital Signs Date Time Temp Pulse Resp B/P (MAP) Pulse Ox O2 Delivery O2 Flow Rate FiO2 10/12/20 08:26 117 115/73 10/12/20 04:00 98 10/12/20 04:00 99.0 98 16 109/70 (83) 100 10/12/20 00:00 96 10/12/20 00:00 98.8 97 16 119/69 (86) 98 10/11/20 21:05 99.0 10/11/20 21:00 Room Air 10/11/20 20:33 101 102/54 10/11/20 20:00 103 10/11/20 20:00 101.3 101 18 102/54 (70) 97 10/11/20 16:00 96 10/11/20 16:00 97.9 92 20 105/58 (74) 100 10/11/20 12:00 93 10/11/20 12:00 97.3 96 20 117/74 (88) 99 10/11/20 09:00 Room Air Intake and Output 10/11/20 10/12/20 19:00 07:00 Intake Total 890 ml Output Total 600 ml 600 ml Balance 290 ml -600 ml Intake Oral 890 ml Output Urine Total 600 ml 600 ml # Voids 3 # Bowel Movements 1 Laboratory Tests 10/12/20 06:53: White Blood Count 5.6, Red Blood Count 4.94, Hemoglobin 13.5L, Hematocrit 42.8, Mean Corpuscular Volume 87, Mean Corpuscular Hemoglobin 27.4, Mean Corpuscular Hemoglobin Concent 31.6L, Red Cell Distribution Width 14.5, Platelet Count 194, Mean Platelet Volume 8.3, Neutrophils (%) (Auto) 67.9, Lymphocytes (%) (Auto) 14.5L, Monocytes (%) (Auto) 15.0H, Eosinophils (%) (Auto) 1.3, Basophils (%) (Auto) 1.3, Sodium Level 135L, Potassium Level 3.8, Chloride Level 102, Carbon Dioxide Level 26, Anion Gap 7, Blood Urea Nitrogen 15, Creatinine 1.0, Estimat Glomerular Filtration Rate > 60, Glucose Level 109H, Uric Acid 3.8, Calcium Level 8.6, Phosphorus Level 2.4L, Magnesium Level 1.6L, Total Bilirubin 0.9, Aspartate Amino Transf (AST/SGOT) 38H, Alanine Aminotransferase (ALT/SGPT) 30, Alkaline Phosphatase 102, Total Protein 6.4, Albumin 2.4L, Globulin 4.0, Albumin/Globulin Ratio 0.6L Height (Feet): 5 Height (Inches): 9.00 Weight (Pounds): 246 General Appearance: no apparent distress EENT: normal ENT inspection Neck: supple Cardiovascular: normal rate Respiratory/Chest: decreased breath sounds Abdomen: normal bowel sounds, non tender, soft Extremities: non-tender Assessment/Plan Problem List: (1) Diverticulosis ICD Codes: K57.90 - Diverticulosis of intestine, part unspecified, without perforation or abscess without bleeding SNOMED: 559065235 (2) HTN (hypertension) ICD Codes: I10 - Essential (primary) hypertension SNOMED: 94380807 (3) UTI (urinary tract infection) ICD Codes: N39.0 - Urinary tract infection, site not specified SNOMED: 58586760 Qualifiers: Qualified Codes: N39.0 - Urinary tract infection, site not specified (4) Abdominal pain ICD Codes: R10.9 - Unspecified abdominal pain SNOMED: 87822237 (5) Cardiomyopathy ICD Codes: I42.9 - Cardiomyopathy, unspecified SNOMED: 30391834 Status: unchanged Assessment/Plan: elevated LFTS>>> improving abd us reviewed hematemesis>>> s/p EGD ppi cardiology in put appreciated s/p AICD placement fu path fu urology Seth Blunt MD Oct 12, 2020 08:50
--- NOTE | 2020-10-12 09:17 | General Progress Note ---
Subjective Constitutional: Reports: weakness Allergies: Coded Allergies: No Known Allergies (Unverified , 04/20/16) All Systems: reviewed and negative except above Subjective calm in bed Objective Last 24 Hour Vital Signs Date Time Temp Pulse Resp B/P (MAP) Pulse Ox O2 Delivery O2 Flow Rate FiO2 10/12/20 08:26 117 115/73 10/12/20 08:00 107 10/12/20 04:00 98 10/12/20 04:00 99.0 98 16 109/70 (83) 100 10/12/20 00:00 96 10/12/20 00:00 98.8 97 16 119/69 (86) 98 10/11/20 21:05 99.0 10/11/20 21:00 Room Air 10/11/20 20:33 101 102/54 10/11/20 20:00 103 10/11/20 20:00 101.3 101 18 102/54 (70) 97 10/11/20 16:00 96 10/11/20 16:00 97.9 92 20 105/58 (74) 100 10/11/20 12:00 93 10/11/20 12:00 97.3 96 20 117/74 (88) 99 Intake and Output 10/11/20 10/12/20 19:00 07:00 Intake Total 890 ml Output Total 600 ml 600 ml Balance 290 ml -600 ml Intake Oral 890 ml Output Urine Total 600 ml 600 ml # Voids 3 # Bowel Movements 1 Laboratory Tests 10/12/20 06:53: White Blood Count 5.6, Red Blood Count 4.94, Hemoglobin 13.5L, Hematocrit 42.8, Mean Corpuscular Volume 87, Mean Corpuscular Hemoglobin 27.4, Mean Corpuscular Hemoglobin Concent 31.6L, Red Cell Distribution Width 14.5, Platelet Count 194, Mean Platelet Volume 8.3, Neutrophils (%) (Auto) 67.9, Lymphocytes (%) (Auto) 14.5L, Monocytes (%) (Auto) 15.0H, Eosinophils (%) (Auto) 1.3, Basophils (%) (Auto) 1.3, Sodium Level 135L, Potassium Level 3.8, Chloride Level 102, Carbon Dioxide Level 26, Anion Gap 7, Blood Urea Nitrogen 15, Creatinine 1.0, Estimat Glomerular Filtration Rate > 60, Glucose Level 109H, Uric Acid 3.8, Calcium Level 8.6, Phosphorus Level 2.4L, Magnesium Level 1.6L, Total Bilirubin 0.9, Aspartate Amino Transf (AST/SGOT) 38H, Alanine Aminotransferase (ALT/SGPT) 30, Alkaline Phosphatase 102, Total Protein 6.4, Albumin 2.4L, Globulin 4.0, Albumin/Globulin Ratio 0.6L Height (Feet): 5 Height (Inches): 9.00 Weight (Pounds): 246 General Appearance: lethargic EENT: normal ENT inspection Neck: normal alignment Cardiovascular: normal peripheral pulses, normal rate, regular rhythm Respiratory/Chest: chest wall non-tender, lungs clear, normal breath sounds Abdomen: normal bowel sounds, non tender, soft Extremities: normal inspection Edema: no edema noted Arm (L), no edema noted Arm (R), no edema noted Leg (L), no edema noted Leg (R), no edema noted Pedal (L), no edema noted Pedal (R), no edema noted Generalized Neurologic: motor weakness Skin: normal pigmentation, warm/dry Assessment/Plan Problem List: (1) HTN (hypertension) ICD Codes: I10 - Essential (primary) hypertension SNOMED: 59204180 (2) Malnutrition ICD Codes: E46 - Unspecified protein-calorie malnutrition SNOMED: 93847711 (3) Hyponatremia ICD Codes: E87.1 - Hypo-osmolality and hyponatremia SNOMED: 67320415 (4) ACS (acute coronary syndrome) ICD Codes: I24.9 - Acute ischemic heart disease, unspecified SNOMED: 801430959 (5) CHF (congestive heart failure) ICD Codes: I50.9 - Heart failure, unspecified SNOMED: 03505883 Qualifiers: Qualified Codes: I50.9 - Heart failure, unspecified (6) UTI (urinary tract infection) ICD Codes: N39.0 - Urinary tract infection, site not specified SNOMED: 25153625 Qualifiers: Qualified Codes: N39.0 - Urinary tract infection, site not specified Status: unchanged Assessment/Plan: pain control bp control abx cbc bmp am pacer per cardio Alex Gonzalez DO Oct 12, 2020 09:17
--- NOTE | 2020-10-12 10:01 | Cardiac Electrophysiology PN ---
Assessment/Plan Assessment/Plan 1. Exacerbation of CHF with EF 20%. Says had CHF for more than a year. Already had cardiac cath at [facility] a year ago BNP is more than 4700. On Lasix 40 mg IV b.i.d. Coreg, Entresto 49/51, and Aldactone. Change Lasix to 40 po daily Got authorization from insurance company for ICD S/P VVI [employer] ICD implant 10/10/2020 that was interrogated and showed Nl Fx. No hematoma and no Ptx on CXR 2. Hypertension. Continue current heart failure therapy. 3. Frothy cough, due to CHF. Covid negative. 4. Benign prostatic hypertrophy. 5. Urinary tract infection. DW RN OK to DC Subjective Subjective Ruled out for Covid. Off isolation on RA. Echo showed EF 20%. Had 10 beats of VT again 10/08/19 EGD showed gastritis. S/P [employer] VVI ICD implant on 10/10/20 that was interrogated and showed Nl Fx Objective Last 24 Hour Vital Signs Date Time Temp Pulse Resp B/P (MAP) Pulse Ox O2 Delivery O2 Flow Rate FiO2 10/12/20 08:26 117 115/73 10/12/20 08:00 107 10/12/20 04:00 98 10/12/20 04:00 99.0 98 16 109/70 (83) 100 10/12/20 00:00 96 10/12/20 00:00 98.8 97 16 119/69 (86) 98 10/11/20 21:05 99.0 10/11/20 21:00 Room Air 10/11/20 20:33 101 102/54 10/11/20 20:00 103 10/11/20 20:00 101.3 101 18 102/54 (70) 97 10/11/20 16:00 96 10/11/20 16:00 97.9 92 20 105/58 (74) 100 10/11/20 12:00 93 10/11/20 12:00 97.3 96 20 117/74 (88) 99 Intake and Output 10/11/20 10/12/20 19:00 07:00 Intake Total 890 ml Output Total 600 ml 600 ml Balance 290 ml -600 ml Intake Oral 890 ml Output Urine Total 600 ml 600 ml # Voids 3 # Bowel Movements 1 Laboratory Tests Test 10/12/20 06:53 White Blood Count 5.6 K/UL (4.8-10.8) Red Blood Count 4.94 M/UL (4.70-6.10) Hemoglobin 13.5 G/DL (14.2-18.0) L Hematocrit 42.8 % (42.0-52.0) Mean Corpuscular Volume 87 FL (80-99) Mean Corpuscular Hemoglobin 27.4 PG (27.0-31.0) Mean Corpuscular Hemoglobin Concent 31.6 G/DL (32.0-36.0) L Red Cell Distribution Width 14.5 % (11.6-14.8) Platelet Count 194 K/UL (150-450) Mean Platelet Volume 8.3 FL (6.5-10.1) Neutrophils (%) (Auto) 67.9 % (45.0-75.0) Lymphocytes (%) (Auto) 14.5 % (20.0-45.0) L Monocytes (%) (Auto) 15.0 % (1.0-10.0) H Eosinophils (%) (Auto) 1.3 % (0.0-3.0) Basophils (%) (Auto) 1.3 % (0.0-2.0) Sodium Level 135 MMOL/L (136-145) L Potassium Level 3.8 MMOL/L (3.5-5.1) Chloride Level 102 MMOL/L (98-107) Carbon Dioxide Level 26 MMOL/L (21-32) Anion Gap 7 mmol/L (5-15) Blood Urea Nitrogen 15 mg/dL (7-18) Creatinine 1.0 MG/DL (0.55-1.30) Estimat Glomerular Filtration Rate > 60 mL/min (>60) Glucose Level 109 MG/DL (74-106) H Uric Acid 3.8 MG/DL (2.6-7.2) Calcium Level 8.6 MG/DL (8.5-10.1) Phosphorus Level 2.4 MG/DL (2.5-4.9) L Magnesium Level 1.6 MG/DL (1.8-2.4) L Total Bilirubin 0.9 MG/DL (0.2-1.0) Aspartate Amino Transf (AST/SGOT) 38 U/L (15-37) H Alanine Aminotransferase (ALT/SGPT) 30 U/L (12-78) Alkaline Phosphatase 102 U/L (46-116) Total Protein 6.4 G/DL (6.4-8.2) Albumin 2.4 G/DL (3.4-5.0) L Globulin 4.0 g/dL Albumin/Globulin Ratio 0.6 (1.0-2.7) L Objective HEAD AND NECK: Positive JVD. LUNGS: Decreased breath sounds. CARDIOVASCULAR: Regular S1 and S2 with no gallop. ICD left subclavian with no hematoma ABDOMEN: Soft. EXTREMITIES: 1+ pitting edema. Hudson Garcia MD Oct 12, 2020 10:01
--- NOTE | 2020-10-12 11:03 | NUR ---
RADIOLOGY DEPT., CHEST X-RAY DONE.-P.DYE
[2020-10-12 12:00] VITALS: BP 133/85
--- NOTE | 2020-10-12 13:02 | Nephrology Progress Note ---
Assessment/Plan Problem List: (1) DARVIN (acute kidney injury) (2) Cardiomyopathy (3) Hyponatremia (4) CHF (congestive heart failure) (5) Electrolyte imbalance (6) Cardiorenal syndrome (7) Obesity, morbid, BMI 40.0-49.9 Assessment 60-year-old male, creatinine 1.4, sodium 124, potassium 3.2 Patient has history of CHF Patient on IV Lasix and spironolactone by cashier tube room Patient has evidence of blood in the urine and history of kidney stone Final renal impression as per results of the urine, kidney ultrasound, etc. Plan October 12: Labs reviewed. Low phosphorus and low magnesium addressed. Continue per cardiology. Continue to monitor electrolytes and chemistries October 11: Labs reviewed. Patient had defibrillator yesterday. Low sodium addressed. Continue to optimize cardiac status. Per orders. October 10: Labs reviewed. Abnormal electrolyte addressed. Patient due for placement of defibrillator. Continue per current management. October 09: Labs reviewed. Serum creatinine normal. Electrolytes within acceptable range except low potassium which was addressed. Continue per consultants. October 08: Labs reviewed. Serum creatinine 1.4. Serum sodium 136. Clinically stable. Continue per cashier tube room. October 07: Labs reviewed. Serum sodium lowering. On IV Lasix. 250 mL of saline 3% given. Continue to monitor electrolytes. Continue per cardiology. October 06: Labs reviewed. Serum sodium 133. Medication list reviewed. Continu e to monitor renal parameters and electrolytes. October 05: Serum sodium up to 135. Hemoglobin A1c 6.6. Patient clinically stab le. Continue per cardiology. Kidney ultrasound normal size kidneys and no hydronephrosis. 2D echocardiogram ejection fraction of 20 to 25%. Previously: 2D echocardiogram Kidney ultrasound 250 cc saline 3% once Monitor electrolytes Hyponatremia work-up Per orders Subjective ROS Limited/Unobtainable: No Constitutional: Reports: malaise Objective Objective Last 24 Hour Vital Signs Date Time Temp Pulse Resp B/P (MAP) Pulse Ox O2 Delivery O2 Flow Rate FiO2 10/12/20 12:54 105 10/12/20 12:00 98.9 103 21 133/85 (101) 97 10/12/20 09:00 Room Air 10/12/20 08:26 117 115/73 10/12/20 08:00 107 10/12/20 08:00 99.5 117 19 115/73 (87) 98 10/12/20 04:00 98 10/12/20 04:00 99.0 98 16 109/70 (83) 100 10/12/20 00:00 96 10/12/20 00:00 98.8 97 16 119/69 (86) 98 10/11/20 21:05 99.0 10/11/20 21:00 Room Air 10/11/20 20:33 101 102/54 10/11/20 20:00 103 10/11/20 20:00 101.3 101 18 102/54 (70) 97 10/11/20 16:00 96 10/11/20 16:00 97.9 92 20 105/58 (74) 100 Intake and Output 10/11/20 10/12/20 19:00 07:00 Intake Total 890 ml Output Total 600 ml 600 ml Balance 290 ml -600 ml Intake Oral 890 ml Output Urine Total 600 ml 600 ml # Voids 3 # Bowel Movements 1 Current Medications Medications (Trade) Dose Ordered Sig/Damián Route PRN Reason Start Time Stop Time Status Last Admin Dose Admin Acetaminophen (Tylenol) 650 mg Q6H PRN ORAL Temp >100.5 10/10/20 13:00 11/09/20 12:59 10/11/20 20:35 Acetaminophen (Tylenol) 650 mg Q6H PRN ORAL MILD pain 10/04/20 22:30 11/03/20 22:29 Acetaminophen/ Codeine Phosphate (Tylenol #3) 1 tab Q4H PRN ORAL Moderate Pain (Pain Scale 4-6) 10/10/20 13:00 10/17/20 12:59 Allopurinol (Zyloprim) 200 mg DAILY ORAL 10/07/20 10:45 11/06/20 10:44 10/12/20 08:27 Carvedilol (Coreg) 3.125 mg EVERY 12 HOURS ORAL 10/04/20 21:00 11/03/20 20:59 10/12/20 08:26 Cefazolin Sodium 1 gm/Dextrose 55 ml @ 110 mls/hr Q8HR IVP 10/10/20 22:00 10/17/20 21:59 10/12/20 05:16 Furosemide (Lasix) 40 mg DAILY ORAL 10/13/20 09:00 11/12/20 08:59 Guaifenesin (Robitussin) 150 mg Q6H PRN ORAL For Cough 10/04/20 22:30 01/02/21 22:29 10/11/20 04:21 Morphine Sulfate (Morphine Sulfate) 2 mg Q1H PRN IVP Severe Pain (Pain Scale 7-10) 10/10/20 13:00 10/17/20 12:59 10/11/20 00:46 Ondansetron HCl (Zofran) 4 mg Q6H PRN IVP Nausea & Vomiting 10/10/20 13:00 11/09/20 12:59 Pantoprazole (Protonix) 40 mg EVERY 12 HOURS ORAL 10/06/20 21:00 11/05/20 20:59 10/12/20 08:27 Potassium Chloride (K-Dur) 20 meq TWICE A DAY ORAL 10/10/20 09:00 01/08/21 08:59 10/12/20 08:26 Sacubitril/ Valsartan (Entresto 49mg/ 51mg) 1 tab Q12HR ORAL 10/06/20 21:00 01/04/21 20:59 10/12/20 08:35 Spironolactone (Aldactone) 25 mg DAILY ORAL 10/05/20 09:00 11/04/20 08:59 10/12/20 08:27 Laboratory Tests 10/12/20 06:53: White Blood Count 5.6, Red Blood Count 4.94, Hemoglobin 13.5L, Hematocrit 42.8, Mean Corpuscular Volume 87, Mean Corpuscular Hemoglobin 27.4, Mean Corpuscular Hemoglobin Concent 31.6L, Red Cell Distribution Width 14.5, Platelet Count 194, Mean Platelet Volume 8.3, Neutrophils (%) (Auto) 67.9, Lymphocytes (%) (Auto) 14.5L, Monocytes (%) (Auto) 15.0H, Eosinophils (%) (Auto) 1.3, Basophils (%) (Auto) 1.3, Sodium Level 135L, Potassium Level 3.8, Chloride Level 102, Carbon Dioxide Level 26, Anion Gap 7, Blood Urea Nitrogen 15, Creatinine 1.0, Estimat Glomerular Filtration Rate > 60, Glucose Level 109H, Uric Acid 3.8, Calcium Level 8.6, Phosphorus Level 2.4L, Magnesium Level 1.6L, Total Bilirubin 0.9, Aspartate Amino Transf (AST/SGOT) 38H, Alanine Aminotransferase (ALT/SGPT) 30, Alkaline Phosphatase 102, Total Protein 6.4, Albumin 2.4L, Globulin 4.0, Albumin/Globulin Ratio 0.6L Height (Feet): 5 Height (Inches): 9.00 Weight (Pounds): 246 General Appearance: no apparent distress Cardiovascular: tachycardia Respiratory/Chest: decreased breath sounds Abdomen: distended Hari Telles MD Oct 12, 2020 13:02
--- NOTE | 2020-10-12 13:16 | Diagnostic Imaging Report ---
Indication: Shortness of breath Technique: One view of the chest Comparison: 10/10/2020 Findings: There is a left chest AICD. The heart is enlarged. Lungs and pleural spaces are clear. No significant change Impression: Cardiomegaly. No acute process
[2020-10-12] MEDS ORDERED: ALLOPURINOL100 M1 ORAL (13:32)
[2020-10-12] MEDS ORDERED: TraZODone 50mg tab ORAL PRN (13:50)
[2020-10-12] MEDS ORDERED: Sodium Phosphate 15 MM in NS 275 ML IVPB ONE (14:00)
[2020-10-12] MEDS ORDERED: TraZODone 50mg tab ORAL SCH (14:00)
--- NOTE | 2020-10-12 14:30 | NUR ---
NURSE NOTES: Notified patient that discharge was in progress. Asked patient if he would like me to inform anyone of his discharge, patient verbalized "No its okay i would like to surprise my family". Respected patient's request.
--- NOTE | 2020-10-12 16:09 | Pulmonology Progress Note ---
Subjective ROS Limited/Unobtainable: No Interval Events: s/p hemodialysis Constitutional: Reports: no symptoms HEENT: Repors: no symptoms Respiratory: Reports: productive cough Cardiovascular: Reports: no symptoms Gastrointestinal/Abdominal: Reports: no symptoms Genitourinary: Reports: no symptoms Neurologic: Reports: no symptoms Allergies: Coded Allergies: No Known Allergies (Unverified , 04/20/16) All Systems: reviewed and negative except above Objective Last 24 Hour Vital Signs Date Time Temp Pulse Resp B/P (MAP) Pulse Ox O2 Delivery O2 Flow Rate FiO2 10/12/20 12:54 105 10/12/20 12:00 98.9 103 21 133/85 (101) 97 10/12/20 09:00 Room Air 10/12/20 08:26 117 115/73 10/12/20 08:00 107 10/12/20 08:00 99.5 117 19 115/73 (87) 98 10/12/20 04:00 98 10/12/20 04:00 99.0 98 16 109/70 (83) 100 10/12/20 00:00 96 10/12/20 00:00 98.8 97 16 119/69 (86) 98 10/11/20 21:05 99.0 10/11/20 21:00 Room Air 10/11/20 20:33 101 102/54 10/11/20 20:00 103 10/11/20 20:00 101.3 101 18 102/54 (70) 97 Intake and Output 10/11/20 10/12/20 19:00 07:00 Intake Total 890 ml Output Total 600 ml 600 ml Balance 290 ml -600 ml Intake Oral 890 ml Output Urine Total 600 ml 600 ml # Voids 3 # Bowel Movements 1 Objective 10/12 stable on room air 10/11 remains on RA; awaiting cardiac clearance for discharge 10/10 s/p AICD today 10/07 s/p EGD; remains on RA 10/06 saturating well on RA General Appearance: no acute distress HEENT: normocephalic Respiratory: chest wall non-tender, lungs clear Cardiovascular: normal peripheral pulses, normal rate Abdomen: normal bowel sounds Laboratory Tests 10/12/20 06:53: White Blood Count 5.6, Red Blood Count 4.94, Hemoglobin 13.5L, Hematocrit 42.8, Mean Corpuscular Volume 87, Mean Corpuscular Hemoglobin 27.4, Mean Corpuscular Hemoglobin Concent 31.6L, Red Cell Distribution Width 14.5, Platelet Count 194, Mean Platelet Volume 8.3, Neutrophils (%) (Auto) 67.9, Lymphocytes (%) (Auto) 14.5L, Monocytes (%) (Auto) 15.0H, Eosinophils (%) (Auto) 1.3, Basophils (%) (Auto) 1.3, Sodium Level 135L, Potassium Level 3.8, Chloride Level 102, Carbon Dioxide Level 26, Anion Gap 7, Blood Urea Nitrogen 15, Creatinine 1.0, Estimat Glomerular Filtration Rate > 60, Glucose Level 109H, Uric Acid 3.8, Calcium Level 8.6, Phosphorus Level 2.4L, Magnesium Level 1.6L, Total Bilirubin 0.9, Aspartate Amino Transf (AST/SGOT) 38H, Alanine Aminotransferase (ALT/SGPT) 30, Alkaline Phosphatase 102, Total Protein 6.4, Albumin 2.4L, Globulin 4.0, Albumin/Globulin Ratio 0.6L Current Medications Medications (Trade) Dose Ordered Sig/Damián Route PRN Reason Start Time Stop Time Status Last Admin Dose Admin Acetaminophen (Tylenol) 650 mg Q6H PRN ORAL Temp >100.5 10/10/20 13:00 11/09/20 12:59 10/11/20 20:35 Acetaminophen (Tylenol) 650 mg Q6H PRN ORAL MILD pain 10/04/20 22:30 11/03/20 22:29 Acetaminophen/ Codeine Phosphate (Tylenol #3) 1 tab Q4H PRN ORAL Moderate Pain (Pain Scale 4-6) 10/10/20 13:00 10/17/20 12:59 Allopurinol (Zyloprim) 200 mg DAILY ORAL 10/07/20 10:45 11/06/20 10:44 10/12/20 08:27 Carvedilol (Coreg) 3.125 mg EVERY 12 HOURS ORAL 10/04/20 21:00 11/03/20 20:59 10/12/20 08:26 Cefazolin Sodium 1 gm/Dextrose 55 ml @ 110 mls/hr Q8HR IVP 10/10/20 22:00 10/17/20 21:59 10/12/20 14:23 Furosemide (Lasix) 40 mg DAILY ORAL 10/13/20 09:00 11/12/20 08:59 Guaifenesin (Robitussin) 150 mg Q6H PRN ORAL For Cough 10/04/20 22:30 01/02/21 22:29 10/11/20 04:21 Morphine Sulfate (Morphine Sulfate) 2 mg Q1H PRN IVP Severe Pain (Pain Scale 7-10) 10/10/20 13:00 10/17/20 12:59 10/11/20 00:46 Ondansetron HCl (Zofran) 4 mg Q6H PRN IVP Nausea & Vomiting 10/10/20 13:00 11/09/20 12:59 Pantoprazole (Protonix) 40 mg EVERY 12 HOURS ORAL 10/06/20 21:00 11/05/20 20:59 10/12/20 08:27 Potassium Chloride (K-Dur) 20 meq TWICE A DAY ORAL 10/10/20 09:00 01/08/21 08:59 10/12/20 08:26 Sacubitril/ Valsartan (Entresto 49mg/ 51mg) 1 tab Q12HR ORAL 10/06/20 21:00 01/04/21 20:59 10/12/20 08:35 Sodium Phosphate 15 mm/Sodium Chloride 280 ml @ 70.273 mls/ hr ONCE ONCE IVPB 10/12/20 14:00 10/12/20 17:59 10/12/20 15:30 Spironolactone (Aldactone) 25 mg DAILY ORAL 10/05/20 09:00 11/04/20 08:59 10/12/20 08:27 Assessment/Plan Assessment/Plan 1. Pulmonary edema., secondary to #2 - Continue diuretics. - Continue supplemental oxygen as needed - CXR 10/04/2020 Cardiomegaly. No acute process - CXR 10/12 no acute process 2. Cardiomyopathy. - 2D echo LVEF 20-25% - Pt agrees to ICD implant - s/p AICD (10/10) 3. Acute coronary syndrome. - Predominant care per Cardiology. 4. Elevated LFT, bili - Abd US: To-and-fro flow within the main portal vein, could indicate portal hypertension; no gallstones 5. COVID-19 negative 6. Hematemesis - EGD shows gastritis dc planning The care for this patient was discussed with my supervising physician Time spent for this case was approximately 31 minutes Srinivas Weeks Oct 12, 2020 16:09
--- NOTE | 2020-10-12 16:57 | Surgery Progress Note ---
Surgery Progress Note Subjective Symptoms: improved, tolerating diet, passing flatus, pain decreased Objective Last 24 Hour Vital Signs Date Time Temp Pulse Resp B/P (MAP) Pulse Ox O2 Delivery O2 Flow Rate FiO2 10/12/20 12:54 105 10/12/20 12:00 98.9 103 21 133/85 (101) 97 10/12/20 09:00 Room Air 10/12/20 08:26 117 115/73 10/12/20 08:00 107 10/12/20 08:00 99.5 117 19 115/73 (87) 98 10/12/20 04:00 98 10/12/20 04:00 99.0 98 16 109/70 (83) 100 10/12/20 00:00 96 10/12/20 00:00 98.8 97 16 119/69 (86) 98 10/11/20 21:05 99.0 10/11/20 21:00 Room Air 10/11/20 20:33 101 102/54 10/11/20 20:00 103 10/11/20 20:00 101.3 101 18 102/54 (70) 97 I&O Intake and Output 10/11/20 10/12/20 19:00 07:00 Intake Total 890 ml Output Total 600 ml 600 ml Balance 290 ml -600 ml Intake Oral 890 ml Output Urine Total 600 ml 600 ml # Voids 3 # Bowel Movements 1 Dressing: saturated Cardiovascular: RSR Respiratory: decreased breath sounds Abdomen: soft, flat, non-tender, present bowel sounds Extremities: no edema, no tenderness, no cyanosis Laboratory Tests Test 10/12/20 06:53 White Blood Count 5.6 K/UL (4.8-10.8) Red Blood Count 4.94 M/UL (4.70-6.10) Hemoglobin 13.5 G/DL (14.2-18.0) L Hematocrit 42.8 % (42.0-52.0) Mean Corpuscular Volume 87 FL (80-99) Mean Corpuscular Hemoglobin 27.4 PG (27.0-31.0) Mean Corpuscular Hemoglobin Concent 31.6 G/DL (32.0-36.0) L Red Cell Distribution Width 14.5 % (11.6-14.8) Platelet Count 194 K/UL (150-450) Mean Platelet Volume 8.3 FL (6.5-10.1) Neutrophils (%) (Auto) 67.9 % (45.0-75.0) Lymphocytes (%) (Auto) 14.5 % (20.0-45.0) L Monocytes (%) (Auto) 15.0 % (1.0-10.0) H Eosinophils (%) (Auto) 1.3 % (0.0-3.0) Basophils (%) (Auto) 1.3 % (0.0-2.0) Sodium Level 135 MMOL/L (136-145) L Potassium Level 3.8 MMOL/L (3.5-5.1) Chloride Level 102 MMOL/L (98-107) Carbon Dioxide Level 26 MMOL/L (21-32) Anion Gap 7 mmol/L (5-15) Blood Urea Nitrogen 15 mg/dL (7-18) Creatinine 1.0 MG/DL (0.55-1.30) Estimat Glomerular Filtration Rate > 60 mL/min (>60) Glucose Level 109 MG/DL (74-106) H Uric Acid 3.8 MG/DL (2.6-7.2) Calcium Level 8.6 MG/DL (8.5-10.1) Phosphorus Level 2.4 MG/DL (2.5-4.9) L Magnesium Level 1.6 MG/DL (1.8-2.4) L Total Bilirubin 0.9 MG/DL (0.2-1.0) Aspartate Amino Transf (AST/SGOT) 38 U/L (15-37) H Alanine Aminotransferase (ALT/SGPT) 30 U/L (12-78) Alkaline Phosphatase 102 U/L (46-116) Total Protein 6.4 G/DL (6.4-8.2) Albumin 2.4 G/DL (3.4-5.0) L Globulin 4.0 g/dL Albumin/Globulin Ratio 0.6 (1.0-2.7) L Plan Problems: (1) UTI (urinary tract infection) (2) ACS (acute coronary syndrome) (3) CHF (congestive heart failure) (4) Hyponatremia (5) Malnutrition (6) HTN (hypertension) (7) Cardiomyopathy (8) Electrolyte imbalance (9) Renal colic (10) Diverticulosis (11) Abdominal pain Assessment & Plan: epigastric abd pain elevated t bili afebrile HD stable pain improving US abd ordered trend labs okay for diet will follow with recs covid neg lft's bili elevated sona/lip okay no active bleeding inr elevated pending imaging resolved okay for diet d/c planning Gallbladder is unremarkable, without stones, wall thickening, nor pericholecystic fluid. Sonographic Kasper's sign is negative. Common bile duct measures 5 mm in diameter. No intrahepatic biliary ductal dilatation. Liver demonstrates normal echogenicity, no focal abnormality. To-and-fro flow is seen within the main portal vein Pancreas is incompletely visualized due to overlying bowel gas, visualized portions are unremarkable. Spleen demonstrates a small cyst. Left kidney measures 11.5 cm in length. Right kidney measures 11.3 cm length. Both kidneys demonstrate normal echogenicity. There is no hydronephrosis. . Kidneys demonstrate small cysts and small echogenic foci. Unremarkable inferior vena cava.. Non-aneurysmal abdominal aorta . Impression: To-and-fro flow within the main portal vein, could indicate portal hypertension Negative for gallstones or dilated bile ducts Echogenic foci within the kidneys, suspected artifactual as no calculi are demonstrated on recent CT scan Incidental finding of splenic and small bilateral renal cysts likely liver dysfunction portal htn cont medical management Can Gomez Oct 12, 2020 16:57
--- NOTE | 2020-10-12 17:00 | NUR ---
NURSE NOTES: Received orders for discharge to home from Dr. Gonzalez. Cleared by cardio, gi, id. Patient observed to be awake, alert x4 and ambulatory. Vital signs stable at 138/90, hr 95, 02 96% on room air. RR 20, and temperature 98.7. All discharge paperworks prepared, all documents signed. Discharge teachings educated to patient and patient verbalized understandin. All belongings checked and accounted for. ID band removed and IV site removed. Patient discharged in ambulating in stable condition.
[2020-10-13] MEDS ORDERED: Furosemide 40mg tab ORAL SCH (09:00)
--- NOTE | 2020-10-14 13:48 | Discharge Summary ---
Discharge Summary Discharge Summary _ Date of admission: 10/04/2020 Date of discharge: 10/12/[address] Gonzalez History of Present Illness and Brief Hospital Course Mr. Mills is a 60-year-old male with history of CHF who presented to the ER for evaluation of epigastric pain. He also reported to have worsening lower extremity pain and swelling. His initial COVID-19 test came back negative in the ER. His initial EKG showed normal sinus rhythm without acute ischemic changes. His initial chest x-ray was notable for cardiomegaly and clear lungs as well as pleural spaces. He was given aspirin, antibiotics and Lasix in the ER and was admitted to the hospital for further care and support. On admission, he continued to receive diuretics for pulmonary edema. Repeat chest x-rays continued to show no acute processes. His left ventricular ejection fraction was estimated to be 20-25% on 2D echocardiogram. Patient agreed to ICD implant. The patient received [employer] ICD implant on 10/10/2020 that was interrogated and showed NI Fx. Patient tolerated the procedure well. He was given cefazolin post surgery. He was found to have no hematoma or signs of infection at the surgical site. Abdominal ultrasound revealed to and fro flow within the main portal vein, which could indicate portal hypertension. Gallstones or dilated bile ducts were not noted. Upper endoscopy with biopsy was performed for evaluation of hematemesis. The procedure, risks, benefits, and possible consequences and alternative treatments were explained to the patient and the patient understood and accepted these risk s. Patient was found to have diffuse gastritis, mostly in the body of the stomach, suspicious but not confirmatory for portal hypertensive gastropathy. Biopsy from this area was obtained to evaluate for portal hypertension gastropathy. No obvious ulceration was observed. The pathology report on gastric biopsy revealed he had H. pylori gastritis without evidence for intestinal metaplasia, dysplasia or malignancy. Patient also presented with hematuria. A follow-up renal ultrasound revealed focal posterior bladder wall thickening. His hematuria improved over the days. His initial urinalysis showed signs of UTI and patient was treated with empiric antibiotics. However, he was observed off antibiotics given absence of signs and symptoms. His urine culture showed no growth after 48 hours. On the day of his discharge, patient was medically stable, saturating well on room air. He was able to ambulate and was discharged home. Consultants: Cardiology Dr. Garcia Urology Dr. Camara Hematology oncology Dr. Cates surgery Dr. Gomez Pulmonology Dr. Oliveros Nephrology Dr. Rose Infectious disease Dr. Zayas Discharge Condition: Improved and stable Final diagnoses CHF exacerbation, EF 20% s/p AICD implant (10/10/20) Hypertension Hx of Benign prostatic hypertrophy Acute kidney injury Hematemesis Hematuria Cardiomegaly Hyponatremia Obesity Acute coronary syndrome Malnutrition Pulmonary edema H. pylori gastritis I have been assigned to dictate discharge summary for this account. Srinivas Weeks Oct 14, 2020 13:48
== END 2020-10-12 17:00 | disposition home or self-care (01) | DRG 226 ==
LOC: EMR 07:05 → EDBEDREQ 07:53 → 2E 08:12 → EDBEDREQ 10:53 → 2E 17:42
PROC: 0DD68ZX Extraction of Stomach, Via Natural or Artificial Opening Endoscopic, Diagnostic (ICD-10-PCS; principal; 2020-10-07 12:58)
PROC: 02HK3KZ Insertion of Defibrillator Lead into Right Ventricle, Percutaneous Approach (ICD-10-PCS; 2020-10-10)
PROC: 0JH608Z Insertion of Defibrillator Generator into Chest Subcutaneous Tissue and Fascia, Open Approach (ICD-10-PCS; 2020-10-10)
DX: I13.0 Hypertensive heart and chronic kidney disease with heart failure and stage 1 through stage 4 chronic kidney disease, or unspecified chronic kidney disease (principal); I50.23 Acute on chronic systolic (congestive) heart failure; K29.71 Gastritis, unspecified, with bleeding; N39.0 Urinary tract infection, site not specified; E46 Unspecified protein-calorie malnutrition; E87.1 Hypo-osmolality and hyponatremia; I47.1 Supraventricular tachycardia; N17.9 Acute kidney failure, unspecified; Z68.41 Body mass index [BMI] 40.0-44.9, adult; N18.9 Chronic kidney disease, unspecified; I42.8 Other cardiomyopathies; D72.810 Lymphocytopenia; Z20.822 Contact with and (suspected) exposure to COVID-19; N40.0 Benign prostatic hyperplasia without lower urinary tract symptoms; B96.81 Helicobacter pylori [H. pylori] as the cause of diseases classified elsewhere; R31.9 Hematuria, unspecified; E66.01 Morbid (severe) obesity due to excess calories
CPT/HCPCS: 36415; 71045; 76000; 76700; 76770; 80053; 80061; 81003; 82150; 82248; 82977; 83036; 83690; 83735; 83880; 83930; 83935; 84100; 84300; 84443; 84484; 84550; 85025; 85610; 85651; 85730; 86140; 86705; 86709; 86803; 87040; 87070; 87086; 87205; 87340; 93005; 93306; 94003; 94150; 96365; 96375; 99285; J2405; J8499; U0002

== ENCOUNTER → 2020-10-12 | Emergency (ER) | payer OTHER ==
[~2020-10-12] MED LIST changes: +ALLOPURINOL100 M1 ORAL; +CARVEDILOL3.125 MG ORAL; +ENTRESTO 24 MG1 EACH PO; +FUROSEMIDE40 MG ORAL; +SPIRONOLACTONE25 MG ORAL
--- NOTE | 2020-10-12 17:16 | NUR ---
ED Nurse Note: (9960) See Code blue sheet.
--- NOTE | 2020-10-12 17:42 | NUR ---
ED Nurse Note: ERMD pronounced time of .
--- NOTE | 2020-10-12 17:55 | Emergency Room Report ---
History of Present Illness General Chief Complaint: To Be Triaged Source: EMS Present Illness HPI 60-year-old -German male PMHx CHF EF 20%, cardiomyopathy, HTN, morbid obesity, brought into the emergency department with cardiac arrest. Patient was recently discharged from the hospital. CPR was in progress on arrival by ER staff. According to the nurse discharging patient, the patient was being escorted out to his vehicle and suddenly collapsed, falling onto his face. He then became unresponsive. Downtime was approximately 3 to 5 minutes. Bystander CPR was performed by RN and EMT that happened to be in the parking lot. Accu-Chek was within normal limits. History is limited secondary to patient's GCS of 3 Past medical history: See HPI Past surgical history: Chest Port-A-Cath Smoking: Unable to obtain Alcohol use: Unable to obtain Drug use: Unable to obtain Review of systems: Unable to obtain secondary to patient's clinical status 14 point Review of Systems is otherwise negative except per HPI Physical Exam: GENERAL: Acutely ill-appearing. Fixed dilated unresponsive pupils. Large left frontal hematoma. No midface instability. EYES: Conjunctivae clear. Lids without swelling ENT: External nose and ear normal_in_appearance. Oropharynx clear. Head_atraumatic, Moist_oral_mucosa. No tongue laceration NECK: No JVD. No meningismus. No thyromegaly. Supple. Trachea midline RESP: Apneic. No respiratory effort. Symmetric rise. No flank ecchymosis CARDIAC: No pulse ABDOMEN: Distended. No pelvic instability. MSK: Atonic SKIN: Cold. Cyanotic. NEUROLOGIC: Alert, oriented x0. GCS 3 Psych: Normal mood and affect, normal judgment and insight - COORDINATION OF CARE Case was discussed with: PMD Medical Decision Making/Plan: I responded to CODE BLUE. Patient has visible trauma to the left frontal forehead. Pupils are fixed and dilated. Initial rhythm was PEA. Bystander CPR was started immediately by RN and EMT in parking lot. Downtime was 3 to 5 minutes. Upon my arrival, patient was being bagged by DISPLAY DESIGNER. Pupils are fixed and dilated. There was trauma to the L forehead and large hematoma. Extensive efforts were made to revive the patient. Patient initially had ROSC x after several rounds of CPR and push dose epinephrine. ROSC rhythm was sinus tachycardia..however this degraded into Vfib, pt was defibrillated and given lidocaine. CPR was continued and several further founds of ACLS were given. Please see nursing documentation for list of ACLS medications provided (epinephrine x6, bicarb x 3, calcium 1 g, lidocaine x 1). Patient had multiple PEA at pulse check. Despite our best efforts, patient unfortunately at 1742. Asystole confirmed on bedside ECHO. Chart reviewed. Patient was admitted to [facility] and discharged today. I attempted to call Dr Gonzalez but was unsuccessful. Dr Kong called ED back as he is covering Dr Gonzalez. He was informed that the patient . He states he will update family regarding the news. Development Coach Dr Diaz was also updated as to patient's condition Procedure note: Cardiopulmonary Resuscitation by me: See code documentation for specific details. ACLS and BLS were performed with high quality chest compressions and minimal interruptions. Any reversible causes were assessed and treated. Indication: Pulseless/CODE BLUE Informed consent: Patient unable to consent and no DNR status on record Procedure: Cardiac compressions were performed by staff in order to sustain blood flow under my direct supervision. The patient was ventilated and oxygenated. The patient received appropriate ACLS measures and they were repeated as necessary. Findings: Patient had no return of spontaneous circulation Procedure Note: Endotracheal Intubation by me: Pre assessment performed. See preceding note for details. Pre-oxygenation performed with 100% oxygen RSI: Performed w/o complication or hypoxic events. Medications as ordered. Emergency Endotracheal Intubation: Consent unable to be obtained due to emergent nature of procedure and airway assessment this patient was prepared for endotracheal intubation with preoxygenation and airway positioning. The patient underwent rapid sequence induction and endotracheal intubation utilizing direct visualization laryngoscopy. The endotracheal tube was placed between the vocal cords and placement was confirmed with fogging of the tube, end title CO2, and equal bilateral chest rise as well as absence of borborygmi over the epigastrium. Chest x-ray was obtained for final confirmation. There were no complications. Blade: NONE ET Tube: LMA Complications: No hypoxic events or bradycardia Post LMA SpO2 88% LMA placement confirmed by colorimetric CO2, equal breath sounds, quiet over the stomach. LMA placed with full C spine precautions, with the assistance of property consultant. Allergies: Coded Allergies: No Known Allergies (Unverified , 04/20/16) COVID-19 Screening Contact w/high risk pt: No Experienced COVID-19 symptoms?: No Nursing Documentation-PMH Hx Cardiac Problems: Yes - kidney stones, chf Hx Cancer: No Hx Gastrointestinal Problems: No Hx Neurological Problems: No Physical Exam Sp02 EP Interpretation: reviewed, abnormal Medical Decision Making Diagnostic Impression: Primary Impression: Cardiopulmonary arrest Additional Impressions: HTN (hypertension) Obesity, morbid, BMI 40.0-49.9 Cardiomyopathy Cardiorenal syndrome CHF (congestive heart failure) Disposition: Admit Decision Time: 17:55 Condition: Referrals: NOT CHOSEN IPA/,REFERRING (PCP) Jennifer Ceballos D.O. Oct 12, 2020 17:55
== END | disposition expired ==
LOC: EMR 17:42
DX: I46.9 Cardiac arrest, cause unspecified (principal); I10 Essential (primary) hypertension; E66.01 Morbid (severe) obesity due to excess calories; I42.9 Cardiomyopathy, unspecified; I13.10 Hypertensive heart and chronic kidney disease without heart failure, with stage 1 through stage 4 chronic kidney disease, or unspecified chronic kidney disease; N18.9 Chronic kidney disease, unspecified; I50.9 Heart failure, unspecified; Z68.41 Body mass index [BMI] 40.0-44.9, adult; Z87.442 Personal history of urinary calculi
CPT/HCPCS: 31500; 92950; 99291